=== PATIENT | female | born 2000 | race Caucasian/White ===

== ENCOUNTER 2019-06-17 07:51 | Observation (INO) | payer OTHER ==
[~2019-06-17] VITALS: Ht 167.6 cm; Wt 100.7 kg
--- OUTSIDE RECORDS SUMMARY | ~2019-06-17 | XMS | Encounter Summary ---
Demographics + + + | Address | [address] | | | [place] [address] | + + + | Home Phone | | + + + | Preferred Language | Unknown | + + + | Marital Status | Single | + + + | Moravian Affiliation | Unknown | + + + | Race | White | + + + | Ethnic Group | Not or | + + + Author + + + | Author | [facility] | + + + | Organization | [facility] | + + + | Address | Unknown | + + + | Phone | Unavailable | + + + Support + + +---------+ + | Name | Relationship | Address | Phone | + + +---------+ + | Vivek Woods | ECON | Unknown | | + + +---------+ + | Mary Woods | ECON | Unknown | | + + +---------+ + Care Team Providers + +------+ + | Care Harness Installer Name | Role | Phone | + +------+ + | Nyla Fitzpatrick MD | PCP | | + +------+ + Reason for Visit + + + | Reason | Comments | + + + | Medication Refill | | + + + Encounter Details +--------+ + + + + | Date | Type | Department | Care Team | Description | +--------+ + + + + | 08/30/ | Telephone | Pediatric | [place] Leonardo MD | Medication Refill | | 2007 | | Gastroenterology at | | | | | | [place] | | | | | | [facility] | | | | | | [address] | | | | | | [place] Mailcode: | | | | | | [facility] | | | | | | [place], [place] | | | | | | [address] | | | | | | [phone] | | | +--------+ + + + + Social History + +-------+ +--------+------+ | Tobacco Use | Types | Packs/Day | Years | Date | | | | | Used | | + +-------+ +--------+------+ | Never Assessed | | | | | + +-------+ +--------+------+ + + + | Sex Assigned at | Date Recorded | | | | + + + | Not on file | | + + + + + + + | Job Start Date | Occupation | Industry | + + + + | Not on file | Not on file | Not on file | + + + + + + + + | Travel History | Travel Start | Travel End | + + + + + + | No recent travel history available. | + + documented as of this encounter Plan of Treatment Not on filedocumented as of this encounter Visit Diagnoses Not on filedocumented in this encounter"
--- OUTSIDE RECORDS SUMMARY | ~2019-06-17 | XMS | Encounter Summary ---
Demographics + + + | Address | [address] | | | [place] [address] | + + + | Home Phone | | + + + | Preferred Language | Unknown | + + + | Marital Status | Single | + + + | Advent Affiliation | Unknown | + + + | Race | White | + + + | Ethnic Group | Not or | + + + Author + + + | Author | [facility] | + + + | Organization | [facility] | + + + | [...] Team Providers + +------+ + | Care Concrete Vault Maker Name | Role | Phone | + +------+ + | Nyla Fitzpatrick MD | PCP | | + +------+ + Reason for Visit + + + | Reason | Comments | + + + | Care Coordination | | + + + Encounter Details +--------+ + + + + | Date | Type | Department | Care Team | Description | +--------+ + + + + | 02/06/ | Telephone | Pediatric | Crista Valadez, | Care Coordination | | 2016 | | Gastroenterology at | MD [address] | | | | | [place] | [place], [place] | | | | | [facility] | [address] | | | | | [address] [facility] | [phone] | | | | | [place] Mailcode: | | | | | | [address] | | | | | | [place], [place] | | | | | | [address] | | | | | | [phone] | | | +--------+ + + + + Social History + +-------+ +--------+------+ | Tobacco Use | Types | Packs/Day | Years | Date | | | | | Used | | + +-------+ +--------+------+ | Passive Smoke | | | | | | Exposure - Never | | | | | | Smoker | | | | | + +-------+ +--------+------+ + +---+---+---+ | Smokeless Tobacco: | | | | | Never Used | | | | + +---+---+---+ + + +---------+ + | Alcohol Use | Drinks/Week | oz/Week | Comments | + + +---------+ + | Not Asked | | | | + + +---------+ + + + + | Sex Assigned at [...]
--- OUTSIDE RECORDS SUMMARY | ~2019-06-17 | XMS | Encounter Summary ---
Demographics + + + | Address | [address] | | | [place] [address] | + + + | Home Phone | | + + + | Preferred Language | Unknown | + + + | Marital Status | Single | + + + | Evangelical Affiliation | Unknown | + + + | Race | White | + + + | Ethnic Group | Not or | + + + Author + + + | Author | [facility] | + + + | Organization | [facility] | + + + | Address | [...] Team Providers + +------+ + | Care Marble Installation Helper Name | Role | Phone | + +------+ + | Nyla Fitzpatrick MD | PCP | | + +------+ + Reason for Visit + + + | Reason | Comments | + + + | Test Results | | + + + Encounter Details +--------+ + + + + | Date | Type | Department | Care Team | Description | +--------+ + + + + | 10/10/ | Documentati | Pediatric | Crista Valadez, | Test Results | | 2015 | on | Gastroenterology at | MD [address] | | | | | [place] | [place], [place] | | | | | [facility] | [address] | | | | | [address] | [phone] | | | | | [place] Mailcode: | | | | | | [facility] [place] | | | | | | [place], [place] | | | | | | [address] | | | | | | [phone] | | | +--------+ + + + [...]
--- OUTSIDE RECORDS SUMMARY | ~2019-06-17 | XMS | Encounter Summary ---
Demographics + + + | Address | [address] | | | [place] [address] | + + + | Home Phone | | + + + | Preferred Language | Unknown | + + + | Marital Status | Single | + + + | Yazidi Affiliation | Unknown | + + + | Race | White | + + + | Ethnic Group | Not or | + + + Author + + + | Author | [facility] | + + + | Organization | [facility] | + + + | Address [...] Team Providers + +------+ + | Care Discharge Door Operator Name | Role | Phone | + +------+ + | Nyla Fitzpatrick MD | PCP | | + +------+ + Reason for Visit +--------+ + | Reason | Comments | +--------+ + | Other | No lab work in one year | +--------+ + Encounter Details +--------+ + + + + | Date | Type | Department | Care Team | Description | +--------+ + + + + | 05/14/ | Telephone | Pediatric | Althea Mcdonald, | Other (No lab work | | 2009 | | Gastroenterology at | RN [address] | in one year) | | | | [place] | [address] | | | | | [facility] | [place] [address] | | | | | [address] | | | | | | [place] Mailcode: | | | | | | [place] | | | | | | [place], [place] | | | | | | [address] | | | | | | [phone] | | | +--------+ + + + [...]
--- OUTSIDE RECORDS SUMMARY | ~2019-06-17 | XMS | Encounter Summary ---
Demographics + + + | Address | [address] | | | [place] [address] | + + + | Home Phone | | + + + | Preferred Language | Unknown | + + + | Marital Status | Single | + + + | Catholic Affiliation | Unknown | + + + | Race | White | + + + | Ethnic Group | Not or | + + + Author + + + | Author | [facility] | + + + | Organization | [facility] | + + + | Address [...] Team Providers + +------+ + | Care Pastry Cook Name | Role | Phone | + +------+ + | Nyla Fitzpatrick MD | PCP | | + +------+ + Reason for Visit + + + | Reason | Comments | + + + | Refill Request | | + + + Encounter Details +--------+--------+ + + + | Date | Type | Department | Care Team | Description | +--------+--------+ + + + | 07/27/ | Refill | Pediatric | Althea Mcdonald, | Refill Request | | 2007 | | Gastroenterology at | RN [address] | | | | | [place] | [address] | | | | | [facility] | [place] [address] | | | | | [address] | | | | | | [place] Mailcode: | | | | | | [facility] [place] | | | | | | [place], [place] | | | | | | [address] | | | | | | [phone] | | | +--------+--------+ + + + Social History + +-------+ [...]
--- OUTSIDE RECORDS SUMMARY | ~2019-06-17 | XMS | Encounter Summary ---
Demographics + + + | Address | [address] | | | [place] [address] | + + + | Home Phone | | + + + | Preferred Language | Unknown | + + + | Marital Status | Single | + + + | Judaism Affiliation | Unknown | + + + | Race | White | + + + | Ethnic Group | Not or | + + + Author + + + | Author | [facility] | + + + | Organization [...] Team Providers + +------+ + | Care Production Painter Name | Role | Phone | + +------+ + | Nyla Fitzpatrick MD | PCP | | + +------+ + Reason for Visit + + + | Reason | Comments | + + + | Care Coordination | Hartman request | + + + Encounter Details +--------+ + + + + | Date | Type | Department | Care Team | Description | +--------+ + + + + | 12/08/ | Telephone | Pediatric | Crista Valadez, | Care Coordination | | 2017 | | Gastroenterology at | MD [address] | ([facility]) | | | | [facility] | [place], [place] | | | | | [facility] | [address] | | | | | [address] | [phone] | | | | | [place] Mailcode: | | | | | | [address] | | | | | | [facility] [place] | | | | | | [address] | | | | | | [phone] | | | +--------+ + + + [...]
--- OUTSIDE RECORDS SUMMARY | ~2019-06-17 | XMS | Encounter Summary ---
Demographics + + + | Address | [address] | | | [place] [address] | + + + | Home Phone | | + + + | Preferred Language | Unknown | + + + | Marital Status | Single | + + + | Jainism Affiliation | Unknown | + + + | Race | White | + + + | Ethnic Group | Not or | + + + Author + + + | Author | [facility] [employer] [facility] | + + + | Organization | [facility] | + + + | Address [...] Team Providers + +------+ + | Care Back Closer Name | Role | Phone | + +------+ + | Nyla Fitzpatrick MD | PCP | | + +------+ + Encounter Details +--------+ + + + + | Date | Type | Department | Care Team | Description | +--------+ + + + + | 06/12/ | Abstract | Pediatric | Crista Valadez, | | | 2014 | | Gastroenterology at | [address] | | | | | [place] | [place], [place] | | | | | [facility] | [address] | | | | | [address] | [phone] | | | | | [place] Mailcode: | | | | | | [place] | | | | | | [place], [place] | | | | | | [address] | | | | | | [phone] | | | +--------+ + + + [...] Not on filedocumented as of this encounter Procedures + +--------+ + + + | Procedure Name | Priori | Date/Time | Associated Diagnosis | Comments | | | ty | | | | + +--------+ + + + | CMV PCR | Routin | 06/08/2015 | | Results for this | | QUANTITATION, PLASMA | e | 9:25 AM | | procedure are in the | | | | PDT | | results section. | + +--------+ + + + | NICOLASA STEPHENS | Routin | 06/08/2015 | | Results for this | | PCR,QUANT (PLASMA OR | e | 9:25 AM | | procedure are in the | | CSF) | | PDT | | results section. | + +--------+ + + + documented in this encounter Results CMV PCR QUANTITATION, PLASMA (06/08/2015 9:25 AM PDT) + + + + + + | Component | Value | Ref Range | Performed | Pathologist | | | | | At | Signature | + + + + + + | CMV DNA | <390 | | [facility] | | | QUANT | | | LAB - | | | COPY/ML | | | [place] | | + + + + + + | CMV, QUANT, | <2.6 | | [facility] | | | LOG CPY/ML | | | LAB - | | | | | | [place] | | + + + + + + | CMV DNA | <227 | | [facility] | | | QUANT IU/ML | | | LAB - | | | | | | [place] | | + + + + + + | CMV DNA | <2.4 | | [facility] | | | QUANT LOG | | | LAB - | | | IU/ML | | | [place] | | + + + + + + | CMV DNA | Not detected | | [facility] | | | QUANT | | | LAB - | | | INTER[facility] | | | [place] | | + + + + + + + + | Specimen | + + | Blood - Blood | + + + + + + + | Performing | Address | City/State/Zipcode | Phone Number | | Organization | | | | + + + + + | [facility] - | [address] | [place], [place] | [phone] | | [place] | | | | + + + + + NICOLASA STEPHENS PCR,QUANT (PLASMA OR CSF) (06/08/2015 9:25 AM PDT) + + + + + + | Component | Value | Ref Range | Performed | Pathologist | | | | | At | Signature | + + + + + + | EBV QUANT | <390 | | [facility] | | | COPY/ML | | | LAB - | | | | | | [place] | | + + + + + + | EBV QUANT | Log <2.6 | | [facility] | | | SPECIMEN | | | LAB - | | | | | | [place] | | + + + + + + | EBV | Not detected | | [facility] | | | INTERPRETAT | | | LAB - | | | ION | | | [place] | | + + + + + + + + | Specimen | + + | Blood | + + + + + + + | Performing | Address | City/State/Zipcode | Phone Number | | Organization | | | | + + + + + | [facility] - | [address] | [place], [place] | [phone] | | [place] | | | | + + + + + documented in this encounter Visit Diagnoses Not on filedocumented in this encounter"
--- OUTSIDE RECORDS SUMMARY | ~2019-06-17 | XMS | Clinical Summary ---
Demographics + + + | Address | [address] | | | [place] [address] | + + + | Home Phone | | + + + | Preferred Language | Unknown | + + + | Marital Status | Single | + + + | Nondenominational Affiliation | Unknown | + + + | Race | White | + + + | Ethnic Group | Not or | + + + Author + + + | Author | [facility] | + + + | Organization | [facility] | + + + | Address | Unknown | + + + | Phone | Unavailable | + + + Support + + +---------+ + | Name | Relationship | Address | Phone | + + +---------+ + | Vivek Rodriguez | ECON | Unknown | | + + +---------+ + | Mary Rodriguez | ECON | Unknown | | + + +---------+ + Care Team Providers + +------+ + | Care Health Club Manager Name | Role | Phone | + +------+ + | Nyla Fitzpatrick MD | PCP | | + +------+ + Source Comments ESTER is fully live on both EpicCare Ambulatory and EpicCare InPatient.[facility] Allergies + + + + + + | Active Allergy | Reactions | Severity | Noted | Comments | | | | | Date | | + + + + + + | Sulfa (Sulfonamide | Hives, | High | 10/05/19 | | | Antibiotics) | Swelling-Facial | | 09 | | + + + + + + | Varicella Vaccines | | Low | 10/05/19 | Possible reaction | | | | | 09 | with sulfa meds | + + + + + + Medications + + + +---------+------+------+-------+ | Medication | Sig | Dispensed | Refills | Star | End | Statu | | | | | | t | Date | s | | | | | | Date | | | + + + +---------+------+------+-------+ | amLODIPine 5 mg | Take 5 mg by mouth | | 0 | | | Activ | | oral tablet | once daily. 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 | + + + | Aortic insufficiency | 06/28/2014 | + + + | Aortic root dilatation | 06/28/2014 | + + + | VSD (ventricular septal defect), perimembranous | 12/20/2007 | + + + + + | Overview: 06/01/2014 S/p 8-mm Amplatzer Vascular Plug IV, | | with no significant residual shuntingLeft atrial isomerism LAE | | (left atrial enlargement) LVE (left ventricular enlargement) | |LVE (left ventricular enlargement) | + + + + + | 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 | + + Last Filed Vital Signs + + + + + | Vital Sign | Reading | Time Taken | Comments | + + + + + | Blood Pressure | 130/93 | 03/13/2016 9:24 AM | right arm adult cuff | | | | PDT | | + + + + + | Pulse | 72 | 03/13/2016 9:24 AM | | | | | PDT | | + + + + + | Temperature | 36.7 C (98.1 F) | 03/13/2016 8:59 AM | | | | | PDT | | + + + + + | Respiratory Rate | - | - | | + + + + + | Oxygen Saturation | - | - | | + + + + + | Inhaled Oxygen | - | - | | | Concentration | | | | + + + + + | Weight | 81.5 kg (179 lb 10.8 | 03/13/2016 8:59 AM | | | | oz) | PDT | | + + + + + | Height | 164.4 cm (5' 4.72") | 03/13/2016 8:59 AM | | | | | PDT | | + + + + + | Body Mass Index | 30.16 | 03/13/2016 8:59 AM | | | | | PDT | | + + + + + Plan of Treatment + + + + + | Health Maintenance | Due Date | Last Done | Comments | + + + + + | Pneumococcal | | | | | vaccination (1 of 3 | 5 | | | | - PCV13) | | | | + + + + + | Influenza (Flu) | | | | | vaccination (#1) | 9 | | | + + + + + Results Not on filefrom Last 3 Months Insurance + +--------+ +--------+-------+---------+--------+ | Payer | Benefi | Subscriber | Effect | Phone | Address | Type | | | t Plan | ID | adrian | | | | | | / | | Dates | | | | | | Group | | | | | | + +--------+ +--------+-------+---------+--------+ | COMMERCIAL FRONT LOAD OPERATOR MEDICAID | COMMERCIAL FRONT LOAD OPERATOR | [id number] | | | | Medica | | | [place] | | 015-Pr | | | id | | | [place] | | esent | | | | + +--------+ +--------+-------+---------+--------+ + +--------+ +--------+ + + | Guarantor Name | Accoun | Relation to | Date | Phone | Billing Address | | | t Type | Patient | of | | | | | | | | | | + +--------+ +--------+ + + | VIVEK RODRIGUEZ | Person | Father [birth year] | [address] | | | al/Fam | | 1980 | [phone] | [place] [address] | | | marlene | | | 7 (Home) | | + +--------+ +--------+ + + Advance Directives + + + + + | Type | Date Recorded | Patient | Explanation | | | | Director Of Retail Analytics | | + + + + + | Advance | | | | | Directives and | | | | | Living Will | | | | + + + + + | Power of | | | | | Metal Filer | | | | + + + + +
--- OUTSIDE RECORDS SUMMARY | ~2019-06-17 | XMS | Encounter Summary ---
Demographics + + + | Address | [address] | | | [place] [address] | + + + | Home Phone [...] + + | Author | [facility] | + + + | Organization | [facility] | + + + | Address [...] Team Providers + +------+ + | Care Packaging Operator Name | Role | Phone | + +------+ + | Nyla Fitzpatrick MD | PCP | | + +------+ + Reason for Visit +--------+ + | Reason | Comments | +--------+ + | Other | Need labs drawn | +--------+ + Encounter Details +--------+ + + + + | Date | Type | Department | Care Team | Description | +--------+ + + + + | 05/30/ | Telephone | Pediatric | Althea Mcdonald, | Other (Need labs | | 2008 | | Gastroenterology at | RN [address] [facility] | drawn) | | | | [place] | [address] | | | | [facility] | [place] [address] | | | | | [address] [facility] | | | | | | [facility] Mailcode: | | | | | | [facility] [place] | | | | | | [place], [place] | | | | | | [address] | | | | | | [phone] | | | +--------+ + + + [...]
--- OUTSIDE RECORDS SUMMARY | ~2019-06-17 | XMS | Encounter Summary ---
Demographics + + + | Address | [address] | | | [place] [address] | + + + | Home Phone | | + + + | Preferred Language | Unknown | + + + | Marital Status | Single | + + + | Anabaptist Affiliation | Unknown | + + + [...] Team Providers + +------+ + | Care Director Educational Radio Name | Role | Phone | + +------+ + | Nyla Fitzpatrick MD | PCP | | + +------+ + Encounter Details +--------+ + + + + | Date | Type | Department | Care Team | Description | +--------+ + + + + | 05/28/ | Office | | Note, Outpatient | Progress Note | | 2006 | Visit-Trans | | Clinic | | | | cribed | | | | +--------+ + + [...] as of this encounter Progress Notes Interface, Human Performance Professor In - 06/18/2006 2:32 AM [facility] [id number] CHUCK ELIAS N [id number] Clinic Date: 05/28/2006 Clinic: Pediatric Liver Transplant Followup Clinic Problems: Status post liver transplant for biliary atresia, 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 Medication: Prograf 1-mg capsules 1 p.o. b.i.d. Allergies: SULFA, HIVES. Subjective: Nicki is a 5-year 8-month-old referred in consultation by Dr. Fitzpatrick for followup of her liver transplant. Dr. Carlos Brady was an observer in clinic today. Nicki was accompanied by her father. He reports that she was a 5-pound 2-ounce product of a 34-week gestation. She required some oxygen in the period. 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 She had biliary atresia and was transplanted at about [age] of age. Her father reports that she did wonderfully after her transplant. She has never had a rejection and has had no significant problems. She is on 1 medication only. Past Medical History: She has a VSD that is followed by Dr. Molina at [facility]. Review of Systems: She has no chronic cough, no abdominal pain, no diarrhea, no eczema or other allergic problems. Rest of her review of systems is negative. Family History: Positive for type 2 diabetes and heart problems in adults. Social History: She lives with her mother, her father, and her 3-year-old brother. She is in 2nd grade. Objective: General: She is a well-appearing girl in no acute distress. Vital Signs: Her weight is 30.8 kg, 87th percentile for age; her height is 130 cm which is 75th percentile; her BMI is 18.22, 86th percentile. Her blood pressure is 120/83, slightly high; her heart rate is 80. HEENT: She is normocephalic. Eyes: No icterus. No periorbital edema. Pharynx unremarkable. Neck: Supple. Chest: Clear to auscultation. Cardiac: She has a 3 to 4 over 6 systolic murmur that is heard best in the apex. Abdomen: She has well-healed incisions, no hepatosplenomegaly, no masses noted. Extremities: No clubbing or edema. Nodes: No cervical or supraclavicular nodes. Skin: Clear. Laboratory Tests: Most recent tests were done on May 25, 2006, electrolytes unremarkable, AST 32, ALT 19, alkaline phosphatase 221, bilirubin 0.8, albumin 3.2 which in the normal range for that lab. GGT 9, magnesium 1.9. White count 8.2, hematocrit 42.2, MCV 83, and platelets 325. Tacrolimus level 3.2. In the past in 2001, she developed positive antibodies to EBV. She is also positive for varicella antibody. Assessment: Status post liver transplant for biliary atresia. She is doing well and has never had rejection. Her Prograf level is in the target range. Recommendations: 1. Recommend she continue labs every 3 months as her previous schedule. 2. EBV PCR every 6 months. 3. No change in her medication at present. Plan to return to clinic once a year unless she has problems. [place] Leonardo M.D. [facility] / [id number] / [id number] / [id number] / [id number] cc: Nyla Fitzpatrick M.D. [address] [place] [address] * Pediatric Liver Coordinators [facility] [address] [place] [address] Electronically signed by [place] Leonardo 06-17-2006 10:05:03 PM documented i n this encounter Plan of Treatment Not on filedocumented as of this encounter Visit Diagnoses Not on filedocumented in this encounter"
--- OUTSIDE RECORDS SUMMARY | ~2019-06-17 | XMS | Encounter Summary ---
Demographics + + + | Address | [address] | | | [place] [address] | + + + | Home Phone | | + + + | Preferred Language | Unknown | + + + | Marital Status | Single | + + + | Samaritan Affiliation | Unknown | + + + | Race | White | + + + | Ethnic Group | Not or | + + + Author + + + | Author | [facility] | + + + | Organization | [facility] | + + + | [...] Team Providers + +------+ + | Care Group Therapy Counselor Name | Role | Phone | + +------+ + | No Pcp Per Patient | PCP | Unavailable | + +------+ + Encounter Details +--------+ + + + + | Date | Type | Department | Care Team | Description | +--------+ + + + + | 05/01/ | Abstract | Pediatric | Crista Valadez, | | | 2013 | | Gastroenterology at | MD [address] | | | | | [place] | [place], [place] | | | | | [facility] | [address] | | | | | [address] | [phone] | | | | [address] Mailcode: | | | | | | [address] | | | | | | [place], [place] | | | | | | [address] | | | | | | [phone] | | | +--------+ + + + [...] | + +--------+ + + + | CBC, WITH | Routin | 03/09/2014 | | Results for this | | DIFFERENTIAL | e | 11:57 AM | | procedure are in the | | | | PDT | | results section. | + +--------+ + + + | COMPLETE METABOLIC | Routin | 03/09/2014 | | Results for this | | SET | e | 11:57 AM | | procedure are in the | | (NA,K,CL,CO2,BUN,CRE | | PDT | | results section. | | AT,GLUC,CA,AST,ALT,B | | | | | | WADE TOTAL,ALK | | | | | | PHOS,ALB,PROT TOTAL) | | | | | + +--------+ + + + documented in this encounter Results CBC, WITH DIFFERENTIAL (03/09/2014 11:57 AM PDT) + + + + + + | Component | Value | Ref Range | Performed | Pathologist | | | | | At | Signature | + + + + + + | WHITE CELL | 6.6 | 4.4 - 11.8 K/cu | [facility] | | | COUNT | | mm | LAB - | | | | | | [facility] | | + + + + + + | RED CELL | 4.83 | 3.8 - 5.3 M/cu | [facility] | | | COUNT | | mm | LAB - | | | | | | [facility] | | + + + + + + | HEMOGLOBIN | 14.7 | 11.1 - 15.7 | [facility] | | | | | g/dL | LAB - | | | | | | [facility] | | + + + + + + | HEMATOCRIT | 42.8 | 32 - 47 % | [facility] | | | | | | LAB - | | | | | | [facility] | | + + + + + + | MCV | 88.6 | 73 - 91 fL | [facility] | | | | | | LAB - | | | | | | [facility] | | + + + + + + | MCH | 30 | 25 - 31 pg | [facility] | | | | | | LAB - | | | | | | [facility] | | + + + + + + | MCHC | 34 | 30 - 36 g/dL | [facility] | | | | | | LAB - | | | | | | [facility] | | + + + + + + | PLATELET | 328 | 140 - 440 K/cu | [facility] | | | COUNT | | mm | LAB - | | | | | | [facility] | | + + + + + + | NEUTROPHIL | 63.8 | 35 - 65 % | [facility] | | | % | | | LAB - | | | | | | [facility] | | + + + + + + | LYMPHOCYTE | 25.1 (A) | 28 - 48 % | [facility] | | | % | | | LAB - | | | | | | [facility] | | + + + + + + | MONOCYTE % | 7.2 | 0 - 12 % | [facility] | | | | | | LAB - | | | | | | [facility] | | + + + + + + | EOS % | 3.1 | 0 - 6 % | [facility] | | | | | | LAB - | | | | | | [facility] | | + + + + + + | BASO % | 0.8 | 0 - 2 % | [facility] | | | | | | LAB - | | | | | | [facility] | | + + + + + + | RDW | 13.8 | 10.5 - 15.0 % | [facility] | | | | | | LAB - | | [...] [address] | [place], [place] | [phone] | | [facility] | | | | + + + + + COMPLETE METABOLIC SET (NA,K,CL,CO2,BUN,CREAT,GLUC,CA,AST,ALT,BILI TOTAL,ALK PHOS,ALB,PROT TOTAL) (03/09/2014 11:57 AM PDT) + +--------+ + + + | Component | Value | Ref Range | Performed | Pathologist | | | | | At | Signature | + +--------+ + + + | GLUCOSE, | 87 | 70 - 100 mg/dL | [facility] | | | PLASMA | | | LAB - | | | (LAB) | | | [facility] | | + +--------+ + + + | BUN, PLASMA | 13 | 6 - 23 mg/dL | [facility] | | | (LAB) | | | LAB - | | | | | | [facility] | | + +--------+ + + + | CREATININE | 0.75 | 0.40 - 1.05 | [facility] | | | PLASMA | | mg/dL | LAB - | | | (LAB) | | | [facility] | | + +--------+ + + + | TOTAL | 7.6 | 6.1 - 8.5 g/dL | [facility] | | | PROTEIN, | | | LAB - | | | PLASMA | | | [facility] | | | (LAB) | | | | | + +--------+ + + + | ALBUMIN, | 4.4 | 3.5 - 5.0 g/dL | [facility] | | | PLASMA | | | LAB - | | | (LAB) | | | [facility] | | + +--------+ + + + | CALCIUM, | 9.9 | 8.4 - 10.2 | [facility] | | | PLASMA | | mg/dL | LAB - | | | (LAB) | | | [facility] | | + +--------+ + + + | BILIRUBIN | 0.8 | 0 - 1.2 | [facility] | | | TOTAL | | Transcutaneous | LAB - | | | | | Bilirubinometer | [facility] | | + +--------+ + + + | ALK PHOS | 92 (A) | 135 - 384 U/L | [facility] | | | | | | LAB - | | | | | | [facility] | | + +--------+ + + + | AST(SGOT) | 13 | 13 - 39 U/L | [facility] | | | | | | LAB - | | | | | | [facility] | | + +--------+ + + + | SODIUM, | 140 | 132 - 143 | [facility] | | | PLASMA | | mmol/L | LAB - | | | (LAB) | | | [facility] | | + +--------+ + + + | POTASSIUM, | 4.0 | 3.6 - 5.1 | [facility] | | | PLASMA | | mmol/L | LAB - | | | (LAB) | | | [facility] | | + +--------+ + + + | CHLORIDE, | 100 | 95 - 112 mmol/L | [facility] | | | PLASMA | | | LAB - | | | (LAB) | | | [facility] | | + +--------+ + + + | TOTAL CO2, | 28 | 19 - 31 mmol/L | [facility] | | | PLASMA | | | LAB - | | | (LAB) | | | [facility] | | + +--------+ + + + | ALT (SGPT) | 9 | 7 - 52 U/L | [facility] | | | | | | LAB - | | | | | | [facility] | | + +--------+ + + + | ANION GAP | 16 | 7 - 21 | [facility] | | | | | | LAB - | | | | | | [facility] | | + +--------+ + + + | BUN/CREATIN | 17.3 | 6.0 - 28.6 | [facility] | | | INE RATIO | | | LAB - | | | | | | [facility] | | + +--------+ + + + | GLOBULIN | 3.2 | 1.8 - 3.5 | [facility] | | | | | | LAB - | | | | | | [facility] | | + +--------+ + + + | A/G RATIO | 1.4 | 1.1 - 2.4 | [facility] | | | | | | LAB - | | | | | | [facility] | | + +--------+ + + + + + | Specimen | + + | Blood - Blood | + + + + + + + | Performing | Address | City/State/Zipcode | Phone Number | | Organization | | | | + + + + + | [facility] - | [address] | [place] | [phone] | | [place] | | | | + + + + + documented in this encounter Visit Diagnoses Not on filedocumented in this encounter"
--- OUTSIDE RECORDS SUMMARY | ~2019-06-17 | XMS | Encounter Summary ---
Demographics + + + | Address | [address] | | | [place] [address] | + + + | Home Phone | | + + + | Preferred Language | Unknown | + + + | Marital Status | Single | + + + | Hoahaoism Affiliation | Unknown | + + + [...] Team Providers + +------+ + | Care Bushing And Broach Operator Name | Role | Phone | + +------+ + | Nyla Fitzpatrick MD | PCP | | + +------+ + Encounter Details +--------+ + + + + | Date | Type | Department | Care Team | Description | +--------+ + + + + | 06/11/ | Transcribed | | Dictation, Other | [...] as of this encounter Progress Notes Interface, Blasting Gang Miner In - 06/27/2006 3:05 AM [facility] [place] [address] [place], [place] [address] or June 11, 2000 Nyla Fitzpatrick M.D. [address] [place] [address] RE: NICKI WOODS MR #: [id number] : 2000 DATE OF TRANSPLANT: 03/24/[address] Fitzpatrick: I had the pleasure of seeing Nicki at the Pediatric Liver Transplant Clinic held at [facility], attended by Dr. Beth and Dr. Kallie Don, representatives of the Liver Transplant team at [place], in lieu with Dr. Carnes. As you know, she underwent liver transplantation on March 24, 2000, and did well posttransplant. Since she has been at home, she has continued to do fairly well. The only problem is some diarrhea. On a good day she will have 2 bowel movements a day, and on a bad day she will have 4-5. She has no fever or blood in the stool, however. She is on Prograf 5 ml b.i.d. and acyclovir 10 ml q.i.d. Septra was stopped a few weeks ago because of A LIKELY ALLERGIC REACTION TO SEPTRA. It involved hives. On exam, she weighs 11.2 kg and measures 78 cm. Blood pressure is 85/50. Pulse was 126. She is anicteric, active, and playful. Her abdomen is soft and rounded with no mass, tenderness, or organomegaly. She had some recent blood tests, which show transaminases in the 40-50 range. The remainder of the blood test results are very similar to the ones done a week before. Her most recent tacrolimus level is appropriate. The most recent one is pending. 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 She has had a relatively uncomplicated posttransplant course and is doing fairly well. We need to begin a pneumocystis prophylaxis soon. She will start receiving pentamidine, 1 unit dose per month, (1 vial) inhalation therapy. We will see if can arrange this to be done in the [facility], rather than having the family drive all the way to the [place] for this. This should be done for 1 year posttransplant. For the next 1-1/2 months, the family will have Nicki's blood drawn every 2 weeks. Assuming everything is under control, then it could be done monthly. The family will be talking to Dr. Carnes soon to firm up plans to have Nicki followed mostly by you in the [facility], and to come to [place] either when the situation is unstable and, at the very least, every 3-6 months for chronic monitoring. Finally, Kallie will work out the details of which laboratory tests should be done and when with the family. Please let me know if you have any questions. Sincerely, Kendall Angulo M.D. Pediatric Gastroenterology [facility] / [id number] / [id number] / [id number] / [id number] cc: Kendall Beth M.D. [address] [place] [id number] [id number] signed by Interface, Blasting Gang Miner In at 06/27/2006 3:05 AM PSTdocume nted in this encounter Plan of Treatment Not on filedocumented as of this encounter Visit Diagnoses Not on filedocumented in this encounter"
--- OUTSIDE RECORDS SUMMARY | ~2019-06-17 | XMS | Encounter Summary ---
Demographics + + + | Address | [address] | | | [place] [address] | + + + | Home Phone | | + + + | Preferred Language | Unknown | + + + | Marital Status | Single | + + + | Buddhism Affiliation | Unknown | + + + | Race | White | + + + | Ethnic Group | Not or | + + + Author + + + | Author | [facility] | + + + | Organization | [facility] | + + + | Address [...] Providers + +------+ + | Care Pastry Finisher Name | Role | Phone | + +------+ + | Nyla Fitzpatrick MD | PCP | | + +------+ + Encounter Details +--------+ + + + + | Date | Type | Department | Care Team | Description | +--------+ + + + + | 05/28/ | Abstract | Pediatric | [place] Leonardo MD | | | 2008 | | Gastroenterology at | | | | | | [place] | | | | | | [facility] | | | | | | [address] | | | | | | [place] Mailcode: | | | | | | [place] | | | | | | [place], [place] | | | | | | [address] | | | | | | [phone] | | | +--------+ + + + [...] | + +--------+ + + + | CULTURE, URINE BACTI | Routin | 03/02/2009 | | Results for this | | | e | 8:23 PM | | procedure are in the | | | | PDT | | results section. | + +--------+ + + + | CBC, WITH | Routin | 03/02/2009 | | Results for this | | DIFFERENTIAL | e | 7:59 PM | | procedure are in the | | | | PDT | | results section. | + +--------+ + + + | CULTURE, BLOOD BACTI | Routin | 03/02/2009 | | Results for this | | & YEAST | e | 7:57 PM | | procedure are in the | | | | PDT | | results section. | + +--------+ + + + | COMPLETE METABOLIC | Routin | 03/02/2009 | | Results for this | | SET | e | 7:52 PM | | procedure are in the | | (NA,K,CL,CO2,BUN,CRE | | PDT | | results section. | | AT,GLUC,CA,AST,ALT,B | | | | | | WADE TOTAL,ALK | | | | | | PHOS,ALB,PROT TOTAL) | | | | | + +--------+ + + + | UA, DIPSTICK ONLY | Routin | 03/02/2009 | | Results for this | | | e | | | procedure are in the | | | | | | results section. | + +--------+ + + + documented in this encounter Results CULTURE, URINE BACTI (03/02/2009 8:23 PM PDT) + + + + + + | Component | Value | Ref Range | Performed | Pathologist | | | | | At | Signature | + + + + + + | CULTURE | negComment: Day 1, | | [facility] | | | RESULT | 03/03/09 am No growth | | LAB - | | | | after overnight | | [facility] | | | | incubation | | | | + + + + + + | CULTURE | nuxedComment: Days 2, | | [facility] | | | RESULT | - AM, 20,000 | | LAB - | | | | CFU/ML mixed olinda | | [facility] | | | | bacteria and/or yeast | | | | | | isolated probably | | | | | | represent urethral, | | | | | | perineal, or other | | | | | | contaminating olinda | | | | + + + + + + + + | Specimen | + + | Urine | + + + + + | Narrative | Performed At | + + + | Day 1 no aerobic or anaerobic growth as of 03/03/09 07:22 AM Day 2 | [facility] | | no aerobic or anaerobic growth as of 03/04/09 07:16 AM Day 3 no | - [facility] | | aerobic or anaerobic growth as of 03/05/09 06:51 AM Day 6 - No | | | growth after 6 days incubation | | + + + + + + + + | Performing | Address | City/State/Zipcode | Phone Number | | Organization | | | | + + + + + | [facility] - | [address] | [place], [place] | [phone] | | [facility] | | | | + + + + + | [facility] - | | [place], [place] | | | [facility] | | | | + + + + + CBC, WITH DIFFERENTIAL (03/02/2009 7:59 PM PDT) + + + + + + | Component | Value | Ref Range | Performed | Pathologist | | | | | At | Signature | + + + + + + | WHITE CELL | 8.6 | 4.5 - 13.5 K/cu | [facility] | | | COUNT | | mm | LAB - | | | | | | [facility] | | + + + + + + | RED CELL | 5.48 (A) | 4.1 - 5.3 M/cu | [facility] | | | COUNT | | mm | LAB - | | | | | | [facility] | | + + + + + + | HEMOGLOBIN | 16.4 (A) | 10.6 - 15.2 | [facility] | | | | | g/dL | LAB - | | | | | | [facility] | | + + + + + + | HEMATOCRIT | 46.5 (A) | 32 - 42 % | [facility] | | | | | | LAB - | | | | | | [place] | | + + + + + + | MCV | 84.9 | 71 - 89 fL | [facility] | | | | | | LAB - | | | | | | [place] | | + + + + + + | MCH | 30 | 24 - 30 pg | [facility] | | | | | | LAB - | | | | | | [place] | | + + + + + + | MCHC | 35 | 30 - 36 g/dL | [facility] | | | | | | LAB - | | | | | | [place] | | + + + + + + | PLATELET | 359 | 140 - 440 K/cu | [facility] | | | COUNT | | mm | LAB - | | | | | | [place] | | + + + + + + | NEUTROPHIL | 71.7 (A) | 31 - 60 % | [facility] | | | % | | | LAB - | | | | | | [place] | | + + + + + + | LYMPHOCYTE | 17.7 (A) | 28 - 48 % | [facility] | | | % | | | LAB - | | | | | | [place] | | + + + + + + | MONOCYTE % | 8.3 | 0 - 12 % | [facility] | | | | | | LAB - | | | | | | [place] | | + + + + + + | EOS % | 0.5 | 0 - 6 % | [facility] | | | | | | LAB - | | | | | | [place] | | + + + + + + | BASO % | 1.8 | 0 - 2 % | [facility] | | | | | | LAB - | | | | | | [place] | | + + + + + + | RDW | 12.0 | 10.5 - 15.0 % | [facility] | | | | | | LAB - | | | | | | [place] | | + + + + + + | MPV | | fL | [facility] | | | | | | LAB - | | | | | | [place] | | + + + + + + | NEUTROPHIL | | K/cu mm | [facility] | | | # | | | LAB - | | | | | | [place] | | + + + + + + | LYMPHOCYTE | | K/cu mm | [facility] | | | # | | | LAB - | | | | | | [place] | | + + + + + + | MONOCYTE # | | K/cu mm | [facility] | | | | | | LAB - | | | | | | [place] | | + + + + + + | EOS # | | K/cu mm | [facility] | | | | | | LAB - | | | | | | [place] | | + + + + + + | BASO # | | | [facility] | | | | | [...] | [facility] - | [address] | [place], [place] | [phone] | | [place] | | | | + + + + + | [facility] - | | [place], [place] | | | [place] | | | | + + + + + CULTURE, BLOOD BACTI & YEAST (03/02/2009 7:57 PM PDT) + +-------+ + + + | Component | Value | Ref Range | Performed | Pathologist | | | | | At | Signature | + +-------+ + + + | CULTURE | Neg | | [facility] | | | RESULT | | | LAB - | | | | | | [facility] | | + +-------+ + + + + + | Specimen | + + | Blood | + + + + + | Narrative | Performed At | + + + | Day 1 no aerobic or anaerobic growth as of 03/03/09 07:22 AM Day 2 | [facility] | | no aerobic or anaerobic growth as of 03/04/09 07:16 AM Day 3 no | - [facility] | | aerobic or anaerobic growth as of 03/05/09 06:51 AM Day 6 - No | | | growth after 6 days incubation | | + + + + + + + + | Performing | Address | City/State/Zipcode | Phone Number | | Organization | | | | + + + + + | [facility] - | [address] | [place], [place] | [phone] | | [facility] | | | | + + + + + | [facility] - | | [place], [place] | | | [facility] | | | | + + + + + COMPLETE METABOLIC SET (NA,K,CL,CO2,BUN,CREAT,GLUC,CA,AST,ALT,BILI TOTAL,ALK PHOS,ALB,PROT TOTAL) (03/02/2009 7:52 PM PDT) + +-------+ + + + | Component | Value | Ref Range | Performed | Pathologist | | | | | At | Signature | + +-------+ + + + | GLUCOSE, | 99 | 60 - 100 mg/dL | [facility] | | | PLASMA | | | LAB - | | | (LAB) | | | [facility] | | + +-------+ + + + | BUN, PLASMA | 14.8 | 7 - 21 mg/dL | [facility] | | | (LAB) | | | LAB - | | | | | | [place] | | + +-------+ + + + | CREATININE | 0.70 | 0.5 - 1.5 mg/dL | [facility] | | | PLASMA | | | LAB - | | | (LAB) | | | [place] | | + +-------+ + + + | TOTAL | | g/dL | [facility] | | | PROTEIN, | | | LAB - | | | PLASMA | | | [place] | | | (LAB) | | | | | + +-------+ + + + | ALBUMIN, | | g/dL | [facility] | | | PLASMA | | | LAB - | | | (LAB) | | | [place] | | + +-------+ + + + | CALCIUM, | | mg/dL | [facility] | | | PLASMA | | | LAB - | | | (LAB) | | | [place] | | + +-------+ + + + | BILIRUBIN | | Transcutaneous | [facility] | | | TOTAL | | Bilirubinometer | LAB - | | | | | | [place] | | + +-------+ + + + | ALK PHOS | | U/L | [facility] | | | | | | LAB - | | | | | | [place] | | + +-------+ + + + | AST(SGOT) | | U/L | [facility] | | | | | | LAB - | | | | | | [place] | | + +-------+ + + + | SODIUM, | 138 | 132 - 143 | [facility] | | | PLASMA | | mmol/L | LAB - | | | (LAB) | | | [place] | | + +-------+ + + + | POTASSIUM, | 3.8 | 3.6 - 5.1 | [facility] | | | PLASMA | | mmol/L | LAB - | | | (LAB) | | | [place] | | + +-------+ + + + | CHLORIDE, | 103 | 95 - 112 mmol/L | [facility] | | | PLASMA | | | LAB - | | | (LAB) | | | [place] | | + +-------+ + + + | TOTAL CO2, | 24.0 | 19 - 31 mmol/L | [facility] | | | PLASMA | | | LAB - | | | (LAB) | | | [place] | | + +-------+ + + + | ALT (SGPT) | | U/L | [facility] | | | | | | LAB - | | | | | | [place] | | + +-------+ + + + + + | Specimen | + + | Blood - Blood | + + + + + + + | Performing | Address | City/State/Zipcode | Phone Number | | Organization | | | | + + + + + | [facility] - | [address] | [place], [place] | [phone] | | [place] | | | | + + + + + | [facility] - | | [place], [place] | | | [place] | | | | + + + + + UA, ANSTICK ONLY (03/02/2009) + + + + + + | Component | Value | Ref Range | Performed | Pathologist | | | | | At | Signature | + + + + + + | COLOR(UR) | yellow | | [facility] | | | | | | LAB - | | | | | | [facility] | | + + + + + + | APPEARANCE | hazy | | [facility] | | | | | | LAB - | | | | | | [place] | | + + + + + + | LEUKOCYTE | Neg | Negative | [facility] | | | ESTERASE | | | LAB - | | | | | | [place] | | + + + + + + | NITRITES | Neg | Negative | [facility] | | | | | | LAB - | | | | | | [place] | | + + + + + + | UROBILINOGE | 1 | 0.2 CARLENE | [facility] | | | N | | UNITS | LAB - | | | | | | [place] | | + + + + + + | PROTEIN(LAB | 30 | Negative to | [facility] | | | ) | | Trace mg/dL | LAB - | | | | | | [place] | | + + + + + + | PH(UR) | 7 | 5 - 9 | [facility] | | | | | | LAB - | | | | | | [place] | | + + + + + + | BLOOD | 10 | Negative | [facility] | | | | | | LAB - | | | | | | [place] | | + + + + + + | SPECIFIC | 1.033 (A) | 1.005 - 1.03 | [facility] | | | GRAVITY | | | LAB - | | | | | | [facility] | | + + + + + + | KETONES | 150 | Negative mg/dL | [facility] | | | | | | LAB - | | | | | | [place] | | + + + + + + | BILIRUBIN | neg | Negative | [facility] | | | | | | LAB - | | | | | | [place] | | + + + + + + | GLUCOSE(UR) | normal | Negative to | [facility] | | | | | Trace mg/dL | LAB - | | | | | | [place] | | + + + + + + | WHITE CELL | 5 (A) | 0 - 4 K/cu mm | [facility] | | | COUNT | | | LAB - | | | | | | [place] | | + + + + + + | RED CELLS | 15 (A) | 0 - 4 /hpf | [facility] | | | | | | LAB - | | | | | | [place] | | + + + + + + | EPITHELIAL | squamous 1+ | Not applicable | [facility] | | | CELLS | | | LAB - | | | | | | [place] | | + + + + + + | CRYSTALS | neg | | [facility] | | | | | | LAB - | | | | | | [place] | | + + + + + + | BACTERIA | 2+ | /hpf | [facility] | | | | | | LAB - | | | | | | [facility] | | + + + + + + + + | Specimen | + + | Urine - Urine | + + + + + + + | Performing | Address | City/State/Zipcode | Phone Number | | Organization | | | | + + + + + | [facility] - | [address] | [place] | [phone] | | [facility] | | | | + + + + + | [facility] - | | [place], [place] | | | [facility] | | | | + + + + + documented in this encounter Visit Diagnoses Not on filedocumented in this encounter"
--- OUTSIDE RECORDS SUMMARY | ~2019-06-17 | XMS | Encounter Summary ---
Demographics + + + | Address | [address] | | | [place] [address] | + + + | Home Phone | | + + + | Preferred Language | Unknown | + + + | Marital Status | Single | + + + | Hindu Affiliation | Unknown | + + + | Race | White | + + + | Ethnic Group | Not or | + + + Author + + + | Author | [facility] [employer] [facility] | + + + | Organization | [facility] | + + + | [...] Team Providers + +------+ + | Care Administrative Secretary Name | Role | Phone | + +------+ + | Nyla Fitzpatrick MD | PCP | | + +------+ + Encounter Details +--------+ + + + + | Date | Type | Department | Care Team | Description | +--------+ + + + + | 05/26/ | Abstract | Pediatric | Althea Mcdonald, | | | 2006 | | Gastroenterology at | RN [address] | | | | | [place] | [address] | | | | | [facility] | [place] [address] | | | | | [address] | | | | | | [address] Mailcode: | | | | | | [address] [place] | | | | | | [place], [place] | | | | | | [address] | | | | | | [phone] | | | +--------+ + + + [...] | + +--------+ + + + | PEDS | Routin | 05/25/2007 | | Results for this | | GASTROENTEROLOGY | e | 8:00 AM | | procedure are in the | | EXTERNAL RESULTS | | PDT | | results section. | | PANEL | | | | | + +--------+ + + + documented in this encounter Results PEDS GASTROENTEROLOGY EXTERNAL RESULTS PANEL (05/25/2007 8:00 AM PDT) + + + + + + | Component | Value | Ref Range | Performed | Pathologist | | | | | At | Signature | + + + + + + | SODIUM, | 140 | 132 - 143 | OUTSIDE LAB | | | PLASMA | | mmol/L | | | | (LAB) | | | | | + + + + + + | POTASSIUM, | 4.0 | 3.6 - 5.1 | OUTSIDE LAB | | | PLASMA | | mmol/L | | | | (LAB) | | | | | + + + + + + | CHLORIDE, | 108 | 95 - 112 mmol/L | OUTSIDE LAB | | | PLASMA | | | | | | (LAB) | | | | | + + + + + + | TOTAL CO2, | 21.1 | 19 - 31 mmol/L | OUTSIDE LAB | | | PLASMA | | | | | | (LAB) | | | | | + + + + + + | BUN, PLASMA | 13 | 6 - 23 mg/dL | OUTSIDE LAB | | | (LAB) | | | | | + + + + + + | CREATININE | 0.48 (A) | 0.5 - 1.5 mg/dL | OUTSIDE LAB | | | PLASMA | | | | | | (LAB) | | | | | + + + + + + | GLUCOSE, | 96 | 60 - 100 mg/dL | OUTSIDE LAB | | | PLASMA | | | | | | (LAB) | | | | | + + + + + + | CALCIUM, | 10.2 | 8.5 - 10.5 | OUTSIDE LAB | | | PLASMA | | mg/dL | | | | (LAB) | | | | | + + + + + + | TOTAL | 7.8 | 6.0 - 8.1 g/dL | OUTSIDE LAB | | | PROTEIN, | | | | | | PLASMA | | | | | | (LAB) | | | | | + + + + + + | ALBUMIN, | 4.2 | 2.9 - 5.5 g/dL | OUTSIDE LAB | | | PLASMA | | | | | | (LAB) | | | | | + + + + + + | ALK PHOS | 263 | 135 - 384 U/L | OUTSIDE LAB | | + + + + + + | ALT (SGPT) | 24 | 0 - 46 U/L | OUTSIDE LAB | | + + + + + + | AST(SGOT) | 28 | 0 - 40 U/L | OUTSIDE LAB | | + + + + + + | BILIRUBIN | 0.8 | 0.0 - 1.2 | OUTSIDE LAB | | | TOTAL | | Transcutaneous | | | | | | Bilirubinometer | | | + + + + + + | BILIRUBIN | | mg/dL | OUTSIDE LAB | | | DIRECT | | | | | + + + + + + | PHOSPHORUS, | | mg/dL | OUTSIDE LAB | | | PLASMA | | | | | | (LAB) | | | | | + + + + + + | MAGNESIUM,P | 1.9 | 1.7 - 2.5 mg/dL | OUTSIDE LAB | | | LASMA | | | | | + + + + + + | GAMMA | 16 | 5 - 60 U/L | OUTSIDE LAB | | | GLUTAMYL | | | | | | TRANS | | | | | + + + + + + | URIC ACID, | | mg/dL | OUTSIDE LAB | | | PLASMA | | | | | | (LAB) | | | | | + + + + + + | AMYLASE,REYES | | U/L | OUTSIDE LAB | | | SMA | | | | | + + + + + + | LIPASE | | U/L | OUTSIDE LAB | | | (LAB) | | | | | + + + + + + | AMMONIA | | umol/L | OUTSIDE LAB | | | (LAB) | | | | | + + + + + + | WHITE CELL | 6.3 | 4.5 - 13.5 K/cu | OUTSIDE LAB | | | COUNT | | mm | | | + + + + + + | HEMOGLOBIN | 15.5 (A) | 10.6 - 15.2 | OUTSIDE LAB | | | | | g/dL | | | + + + + + + | HEMATOCRIT | 44.6 (A) | 32 - 42 % | OUTSIDE LAB | | + + + + + + | RDW | 13.5 | 10.5 - 15.0 % | OUTSIDE LAB | | + + + + + + | PLATELET | 310 | 140 - 440 K/cu | OUTSIDE LAB | | | COUNT | | mm | | | + + + + + + | MCV | 83.3 | 71 - 89 fL | OUTSIDE LAB | | + + + + + + | NEUTROPHIL | 54.4 | % | OUTSIDE LAB | | | % | | | | | + + + + + + | LYMPHOCYTE | 37.6 | % | OUTSIDE LAB | | | % | | | | | + + + + + + | MONOCYTE % | 4.9 | % | OUTSIDE LAB | | + + + + + + | EOS % | 1.9 | % | OUTSIDE LAB | | + + + + + + | BASO % | 1.1 | % | OUTSIDE LAB | | + + + + + + | PEDS | | | OUTSIDE LAB | | | GASTROENTER | | | | | | OLOGY PT | | | | | + + + + + + | PROTHROMBIN | | | OUTSIDE LAB | | | TIME | | | | | | (INR), POC | | | | | + + + + + + | APTT | | seconds | OUTSIDE LAB | | + + + + + + | SEDIMENTATI | | mm/hr | OUTSIDE LAB | | | ON RATE | | | | | + + + + + + | C-REACTIVE | | mg/dl | OUTSIDE LAB | | | PROTEIN | | | | | + + + + + + | CHOLESTEROL | | mg/dL | OUTSIDE LAB | | | (LAB) | | | | | + + + + + + | TRIGLYCERID | | mg/dL | OUTSIDE LAB | | | ES | | | | | + + + + + + | HDL | | mg/dL | OUTSIDE LAB | | | CHOLESTEROL | | | | | + + + + + + | LDL | | mg/dL | OUTSIDE LAB | | | CHOLESTEROL | | | | | | , | | | | | | CALCULATED | | | | | + + + + + + | IRON SERUM | | ug/dL | OUTSIDE LAB | | + + + + + + | IRON BIND | | ug/dL | OUTSIDE LAB | | | CAP SERUM | | | | | + + + + + + | % | | % | OUTSIDE LAB | | | SATURATION | | | | | | TRANSFERRIN | | | | | | , SERUM | | | | | + + + + + + | FERRITIN | | ng/mL | OUTSIDE LAB | | + + + + + + | TRANSFERRIN | | mg/dL | OUTSIDE LAB | | | , SERUM | | | | | + + + + + + | CYCLOSPORIN | | ng/ml | OUTSIDE LAB | | | E, WHOLE | | | | | | BLOOD | | | | | + + + + + + | TACROLIMUS | 3.4 (A) | 5.0 - 18.0 | OUTSIDE LAB | | | (FK 506) | | ng/mL | | | + + + + + + | MYCOPHENOLI | | | OUTSIDE LAB | | | C ACID | | | | | | BLOOD LEVEL | | | | | + + + + + + | SIROLIMUS, | | ng/mL | OUTSIDE LAB | | | WHOLE BLOOD | | | | | + + + + + + | NICOLASA-BAR | | | OUTSIDE LAB | | | R PCR,QUAL | | | | | + + + + + + | EBV QUANT | | | OUTSIDE LAB | | | INTERPRETAT | | | | | | ION | | | | | + + + + + + | IGG SERUM | | mg/dL | OUTSIDE LAB | | + + + + + + | IGM SERUM | | mg/dL | OUTSIDE LAB | | + + + + + + | AB TO | | IV | OUTSIDE LAB | | | NUCLEAR AG | | | | | + + + + + + | AB TO EARLY | | IV | OUTSIDE LAB | | | AG | | | | | + + + + + + | CMV IGG AB | | AU/mL | OUTSIDE LAB | | + + + + + + | CMV IGM AB | | IV | OUTSIDE LAB | | + + + + + + | CMV | | | OUTSIDE LAB | | | QUANTITATIV | | | | | | E PCR | | | | | + + + + + + | HEPATITIS A | | | OUTSIDE LAB | | | AB TOTAL | | | | | + + + + + + | HEPATITIS B | | | OUTSIDE LAB | | | CORE AB, | | | | | | SERUM | | | | | + + + + + + | HEPATITIS B | | | OUTSIDE LAB | | | SURFACE | | | | | | AG, SERUM | | | | | + + + + + + | HEPATITIS B | | | OUTSIDE LAB | | | SURF AB, | | | | | | QUANT | | | | | + + + + + + | HEPATITIS C | | | OUTSIDE LAB | | | AB | | | | | + + + + + + | VITAMIN D | | ng/mL | OUTSIDE LAB | | | 25 HYDROXY | | | | | + + + + + + | VITAMIN | | pg/ml | OUTSIDE LAB | | | B12, SERUM | | | | | + + + + + + | VITAMIN A | | | OUTSIDE LAB | | | (LAB) | | | | | + + + + + + | VITAMIN E | | mg/L | OUTSIDE LAB | | | (ALPHA | | | | | | ROSHAN), SERUM | | | | | + + + + + + | CARNITINE | | | OUTSIDE LAB | | | MUSCLE - | | | | | | CAM | | | | | + + + + + + | COPPER | | ug/dL | OUTSIDE LAB | | | SERUM | | | | | + + + + + + | PEDS | | | OUTSIDE LAB | | | GASTROENTER | | | | | | OLOGY | | | | | | CHROMIUM | | | | | + + + + + + | PEDS | | | OUTSIDE LAB | | | GASTROENTER | | | | | | OLOGY | | | | | | MANGANESE | | | | | + + + + + + | SELENIUM, | | ug/L | OUTSIDE LAB | | | SERUM | | | | | + + + + + + | ZINC SERUM | | ug/dL | OUTSIDE LAB | | + + + + + + | IGA SERUM | | mg/dl | OUTSIDE LAB | | + + + + + + | TTG IGA | | AU | OUTSIDE LAB | | + + + + + + | GLIADIN | | EU | OUTSIDE LAB | | | PEPTIDE AB, | | | | | | IGA | | | | | + + + + + + + + | Specimen | + + | | + + + +---------+ + + | Performing | Address | City/State/Zipcode | Phone Number | | Organization | | | | + +---------+ + + | NON [facility] | | | | + +---------+ + + | OUTSIDE LAB | | | | + +---------+ + + documented in this encounter Visit Diagnoses Not on filedocumented in this encounter"
--- OUTSIDE RECORDS SUMMARY | ~2019-06-17 | XMS | Encounter Summary ---
Demographics + + + | Address | [address] | | | [place] [address] | + + + | Home Phone | | + + + | Preferred Language | Unknown | + + + | Marital Status | Single | + + + | Scientologist Affiliation | Unknown | + + + | Race | White | + + + | Ethnic Group | Not or | + + + Author + + + | Author | [facility] [employer] [facility] | + + + | Organization | [facility] | + + + | Address [...] Team Providers + +------+ + | Care Operation Agent Name | Role | Phone | + +------+ + | Nyla Fitzpatrick MD | PCP | | + +------+ + Reason for Visit + + + | Reason | Comments | + + + | Follow-up in | | | outpatient clinic | | + + + Consultation (Routine) +--------+ + + + + + | Status | Reason | Specialty | Diagnoses / | Referred By | Referred To | | | | | Procedures | Contact | Contact | +--------+ + + + + + | Closed | Specialty | Pediatric | Diagnoses | Amari, | Ped Gastro | | | Services | Gastroenterol | Liver | Nyla Shields MD | [facility] [address] | | | Required | ogy | replaced by | PEDS | [address] | | | | | transplant | SPECIALISTS | [address] | | | | | (HCC) | OF [place] | Mailcode: | | | | | | [address] | [address] | | | | | | [address] | [place] | | | | | | [address] | [place], [place] | | | | | | [place], | [address] | | | | | | [place] [address] | Phone: | | | | | | Phone: | [phone] | | | | | | [phone] | Fax: | | | | | | Fax: | [phone] | | | | | | [phone] | | +--------+ + + + + + Encounter Details +--------+---------+ + + + | Date | Type | Department | Care Team | Description | +--------+---------+ + + + | 12/19/ | Office | Pediatric | Sayra Leonardo MD | Transplanted Liver | | 2007 | Visit | Gastroenterology at | | (HCC) (Primary Dx) | | | | [place] | | | | | | [facility] | | | | | | [address] | | | | | | [place] Mailcode: | | | | | | [address] [place] | | | | | | [place], [place] | | | | | | [address] | | | | | | [phone] | | | +--------+---------+ + + + Social History + +-------+ [...] + + documented as of this encounter Last Filed Vital Signs + + + + + | Vital Sign | Reading | Time Taken | Comments | + + + + + | Blood Pressure | 126/80 | 12/20/2007 12:49 PM | | | | | PDT | | + + + + + | Pulse | 77 | 12/20/2007 12:49 PM | | | | | PDT | | + + + + + | Temperature | - | - | | + + + + + | Respiratory Rate | - | - | | + + + + + | Oxygen Saturation | - | - | | + + + + + | Inhaled Oxygen | - | - | | | Concentration | | | | + + + + + | Weight | 38.9 kg (85 lb 12.1 | 12/20/2007 12:49 PM | | | | oz) | PDT | | + + + + + | Height | 140.6 cm (4' 7.35") | 12/20/2007 12:49 PM | | | | | PDT | | + + + + + | Body Mass Index | 19.68 | 12/20/2007 12:49 PM | | | | | PDT | | + + + + + documented in this encounter Marya Leonardo, Sayra - 12/20/2007 1:12 PM PDTFormatting of this note might be different from the o riginal. Nicki Woods is an 7 y.o. 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 HPI: Nicki returned to clinic today with her mother. She has been doing very well and has n ot had any significant illnesses since her last visit, which was in May 2006. She has contin ued to take Prograf but admits to forgetting a dose about every few days. Her mother gives h er a dose at 5AM but she is at her grandfather's at 5PM and sometimes forgets. She did not have a flu shot this year. She changed schools to a private school with only 11 kids in her class and 50 in the school, and due to decreased exposure, her mother felt she didn't need the shot. She was seen by her concert or lecture hall manager, Dr Quiles, and new aortic insufficiency was noted. Althoug h her VSD is functionally smaller, it may need closure in the future if the aortic insuffici ency worsens. She has no exercise restriction but SBE prophylaxis is recommended. Review of Systems: General: No Fevers. Not sure whether EBV PCR was done with last weeks labs Ears, Nose and Throat: No recurrent aphthous ulcers, sore throat Respiratory: No cough, history of pneumonia, or wheezing Gastrointestinal: No diarrhea or abdominal pain except when she is nervous Neurologic: No unusual headaches Skin: No rashes grade 3 and runs track, with her best events being the 100 and 1500 M Physical Examination: BP 126/80, Pulse 77, Ht 140.6 cm (4' 7") (83 %ile), Wt 38.900 kg (85 lbs 12.1 oz) (89 %ile) , Weight for age(%) 88.63%, BMI for age(%) 86.99%, Length for age(%) 82.81%. 86.99% of growth percentile based on BMI-for-age. Appearance: alert, active and in no apparent distress. Skin: turgor normal, capillary refill brisk, no rashes, petechiae HEENT: normocephalic,PERRLA , no icterus,,nose without discharge, mouth no aphthous lesions , mucous membranes moist, pharynx unremarkable, tonsils moderate sized without exudate Neck: supple, without thyromegaly Chest: clear to auscultation bilaterally. CV: regular sinus rhythm, normal S1 and S2, no murmurs. Abdomen:, well healed incisions, soft, no distention, no tenderness to palpation, no rebou nd , no guarding, no palpable masses, normal bowel sounds, no hepatosplenomegaly Musculoskeletal: grossly intact without clubbing or edema Neuro: appropriate interactions, symmetric facies, moves all extremities well Nodes: no signficant cervical, supraclavicular, or axillary adenopathy Last labs 12/17/07 AST 28, ALT 24, alk phos 230, bili 0.1/0.8 Cr 0.5 GGT9 Wbc 8.3, hct 40, plt 339 Prograf level pending Assessment: Patient Active Problem List: VSD (Ventricular Septal Defect)[745.4Y] Comment: With polysplenia Aortic Valve Insufficiency[424.1F] 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 May or may not have had labs in July, but recent labs normal Plan: 1. CBC, primary transplant panel, drug levels- every 3 months 2. EBV PCR and serology every 12 months 3. CMV PCR and serology Not needed 4. Other labs: 5. Imaging: none 6. Flu shot from PCP- recommend yearly 7. Return to transplant clinic about 6 months. 8. .Mother has questions about whether immunosuppression can ever be stopped, and we discus sed this and they were counselled to be regular with her medication. Advised to get med disp enser with days of the week to keep at her grandfather's house. 7. change in medications: none documented in this encounter Plan of Treatment Not on filedocumented as of this encounter Visit Diagnoses + + | Diagnosis | + + | Transplanted liver (HCC) - Primary Liver replaced by transplant | + + documented in this encounter
--- OUTSIDE RECORDS SUMMARY | ~2019-06-17 | XMS | Encounter Summary ---
Demographics + + + | Address | [address] | | | [place] [address] | + + + | Home Phone | | + + + | Preferred Language | Unknown | + + + | Marital Status | Single | + + + | Bahai Affiliation | Unknown | + + + | Race | White | + + + | Ethnic Group | Not or | + + + Author + + + | Author | [facility] [employer] [facility] | + + + | Organization | [facility] | + [...] Team Providers + +------+ + | Care Information Specialist Name | Role | Phone | + +------+ + | Nyla Fitzpatrick MD | PCP | | + +------+ + Reason for Visit + + + | Reason | Comments | + + + | Lab Draw | past due for transplant labs | + + + Encounter Details +--------+ + + + + | Date | Type | Department | Care Team | Description | +--------+ + + + + | 01/19/ | Telephone | Pediatric | Crista Valadez, | Lab Draw (past due | | 2015 | | Gastroenterology at | [address] | for transplant labs) | | | | [place] | [place], [place] | | | | | [facility] | [address] | | | | | [address] | [phone] | | | | | [address] Mailcode: | | | | | | [address] | | | | | | [place], [place] | | | | | | [address] | | | | | | [phone] | | | +--------+ + + + [...]
--- OUTSIDE RECORDS SUMMARY | ~2019-06-17 | XMS | Encounter Summary ---
Demographics + + + | Address | [address] | | | [place] [address] | + + + | Home Phone [...] Team Providers + +------+ + | Care Drafter Landscape Name | Role | Phone | + [...] as of this encounter Progress Notes Interface, School Admissions Representative In - 06/14/2006 5:04 AM [facility] [place] [address] [place], [place] [address] or December 10, 2000 Nyla Fitzpatrick M.D. [address] [place] [address] RE: NICKI WOODS MR #: [id number] Dear Dr. Fitzpatrick: I had the pleasure of seeing Nicki in the Pediatric Liver Transplant Clinic at [facility] today attended by Dr. Jose Luis Guillory of the [facility] Transplant Team for Dr. Carnes. As you know, she is a 1-year-old female who is 8 months status post liver transplantation for biliary atresia on March 24, 2000, at [facility]. She has had a relatively uneventful posttransplant [...] DNA PCR. In summary, Nicki is a 48-xmm[age]c white female who is 8 months status [...] 6 months when the transplant team visits [place] again. Please let me know if you have any questions. Sincerely, Kendall Angulo M.D. Pediatric Gastroenterology [facility] / [id number] / [id number] / [id number] / [id number] cc: Jose F Carnes M.D. [address] [facility] [address] [place] [address] Kam Guerrero M.D. [address] [facility] [address] [place] [address] Jose Luis Guillory M.D. [address] [facility] [place] [address] [id number] signed by Interface, School Admissions Representative In at 06/14/2006 5:04 AM PSTdocume nted in this encounter Plan of Treatment Not on filedocumented as of this encounter Visit Diagnoses Not on filedocumented in this encounter"
--- OUTSIDE RECORDS SUMMARY | ~2019-06-17 | XMS | Encounter Summary ---
Demographics + + + | Address | [address] | | | [place] [address] | + + + | Home Phone | | + + + | Preferred Language | Unknown | + + + | Marital Status | Single | + + + | Jehovah'S Witness Affiliation | Unknown | + + + | Race | White | + + + | Ethnic Group | Not or | + + + Author + + + | Author | [facility] [employer] [facility] | + + + | Organization | [facility] | + + + | Address | Unknown | + + + | Phone | Unavailable | + + + Support + + +---------+ + | Name | Relationship | Address | Phone | + + +---------+ + | Vivek Woods | ECON | Unknown | | + + +---------+ + | Mayr Woods | ECON | Unknown | | + + +---------+ + Care Team Providers + +------+ + | Care Core Layer Machine Operator Name | Role | Phone | [...] | | Gastroenterology at | RN [address] [facility] | drawn) | | | | [place] | [address] | | | | | [facility] | [place] [address] | | | | | [address] [facility] | | | | | | [facility] Mailcode: | | | | | | [address] | | | | | | [place], [place] | | | | | | [address] | | | | | | [phone] | | | +--------+ + + + [...]
--- OUTSIDE RECORDS SUMMARY | ~2019-06-17 | XMS | Encounter Summary ---
Demographics + + + | Address | [address] | | | [place] [address] | + + + | Home Phone [...] Author + + + | Author | [facility] you roll? [facility] | + + + | Organization | [facility] | + + + | [...] Team Providers + +------+ + | Care Manager Corporate Communications Name | Role | Phone | + +------+ + | Nyla Fitzpatrick MD | PCP | | + +------+ + Reason for Visit + + + | Reason | Comments | + + + | Social Work Notes | | + + + Encounter Details +--------+ + + + + | Date | Type | Department | Care Team | Description | +--------+ + + + + | 02/27/ | Documentati | SOCIAL WORK | [place], | Social Work Notes | | 2016 | on | AM[address]ULATORY [address] | KEY ACCOUNT REPRESENTATIVE [address] | | | | | [address] | [address] | | | | | Mailcode: [address] | [place], [place] | | | | | [place], [place] | [address] | | | | | [address] | | | | | | [phone] | | | +--------+ + + + [...]
--- OUTSIDE RECORDS SUMMARY | ~2019-06-17 | XMS | Encounter Summary ---
Demographics + + + | Address | [address] | | | [place] [address] | + + + | Home Phone | | + + + | Preferred Language | Unknown | + + + | Marital Status | Single | + + + | Jewish Affiliation | Unknown | + + + | Race | White | + + + | Ethnic Group | Not or | + + + Author + + + | Author | [facility] [employer] [facility] | + + + | Organization | [facility] | + + + | Address | [...] Team Providers + +------+ + | Care Commercial Lease Administrator Name | Role | Phone | + [...] Description | +--------+--------+ + + + | 12/31/ | Refill | Pediatric | Althea Mcdonald, | Refill Request | | 2009 | | Gastroenterology at | RN [address] | | | | | [place] | [address] | | | | | [facility] | [place] [address] | | | | | [address] | | | | | | [place] Mailcode: | | | | | | [facility] [place] | | | | | | [place], [place] | | | | | | [address] | | | | | | [phone] | | | +--------+--------+ + + + [...]
--- OUTSIDE RECORDS SUMMARY | ~2019-06-17 | XMS | Encounter Summary ---
Demographics + + + | Address | [address] | | | [place] [address] | + + + | Home Phone | | + + + | Preferred Language | Unknown | + + + | Marital Status | Single | + + + | Anglican Affiliation | Unknown | + + + | Race | White | + + + | Ethnic Group | Not or | + + + Author + + + | Author | [facility] [employer] [facility] | + + + | Organization | [facility] | + + + | [...] Team Providers + +------+ + | Care Mechanical Laboratory Technician Name | Role | Phone | + +------+ + | No Pcp Per Patient | PCP | Unavailable | + +------+ + Reason for Visit + + + | Reason | Comments | + + + | Follow-up in | | | outpatient clinic | | + + + Office Visit - E/M Services (Routine) +--------+ + + + + + | Status | Reason | Specialty | Diagnoses / | Referred By | Referred To | | | | | Procedures | Contact | Contact | +--------+ + + + + + | Closed | Specialty | Pediatric | | Non-[facility] | [place], | | | Services | Gastroenterol | | Epic Dept | MD Crista | | | Required | ogy | | | [address] | | | | | | | Geoff | | | | | | | [place], [place] | | | | | | | [address] | | | | | | | Phone: | | | | | | | [phone] | | | | | | | Fax: | | | | | | | [phone] | +--------+ + + + + + Encounter Details +--------+---------+ + + + | Date | Type | Department | Care Team | Description | +--------+---------+ + + + | 04/27/ | Office | Pediatric | Crista Valadez, | Immunosuppressed | | 2013 | Visit | Gastroenterology at | [address] | status (HCC) | | | | [address] | [place], [place] | (Primary Dx); | | | | [facility] | [address] | Noncompliance with | | | | [address] | [phone] | treatment; BP (high | | | | [address] Mailcode: | | blood pressure); | | | | [facility] [place] | | Transplanted liver | | | | [place], [place] | | ([facility]); VSD | | | | [address] | | (ventricular septal | | | | [phone] | | defect); Aortic | | | | | | valve insufficiency | +--------+---------+ + + + Social History [...] + + + | Blood Pressure | 141/104 | 04/27/2014 9:33 AM | | | | | PDT | | + + + + + | Pulse | 71 | 04/27/2014 9:33 AM | | | | | PDT [...] + + + + | Weight | 72.2 kg (159 lb 2.8 | 04/27/2014 9:33 AM | | | | oz) | PDT | | + + + + + | Height | 164 cm (5' 4.57") | 04/27/2014 9:33 AM | | | | | PDT | | + + + + + | Body Mass Index | 26.84 | 04/27/2014 9:33 AM | | | | | PDT | | + + + + + documented in this encounter Progress Notes Crista Valadez MD - 04/28/2014 9:04 AM PDTFormatting of this note might be different fro m the original. Referring provider: No Pcp Per PATIENT Primary Care Provider: No Pcp Per PATIENT Pediatric Hepatology Clinic Visit type: New Patient Visit DOS: 04/27/2014 CHIEF COMPLAINT: Post liver transplant care first time since 2008 HISTORY OF PRESENT ILLNESS: Nicki Woods is an 13 y.o. female, who is referred by Nyla Fitzpatrick, for post liver transplant care. She had liver transplant for biliary atresia i 1999 at [facility]. She was last seen by Dr Leonardo in 2008. In 2009, it was noticed that she has not been seen, attempts to reach to family was unsuccessful. She was lost to follow up since that time. In October 2013, our SW contacted family and they agre ed to go to local lab for post-transplant labs and to come for clinic visit at [facility]. She is accompanied by her father today. Today, she denies any pain, nausea, emesis, diarrhe a or constipation. No fever. She reports she takes tacrolimus one pill once daily. Father reports she has not been takin g regularly In [place], Nicki's last cardiology note is from [address] Nyla Fitzpatrick, community recreation programmer at [facility]. Her cardiac dx includes 1) moderate perimembraneous VSD nearly occluded by aneurys mal tissue leaving a tiny VSD, 2) trace central aortic insufficiency, 3) Left atrial isomeri sm (polysplenia). It was recommended her annual follow up for progression of aortic insuffic iency in which case she may need closure of VSD. No further notes available in our system as she is lost to follow up since 2008. Today, father says she has an appointment with cardiol estrellita at [facility] soon. Current Outpatient Prescriptions Medication Sig PROGRAF 1 mg Oral Capsule Take 1 Cap by mouth two times daily. Allergies Allergen Reactions Sulfa (Sulfonamide Antibiotics) Hives and Swelling-Facial Varicella Vaccines Possible reaction with sulfa meds Past Medical History Diagnosis Date Biliary atresia Past Surgical History Procedure Laterality Date Liver transplant 03/24/2000 at [facility] Family History No liver problems SHx: lives with family REVIEW OF SYSTEMS: General: No fever, fatigue, or weight loss. Eyes: No changes in vision, no eye irritation or discharge. ENT: No nosebleeds, nasal congestion, difficulty swallowing, no mouth sores. Respiratory: No shortness of breath, cough, wheezing. Cardiovascular: No breathing difficulty, cyanosis Genitourinary: No urinary infections. Neurologic: No seizures. No headaches. Musculoskeletal: No joint pain, swelling. No back pain. Full range of motion. Skin: No itching, rash, jaundice. Heme: No anemia, abnormal bleeding, easy bruising Lymphatic: No enlarged lymph nodes. Metabolic/Endo: no glucose intolerance, hypothyroidism Allergy/immunology: no seasonal or food allergies, no asthma All other ROS are negative. PHYSICAL EXAMINATION: Patient reports a pain level of 0 today. No action required. Ht 164 cm (5' 4.57") (60%, Z = 0.25), Wt 72.2 kg (159 lb 2.8 oz) (92%, Z = 1.41), BP 141/10 4, Pulse 71, BMI 26.84 kg/(m^2). APPEARANCE: alert, active and in no apparent distress. SKIN: no jaundice or rashes. HEENT: normocephalic, PERRLA, mucous membranes moist. NECK: supple, without thyromegaly. CHEST: clear to auscultation bilaterally. CV: systolic murmur at left sternal border ABDOMEN: soft, NTND, no hepatosplenomegaly. BACK: without tenderness. MUSCULOSKELETAL: no muscle wasting, no deformity. EXTREMITIES: no edema, clubbing, deformity. NEURO: grossly intact and appropriate to age, DTRs 2+ and symmetric NODES: no significant cervical, axillary or inguinal adenopathy Labs/imaging: as below ASSESSMENT and Plan: 13 yo female with 279.9 Immunosuppressed status V15.81 Noncompliance with treatment 401.9 BP (high blood pressure): repeat BP at the end of visit is 131/92 V42.7 Transplanted liver 745.4 VSD (ventricular septal defect) 424.1 Aortic valve insufficiency Pt is lost to follow up for 5 years. Off meds, reportedly started taking tacrolimus once a day recently. She might be immunotolerant as she did not reject past 5 years. However this d oesn't guarantee future rejection. Educated importance of compliance with meds and clinic visits. Since she is 14 years out fr liver transplant, her lab schedule is every 3 months, clinic visit schedule is once a sunita royal. Father says they will be able to take her to local laboratory every [address] tamiko and they will be able to come to [facility] when [facility] team is here next time. I strongly recommended to follow her BPs at PCPs office. If they continue to be persistentl y elevated she will need to be seen by nephrology team. Hypertension is a well-known complic ation of calcineurin inhibitors, although she has not been taking tacrolimus past couple of years. - labs: CBC, CMP, GGT, magnesium, trough tacrolimus level: every 3 months - follow up in liver transplant clinic: annually, next in Jun 2014. - cardiology fu locally and at [facility] At this visit: Patient accompanied by: father Harness Mender used:no Psychosocial or economic issues that may affect patient's medical care or well being: nonco mpliance Co-morbid chronic medical problems that may affect procedural sedation risk: VSD Labs/imaging: Component Latest Ref Rng 11/09/2013 03/09/2014 GLUCOSE 70 - 100 mg/dL 82 87 BUN 6 - 23 mg/dL 18 13 CREATININE 0.40 - 1.05 mg/dL 0.81 0.75 TOTAL PROTEIN 6.1 - 8.5 g/dL 7.3 7.6 ALBUMIN 3.5 - 5.0 g/dL 4.2 4.4 CALCIUM 8.4 - 10.2 mg/dL 9.6 9.9 BILIRUBIN TOTAL 0 - 1.2 0.3 0.8 ALK PHOS 135 - 384 U/L 78 (A) 92 (A) AST(SGOT) 13 - 39 U/L 15 13 SODIUM 132 - 143 mmol/L 136 140 POTASSIUM 3.6 - 5.1 mmol/L 3.6 4.0 CHLORIDE 95 - 112 mmol/L 102 100 TOTAL CO2 19 - 31 mmol/L 25 28 ALT (SGPT) 7 - 52 U/L 12 9 ANION GAP 7 - 21 12.6 16 BUN/CREATININE RATIO 6.0 - 28.6 22.2 17.3 GLOBULIN 1.8 - 3.5 3.1 3.2 A/G RATIO 1.1 - 2.4 1.4 1.4 WHITE CELL COUNT 4.4 - 11.8 K/cu mm 7.8 6.6 RED CELL COUNT 3.8 - 5.3 M/cu mm 4.55 4.83 HEMOGLOBIN 11.1 - 15.7 g/dL 14 14.7 HEMATOCRIT 32 - 47 % 40.7 42.8 MCV 73 - 91 fL 89.4 88.6 PLATELET COUNT 140 - 440 K/cu mm 296 328 GGT 5 - 60 U/L 8 MAGNESIUM 1.7 - 2.5 mg/dL 1.8 Crista Valadez MD Pediatric Gastroenterology Consult line: [phone] documented in this en counter Plan of Treatment Not on filedocumented as of this encounter Visit Diagnoses + + | Diagnosis | + + | Immunosuppressed status (HCC) - Primary Unspecified disorder of immune mechanism | + + | Noncompliance with treatment Personal history of noncompliance with medical | | treatment, presenting hazards to health | + + | BP (high blood pressure) Unspecified essential hypertension | + + | Transplanted liver (HCC) Liver replaced by transplant | + + | VSD (ventricular septal defect) Ventricular septal defect | + + | Aortic valve insufficiency Aortic valve disorders | + + documented in this encounter
--- OUTSIDE RECORDS SUMMARY | ~2019-06-17 | XMS | Encounter Summary ---
Demographics + + + | Address | [address] | | | [place] [address] | + + + | Home Phone | | + + + | Preferred Language | Unknown | + + + | Marital Status | Single | + + + | Congregational Affiliation | Unknown | + + + | Race | White | + + + | Ethnic Group | Not or | + + + Author + + + | Author | [facility] | + + + | Organization | [facility] | + + + | Address | [...] Team Providers + +------+ + | Care Social Services Coordinator Name | Role | Phone | + +------+ + | Nyla Fitzpatrick MD | PCP | | + +------+ + Encounter Details +--------+ + + + + | Date | Type | Department | Care Team | Description | +--------+ + + + + | 06/20/ | Documentati | Pediatric | Sayra Leonardo MD | | | 2009 | on | Gastroenterology at | | | | | | [place] | | | | | | [facility] | | | | | | [address] | | | | | | [address] Mailcode: | | | | | | [place] | | | | | | [place], [place] | | | | | | [address] | | | | | | [phone] | | | +--------+ + + + [...]
--- OUTSIDE RECORDS SUMMARY | ~2019-06-17 | XMS | Encounter Summary ---
Demographics + + + | Address | [address] | | | [place] [address] | + + + | Home Phone | | + + + | Preferred Language | Unknown | + + + | Marital Status | Single | + + + | Restorationism Affiliation | Unknown | + + + | Race | White | + + + | Ethnic Group | Not or | + + + Author + + + | Author | [facility] | + + + | Organization | [facility] | + + + | [...] Team Providers + +------+ + | Care Lead Web Application Developer Name | Role | Phone | + [...] | Required | ogy | | | [address] | | | | | | [address] | | | | | | | [place], [place] | | | | | | | [address] | | | | | | | Phone: | | | | | | | [phone] | | | | | | | Fax: | | | | | | | [phone] | +--------+ + + + + + Encounter Details +--------+---------+ + + + | Date | Type | Department | Care Team | Description | +--------+---------+ + + + | 06/28/ | Office | Pediatric | Crista Valadez, | Transplanted liver | | 2014 | Visit | Gastroenterology at | [address] | (HCC) (Primary Dx); | | | | [facility] | [place], [place] | Immunosuppressed | | | | [facility] | [address] | status (HCC); High | | | | [address] | [phone] | risk medications | | | | Zane Tellez Mailcode: | | (not anticoagulants) | | | | [facility] | | long-term use; VSD | | | | [place], [place] | | (ventricular septal | | | | [address] | | defect), | | | | [phone] | | perimembranous; | | | | | | Polysplenia; Aortic | | | | | | insufficiency; | | | | | | Aortic root | | | | | | dilatation (HCC); | | | | | | Interrupted inferior | | | | | | vena cava | +--------+---------+ + + + Social History [...] + + + | Blood Pressure | 137/95 | 06/28/2014 3:52 PM | | | | | PST | | + + + + + | Pulse | 74 | 06/28/2014 3:52 PM | | | | | PST | | + + + + + [...] + + + + | Weight | 72 kg (158 lb 11.7 | 06/28/2014 3:52 PM | | | | oz) | PST | | + + + + + | Height | 163.8 cm (5' 4.49") | 06/28/2014 3:52 PM | | | | | PST | | + + + + + | Body Mass Index | 26.84 | 06/28/2014 3:52 PM | | | | | PST | | + + + + + documented in this encounter Patient Instructions Patient Instructions Crista Valadez MD - 06/28/2014 10:38 AM PSTPlan: - Target prograf level: Not established - Blood draw for labs: every 3 months - Change in medicines: None - Next appointment: February 2015 It was nice to see you today ! Thank you for choosing [facility] at [facility] Crista Valadez MD Results of tests: Test results will be sent to you by [employer]. Calls: Medical emergencies: call 911 Non-urgent issues: Send [employer] message Thursday - Thursday work hours: call [phone] # [phone] After hours, weekends, holidays: call [phone] To schedule an appointment: call [phone] # [phone] For refills: call to your pharmacy a week before running out medicine documented in this encounter Progress Notes Crista Valadez MD - 06/28/2014 10:38 AM PSTFormatting of this note might be different fro m the original. 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 She was last seen by Dr Leonardo in 2008. In 2009, it was noticed that she has not been seen, attempts to reach to family was unsucces sful. lost to follow up since that time. - Cardiology: last cardiology note is from [address] Nyla Fitzpatrick, manufacturer's representative at [facility]. Her cardiac dx includes 1) moderate perimembraneous VSD nearly occluded by aneurysma l tissue leaving a tiny VSD, 2) trace central aortic insufficiency, 3) Left atrial isomerism (polysplenia). It was recommended her annual follow up for progression of aortic insufficie ncy in which case she may need closure of VSD. No further notes available in our system as s he is lost to follow up since 2008. - 06/01/2014 s/p VSD repair, 8-mm Amplatzer Vascular Plug IV with no significant residual s hunting noted. INTERVAL HISTORY: - s/p VSD closure in mid-May. Will receive abx ppx 5 more months and aspirin x 5 mo - did not receive flu shot, mother says they don't do flu shots - doing well after VSD closure - no fever, abdominal pain, nausea, emesis, diarrhea REVIEW OF SYSTEMS: General: No fever, fatigue, or weight loss. Eyes: No changes in vision, no eye irritation or discharge. ENT: No nosebleeds, nasal congestion, difficulty swallowing, no mouth sores. Respiratory: No shortness of breath, cough, wheezing. Cardiovascular: No difficulty breathing, edema, cyanosis. Genitourinary: No urinary infections. Neurologic: No seizures. No headaches. Musculoskeletal: No joint pain, swelling. No back pain. Full range of motion. Skin: No itching, rash, jaundice. Heme: No anemia, abnormal bleeding, easy bruising Lymphatic: No enlarged lymph nodes. Metabolic/Endo: no glucose intolerance, hypothyroidism Allergy/immunology: no seasonal or food allergies, no asthma All other ROS are negative. Current Outpatient Prescriptions Medication Sig PROGRAF 1 mg Oral Capsule Take 1 Cap by mouth two times daily. Aspirin daily Allergies Allergen Reactions Sulfa (Sulfonamide Antibiotics) Hives and Swelling-Facial Varicella Vaccines Possible reaction with sulfa meds PHYSICAL EXAMINATION: Patient reports a pain level of 0 today. No action required. Ht 163.8 cm (5' 4.49") (58%, Z = 0.21), Wt 72 kg (158 lb 11.7 oz) (92%, Z = 1.38), BP 137/9 5, Pulse 74, BMI 26.84 kg/(m^2). APPEARANCE: alert, active and in no apparent distress. SKIN: no jaundice or rashes. HEENT: normocephalic, PERRLA, mucous membranes moist. NECK: supple, without thyromegaly. CHEST: clear to auscultation bilaterally. CV: no murmurs. ABDOMEN: soft, NTND, no hepatosplenomegaly. BACK: without tenderness. MUSCULOSKELETAL: no muscle wasting, no deformity. EXTREMITIES: No edema, clubbing, deformity. NEURO: grossly intact Labs/imaging: as below ASSESSMENT: 13 yo female with V42.7 Transplanted liver: normal LFTs, GGT 279.9 Immunosuppressed status: no signs of infection V58.69 High risk medications (not anticoagulants) long-term use 745.4 VSD (ventricular septal defect), perimembranous: s/p closure 759.0 Polysplenia 424.1 Aortic insufficiency 447.71 Aortic root dilatation 747.49 Interrupted inferior vena cava PLAN/RECOMMENDATIONS: 1) Goal prograf level: not established 2) Meds to continue without change: prograf 1 mg bid 4) Labs: - CBC w diff, CMP, GGT, magnesium, trough tacrolimus level, quantitative EBC and CMV PCR: every 3 months 5) follow up in liver transplant clinic: in February 2015, then annually Health Care Maintenance: - No live vaccines for immunosuppressed patients - Flu vaccine (intramuscular): every fall. 2 shots the first year after transplant (regardless of age) If late in the season, can be given next season - Dental care every 6 months At this visit: Dr. Brady and GIO Kirkland from [facility] were presen t as observers during this visit. Psychosocial or economic issues that may affect patient's medical care or well being:none Co-morbid chronic medical problems that may affect procedural sedation risk: N/A Labs/imaging: Component Latest Ref Rng 06/28/2014 GLUCOSE 60-99 mg/dL 81 BUN 6-20 mg/dL 13 CREATININE 0.46-0.81 mg/dL 0.76 SODIUM 136-145 mmol/L 139 POTASSIUM 3.4-5.0 mmol/L 3.9 CHLORIDE 97-108 mmol/L 105 TOTAL CO2 21-32 mmol/L 30 CALCIUM 8.6-10.2 mg/dL 9.4 BILIRUBIN TOTAL 0.3-1.2 mg/dL 0.2 (L) TOTAL PROTEIN 6.2-8.5 g/dL 7.6 ALBUMIN 3.5-4.7 g/dL 3.7 ALK PHOS 42-110 U/L 101 AST(SGOT) 18-36 U/L 15 (L) ALT (SGPT) 12-60 U/L 18 ANION GAP(ALB CORRECTED) 4-11 mmol/L 4 ANION GAP 4 BILIRUBIN DIRECT 0.0-0.3 mg/dL <0.1 LD TOTAL, PLASMA 175-285 U/L 154 (L) MAGNESIUM 1.8-2.5 mg/dL 1.6 (L) PHOSPHORUS 2.4-4.7 mg/dL 3.3 URIC ACID 2.5-6.2 mg/dL 3.7 CHOLESTEROL <200 mg/dL 136 TACROLIMUS (FK 506) 5.0-15.0 ng/mL <2.0 (L) Crista Valadez MD Pediatric Gastroenterology Consult line: [phone] documented in this en counter Plan of Treatment Not on filedocumented as of this encounter Results TACROLIMUS, WHOLE BLOOD (06/28/2014 5:27 PM PST) + + + + + + | Component | Value | Ref Range | Performed | Pathologist | | | | | At | Signature | + + + + + + | TACROLIMUS | <2.0 (L) | 5.0 - 15.0 | [facility] | | | (FK 506) | | ng/mL | LABORATORY | | | | | | SERVICES, | | | | | | SPECIAL IMM | | | | | | + COAG | | + + + + + + + + | Specimen | + + | Blood - Blood | + + + + + | Narrative | Performed At | + + + | Therapeutic range is based on a whole blood specimen drawn 12 | [facility] | | hours post-dose or prior to next dose (the trough). Some other factors | LABORATORY | | influencing therapeutic range, dose administered, and result | SERVICES, | | interpretation include time since transplantation, the organ | SPECIAL IMM + | | transplanted, co-administration of other immunosuppressants and | COAG | | interaction with other drugs that may increase or decrease Tacrolimus | | | concentrations. | | + + + + + + + + | Performing | Address | City/State/Zipcode | Phone Number | | Organization | | | | + + + + + | [facility] | [address] | [place] [address] | | | SERVICES, SPECIAL | [address] | | | | IMM + COAG | | | | + + + + + CHOLESTEROL TOTAL, PLASMA (06/28/2014 5:27 PM PST) + +-------+ + + + | Component | Value | Ref Range | Performed | Pathologist | | | | | At | Signature | + +-------+ + + + | CHOLESTEROL | 136 | <200 mg/dL | [facility] | | | (LAB) | | | LABORATORY | | | | | | SERVICES, | | | | | | CORE | | + +-------+ + + + + + | Specimen | + + | Blood - Blood | + + + + + + + | Performing | Address | City/State/Zipcode | Phone Number | | Organization | | | | + + + + + | [facility] | [address] | [place] [address] | | | SERVICES, CORE | [address] | | | + + + + + LDH TOTAL, PLASMA (06/28/2014 5:27 PM PST) + +---------+ + + + | Component | Value | Ref Range | Performed | Pathologist | | | | | At | Signature | + +---------+ + + + | LD TOTAL, | 154 (L) | 175 - 285 U/L | [facility] | | | PLASMA | | | LABORATORY | | | | | | SERVICES, | | | | | | CORE | | + +---------+ + + + | LD CMNT | No Hemo | | [facility] | | | | | | LABORATORY | | | | | | SERVICES, | | | | | | CORE | | + +---------+ + + + + + | Specimen | + + | Blood - Blood | + + + + + | Narrative | Performed At | + + + | New reference range effective 2013 for LD Total performed | [facility] | | in Core Lab only. | LABORATORY | | | SERVICES, CORE | + + + + + + + + | Performing | Address | City/State/Zipcode | Phone Number | | Organization | | | | + + + + + | [facility] | [address] | [place] [address] | | | SERVICES, CORE | [address] | | | + + + + + BILIRUBIN DIRECT (06/28/2014 5:27 PM PST) + +---------+ + + + | Component | Value | Ref Range | Performed | Pathologist | | | | | At | Signature | + +---------+ + + + | BILIRUBIN | <0.1 | 0.0 - 0.3 mg/dL | [facility] | | | DIRECT | | | LABORATORY | | | | | | SERVICES, | | | | | | CORE | | + +---------+ + + + | BILI D CMNT | No Hemo | | [facility] | | | | | | LABORATORY | | | | | | SERVICES, | | | | | | CORE | | + +---------+ + + + + + | Specimen | + + | Blood - Blood | + + + + + + + | Performing | Address | City/State/Zipcode | Phone Number | | Organization | | | | + + + + + | [facility] | [address] | [place] [address] | | | SERVICES, CORE | [address] | | | + + + + + URIC ACID, PLASMA (06/28/2014 5:27 PM PST) + +-------+ + + + | Component | Value | Ref Range | Performed | Pathologist | | | | | At | Signature | + +-------+ + + + | URIC ACID, | 3.7 | 2.5 - 6.2 mg/dL | [facility] | | | PLASMA | | | LABORATORY | | | (LAB) | | | SERVICES, | | | | | | CORE | | + +-------+ + + + + + | Specimen | + + | Blood - Blood | + + + + + + + | Performing | Address | City/State/Zipcode | Phone Number | | Organization | | | | + + + + + | [facility] | [address] | [place] [address] | | | SERVICES, CORE | [address] | | | + + + + + PHOSPHORUS, PLASMA (06/28/2014 5:27 PM PST) + +-------+ + + + | Component | Value | Ref Range | Performed | Pathologist | | | | | At | Signature | + +-------+ + + + | PHOSPHORUS, | 3.3 | 2.4 - 4.7 mg/dL | [facility] | | | PLASMA | | | LABORATORY | | | (LAB) | | | SERVICES, | | | | | | CORE | | + +-------+ + + + + + | Specimen | + + | Blood - Blood | + + + + + + + | Performing | Address | City/State/Zipcode | Phone Number | | Organization | | | | + + + + + | [facility] | [address] | [place] [address] | | | SERVICES, CORE | [address] | | | + + + + + MAGNESIUM, PLASMA (06/28/2014 5:27 PM PST) + +---------+ + + + | Component | Value | Ref Range | Performed | Pathologist | | | | | At | Signature | + +---------+ + + + | MAGNESIUM,P | 1.6 (L) | 1.8 - 2.5 mg/dL | [facility] | | | LASMA | | | LABORATORY | | | | | | SERVICES, | | | | | | CORE | | + +---------+ + + + + + | Specimen | + + | Blood - Blood | + + + + + + + | Performing | Address | City/State/Zipcode | Phone Number | | Organization | | | | + + + + + | [facility] | [address] | [place] [address] | | | SERVICES, ALANNA | [address] | | | + + + + + COMPLETE METABOLIC SET (NA,K,CL,CO2,BUN,CREAT,GLUC,CA,AST,ALT,BILI TOTAL,ALK PHOS,ALB,PROT TOTAL) (06/28/2014 5:27 PM PST) + +---------+ + + + | Component | Value | Ref Range | Performed | Pathologist | | | | | At | Signature | + +---------+ + + + | GLUCOSE, | 81 | 60 - 99 mg/dL | [facility] | | | PLASMA | | | LABORATORY | | | (LAB) | | | SERVICES, | | | | | | CORE | | + +---------+ + + + | BUN, PLASMA | 13 | 6 - 20 mg/dL | [facility] | | | (LAB) | | | LABORATORY | | | | | | SERVICES, | | | | | | CORE | | + +---------+ + + + | CREATININE | 0.76 | 0.46 - 0.81 | [facility] | | | PLASMA | | mg/dL | LABORATORY | | | (LAB) | | | SERVICES, | | | | | | CORE | | + +---------+ + + + | SODIUM, | 139 | 136 - 145 | [facility] | | | PLASMA | | mmol/L | LABORATORY | | | (LAB) | | | SERVICES, | | | | | | CORE | | + +---------+ + + + | POTASSIUM, | 3.9 | 3.4 - 5.0 | [facility] | | | PLASMA | | mmol/L | LABORATORY | | | (LAB) | | | SERVICES, | | | | | | CORE | | + +---------+ + + + | CHLORIDE, | 105 | 97 - 108 mmol/L | [facility] | | | PLASMA | | | LABORATORY | | | (LAB) | | | SERVICES, | | | | | | CORE | | + +---------+ + + + | TOTAL CO2, | 30 | 21 - 32 mmol/L | [facility] | | | PLASMA | | | LABORATORY | | | (LAB) | | | SERVICES, | | | | | | CORE | | + +---------+ + + + | CALCIUM, | 9.4 | 8.6 - 10.2 | [facility] | | | PLASMA | | mg/dL | LABORATORY | | | (LAB) | | | SERVICES, | | | | | | CORE | | + +---------+ + + + | BILIRUBIN | 0.2 (L) | 0.3 - 1.2 mg/dL | [facility] | | | TOTAL | | | LABORATORY | | | | | | SERVICES, | | | | | | CORE | | + +---------+ + + + | TOTAL | 7.6 | 6.2 - 8.5 g/dL | [facility] | | | PROTEIN, | | | LABORATORY | | | PLASMA | | | SERVICES, | | | (LAB) | | | CORE | | + +---------+ + + + | ALBUMIN, | 3.7 | 3.5 - 4.7 g/dL | [facility] | | | PLASMA | | | LABORATORY | | | (LAB) | | | SERVICES, | | | | | | CORE | | + +---------+ + + + | ALK PHOS | 101 | 42 - 110 U/L | [facility] | | | | | | LABORATORY | | | | | | SERVICES, | | | | | | CORE | | + +---------+ + + + | AST(SGOT) | 15 (L) | 18 - 36 U/L | [facility] | | | | | | LABORATORY | | | | | | SERVICES, | | | | | | CORE | | + +---------+ + + + | ALT (SGPT) | 18 | 12 - 60 U/L | [facility] | | | | | | LABORATORY | | | | | | SERVICES, | | | | | | CORE | | + +---------+ + + + | ANION | 4 | 4 - 11 mmol/L | [facility] | | | GAP(ALB | | | LABORATORY | | | CORRECTED) | | | SERVICES, | | | | | | CORE | | + +---------+ + + + | POTASSIUM | No Hemo | | [facility] | | | CMNT | | | LABORATORY | | | | | | SERVICES, | | | | | | CORE | | + +---------+ + + + | BILI T CMNT | No Hemo | | [facility] | | | | | | LABORATORY | | | | | | SERVICES, | | | | | | CORE | | + +---------+ + + + | AST CMNT | No Hemo | | [facility] | | | | | | LABORATORY | | | | | | SERVICES, | | | | | | CORE | | + +---------+ + + + | ANION GAP | 4 | mmol/L | [facility] | | | | | | LABORATORY | | | | | | SERVICES, | | | | | | CORE | | + +---------+ + + + + + | Specimen | + + | Blood - Blood | + + + + + + + | Performing | Address | City/State/Zipcode | Phone Number | | Organization | | | | + + + + + | [facility] | [address] | [place] [address] | | | SERVICES, ALANNA | [address] | | | + + + + + documented in this encounter Visit Diagnoses + + | Diagnosis | + + | Transplanted liver (HCC) - Primary Liver replaced by transplant | + + | Immunosuppressed status (HCC) Unspecified disorder of immune mechanism | + + | High risk medications (not anticoagulants) long-term use Encounter for long-term | | (current) use of other medications | + + | VSD (ventricular septal defect), perimembranous Ventricular septal defect | + + | Polysplenia Congenital anomalies of spleen | + + | Aortic insufficiency Aortic valve disorders | + + | Aortic root dilatation (HCC) Thoracic aortic ectasia | + + | 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
--- OUTSIDE RECORDS SUMMARY | ~2019-06-17 | XMS | Encounter Summary ---
Demographics + + + | Address | [address] | | | [place] [address] | + + + | Home Phone | | + + + | Preferred Language | Unknown | + + + | Marital Status | Single | + + + | Druze Affiliation | Unknown | + + + | Race | White | + + + | Ethnic Group | Not or | + + + Author + + + | Author | [facility] [email or web address] [facility] | + + + | Organization | [facility] | + + [...] Team Providers + +------+ + | Care Local Bulk Driver Name | Role | Phone | + +------+ + | Nyla Fitzpatrick MD | PCP | | + +------+ + Encounter Details +--------+------+ + + + | Date | Type | Department | Care Team | Description | +--------+------+ + + + | 06/28/ | Lab | [facility] | | Transplanted liver | | 2013 | | 7th Floor [address] | | (HCC); High risk | | | | [address] | | medications (not | | | | [place], [place] | | anticoagulants) | | | | [address] | | long-term use | | | | [phone] | | | +--------+------+ + + + Social History + +-------+ [...] + | COMPLETE METABOLIC | Routin | 06/28/2014 | Transplanted liver | Results for this | | SET | e | 5:27 PM | (HCC) High risk | procedure are in the | | (NA,K,CL,CO2,BUN,CRE | | PST | medications (not | results section. | | AT,GLUC,CA,AST,ALT,B | | | anticoagulants) | | | WADE TOTAL,ALK | | | long-term use | | | PHOS,ALB,PROT TOTAL) | | | | | + +--------+ + + + | TACROLIMUS, WHOLE | Routin | 06/28/2014 | Transplanted liver | Results for this | | BLOOD | e | 5:27 PM | (HCC) High risk | procedure are in the | | | | PST | medications (not | results section. | | | | | anticoagulants) | | | | | | long-term use | | + +--------+ + + + | PHOSPHORUS, PLASMA | Routin | 06/28/2014 | Transplanted liver | Results for this | | | e | 5:27 PM | (HCC) High risk | procedure are in the | | | | PST | medications (not | results section. | | | | | anticoagulants) | | | | | | long-term use | | + +--------+ + + + | BILIRUBIN DIRECT | Routin | 06/28/2014 | Transplanted liver | Results for this | | | e | 5:27 PM | (HCC) High risk | procedure are in the | | | | PST | medications (not | results section. | | | | | anticoagulants) | | | | | | long-term use | | + +--------+ + + + | URIC ACID, PLASMA | Routin | 06/28/2014 | Transplanted liver | Results for this | | | e | 5:27 PM | (HCC) High risk | procedure are in the | | | | PST | medications (not | results section. | | | | | anticoagulants) | | | | | | long-term use | | + +--------+ + + + | MAGNESIUM, PLASMA | Routin | 06/28/2014 | Transplanted liver | Results for this | | | e | 5:27 PM | (HCC) High risk | procedure are in the | | | | PST | medications (not | results section. | | | | | anticoagulants) | | | | | | long-term use | | + +--------+ + + + | LDH TOTAL, PLASMA | Routin | 06/28/2014 | Transplanted liver | Results for this | | | e | 5:27 PM | (HCC) High risk | procedure are in the | | | | PST | medications (not | results section. | | | | | anticoagulants) | | | | | | long-term use | | + +--------+ + + + | CHOLESTEROL TOTAL, | Routin | 06/28/2014 | Transplanted liver | Results for this | | PLASMA | e | 5:27 PM | (HCC) High risk | procedure are in the | | | | PST | medications (not | results section. | | | | | anticoagulants) | | | | | | long-term use | | + +--------+ + + + documented in this encounter Results TACROLIMUS, WHOLE BLOOD (06/28/2014 [...] + | [facility] | [address] | [place] [address] | | | SERVICES, SPECIAL | [address] | | | | IMM + [...] + + | [facility] | [address] | [place] [address] | | | SERVICES, CORE | [address] [...] | + + + + + | [facility] | [address] | [place] [address] | | | SERVICES, CORE | [address] [...] + | [facility] | [address] | [place] [address] | | | SERVICES, CORE | [address] [...] + | [facility] | [address] | [place] [address] | | | SERVICES, CORE | [address] [...] | + + + + + | [facility] | [address] | [place] [address] | | | SERVICES, CORE | [address] | | | + + + + [...] + | [facility] | [address] | [place] [address] | | | SERVICES, CORE | [address] [...] | + + + + + | [facility] | [address] | [place] [address] | | | SERVICES, CORE | [address] | | | + + + + + documented in this encounter Visit Diagnoses + + | Diagnosis | + + | Transplanted liver (HCC) Liver replaced by transplant | + + | High risk medications (not anticoagulants) long-term use Encounter for long-term | | (current) use of other medications | + + documented in this encounter"
--- OUTSIDE RECORDS SUMMARY | ~2019-06-17 | XMS | Encounter Summary ---
Demographics + + + | Address | [address] | | | [place] [address] | + + + | Home Phone [...] Author + + + | Author | [facility] [employer] [facility] | + + + | Organization | [facility] | + + + | Address [...] Team Providers + +------+ + | Care Stain Sprayer Name | Role | Phone | + +------+ + | Nyla Fitzpatrick MD | PCP | | + +------+ + Encounter Details +--------+ + + + + | Date | Type | Department | Care Team | Description | +--------+ + + + + | 09/19/ | Documentati | Pediatric | Crista Valadez, | | | 2014 | on | Gastroenterology at | [address] | | | | | [place] | [place], [place] | | | | | [facility] | [address] | | | | | [address] | [phone] | | | | | Vivi Geoff Mailcode: | | | | | | [address] | | | | | | [place], [place] | | | | | | [address] | | | | | | [phone] | | | +--------+ + + + [...]
--- OUTSIDE RECORDS SUMMARY | ~2019-06-17 | XMS | Encounter Summary ---
Demographics + + + | Address | [address] | | | [place] [address] | + + + | Home Phone | | + + + | Preferred Language | Unknown | + + + | Marital Status | Single | + + + | Amish Affiliation | Unknown | + + + | Race | White | + + + | Ethnic Group | Not or | + + + Author + + + | Author | [facility] | + + + | Organization | [facility] | + + + | Address [...] Team Providers + +------+ + | Care Musician Instrumental Name | Role | Phone | + +------+ + | Nyla Fitzpatrick MD | PCP | | + +------+ + Encounter Details +--------+ + + + + | Date | Type | Department | Care Team | Description | +--------+ + + + + | 10/11/ | Abstract | Pediatric | [place] Leonardo MD | | | 2008 | | Gastroenterology at | | | | | | [place] | | | | | | [facility] | | | | | | [address] | | | | | | [place] Mailcode: | | | | | | [place] | | | | | | [place], [place] | | | | | | [address] | | | | | | [phone] | | | +--------+ + + + [...]
--- OUTSIDE RECORDS SUMMARY | ~2019-06-17 | XMS | Encounter Summary ---
Demographics + + + | Address | [address] | | | [place] [address] | + + + | Home Phone | | + + + | Preferred Language | Unknown | + + + | Marital Status | Single | + + + | Faith Affiliation | Unknown | + + + | Race | White | + + + | Ethnic Group | Not or | + + + Author + + + | Author | [facility] | + + + | Organization | [facility] | + + + | [...] Team Providers + +------+ + | Care Upholsterer Assembly Line Name | Role | Phone | + [...] | | | | | [place] | [place], [place] | | | | | [facility] | [address] | | | | | [address] | [phone] | | | | | [place] Mailcode: | | | | | | [facility] [place] | | | | | | [place], [place] | | | | | | [address] | | | | | | [phone] | | | +--------+ + + + [...]
--- OUTSIDE RECORDS SUMMARY | ~2019-06-17 | XMS | Encounter Summary ---
Demographics + + + | Address | [address] | | | [place] [address] | + + + | Home Phone | | + + + | Preferred Language | Unknown | + + + | Marital Status | Single | + + + | Methodist Affiliation | Unknown | + + + | Race | White | + + + | Ethnic Group | Not or | + + + Author + + + | Author | [facility] | + + + | Organization | [facility] | + + + | [...] Team Providers + +------+ + | Care Correctional Casework Specialist Name | Role | Phone | [...] [address] | | | | | [facility] | [place] [address] | | | | | [address] | | | | | | [place] Mailcode: | | | | | | [place] | | | | | | [place], [place] | | | | | | [address] | | | | | | [phone] | | | +--------+ + + + [...]
--- OUTSIDE RECORDS SUMMARY | ~2019-06-17 | XMS | Encounter Summary ---
Demographics + + + | Address | [address] | | | [place] [address] | + + + | Home Phone | | + + + | Preferred Language | Unknown | + + + | Marital Status | Single | + + + | Rastafarian Affiliation | Unknown | + + + | Race | White | + + + | Ethnic Group | Not or | + + + Author + + + | Author | [facility] | + + + | Organization | [facility] | + + + | [...] Team Providers + +------+ + | Care Special Events Driver Name | Role | Phone | [...] Description | +--------+--------+ + + + | 09/25/ | Refill | Pediatric | Althea Mcdonald, | Refill Request | | 2008 | | Gastroenterology at | RN [address] | | | | | [place] | [address] | | | | | [facility] | [place] [address] | | | | | [address] | | | | | | [place] Mailcode: | | | | | | [facility] [place] | | | | | | [place], [place] | | | | | | [address] | | | | | | [phone] | | | +--------+--------+ + + + [...]
--- OUTSIDE RECORDS SUMMARY | ~2019-06-17 | XMS | Encounter Summary ---
Demographics + + + | Address | [address] | | | [place] [address] | + + + | Home Phone | | + + + | Preferred Language | Unknown | + + + | Marital Status | Single | + + + | Religion Affiliation | Unknown | + + + | Race | White | + + + | Ethnic Group | Not or | + + + Author + + + | Author | [facility] | + + + | Organization | [facility] | + + + | Address [...] Team Providers + +------+ + | Care Sandblast Operator Name | Role | Phone | [...] [place] | | | | | | [facility] | | | | | | [address] | | | | | | [place] Mailcode: | | | | | | [place] | | | | | | [place], [place] | | | | | | [address] | | | | | | [phone] | | | +--------+ + + + [...]
--- OUTSIDE RECORDS SUMMARY | ~2019-06-17 | XMS | Encounter Summary ---
Demographics + + + | Address | [address] | | | [place] [address] | + + + | Home Phone | | + + + | Preferred Language | Unknown | + + + | Marital Status | Single | + + + | Spiritism Affiliation | Unknown | + + + | Race | White | + + + | Ethnic Group | Not or | + + + Author + + + | Author | Replaced By [facility] | + + + | Organization | [facility] | + + + | Address [...] Team Providers + +------+ + | Care A P Manager Name | Role | Phone | [...] | | | | | [place] | [place], [place] | | | | | [facility] | [address] | | | | | [address] [facility] | [phone] | | | | | [address] Mailcode: | | | | | | [address] | | | | | | [place], [place] | | | | | | [address] | | | | | | [phone] | | | +--------+ + + + [...]
--- OUTSIDE RECORDS SUMMARY | ~2019-06-17 | XMS | Encounter Summary ---
Demographics + + + | Address | [address] | | | [place] [address] | + + + | Home Phone [...] + + | Author | [facility] | + + + [...] Team Providers + +------+ + | Care Trailer Park Manager Name | Role | Phone | + +------+ + PCP | Unavailable | + +------+ + Reason for Visit Office Visit - E/M Services (Routine) +--------+ + + + + + | Status | Reason | Specialty | Diagnoses / | Referred By | Referred To | | | | | Procedures | Contact | Contact | +--------+ + + + + + | Closed | Specialty | Pediatric | | [facility] | Ped Gastro | | | Services | Gastroenterol | | Epic Dept | [facility] [address] | | | Required | ogy | | | [address] | | | | | | | [place] | | | | | | | Mailcode: | | | | | | | [facility] | | | | | | | [facility] | | | | | | | [place], [place] | | | | | | | [address] | | | | | | | Phone: | | | | | | | [phone] | | | | | | | Fax: | | | | | | | [phone] | +--------+ + + + + + Encounter Details +--------+---------+ + + + | Date | Type | Department | Care Team | Description | +--------+---------+ + + + | 02/23/ | Office | Specialty Clinics | Crista Valadez, | Immunosuppressed | | 2013 | Visit | at [facility] [address] | MD [address] | status (HCC) | | | | [address] | [facility] [place] | (Primary Dx); S/P | | | | Mailcode: [facility] | [address] | liver transplant | | | | [place] | [phone] | (HCC); High risk | | | | [facility] [place] | | medications (not | | | | [address] | | anticoagulants) | | | | [phone] | | long-term use; VSD | | | | | | (ventricular septal | | | | | | defect); Aortic | | | [...] + + documented as of this encounter Patient Instructions Patient Instructions Crista Valadez MD - 02/21/2014 4:33 PM PDT documented in this encounter Progress Notes Crista Valadez MD - 02/21/2014 4:33 PM PDT Patient is no show. documented in this en counter Plan of Treatment Not on filedocumented as of this encounter Visit Diagnoses + + | Diagnosis | + + | Immunosuppressed status (HCC) - Primary Unspecified disorder of immune mechanism | + + | S/P liver transplant (HCC) Liver replaced by transplant | + + | High risk medications (not anticoagulants) long-term use Encounter for long-term | | (current) use of other medications | + + | VSD (ventricular septal defect) Ventricular septal defect | + + | Aortic valve insufficiency Aortic valve disorders | + + documented in this encounter"
--- OUTSIDE RECORDS SUMMARY | ~2019-06-17 | XMS | Encounter Summary ---
Demographics + + + | Address | [address] | | | [place] [address] | + + + | Home Phone | | + + + | Preferred Language | Unknown | + + + | Marital Status | Single | + + + | Sikh Affiliation | Unknown | + + + | Race | White | + + + | Ethnic Group | Not or | + + + Author + + + | Author | [facility] | + [...] Team Providers + +------+ + | Care Successfactors Consultant Name | Role | Phone | + +------+ + | Nyla Fitzpatrick MD | PCP | | + +------+ + Encounter Details +--------+ + + + + | Date | Type | Department | Care Team | Description | +--------+ + + + + | 06/11/ | Abstract | Pediatric | Crista Valadez, | | | 2014 | | Gastroenterology at | [address] | | | | | [place] | [place], [place] | | | | | [facility] | [address] | | | | | [address] | [phone] | | | | | [place] Mailcode: | | | | | | [place] | | | | | | [place], [place] | | | | | | [address] | | | | | | [phone] | | | +--------+ + + + [...] + | CHOLESTEROL, TOTAL | Routin | 06/08/2015 | | Results for this | | (EXTERNAL RESULTS | e | 9:25 AM | | procedure are in the | | ONLY) | | PDT | | results section. | + +--------+ + + + | CBC, WITH | Routin | 06/08/2015 | | Results for this | | DIFFERENTIAL | e | 9:25 AM | | procedure are in the | | | | PDT | | results section. | + +--------+ + + + | COMPLETE METABOLIC | Routin | 06/08/2015 | | Results for this | | SET | e | 9:25 AM | | procedure are in the | | (NA,K,CL,CO2,BUN,CRE | | PDT | | results section. | | AT,GLUC,CA,AST,ALT,B | | | | | | WADE TOTAL,ALK | | | | | | PHOS,ALB,PROT TOTAL) | | | | | + +--------+ + + + | TACROLIMUS, WHOLE | Routin | 06/08/2015 | | Results for this | | BLOOD | e | 9:25 AM | | procedure are in the | | | | PDT | | results section. | + +--------+ + + + | PHOSPHORUS, PLASMA | Routin | 06/08/2015 | | Results for this | | | e | 9:25 AM | | procedure are in the | | | | PDT | | results section. | + +--------+ + + + | GGT, PLASMA | Routin | 06/08/2015 | | Results for this | | | e | 9:25 AM | | procedure are in the | | | | PDT | | results section. | + +--------+ + + + | URIC ACID, PLASMA | Routin | 06/08/2015 | | Results for this | | | e | 9:25 AM | | procedure are in the | | | | PDT | | results section. | + +--------+ + + + | MAGNESIUM, PLASMA | Routin | 06/08/2015 | | Results for this | | | e | 9:25 AM | | procedure are in the | | | | PDT | | results section. | + +--------+ + + + | TRIGLYCERIDES, | Routin | 06/08/2015 | | Results for this | | PLASMA | e | 9:25 AM | | procedure are in the | | | | PDT | | results section. | + +--------+ + + + | LDH TOTAL, PLASMA | Routin | 06/08/2015 | | Results for this | | | e | 9:25 AM | | procedure are in the | | | | PDT | | results section. | + +--------+ + + + documented in this encounter Results TACROLIMUS, WHOLE BLOOD (06/08/2015 9:25 AM PDT) + +-------+ + + + | Component | Value | Ref Range | Performed | Pathologist | | | | | At | Signature | + +-------+ + + + | [id number] | <1.0 | | [facility] | | | | [...] [address] | [place] | [phone] | | [place] | | | | + + + + + CBC, WITH DIFFERENTIAL (06/08/2015 9:25 AM PDT) + +-------+ + + + | Component | Value | Ref Range | Performed | Pathologist | | | | | At | Signature | + +-------+ + + + | WHITE CELL | 5.2 | 4.5 - 11.0 K/cu | [facility] | | | COUNT | | mm | LAB - | | | | | | [place] | | + +-------+ + + + | RED CELL | 4.65 | 3.8 - 5.1 M/cu | [facility] | | | COUNT | | mm | LAB - | | | | | | [place] | | + +-------+ + + + | HEMOGLOBIN | 13.5 | 12 - 16 g/dL | [facility] | | | | | | LAB - | | | | | | [place] | | + +-------+ + + + | HEMATOCRIT | 41 | 35 - 45 % | [facility] | | | | | | LAB - | | | | | | [place] | | + +-------+ + + + | MCV | 88.2 | 81 - 99 fL | [facility] | | | | | | LAB - | | | | | | [place] | | + +-------+ + + + | MCH | 29 | 27 - 33 pg | [facility] | | | | | | LAB - | | | | | | [place] | | + +-------+ + + + | MCHC | 33 | 30 - 36 g/dL | [facility] | | | | | | LAB - | | | | | | [place] | | + +-------+ + + + | PLATELET | 343 | 140 - 440 K/cu | [facility] | | | COUNT | | mm | LAB - | | | | | | [place] | | + +-------+ + + + | NEUTROPHIL | 54.2 | 39 - 80 % | [facility] | | | % | | | LAB - | | | | | | [place] | | + +-------+ + + + | LYMPHOCYTE | 32.3 | 24 - 44 % | [facility] | | | % | | | LAB - | | | | | | [place] | | + +-------+ + + + | MONOCYTE % | 9.8 | 0 - 12 % | [facility] | | | | | | LAB - | | | | | | [place] | | + +-------+ + + + | EOS % | 2.6 | 0 - 6 % | [facility] | | | | | | LAB - | | | | | | [place] | | + +-------+ + + + | BASO % | 1.1 | 0 - 2 % | [facility] | | | | | | LAB - | | | | | | [place] | | + +-------+ + + + | RDW | 13.7 | 10.5 - 15.0 % | [facility] [...] [address] | [place] | [phone] | | [facility] | | | | + + + + + MAGNESIUM, PLASMA (06/08/2015 9:25 AM PDT) + +-------+ + + + | Component | Value | Ref Range | Performed | Pathologist | | | | | At | Signature | + +-------+ + + + | MAGNESIUM | 1.7 | 1.7 - 2.5 mg/dL | [facility] [...] LAB - | [address] | [place] | [phone] | | [facility] | | | | + + + + + GGT, PLASMA (06/08/2015 9:25 AM PDT) + +-------+ + + + | Component | Value | Ref Range | Performed | Pathologist | | | | | At | Signature | + +-------+ + + + | GAMMA | 9 | 5 - 60 U/L | [facility] [...] - | [address] | [place], [place] | [phone] | | [place] | | | | + + + + + COMPLETE METABOLIC SET (NA,K,CL,CO2,BUN,CREAT,GLUC,CA,AST,ALT,BILI TOTAL,ALK PHOS,ALB,PROT TOTAL) (06/08/2015 9:25 AM PDT) + +-------+ + + + | Component | Value | Ref Range | Performed | Pathologist | | | | | At | Signature | + +-------+ + + + | GLUCOSE, | 83 | 70 - 100 mg/dL | [facility] [...] + + | CREATININE | 0.61 | 0.60 - 1.20 | [facility] | | | PLASMA | | mg/dL | LAB - | | | (LAB) | | | [place] | | + +-------+ + + + | TOTAL | 7.2 | 6.1 - 8.5 g/dL | [facility] | | | PROTEIN, | | | LAB - | | | PLASMA | | | [place] | | | (LAB) | | | | | + +-------+ + + + | ALBUMIN, | 4.1 | 3.5 - 5.0 g/dL | [facility] | | | PLASMA | | | LAB - | | | (LAB) | | | [place] | | + +-------+ + + + | CALCIUM, | 9.4 | 8.4 - 10.2 | [facility] | | | PLASMA | | mg/dL | LAB - | | | (LAB) | | | [place] | | + +-------+ + + + | BILIRUBIN | 0.6 | 0 - 1.2 | [facility] | | | TOTAL | | Transcutaneous | LAB - | | | | | Bilirubinometer | [facility] | | + +-------+ + + + | ALK PHOS | 91 | 30 - 128 U/L | [facility] | | | | | | LAB - | | | | | | [place] | | + +-------+ + + + | AST(SGOT) | 16 | 13 - 39 U/L | [facility] | | | | | | LAB - | | | | | | [place] | | + +-------+ + + + | SODIUM, | 139 | 132 - 143 | [facility] | | | PLASMA | | mmol/L | LAB - | | | (LAB) | | | [place] | | + +-------+ + + + | POTASSIUM, | 4.0 | 3.6 - 5.1 | [facility] | | | PLASMA | | mmol/L | LAB - | | | (LAB) | | | [place] | | + +-------+ + + + | CHLORIDE, | 105 | 95 - 112 mmol/L | [facility] [...] + + + | ALT (SGPT) | 14 | 7 - 52 U/L | [facility] | | | | | | LAB - | | | | | | [place] | | + +-------+ + + + | ANION GAP | 14 | 7 - 21 | [facility] | | | | | | LAB - | | | | | | [place] | | + +-------+ + + + | BUN/CREATIN | 21.3 | 6.0 - 28.6 | [facility] | | | INE RATIO | | | LAB - | | | | | | [place] | | + +-------+ + + + | GLOBULIN | 3.1 | 1.8 - 3.5 | [facility] | | | | | | LAB - | | | | | | [place] | | + +-------+ + + + | A/G RATIO | 1.3 | 1.1 - 2.4 | [facility] | | | | | | LAB - | | | | | | [place] | | + +-------+ + + + | BILIRUBIN | 0.1 | 0 - 0.1 mg/dL | [facility] | | [...] [address] | [place] | [phone] | | [place] | | | | + + + + + TRIGLYCERIDES, PLASMA (06/08/2015 9:25 AM PDT) + +-------+ + + + | Component | Value | Ref Range | Performed | Pathologist | | | | | At | Signature | + +-------+ + + + | TRIGLYCERID | 54 | 30 - 150 mg/dL | [facility] [...] [address] | [place] | [phone] | | [place] | | | | + + + + + LDH TOTAL, PLASMA (06/08/2015 9:25 AM PDT) + +-------+ + + + | Component | Value | Ref Range | Performed | Pathologist | | | | | At | Signature | + +-------+ + + + | LDH (TOTAL) | 144 | 100 - 215 | [facility] | [...] - | [address] | [place], [place] | [phone] | | [place] | | | | + + + + + CHOLESTEROL, TOTAL (EXTERNAL RESULTS ONLY) (06/08/2015 9:25 AM PDT) + +-------+ + + + | Component | Value | Ref Range | Performed | Pathologist | | | | | At | Signature | + +-------+ + + + | CHOLESTEROL | 120 | 200 mg/dL | [facility] | | [...] - | [address] | [place], [place] | [phone] | | [place] | | | | + + + + + URIC ACID, PLASMA (06/08/2015 9:25 AM PDT) + +-------+ + + + | Component | Value | Ref Range | Performed | Pathologist | | | | | At | Signature | + +-------+ + + + | URIC ACID, | 4.8 | 2.3 - 6.6 mg/dL | [facility] [...] [address] | [place] | [phone] | | [place] | | | | + + + + + PHOSPHORUS, PLASMA (06/08/2015 9:25 AM PDT) + +-------+ + + + | Component | Value | Ref Range | Performed | Pathologist | | | | | At | Signature | + +-------+ + + + | PHOSPHORUS, | 3.0 | 2.5 - 5.0 mg/dL | [facility] [...] [address] | [place] | [phone] | | [place] | | | | + + + + + documented in this encounter Visit Diagnoses Not on filedocumented in this encounter"
--- OUTSIDE RECORDS SUMMARY | ~2019-06-17 | XMS | Encounter Summary ---
Demographics + + + | Address | [address] | | | [place] [address] | + + + | Home Phone | | + + + | Preferred Language | Unknown | + + + | Marital Status | Single | + + + | Yarsanism Affiliation | Unknown | + + + | Race | White | + + + | Ethnic Group | Not or | + + + Author + + + | Author | [facility] | + + + | [...] Team Providers + +------+ + | Care Benefits Advisor Name | Role | Phone | + +------+ + PCP | Unavailable | + +------+ + Reason for Visit + + + | Reason | Comments | + + + | Social work | | | consultation | | + + + Encounter Details +--------+ + + + + | Date | Type | Department | Care Team | Description | +--------+ + + + + | 07/17/ | Documentati | SOCIAL WORK | Elvia Dsouza, | Social work | | 2013 | on | AM[address]ULATORY [address] | FINISHING AND SHIPPING SUPERVISOR [address] | consultation | | | | [address] | [place] | | | | | Mailcode: [address] | [place], [place] | | | | | [place], [place] | [address] | | | | | [address] | [phone] | | | | | [phone] | | | +--------+ + + + [...]
--- OUTSIDE RECORDS SUMMARY | ~2019-06-17 | XMS | Encounter Summary ---
Demographics + + + | Address | [address] | | | [place] [address] | + + + | Home Phone | | + + + | Preferred Language | Unknown | + + + | Marital Status | Single | + + + | Mandaen Affiliation | Unknown | + + + | Race | White | + + + | Ethnic Group | Not or | + + + Author + + + | Author | [facility] | + + + | Organization [...] Team Providers + +------+ + | Care Crossword Puzzle Maker Name | Role | Phone | [...] | Specialty | Pediatric | Diagnoses | [facility] | Ped | | | Services | Endocrinology | | Epic Dept | Endocrinology | | | Required | | Complication | | [address] | | | | | s of | | [address] | | | | | transplanted | | [place] | | | | | liver | | Mailcode: | | | | | Liver | | [place] | | | | | replaced by | | [place] | | | | | transplant | | [place], [place] | | | | | (HCC) | | [address] | | | | | Procedures | | Phone: | | | | | [place] | | [phone] | | | | | OFFICE/OUTPT | | Fax: | | | | | | | [phone] | | | | | VISIT,EST,LE | | | | | | | VL II TX | | | | | | | EST PATIENT | | | | | | | LEVEL V | | | +--------+ + + + + + Encounter Details +--------+---------+ + + + | Date | Type | Department | Care Team | Description | +--------+---------+ + + + | 10/27/ | Office | Specialty Clinics | Crista Valadez, | Transplanted liver | | 2013 | Visit | at [facility] [address] | [address] | (HCC) (Primary Dx) | | | | [address] | [facility] [place] | | | | | Mailcode: [address]7 | [address] | | | | | [place] | [phone] | | | | | [place] | | | | | | [address] | | | | | | [phone] | | | +--------+---------+ + + + [...] Instructions Patient Instructions Crista Valadez MD - 10/27/2013 8:22 AM PDT documented in this encounter Progress Notes Crista Valadez MD - 10/27/2013 8:23 AM PDT Pt is no show for appt. Our SW called to family as she is lost to follow up since 2008: "I called and spoke with Nicki Woods s mother Mary Woods. She stated that she did not realize Nicki still had an appointment today. She was expecting to do labs locally bef ore coming here for the appointment. She said she called us several times but the labs were never ordered. I don t see any record of her calling, but I also don t see any order f or labs. She wants to reschedule and they need the lab order sent to [facility] in [facility]. She also said that the reason they have been absent from clinic for so long was due t o insurance issues, but they are now insured. From our phone call it seemed that she was singh ppy to reschedule". Plan: - send orders for her labs (CBC, CMP, GGT) to local lab - schedule a clinic appt with me at [facility] - schedule for the next liver transplant clinic (February 2014) - follow compliance issues very closely YE documented in this encounter Plan of Treatment Not on filedocumented as of this encounter Visit Diagnoses + + | Diagnosis | + + | Transplanted liver (HCC) - Primary Liver replaced by transplant | + + documented in this encounter
--- OUTSIDE RECORDS SUMMARY | ~2019-06-17 | XMS | Encounter Summary ---
Demographics + + + | Address | [address] | | | [place] [address] | + + + | Home Phone | | + + + | Preferred Language | Unknown | + + + | Marital Status | Single | + + + | Quaker Affiliation | Unknown | + + + | Race | White | + + + | Ethnic Group | Not or | + + + Author + + + | Author | [facility] | + + + | Organization | [facility] | + + + | Address | [...] Team Providers + +------+ + | Care Pharmaceutical Officer Name | Role | Phone | + [...] [address] | | | | | [facility] | [place] [address] | | | | | [address] | | | | | | [place] Mailcode: | | | | | | [place] | | | | | | [place], [place] | | | | | | [address] | | | | | | [phone] | | | +--------+ + + + [...]
--- OUTSIDE RECORDS SUMMARY | ~2019-06-17 | XMS | Encounter Summary ---
Demographics + + + | Address | [address] | | | [place] [address] | + + + | Home Phone | | + + + | Preferred Language | Unknown | + + + | Marital Status | Single | + + + | Voodoo Affiliation | Unknown | + + + | Race | White | + + + | Ethnic Group | Not or | + + + Author + + + | Author | [facility] | + + + | Organization | [facility] | + + + | Address [...] Team Providers + +------+ + | Care Gas Scrubber Operator Name | Role | Phone | [...] | +--------+ + + + + | 10/04/ | Telephone | Pediatric | Crista Valadez, | Care Coordination | | 2015 | | Gastroenterology at | MD [address] | | | | | [place] | [place], [place] | | | | | [facility] | [address] | | | | | [address] [facility] | [phone] | | | | | [address] Mailcode: | | | | | | [address] | | | | | | [place], [place] | | | | | | [address] | | | | | | [phone] | | | +--------+ + + + [...]
--- OUTSIDE RECORDS SUMMARY | ~2019-06-17 | XMS | Encounter Summary ---
Demographics + + + | Address | [address] | | | [place] [address] | + + + | Home Phone [...] + + | Author | [facility] | + + [...] Team Providers + +------+ + | Care Housekeeping Cleaner Name | Role | Phone | + +------+ + | Nyla Fitzpatrick MD | PCP | | + +------+ + Reason for Visit + + + | Reason | Comments | + + + | Care Coordination | lost to follow-up | + + + Encounter Details +--------+ + + + + | Date | Type | Department | Care Team | Description | +--------+ + + + + | 04/22/ | Documentati | Pediatric | Crista Valadez, | Care Coordination | | 2017 | on | Gastroenterology at | MD [address] | (lost to follow-up) | | | | [place] | [place], [place] | | | | | [facility] | [address] | | | | | [address] | [phone] | | | | | Vivi Tellez Mailcode: | | | | | | [address] | | | | | | [place], [place] | | | | | | [address] | | | | | | [phone] | | | +--------+ + + + [...]
--- OUTSIDE RECORDS SUMMARY | ~2019-06-17 | XMS | Encounter Summary ---
Demographics + + + | Address | [address] | | | [place] [address] | + + + | Home Phone [...] Author | [facility] | + + + | Organization [...] Team Providers + +------+ + | Care Division Operations Manager Name | Role | Phone | + +------+ + | Nyla Fitzpatrick MD | PCP | | + +------+ + Encounter Details +--------+ + + + + | Date | Type | Department | Care Team | Description | +--------+ + + + + | 12/20/ | Abstract | Pediatric | Sayra Leonardo MD | | | 2007 | | Gastroenterology at | | | | | | [place] | | | | | | [facility] | | | | | | [address] | | | | | | [address]i Tellez Mailcode: | | | | | | [address] | | | | | | [place], [place] | | | | | | [address] | | | | | | [phone] | | | +--------+ + + + [...] + | CBC, WITH | Routin | 12/17/2007 | | Results for this | | DIFFERENTIAL | e | 3:25 PM | | procedure are in the | | | | PDT | | results section. | + +--------+ + + + | COMPLETE METABOLIC | Routin | 12/17/2007 | | Results for this | | SET | e | 3:25 PM | | procedure are in the | | (NA,K,CL,CO2,BUN,CRE | | PDT | | results section. | | AT,GLUC,CA,AST,ALT,B | | | | | | WADE TOTAL,ALK | | | | | | PHOS,ALB,PROT TOTAL) | | | | | + +--------+ + + + | TACROLIMUS, WHOLE | Routin | 12/17/2007 | | | | BLOOD | e | 3:25 PM | | | | | | PDT | | | + +--------+ + + + | PHOSPHORUS, PLASMA | Routin | 12/17/2007 | | Results for this | | | e | 3:25 PM | | procedure are in the | | | | PDT | | results section. | + +--------+ + + + | GGT, PLASMA | Routin | 12/17/2007 | | Results for this | | | e | 3:25 PM | | procedure are in the | | | | PDT | | results section. | + +--------+ + + + | MAGNESIUM, PLASMA | Routin | 12/17/2007 | | Results for this | | | e | 3:25 PM | | procedure are in the | | | | PDT | | results section. | + +--------+ + + + | TRIGLYCERIDES, | Routin | 12/17/2007 | | Results for this | | PLASMA | e | 3:25 PM | | procedure are in the | | | | PDT | | results section. | + +--------+ + + + | CHOLESTEROL TOTAL, | Routin | 12/17/2007 | | Results for this | | PLASMA | e | 3:25 PM | | procedure are in the | | | | PDT | | results section. | + +--------+ + + + documented in this encounter Results COMPLETE METABOLIC SET (NA,K,CL,CO2,BUN,CREAT,GLUC,CA,AST,ALT,BILI TOTAL,ALK PHOS,ALB,PROT TOTAL) (12/17/2007 3:25 PM PDT) + +-------+ + + + | Component | Value | Ref Range | Performed | Pathologist | | | | | At | Signature | + +-------+ + + + | GLUCOSE, | 82 | 60 - 100 mg/dL | NON [facility] | | | PLASMA | | | LAB | | | (LAB) | | | | | + +-------+ + + + | BUN, PLASMA | 11.1 | 7 - 21 mg/dL | NON [facility] | | | (LAB) | | | LAB | | + +-------+ + + + | CREATININE | 0.51 | 0.5 - 1.5 mg/dL | NON [facility] | | | PLASMA | | | LAB | | | (LAB) | | | | | + +-------+ + + + | TOTAL | 7.1 | 6.1 - 8.5 g/dL | NON [facility] | | | PROTEIN, | | | LAB | | | PLASMA | | | | | | (LAB) | | | | | + +-------+ + + + | ALBUMIN, | 4.2 | 2.9 - 5.5 g/dL | NON [facility] | | | PLASMA | | | LAB | | | (LAB) | | | | | + +-------+ + + + | CALCIUM, | 9.4 | 8.5 - 10.5 | NON [facility] | | | PLASMA | | mg/dL | LAB | | | (LAB) | | | | | + +-------+ + + + | BILIRUBIN | 0.8 | 0.0 - 1.2 | NON [facility] | | | TOTAL | | Transcutaneous | LAB | | | | | Bilirubinometer | | | + +-------+ + + + | ALK PHOS | 230 | 135 - 384 U/L | [facility] | | | | | | LAB | | + +-------+ + + + | AST(SGOT) | 28 | 0 - 40 U/L | [facility] | | | | | | LAB | | + +-------+ + + + | SODIUM, | 136 | 132 - 143 | NON [facility] | | | PLASMA | | mmol/L | LAB | | | (LAB) | | | | | + +-------+ + + + | POTASSIUM, | 3.8 | 3.6 - 5.1 | NON [facility] | | | PLASMA | | mmol/L | LAB | | | (LAB) | | | | | + +-------+ + + + | CHLORIDE, | 107 | 95 - 112 mmol/L | [facility] | | | PLASMA | | | LAB | | | (LAB) | | | | | + +-------+ + + + | TOTAL CO2, | 21.7 | 19 - 31 mmol/L | NON [facility] | | | PLASMA | | | LAB | | | (LAB) | | | | | + +-------+ + + + | ALT (SGPT) | 24 | 0 - 46 U/L | NON [facility] | | | | | | LAB | | + +-------+ + + + | BILIRUBIN | 0.1 | 0.0 - 0.4 mg/dL | NON [facility] | | | DIRECT | | | LAB | | + +-------+ + + + + + | Specimen | + + | | + + + +---------+ + + | Performing | Address | City/State/Zipcode | Phone Number | | Organization | | | | + +---------+ + + | NON [facility] | | | | + +---------+ + + CBC, WITH DIFFERENTIAL (12/17/2007 3:25 PM PDT) + + + + + + | Component | Value | Ref Range | Performed | Pathologist | | | | | At | Signature | + + + + + + | WHITE CELL | 8.3 | 4.5 - 13.5 K/cu | NON [facility] | | | COUNT | | mm | LAB | | + + + + + + | RED CELL | 4.65 | 4.1 - 5.3 M/cu | NON [facility] | | | COUNT | | mm | LAB | | + + + + + + | HEMOGLOBIN | 14.2 | 10.6 - 15.1 | NON [facility] | | | | | g/dL | LAB | | + + + + + + | HEMATOCRIT | 40.8 | 32 - 42 % | NON [facility] | | | | | | LAB | | + + + + + + | MCV | 84.6 | 71 - 89 fL | NON [facility] | | | | | | LAB | | + + + + + + | MCH | 31 (A) | 24 - 30 pg | NON [facility] | | | | | | LAB | | + + + + + + | MCHC | 35 | 30 - 36 g/dL | NON [facility] | | | | | | LAB | | + + + + + + | PLATELET | 339 | 140 - 440 K/cu | NON [facility] | | | COUNT | | mm | LAB | | + + + + + + | NEUTROPHIL | 43.3 | 31 - 60 % | NON [facility] | | | % | | | LAB | | + + + + + + | LYMPHOCYTE | 41.1 | 28 - 48 % | NON [facility] | | | % | | | LAB | | + + + + + + | MONOCYTE % | 12.2 (A) | 0 - 12 % | NON [facility] | | | | | | LAB | | + + + + + + | EOS % | 3.2 | 0 - 6 % | NON [facility] | | | | | | LAB | | + + + + + + | BASO % | 0.2 | 0 - 2 % | NON [facility] | | | | | | LAB | | + + + + + + | RDW | 12.6 | 10.5 - 15.0 % | NON [facility] | | | | | | LAB | | + + + + + + | MPV | | fL | NON [facility] | | | | | | LAB | | + + + + + + | NEUTROPHIL | | K/cu mm | NON [facility] | | | # | | | LAB | | + + + + + + | LYMPHOCYTE | | K/cu mm | NON [facility] | | | # | | | LAB | | + + + + + + | MONOCYTE # | | K/cu mm | NON [facility] | | | | | | LAB | | + + + + + + | EOS # | | K/cu mm | NON [facility] | | | | | | LAB | | + + + + + + | BASO # | | | NON [facility] | | | | | | LAB | | + + + + + + + + | Specimen | + + | | + + + +---------+ + + | Performing | Address | City/State/Zipcode | Phone Number | | Organization | | | | + +---------+ + + | NON [facility] | | | | + +---------+ + + MAGNESIUM, PLASMA (12/17/2007 3:25 PM PDT) + +-------+ + + + | Component | Value | Ref Range | Performed | Pathologist | | | | | At | Signature | + +-------+ + + + | MAGNESIUM,P | 2.0 | 1.7 - 2.5 mg/dL | NON [facility] | | | LASMA | | | LAB | | + +-------+ + + + + + | Specimen | + + | | + + + +---------+ + + | Performing | Address | City/State/Zipcode | Phone Number | | Organization | | | | + +---------+ + + | NON [facility] | | | | + +---------+ + + TACROLIMUS, WHOLE BLOOD (12/17/2007 3:25 PM PDT) + +-------+ + + + | Component | Value | Ref Range | Performed | Pathologist | | | | | At | Signature | + +-------+ + + + | TACROLIMUS | | ng/mL | NON [facility] | | | ([address]) | | | LAB | | + +-------+ + + + + + | Specimen | + + | | + + + +---------+ + + | Performing | Address | City/State/Zipcode | Phone Number | | Organization | | | | + +---------+ + + | NON [facility] | | | | + +---------+ + + GGT, PLASMA (12/17/2007 3:25 PM PDT) + +-------+ + + + | Component | Value | Ref Range | Performed | Pathologist | | | | | At | Signature | + +-------+ + + + | GAMMA | 9 | 5 - 60 U/L | NON [facility] | | | GLUTAMYL | | | LAB | | | TRANS | | | | | + +-------+ + + + + + | Specimen | + + | | + + + +---------+ + + | Performing | Address | City/State/Zipcode | Phone Number | | Organization | | | | + +---------+ + + | NON [facility] | | | | + +---------+ + + CHOLESTEROL TOTAL, PLASMA (12/17/2007 3:25 PM PDT) + +-------+ + + + | Component | Value | Ref Range | Performed | Pathologist | | | | | At | Signature | + +-------+ + + + | CHOLESTEROL | 145 | < - 200 mg/dL | NON [facility] | | | (LAB) | | | LAB | | + +-------+ + + + + + | Specimen | + + | | + + + +---------+ + + | Performing | Address | City/State/Zipcode | Phone Number | | Organization | | | | + +---------+ + + | NON [facility] | | | | + +---------+ + + TRIGLYCERIDES, PLASMA (12/17/2007 3:25 PM PDT) + +-------+ + + + | Component | Value | Ref Range | Performed | Pathologist | | | | | At | Signature | + +-------+ + + + | TRIGLYCERID | 120 | 30 - 150 mg/dL | NON [facility] | | | ES | | | LAB | | + +-------+ + + + + + | Specimen | + + | | + + + +---------+ + + | Performing | Address | City/State/Zipcode | Phone Number | | Organization | | | | + +---------+ + + | NON [facility] | | | | + +---------+ + + PHOSPHORUS, PLASMA (12/17/2007 3:25 PM PDT) + +-------+ + + + | Component | Value | Ref Range | Performed | Pathologist | | | | | At | Signature | + +-------+ + + + | PHOSPHORUS, | 4.5 | 2.6 - 6.2 mg/dL | NON [facility] | | | PLASMA | | | LAB | | | (LAB) | | [...]
--- OUTSIDE RECORDS SUMMARY | ~2019-06-17 | XMS | Encounter Summary ---
Demographics + + + | Address | [address] | | | [place] [address] | + + + | Home Phone [...] + + + | Author | [facility] | + + + | Organization | [facility] | + + + | Address [...] Team Providers + +------+ + | Care Casino Investigator Name | Role | Phone | + [...] [address] | | | | | [facility] | [place] [address] | | | | | [address] | | | | | | [place]i Tellez Mailcode: | | | | | | [address] [place] | | | | | | [place], [place] | | | | | | [address] | | | | | | [phone] | | | +--------+ + + + [...]
--- OUTSIDE RECORDS SUMMARY | ~2019-06-17 | XMS | Encounter Summary ---
Demographics + + + | Address | [address] | | | [place] [address] | + + + | Home Phone | | + + + | Preferred Language | Unknown | + + + | Marital Status | Single | + + + | Confucianist Affiliation | Unknown | + + + | Race | White | + + + | Ethnic Group | Not or | + + + Author + + + | Author | [facility] [employer] [facility] | + + + | Organization | [facility] | + + + | [...] Team Providers + +------+ + | Care Toy Maker Name | Role | Phone | [...] | Gastroenterol | | Epic Dept | [facility] [address] | | | Required | ogy | | | [address] | | | | | | | [address] [place] | | | | | | | Mailcode: | | | | | | | CD[facility] | | | | | | | [address] | | | | | | | [place], [place] | | | | | | | [address] | | | | | | | Phone: | | | | | | | [phone] | | | | | | | Fax: | | | | | | | [phone] | +--------+ + + + + + Encounter Details +--------+---------+ + + + | Date | Type | Department | Care Team | Description | +--------+---------+ + + + | 02/23/ | Office | Specialty Clinics | Crista Valadez, | Immunosuppressed | | 2013 | Visit | at [facility] [address] | MD [address] | status (HCC) | | | | [address] | [facility] [place] | (Primary Dx); S/P | | | | Mailcode: [facility] | [address] | liver transplant | | | | [place] | [phone] | (HCC); High risk | | | | [facility] [place] | | medications (not | | | | [address] | | anticoagulants) | | | | [phone] | | long-term use; [facility] | | [...]
--- OUTSIDE RECORDS SUMMARY | ~2019-06-17 | XMS | Encounter Summary ---
Demographics + + + | Address | [address] | | | [place] [address] | + + + | Home Phone | | + + + | Preferred Language | Unknown | + + + | Marital Status | Single | + + + | Buddhist Affiliation | Unknown | + + + | Race | White | + + + | Ethnic Group | Not or | + + + Author + + + | Author | [facility] [employer] [facility] | + + + | Organization | [facility] | + + + | Address | [...] Team Providers + +------+ + | Care Exhibit Display Representative Name | Role | Phone | + [...] | +--------+ + + + + | 06/08/ | Telephone | Pediatric | Crista Valadez, | Lab Results | | 2017 | | Gastroenterology at | [address] | | | | | [place] | [place], [place] | | | | | [facility] | [address] | | | | | [address] | [phone] | | | | | Vivi Tellez Mailcode: | | | | | | [address] | | | | | | [place], [place] | | | | | | [address] | | | | | | [phone] | | | +--------+ + + + [...]
--- OUTSIDE RECORDS SUMMARY | ~2019-06-17 | XMS | Encounter Summary ---
Demographics + + + | Address | [address] | | | [place] [address] | + + + | Home Phone [...] Author + + + | Author | [facility] [employer] [facility] | + + + | Organization | [facility] | + + + | Address | [...] Team Providers + +------+ + | Care Pony Trimmer Name | Role | Phone | + +------+ + | Nyla Fitzpatrick MD | PCP | | + +------+ + Encounter Details +--------+ + + + + | Date | Type | Department | Care Team | Description | +--------+ + + + + | 01/29/ | Documentati | Pediatric | Crista Valadez, | | | 2014 | on | Gastroenterology at | MD [address] | | | | | [place] | [place], [place] | | | | | [facility] | [address] | | | | | [address] | [phone] | | | | | Vivi Geoff Mailcode: | | | | | | [address] | | | | | | [place], [place] | | | | | | [address] | | | | | | [phone] | | | +--------+ + + + [...] | + +--------+ + + + | LIPID SET (TRIG, T | Routin | 01/26/2015 | | Results for this | | CHOL, HDL, CALC LDL) | e | 2:24 PM | | procedure are in the | | | | PDT | | results section. | + +--------+ + + + | CBC, WITH | Routin | 01/26/2015 | | Results for this | | DIFFERENTIAL | e | 2:19 PM | | procedure are in the | | | | PDT | | results section. | + +--------+ + + + | COMPLETE METABOLIC | Routin | 01/26/2015 | | Results for this | | SET | e | 2:19 PM | | procedure are in the | | (NA,K,CL,CO2,BUN,CRE | | PDT | | results section. | | AT,GLUC,CA,AST,ALT,B | | | | | | WADE TOTAL,ALK | | | | | | PHOS,ALB,PROT TOTAL) | | | | | + +--------+ + + + | GGT, PLASMA | Routin | 01/26/2015 | | Results for this | | | e | 2:19 PM | | procedure are in the | | | | PDT | | results section. | + +--------+ + + + | MAGNESIUM, PLASMA | Routin | 01/26/2015 | | Results for this | | | e | 2:19 PM | | procedure are in the | | | | PDT | | results section. | + +--------+ + + + documented in this encounter Results LIPID SET (TRIG, T CHOL, HDL, CALC LDL) (01/26/2015 2:24 PM PDT) + +-------+ + + + | Component | Value | Ref Range | Performed | Pathologist | | | | | At | Signature | + +-------+ + + + | CHOLESTEROL | 123 | 0 - 200 mg/dL | [facility] | | | (LAB) | | | LAB - | | | | | | [place] | | + +-------+ + + + | TRIGLYCERID | 106 | 30 - 150 mg/dL | [facility] | | | ES | | | LAB - | | | | | | [place] | | + +-------+ + + + | LDL | 140 | 100 - 215 mg/dL | [facility] | | | CHOLESTEROL | | | LAB - | | | , | | | [place] | | | CALCULATED | | | | | + +-------+ + + + + + | Specimen | + + | Blood - Blood | + + + + + + + | Performing | Address | City/State/Zipcode | Phone Number | | Organization | | | | + + + + + | [facility] - | [address] | [place] | [phone] | | [place] | | | | + + + + + MAGNESIUM, PLASMA (01/26/2015 2:19 PM PDT) + +-------+ + + + | Component | Value | Ref Range | Performed | Pathologist | | | | | At | Signature | + +-------+ + + + | MAGNESIUM,P | 1.8 | 1.7 - 2.5 mg/dL [...] - | [address] | [place], [place] | [phone] | | [place] | | | | + + + + + GGT, PLASMA (01/26/2015 2:19 PM PDT) + +-------+ + + + | Component | Value | Ref Range | Performed | Pathologist | | | | | At | Signature | + +-------+ + + + | GAMMA | 7 | 5 - 60 u/l | [facility] | | | GLUTAMYL | | | LAB - | | | TRANSFERASE | | | [place] | | + +-------+ + + + + + | Specimen | + + | Blood - Blood | + + + + + + + | Performing | Address | City/State/Zipcode | Phone Number | | Organization | | | | + + + + + | [facility] - | [address] | [place], [place] | [phone] | | [place] | | | | + + + + + COMPLETE METABOLIC SET (NA,K,CL,CO2,BUN,CREAT,GLUC,CA,AST,ALT,BILI TOTAL,ALK PHOS,ALB,PROT TOTAL) (01/26/2015 2:19 PM PDT) + +-------+ + + + | Component | Value | Ref Range | Performed | Pathologist | | | | | At | Signature | + +-------+ + + + | GLUCOSE, | 79 | 70 - 100 mg/dL | [facility] | | | PLASMA | | | LAB - | | | (LAB) | | | [place] | | + +-------+ + + + | ANION GAP | 16.8 | 7 - 21 | [facility] | | | | | | LAB - | | | | | | [place] | | + +-------+ + + + | CREATININE | 0.66 | 0.60 - 1.20 | [facility] | | | PLASMA | | mg/dL | LAB - | | | (LAB) | | | [place] | | + +-------+ + + + | TOTAL | 7.1 | 6.1 - 8.5 g/dL | [facility] | | | PROTEIN, | | | LAB - | | | PLASMA | | | [place] | | | (LAB) | | | | | + +-------+ + + + | ALBUMIN, | 4.0 | 3.5 - 5.0 g/dL | [facility] [...] +-------+ + + + | BILIRUBIN | 0.2 | 0.0 - 1.2 | [facility] | | | TOTAL | | Transcutaneous | LAB - | | | | | Bilirubinometer | [place] | | + +-------+ + + + | ALK PHOS | 88 | 30 - 128 U/L | [facility] | | | | | | LAB - | | | | | | [place] | | + +-------+ + + + | AST(SGOT) | 20 | 13 - 39 U/L | [facility] [...] +-------+ + + + | CHLORIDE, | 102 | 95 - 112 mmol/L | [facility] | | | PLASMA | | | LAB - | | | (LAB) | | | [place] | | + +-------+ + + + | TOTAL CO2, | 22 | 19 - 31 mmol/L | [facility] [...] +-------+ + + + | BUN/CREATIN | 21.2 | 6.0 - 28.6 | [facility] | | | INE RATIO | | | LAB - | | | | | | [place] | | + +-------+ + + + | UREA | 14 | 6 - 23 mg/dL | [facility] | | | NITROGEN, | | | LAB - | | | SERUM | | | [place] | | + [...] [address] | [place] | [phone] | | [place] | | | | + + + + + CBC, WITH DIFFERENTIAL (01/26/2015 2:19 PM PDT) + + + + + + | Component | Value | Ref Range | Performed | Pathologist | | | | | At | Signature | + + + + + + | WHITE CELL | 8.3 | 4.5 - 11.0 K/cu | [facility] | | | COUNT | | mm | LAB - | | | | | | [place] | | + + + + + + | RED CELL | 4.55 | 3.8 - 5.1 M/cu | [facility] | | | COUNT | | mm | LAB - | | | | | | [place] | | + + + + + + | HEMOGLOBIN | 13.5 | 12.0 - 16.0 | [facility] | | | | | g/dL | LAB - | | | | | | [place] | | + + + + + + | HEMATOCRIT | 40.2 | 35 - 45 % | [facility] | | | | | | LAB - | | | | | | [place] | | + + + + + + | MCV | 88.3 | 81 - 99 fL | [facility] | | | | | | LAB - | | | | | | [place] | | + + + + + + | MCH | 30 | 27 - 33 pg | [facility] [...] + + + + | PLATELET | 313 | 140 - 440 K/cu | [facility] | | | COUNT | | mm | LAB - | | | | | | [place] | | + + + + + + | NEUTROPHIL | 63.8 | 39 - 80 % | [facility] | | | % | | | LAB - | | | | | | [place] | | + + + + + + | LYMPHOCYTE | 21.5 (A) | 24 - 44 % | [facility] | | | % | | | LAB - | | | | | | [place] | | + + + + + + | MONOCYTE % | 12.6 (A) | 0 - 12 % | [facility] | | | | | | LAB - | | | | | | [place] | | + + + + + + | EOS % | 1.6 | 0 - 6 % | [facility] | | | | | | LAB - | | | | | | [place] | | + + + + + + | BASO % | 0.5 | 0 - 2 % | [facility] | | | | | | LAB - | | | | | | [place] | | + + + + + + | RDW | 13.5 | 10.5 - 15.0 % | [facility] [...] + + | [facility] - | [address] | [place] | [phone] | | [place] | | | | + + + + + documented in this encounter Visit Diagnoses Not on filedocumented in this encounter"
--- OUTSIDE RECORDS SUMMARY | ~2019-06-17 | XMS | Encounter Summary ---
Demographics + + + | Address | [address] | | | [place] [address] | + + + | Home Phone | | + + + | Preferred Language | Unknown | + + + | Marital Status | Single | + + + | Denominational Affiliation | Unknown | + + + | Race | White | + + + | Ethnic Group | Not or | + + + Author + + + | Author | [facility] | + + + | Organization | [facility] | + + + | Address [...] Team Providers + +------+ + | Care Buffer Nickel Name | Role | Phone | + [...] | | | | | [place] | [place], [place] | | | | | [facility] | [address] | | | | | [address] | [phone] | | | | | Vivi Tellez Mailcode: | | | | | | [place] | | | | | | [place], [place] | | | | | | [address] | | | | | | [phone] | | | +--------+ + + + [...] [address] | [place], [place] | [phone] | | [place] | | | | [...] [address] | [place] | [phone] | | [place] | | | | [...] [address] | [place] | [phone] | | [facility] | | | | [...] [address] | [place] | [phone] | | [facility] | | | | [...] [address] | [place], [place] | [phone] | | [facility] | | | | [...] - | [address] | [place], [place] | [phone] | | [facility] | | | | [...] [address] | [place] | [phone] | | [place] | | | | [...] - | [address] | [place], [place] | [phone] | | [facility] | | | | [...] + + | [facility] - | [address] | [place] | [phone] | | [place] | | | | + + + + + documented in this encounter Visit Diagnoses Not on filedocumented in this encounter"
--- OUTSIDE RECORDS SUMMARY | ~2019-06-17 | XMS | Encounter Summary ---
Demographics + + + | Address | [address] | | | [place] [address] | + + + | Home Phone [...] + + + | Author | [facility] | + + + | Organization | [facility] | + + + | Address [...] Team Providers + +------+ + | Care Craft Superintendent Name | Role | Phone | + +------+ + | Nyla Fitzpatrick MD | PCP | | + +------+ + Encounter Details +--------+ + + + + | Date | Type | Department | Care Team | Description | +--------+ + + + + | 01/21/ | Document-Sc | UNKNOWN DEPARTMENT | Unknown . | | | 2016 | anned | [id number] | | | | | | [address] | | | | | | [place], [place] | | | | | | [address] | | | +--------+ + + + [...] | + +--------+ + + + | LAB REPORTS | | 01/22/2016 | | Results for this | | | | 12:00 AM | | procedure are in the | | | | PDT | | results section. | + +--------+ + + + documented in this encounter Results LAB REPORTS (01/22/2016 12:00 AM PDT) + + + | Narrative | Performed At | + + + | | | + + + documented in this encounter Visit Diagnoses Not on filedocumented in this encounter"
--- OUTSIDE RECORDS SUMMARY | ~2019-06-17 | XMS | Encounter Summary ---
Demographics + + + | Address | [address] | | | [place] [address] | + + + | Home Phone | | + + + | Preferred Language | Unknown | + + + | Marital Status | Single | + + + | Oriental Orthodox Affiliation | Unknown | + + [...] Team Providers + +------+ + | Care Openstack Developer Name | Role | Phone | + +------+ + PCP | Unavailable | + +------+ + Encounter Details +--------+ + + + + | Date | Type | Department | Care Team | Description | +--------+ + + + + | 10/28/ | Transcribed | | Dictation, Other | Transcribed | | 2002 | | | | | +--------+ + [...] as of this encounter Progress Notes Interface, Clutch Inspector In - 04/28/2006 3:05 AM [facility] [place] [address] [place], [place] [address] or October 28, 2001 Nyla Fitzpatrick M.D. [address] [place] [address] RE: NICKI WOODS MR #: [id number] Dear Dr. Fitzpatrick: I had the pleasure of seeing Nicki back in the Pediatric Liver Transplant Clinic at [facility] staffed by Dr.Bill Beth and Dr. Ngoc Davis from [place]. This is a routine followup. Nicki continues to do quite well with no symptoms. She is gaining weight well and developing normally. She is presently on Prograf 2 mL (0.5 mg/mL) b.i.d. Past medical history is significant for an allergy to sulfa medication. In addition, she has a very small VSD that is followed by Dr. Donald Mendez, pediatric oncologist. The VSD certainly does not seem to be giving her any trouble and Dr. Mendez does not want to see her for quite sometime. On examination, she weighs 15.2 kg and measures 95 cm. Blood pressure is 105/58 and heart rate is 119. She is anicteric. She has large tonsils, but they are normal in appearance and symmetrical. There is no lymphadenopathy of the neck or axilla. She has normal shotty nodes in the inguinal areas. She has unlabored respirations. Her abdomen is benign. There is no mass, tenderness, or organomegaly. She has no clubbing of the digits. Recent laboratory tests from October 27, 2001, show normal electrolytes, serum protein, transaminases, bilirubin, and GGT. Specifically, the GGT is 11, AST is 27, ALT is 14, bilirubin 0.5, and albumin 4.2. Her magnesium is 1.8. The CBC is normal. Her tacrolimus level is pending. Laboratory tests from July 30, 2001, show a positive IgG EBV capsid antibody and negative IgM EBV capsid antibody. The qualitative EBV PCR is positive. A year ago, the serology was negative for EBV. Thus, she has acquired EBV within the last year. Her CMV serology is negative and the CMV PCR is negative. IMPRESSION: In summary, Nicki is a 1-year-old white female who is 1-1/2 year status post liver transplant who is doing quite well. Her last tacrolimus level was mildly elevated at 11.5 on August 12, 2001. Her dose was decreased from 3 mL b.i.d. to 2 mL b.i.d. at that point. Her goal Prograf level now is about 3. Depending on her pending Prograf level, we may drop her dose to 1.5 mL b.i.d. which is closer to 0.1 mg/kg per day. If we do drop the dose, she will need another Prograf level a week later to document an appropriate level. Because she has converted to EBV positivity, she needs to go back on the acyclovir. The dose will be 10mg/kg per dose given q.i.d. The solution is 40 mg/cc, so she will receive 150 mg q.i.d. of acyclovir until she has 2 negative EBV PCRs. She is to repeat her EBV serology in December 2001, and again in March 2002. We will try to order the quantitative EBV PCRs next time. She will return back to this clinic in the fall for routine followup. If everything is relatively stable at that point, perhaps she can go to yearly followup with the Transplant team. Sincerely, Kendall Angulo M.D. Pediatric Gastroenterology [facility] / [id number] / [id number] / [id number] / cc: Jose F Carnes M.D. [address] [facility] [address] [place] [address] Mirza Guerrero M.D. [address] [facility] [address] [place] [address] Adonis Beth M.D. [address] [facility]. [address] [place] [address] [id number] signed by Interface, Clutch Inspector In at 04/28/2006 3:05 AM [facility]ed in this encounter Plan of Treatment Not on filedocumented as of this encounter Visit Diagnoses Not on filedocumented in this encounter"
--- OUTSIDE RECORDS SUMMARY | ~2019-06-17 | XMS | Encounter Summary ---
Demographics + + + | Address | [address] | | | [place] [address] | + + + | Home Phone [...] + + + | Author | [facility] | + + + | Organization | [facility] | + + + | Address [...] Team Providers + +------+ + | Care Aircraft Mechanic Electrical And Radio Name | Role | Phone | + +------+ + | Nyla Fitzpatrick MD | PCP | | + +------+ + Reason for Visit + + + | Reason | Comments | + + + | Care Coordination | [place] request | + + + Encounter Details +--------+ + + + + | Date | Type | Department | Care Team | Description | +--------+ + + + + | 12/08/ | Telephone | Pediatric | Crista Valadez, | Care Coordination | | 2017 | | Gastroenterology at | MD [address] | ([facility]) | | | | [place] | [place], [place] | | | | | [facility] | [address] | | | | | [address] | [phone] | | | | | [place] Mailcode: | | | | | | [place] | | | | | | [facility] [place] | | | | | | [address] | | | | | | [phone] | | | +--------+ + + + [...]
--- OUTSIDE RECORDS SUMMARY | ~2019-06-17 | XMS | Encounter Summary ---
Demographics + + + | Address | [address] | | | [place] [address] | + + + | Home Phone | | + + + | Preferred Language | Unknown | + + + | Marital Status | Single | + + + | Taoist Affiliation | Unknown | + + + | Race | White | + + + | Ethnic Group | Not or | + + + Author + + + | Author | [facility] | + [...] Team Providers + +------+ + | Care Marketing Admin Name | Role | Phone | + +------+ + | Nyla Fitzpatrick MD | PCP | | + +------+ + Encounter Details +--------+ + + + + | Date | Type | Department | Care Team | Description | +--------+ + + + + | 01/26/ | Document-Sc | Health Information | Unknown . | | | 2014 | anned | Services [address] | | | | | [address] | | | | | | Mailcode: [id number] | | | | | | [facility] | | | | | | [place], [place] | | | | | | [address] | | | | | | [phone] | | | +--------+ + + + [...] + + | LAB REPORTS | | 01/26/2015 | | Results for this | | | | 12:00 AM | | procedure are in the | | | | PDT | | results section. | + +--------+ + + + documented in this encounter Results LAB REPORTS (01/26/2015 12:00 AM PDT) + + + | Narrative | Performed At | + + + | | | + + + documented in this encounter Visit Diagnoses Not on filedocumented in this encounter"
--- OUTSIDE RECORDS SUMMARY | ~2019-06-17 | XMS | Encounter Summary ---
Demographics + + + | Address | [address] | | | [place] [address] | + + + | Home Phone [...] Author | [facility] | + + + | Organization | [facility] | + + [...] Team Providers + +------+ + | Care Saddle And Side Wire Stitcher Name | Role | Phone | + [...] | +--------+ + + + + | 03/13/ | Documentati | SOCIAL WORK | Elvia Dsouza, | Social work | | 2013 | on | [address] | [facility] DIRECTOR [address] | consultation | | | | [address] | [place] | | | | | Mailcode: CH[address]A | [place], [place] | | | | | [place], [place] | [address] | | | | | [address] | [phone] | | | | | [phone] | | | +--------+ + + + [...]
--- OUTSIDE RECORDS SUMMARY | ~2019-06-17 | XMS | Encounter Summary ---
Demographics + + + | Address | [address] | | | [place] [address] | + + + | Home Phone | | + + + | Preferred Language | Unknown | + + + | Marital Status | Single | + + + | Hinduism Affiliation | Unknown | + + + | Race | White | + + + | Ethnic Group | Not or | + + + Author + + + | Author | [facility] | + + + | Organization | [facility] | + + + | Address [...] Team Providers + +------+ + | Care Ad Setter Name | Role | Phone | + [...] labs) | | | | [place] | [place], [place] | | | | | [facility] | [address] | | | | | [address] | [phone] | | | | | [place] Mailcode: | | | | | | [address] [address] | | | | | | [place], [place] | | | | | | [address] | | | | | | [phone] | | | +--------+ + + + [...]
--- OUTSIDE RECORDS SUMMARY | ~2019-06-17 | XMS | Encounter Summary ---
Demographics + + + | Address | [address] | | | [place] [address] | + + + | Home Phone [...] Author + + + | Author | [facility] | + + + | [...] Team Providers + +------+ + | Care Crime Prevention Worker Name | Role | Phone | + [...] | +--------+ + + + + | 08/20/ | Telephone | Pediatric | Crista Valadez, | Care Coordination | | 2018 | | Gastroenterology at | MD [address] | | | | | [place] | [place], [place] | | | | | [facility] | [address] | | | | | [address] [facility] | [phone] | | | | | [place] Mailcode: | | | | | | [address] | | | | | | [place], [place] | | | | | | [address] | | | | | | [phone] | | | +--------+ + + + [...]
--- OUTSIDE RECORDS SUMMARY | ~2019-06-17 | XMS | Encounter Summary ---
Demographics + + + | Address | [address] | | | [place] [address] | + + + | Home Phone | | + + + | Preferred Language | Unknown | + + + | Marital Status | Single | + + + | Gnosticist Affiliation | Unknown | + + + | Race | White | + + + | Ethnic Group | Not or | + + + Author + + + | Author | [facility] | + + + | Organization [...] Team Providers + +------+ + | Care Regional Intermodal Truck Driver Name | Role | Phone | [...] | +--------+ + + + + | 03/17/ | Telephone | Pediatric | Crista Valadez, | Care Coordination | | 2017 | | Gastroenterology at | MD [address] | | | | | [place] | [place], [place] | | | | | [facility] | [address] | | | | | [address] [facility] | [phone] | | | | | [place] Mailcode: | | | | | | [address] | | | | | | [place], [place] | | | | | | [address] | | | | | | [phone] | | | +--------+ + + + [...]
--- OUTSIDE RECORDS SUMMARY | ~2019-06-17 | XMS | Encounter Summary ---
Demographics + + + | Address | [address] | | | [place] [address] | + + + | Home Phone [...] Team Providers + +------+ + | Care Human Resources Executive Name | Role | Phone | + [...] as of this encounter Progress Notes Interface, Agricultural Equipment Test Engineer In - 06/18/2006 2:32 AM [facility] [id number] CHUCK ELIAS N [id number] Clinic Date: 05/28/2006 Clinic: Pediatric Liver Transplant [...] that is followed by Dr. Molina at [facility]. Review of Systems: She has no chronic [...] unless she has problems. [place] Leonardo M.D. [facility] / [id number] / [id number] / [id number] / [id number] cc: Nyla Fitzpatrick M.D. [address] [facility] [address] [place] [address] * Pediatric Liver Coordinators [facility] [address] [place] [address] Electronically signed by [place] Leonardo 06-17-2006 10:05:03 PM documented i n this encounter Plan of Treatment Not on filedocumented as of this encounter Visit Diagnoses Not on filedocumented in this encounter"
--- OUTSIDE RECORDS SUMMARY | ~2019-06-17 | XMS | Encounter Summary ---
Demographics + + + | Address | [address] | | | [place] [address] | + + + | Home Phone | | + + + | Preferred Language | Unknown | + + + | Marital Status | Single | + + + | Episcopal Affiliation | Unknown | + + + | Race | White | + + + | Ethnic Group | Not or | + + + Author + + + | Author | [facility] | + + + | Organization [...] Providers + +------+ + | Care Lead Oxide Mill Tender Name | Role | Phone | + [...] [place] | | | | | | [place] | | | | | | [address] | | | | | | [place] Mailcode: | | | | | | [facility] [place] | | | | | | [place], [place] | | | | | | [address] | | | | | | [phone] | | | +--------+ + + + [...]
--- OUTSIDE RECORDS SUMMARY | ~2019-06-17 | XMS | Encounter Summary ---
Demographics + + + | Address | [address] | | | [place] [address] | + + + | Home Phone [...] Team Providers + +------+ + | Care [place] Cutting Machine Operator Name | Role | Phone | + +------+ + PCP | Unavailable | + +------+ + Encounter Details +--------+ + + + + | Date | Type | Department | Care Team | Description | +--------+ + + + + | 06/03/ | Transcribed | | Dictation, Other | Transcribed | | 2001 | | | | | +--------+ + [...] as of this encounter Progress Notes Interface, Tool And Machine Maintainer In - 05/18/2006 3:01 AM [facility] [place] [address] [place], [place] [address] or June 03, 2001 KIKI BALLARD M.D. [address] [place] [address] RE: NICKI WOODS MR #: [id number] DATE OF TRANSPLANT: MARCH 24, [address] Ballard: Nicki returned to the Pediatric Gastroenterology Clinic at [facility] today with her parents. It was attended by Dr. Swathi Byrne and Ayde Duran R.N. of the Pediatric Liver Transplant Team visiting from [place]. This is one of her summer annual visits. She continues to do extremely well and appears to have really nothing to complain of today. Her only medication is Prograf 3 mL b.i.d. Acyclovir was discontinued earlier this year. SHE IS ALLERGIC TO THE SULFA DRUGS. On examination, she weighs 14.8 kg and measures 91 cm. Her blood pressure is 103/48 and her pulse is 117. She is anicteric and quite well nourished. Her behavior is normal in the office. There is no cervical adenopathy. She has unlabored respirations. Her abdomen is soft and flat with no mass, tenderness, or organomegaly. She has well-healed surgical scars. A recent laboratory test on May 31, 2001 showed normal CBC, comprehensive metabolic panel, GGT, and magnesium. Her tacrolimus 12-hour trough level was 7.6. Prior to this it ran about 4. 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 She continues to do extremely well with an uncomplicated posttransplant course. Her Prograf level was able to be lowered over the last 6 months without difficulty. It is unclear why her recent level of 7.6 occurred without a good explanation. We would merely repeat the Prograf level next month when she has her summer annual EBV, serology, and PCR level done. She is having these done every 6 months, in December and June 2001. Otherwise, since she is doing so well Dr. Byrne believes she can have her labs drawn every other month instead of every month. We would like to have her Varicella titers rechecked soon. In addition, she needs a flu shot once a year henceforth. We will plan to see her again in this clinic in 6 months. Sincerely, Kendall Angulo M.D. Pediatric Gastroenterology [facility] / [id number] / [id number] / [id number] / C: 07/02/2001 ds cc: ISSA GRAYSON M.D. [address] [facility] [address] [place] [address] PAUL BROOKS M.D. [address] [facility] [address] [place] [address] SWATHI BYRNE M.D. [address] [facility]. [address] [place] [address] [id number] signed by Interface, Tool And Machine Maintainer In at 05/18/2006 3:01 AM PDTdoc umented in this encounter Plan of Treatment Not on filedocumented as of this encounter Visit Diagnoses Not on filedocumented in this encounter"
--- OUTSIDE RECORDS SUMMARY | ~2019-06-17 | XMS | Encounter Summary ---
Demographics + + + | Address | [address] | | | [place] [address] | + + + | Home Phone | | + + + | Preferred Language | Unknown | + + + | Marital Status | Single | + + + | Christianity Affiliation | Unknown | + + + | Race | White | + + + | Ethnic Group | Not or | + + + Author + + + | Author | [facility] | + + + | Organization | [facility] | + + + | [...] Team Providers + +------+ + | Care Sharepoint Manager Name | Role | Phone | + +------+ + | Nyla Fitzpatrick MD | PCP | | + +------+ + Encounter Details +--------+ + + + + | Date | Type | Department | Care Team | Description | +--------+ + + + + | 10/13/ | Abstract | Pediatric | [place] Leonardo MD | | | 2008 | | Gastroenterology at | | | | | | [place] | | | | | | [facility] | | | | | | [address] | | | | | | [place] Mailcode: | | | | | | [place] | | | | | | [place], [place] | | | | | | [address] | | | | | | [phone] | | | +--------+ + + + [...]
--- OUTSIDE RECORDS SUMMARY | ~2019-06-17 | XMS | Encounter Summary ---
Demographics + + + | Address | [address] | | | [place] [address] | + + + | Home Phone | | + + + | Preferred Language | Unknown | + + + | Marital Status | Single | + + + | Worship Affiliation | Unknown | + + + | Race | White | + + + | Ethnic Group | Not or | + + + Author + + + | Author | [facility] | + + + | Organization | [facility] | + + + | Address [...] Team Providers + +------+ + | Care Woodworking Machine Offbearer Name | Role | Phone | + [...] | | | | | [place] | [place], [place] | | | | | [facility] | [address] | | | | | [address] | [phone] | | | | | [place] [place] Mailcode: | | | | | | [place] | | | | | | [place], [place] | | | | | | [address] | | | | | | [phone] | | | +--------+ + + + [...] [address] | [place] | [phone] | | [place] | | | | [...] [address] | [place] | [phone] | | [place] | | | | [...] [address] | [place] | [phone] | | [place] | | | | [...] - | [address] | [place], [place] | [phone] | | [place] | | | | [...] [address] | [place] | [phone] | | [place] | | | | [...] [address] | [place] | [phone] | | [place] | | | | [...] - | [address] | [place], [place] | [phone] | | [place] | | | | [...] - | [address] | [place], [place] | [phone] | | [place] | | | | [...] [address] | [place] | [phone] | | [place] | | | | [...] [address] | [place] | [phone] | | [place] | | | | + + + + + documented in this encounter Visit Diagnoses Not on filedocumented in this encounter"
--- OUTSIDE RECORDS SUMMARY | ~2019-06-17 | XMS | Encounter Summary ---
Demographics + + + | Address | [address] | | | [place] [address] | + + + | Home Phone [...] Author | [facility] [employer] [facility] | + + + | Organization | [facility] | + [...] Team Providers + +------+ + | Care Shake Cutter Name | Role | Phone | [...] Services | Gastroenterol | Liver | Nyla Shileds MD | [facility] [address] | | | Required | [...] | | | | | [address] | [place], [place] | | | | | | [place], | [address] | | | | | | [place] [address] | Phone: | | | | | | Phone: | [phone] | | | | | | [phone] | Fax: | | | | | | Fax: | [phone] | | | | | | [phone] | | +--------+ + + + + [...] [place] | | | | | | [facility] | | | | | | [address] | | | | | | [place] Mailcode: | | | | | | CDRCP [place] | | | | | | [place], [place] | | | | | | [address] | | | | | | [phone] | | | +--------+---------+ + + + [...] referred by Nyla Fitzpatrick, who returns to [facility] GI clinic for followup of her liver transplant Patient Active Problem List: VSD (Ventricular Septal Defect)[745.4Y] Comment: With polysplenia Aortic Valve Insufficiency[424.1F] Transplanted Liver[V42.7R] Comment: For biliary atresia, 03/24/2000 at [facility] Current outpatient prescriptions prior to encounter Medication [...] the shot. She was seen by her manager quality systems, Dr Quiles, and new aortic insufficiency was [...] Liver[V42.7R] Comment: For biliary atresia, 03/24/2000 at [facility] Doing well. May or may not have [...]
--- OUTSIDE RECORDS SUMMARY | ~2019-06-17 | XMS | Encounter Summary ---
Demographics + + + | Address | [address] | | | [place] [address] | + + + | Home Phone | | + + + | Preferred Language | Unknown | + + + | Marital Status | Single | + + + | Adventist Affiliation | Unknown | + + + | Race | White | + + + | Ethnic Group | Not or | + + + Author + + + | Author | [facility] | + + + | Organization | [facility] | + + [...] Team Providers + +------+ + | Care Farm Helper Name | Role | Phone | [...] [place] | | | | | | [facility] | | | | | | [address] | | | | | | [place] Mailcode: | | | | | | [place] | | | | | | [place], [place] | | | | | | [address] | | | | | | [phone] | | | +--------+ + + + [...]
--- OUTSIDE RECORDS SUMMARY | ~2019-06-17 | XMS | Encounter Summary ---
Demographics + + + | Address | [address] | | | [place] [address] | + + + | Home Phone [...] + + | Author | [facility] | + + + | Organization | [facility] | + + + | Address [...] Team Providers + +------+ + | Care Aboriginal Education Teacher Name | Role | Phone | + +------+ + | Nyla Fitzpatrick MD | PCP | | + +------+ + Encounter Details +--------+ + + + + | Date | Type | Department | Care Team | Description | +--------+ + + + + | 07/05/ | Abstract | Pediatric | [place] Leonardo MD | | | 2009 | | Gastroenterology at | | | | | | [place] | | | | | | [facility] | | | | | | [address] | | | | | | Vivi Tellez Mailcode: | | | | | | [place] | | | | | | [place], [place] | | | | | | [id number] | | | | | | [phone] | | | +--------+ + + + [...] + | CBC, WITH | Routin | 07/02/2010 | | Results for this | | DIFFERENTIAL | e | 8:30 AM | | procedure are in the | | | | PST | | results section. | + +--------+ + + + | COMPLETE METABOLIC | Routin | 07/02/2010 | | Results for this | | SET | e | 8:30 AM | | procedure are in the | | (NA,K,CL,CO2,BUN,CRE | | PST | | results section. | | AT,GLUC,CA,AST,ALT,B | | | | | | WADE TOTAL,ALK | | | | | | PHOS,ALB,PROT TOTAL) | | | | | + +--------+ + + + | PHOSPHORUS, PLASMA | Routin | 07/02/2010 | | Results for this | | | e | 8:30 AM | | procedure are in the | | | | PST | | results section. | + +--------+ + + + | GGT, PLASMA | Routin | 07/02/2010 | | Results for this | | | e | 8:30 AM | | procedure are in the | | | | PST | | results section. | + +--------+ + + + | BILIRUBIN DIRECT | Routin | 07/02/2010 | | Results for this | | | e | 8:30 AM | | procedure are in the | | | | PST | | results section. | + +--------+ + + + | MAGNESIUM, PLASMA | Routin | 07/02/2010 | | Results for this | | | e | 8:30 AM | | procedure are in the | | | | PST | | results section. | + +--------+ + + + | TRIGLYCERIDES, | Routin | 07/02/2010 | | Results for this | | PLASMA | e | 8:30 AM | | procedure are in the | | | | PST | | results section. | + +--------+ + + + | CHOLESTEROL TOTAL, | Routin | 07/02/2010 | | Results for this | | PLASMA | e | 8:30 AM | | procedure are in the | | | | PST | | results section. | + +--------+ + + + documented in this encounter Results PHOSPHORUS, PLASMA (07/02/2010 8:30 AM PST) + +-------+ + + + | Component | Value | Ref Range | Performed | Pathologist | | | | | At | Signature | + +-------+ + + + | PHOSPHORUS, | 3.6 | 2.5 - 5.0 mg/dL | [facility] [...] [address] | [place], [place] | [phone] | | [facility] | | | | + + + + + | [facility] - | | [place], [place] | | | [facility] | | | | + + + + + COMPLETE METABOLIC SET (NA,K,CL,CO2,BUN,CREAT,GLUC,CA,AST,ALT,BILI TOTAL,ALK PHOS,ALB,PROT TOTAL) (07/02/2010 8:30 AM PST) + +---------+ + + + | Component | Value | Ref Range | Performed | Pathologist | | | | | At | Signature | + +---------+ + + + | GLUCOSE, | 93 | 60 - 100 mg/dL | [facility] | | | PLASMA | | | LAB - | | | (LAB) | | | [facility] | | + +---------+ + + + | BUN, PLASMA | 11 | 6 - 23 mg/dL | [facility] | | | (LAB) | | | LAB - | | | | | | [facility] | | + +---------+ + + + | CREATININE | 0.52 | 0.5 - 1.5 mg/dL | [facility] | | | PLASMA | | | LAB - | | | (LAB) | | | [facility] | | + +---------+ + + + | TOTAL | 6.7 | 6.1 - 8.5 g/dL | [facility] | | | PROTEIN, | | | LAB - | | | PLASMA | | | [facility] | | | (LAB) | | | | | + +---------+ + + + | ALBUMIN, | 3.9 (A) | 9.5 - 4.8 g/dL | [facility] | | | PLASMA | | | LAB - | | | (LAB) | | | [facility] | | + +---------+ + + + | CALCIUM, | 9.3 | 8.4 - 10.2 | [facility] | | | PLASMA | | mg/dL | LAB - | | | (LAB) | | | [facility] | | + +---------+ + + + | BILIRUBIN | 0.3 | 0.0 - 1.2 | [facility] | | | TOTAL | | Transcutaneous | LAB - | | | | | Bilirubinometer | [facility] | | + +---------+ + + + | ALK PHOS | 130 (A) | 135 - 384 U/L | [facility] | | | | | | LAB - | | | | | | [facility] | | + +---------+ + + + | AST(SGOT) | 17 | 0 - 40 U/L | [facility] | | | | | | LAB - | | | | | | [facility] | | + +---------+ + + + | SODIUM, | 137 [...] + + + | ALT (SGPT) | 17 | 0 - 46 U/L | [facility] [...] [address] | [place], [place] | [phone] | | [facility] | | | | + + + + + | [facility] - | | [place], [place] | | | [facility] | | | | + + + + + BILIRUBIN DIRECT (07/02/2010 8:30 AM PST) + +-------+ + + + | [...] + + | [facility] - | [address] | [place], [place] | [phone] | | [facility] | | | | + + + + + | [facility] - | | [place], [place] | | | [facility] | | | | + + + + + GGT, PLASMA (07/02/2010 8:30 AM PST) + +-------+ + + + | [...] - | [address] | [place], [place] | [phone] | | [facility] | | | | + + + + + | [facility] - | | [place], [place] | | | [facility] | | | | + + + + + MAGNESIUM, PLASMA (07/02/2010 8:30 AM PST) + +-------+ + + + | Component | Value | Ref Range | Performed | Pathologist | | | | | At | Signature | + +-------+ + + + | MAGNESIUM,P | 1.7 | 1.7 - 2.5 mg/dL [...] + + | [facility] - | [address] | [place], [place] | [phone] | | [facility] | | | | + + + + + | [facility] - | | [place], [place] | | | [facility] | | | | + + + + + CBC, WITH DIFFERENTIAL (07/02/2010 8:30 AM PST) + +-------+ + + + | [...] + + + | RED CELL | 4.88 | 3.8 - 5.3 M/cu | [facility] | | | COUNT | | mm | LAB - | | | | | | [facility] | | + +-------+ + + + | HEMOGLOBIN | 14.2 | 11.1 - 15.7 | [facility] | | | | | g/dL | LAB - | | | | | | [facility] | | + +-------+ + + + | HEMATOCRIT | 42.4 | 32 - 47 % | [facility] | | | | | | LAB - | | | | | | [facility] | | + +-------+ + + + | MCV | 86.9 | 73 - 91 fL | [facility] | | | | | | LAB - | | | | | | [facility] | | + +-------+ + + + | MCH | 29 | 25 - 31 pg | [facility] [...] +-------+ + + + | PLATELET | 266 | 140 - 440 K/cu | [facility] | | | COUNT | | mm | LAB - | | | | | | [facility] | | + +-------+ + + + | NEUTROPHIL | 60.7 | 35 - 65 % | [facility] | | | % | | | LAB - | | | | | | [facility] | | + +-------+ + + + | LYMPHOCYTE | 31.4 | 26 - 48 % | [facility] | | | % | | | LAB - | | | | | | [facility] | | + +-------+ + + + | MONOCYTE % | 3.7 | 0 - 12 % | [facility] | | | | | | LAB - | | | | | | [facility] | | + +-------+ + + + | EOS % | 2.9 | 0 - 6 % | [facility] | | | | | | LAB - | | | | | | [facility] | | + +-------+ + + + | BASO % | 1.3 | 0 - 2 % | [facility] | | | | | | LAB - | | | | | | [facility] | | + +-------+ + + + | RDW | 12.6 | 10.5 - 15.0 % | [facility] [address] | [place], [place] | [phone] | | [facility] | | | | + + + + + | [facility] - | | [place], [place] | | | [facility] | | | | + + + + + CHOLESTEROL TOTAL, PLASMA (07/02/2010 8:30 AM PST) + +-------+ + + + | Component | Value | Ref Range | Performed | Pathologist | | | | | At | Signature | + +-------+ + + + | CHOLESTEROL | 101 | < - 200 mg/dL | [facility] | | [...] - | [address] | [place], [place] | [phone] | | [facility] | | | | + + + + + | [facility] - | | [place], [place] | | | [facility] | | | | + + + + + TRIGLYCERIDES, PLASMA (07/02/2010 8:30 AM PST) + +-------+ + + + | Component | Value | Ref Range | Performed | Pathologist | | | | | At | Signature | + +-------+ + + + | TRIGLYCERID | 83 | 30 - 150 mg/dL | [facility] [...] [address] | [place], [place] | [phone] | | [facility] | | | | + + + + + | [facility] - | | [place], [place] | | | [facility] | | | | + + + + + documented in this encounter Visit Diagnoses Not on filedocumented in this encounter"
--- OUTSIDE RECORDS SUMMARY | ~2019-06-17 | XMS ---
Demographics + + + | Address | [address] [place] [address] | | | [place] [address] | + + + | Home Phone | | + + + | Preferred Language | Unknown | + + + | Marital Status | Never | + + + | Quaker Affiliation | Unknown | + + + | Race | White | + + + | Ethnic Group | Not or | + + + Author + + + | Author | [facility] | + + + | Organization | [facility] | + + + | Address | [address] | | | [place] [address] | + + + | Phone | | + + + Care Team Providers + + + + | Care Beauty Sales Consultant Name | Role | Phone | + + + + | Nyla Fitzpatrick PCP | | + + + + Unavailable | Unavailable | + + + + Unavailable | Unavailable | + + + + Unavailable | Unavailable | + + + + | Nyla Fitzpatrick | PreferredProvider | | + + + + Allergies and Adverse Reactions + + +-------+ | Name | Reaction | Notes | + + +-------+ | SULFA (SULFONAMIDES) | | | + + +-------+ Plan of Treatment Not available. Medications +--------+ | Active | +--------+ + + + +-----+ + | Name | Start Date | Estimated | SIG | Comments | | | | Completion Date | | | + + + +-----+ + | Depo-Provera | | | | | | intramuscular | | | | | + + + +-----+ + +---------+ | | +---------+ + + + + + + | Name | Start Date | Expiration Date | SIG | Comments | + + + + + + | cefprozil 500 | 01/07/2016 | 01/17/2016 | take 1 tablet | | | mg oral tablet | | | (500 mg) by | | | | | | oral route | | | | | | every 12 hours | | | | | | for 10 days | | + + + + + + | Augmentin | 01/21/2016 | 01/31/2016 | take 1 tablet | | | 875-125 mg oral | | | by oral route | | | tablet | | | every 12 hours | | | | | | for 10 days | | + + + + + + | amlodipine 5 mg | 03/28/2016 | 04/27/2016 | take 1 tablet | | | oral tablet | | | (5 mg) by oral | | | | | | route once | | | | | | daily for 30 | | | | | | days | | + + + + + + + + | Discontinued | + + + + + + + + | Name | Start Date | Discontinued | SIG | Comments | | | | Date | | | + + + + + + | Vasile (28) | | 04/14/2016 | take 1 tablet | | | 0.25-35 mg-mcg | | | by oral route | | | oral tablet | | | once daily for | | | | | | 30 days | | + + + + + + Problem List + +--------+ + | Description | Status | Onset | + +--------+ + | Liver Transplant | Active | 03-24-2000 | + +--------+ + | Ventricular Septal Defect | Active | | + +--------+ + | Aortic stenosis | Active | | + +--------+ + | Patent Ductus Arteriosus | Active | | + +--------+ + | Biliary atresia | Active | | + +--------+ + | Liver Transplant | Active | 01/07/2016 | + +--------+ + | Aortic stenosis | Active | 01/21/2016 | + +--------+ + | Hypertension | Active | 01/21/2016 | + +--------+ + | Dysmenorrhea | Active | 02/05/2016 | + +--------+ + | Eustachian tube dysfunction | Active | 02/05/2016 | + +--------+ + Vital Signs +-----+-----+-----+-----+-----+-----+-----+-----+-----+----+-----+-----+-----+-----+ | Shaji | Alexander | BP- | BP- | HR( | RR( | Tem | WT | HT | HC | BMI | BSA | BMI | O2 | | e | e | Sys | Shayy | bpm | rpm | p | | | | | | | Sat | | | | (mm | (mm | ) | ) | | | | | | | Per | (%) | | | | [Hg | [Hg | | | | | | | | | gaston | | | | | ] | ]) | | | | | | | | | til | | | | | | | | | | | | | | | e | | +-----+-----+-----+-----+-----+-----+-----+-----+-----+----+-----+-----+-----+-----+ | 7 | 1:2 | 120 | 76 | 90 | 32 | 98. | 179 | 52. | | 46. | 1.7 | 99. | 99 | | 1/2 | 7:0 | | mmH | bpm | rpm | 1 F | .5 | 25 | | 226 | 325 | 3 % | % | | 016 | 0 | mmH | g | | | | lbs | in | | 4 | | | | | | PM | g | | | | | | | | kg/ | m | | | | | | | | | | | | | | m | | | | +-----+-----+-----+-----+-----+-----+-----+-----+-----+----+-----+-----+-----+-----+ | 7 | 9:0 | 136 | 100 | | | | | | | | | | | | 1/2 | 9:0 | | | | | | | | | | | | | | 016 | 0 | mmH | mmH | | | | | | | | | | | | | AM | g | g | | | | | | | | | | | +-----+-----+-----+-----+-----+-----+-----+-----+-----+----+-----+-----+-----+-----+ | 02/19 | 8:5 | 150 | 100 | | | | | | | | | | | | /20 | 3:0 | | | | | | | | | | | | | | 16 | 0 | mmH | mmH | | | | | | | | | | | | | AM | g | g | | | | | | | | | | | +-----+-----+-----+-----+-----+-----+-----+-----+-----+----+-----+-----+-----+-----+ | 01/16 | 9:1 | 140 | 98 | | | | | | | | | | | | 92 | 7:0 | | mmH | | | | | | | | | | | | 016 | 0 | mmH | g | | | | | | | | | | | | | AM | g | | | | | | | | | | | | +-----+-----+-----+-----+-----+-----+-----+-----+-----+----+-----+-----+-----+-----+ | 01/16 | 9:4 | 122 | 90 | 76 | 16 | 98. | 171 | 64. | | 28. | 1.8 | 93. | 98 | | 1/2 | 6:0 | | mmH | bpm | rpm | 3 F | | 5 | | 90 | 8 | 7 % | % | | 016 | 0 | mmH | g | | | | lbs | in | | kg/ | m2 | | | | | AM | g | | | | | | | | m2 | | | | +-----+-----+-----+-----+-----+-----+-----+-----+-----+----+-----+-----+-----+-----+ | 6/6 | 9:5 | 162 | 120 | 70 | 16 | 98. | 172 | 64. | | 28. | 1.8 | 93. | 99 | | /20 | 8:0 | | | bpm | rpm | 2 F | | 8 | | 80 | 9 | 6 % | % | | 16 | 0 | mmH | mmH | | | | lbs | in | | kg/ | m2 | | | | | AM | g | g | | | | | | | m2 | | | | +-----+-----+-----+-----+-----+-----+-----+-----+-----+----+-----+-----+-----+-----+ | 5/2 | 1:3 | 140 | 98 | 90 | 30 | 98. | 175 | 64. | | 29. | 1.9 | 94. | 98 | | 3/2 | 7:0 | | mmH | bpm | rpm | 9 F | .5 | 5 | | 659 | 033 | 7 % | % | | 016 | 0 | mmH | g | | | | lbs | in | | | | | | | | PM | g | | | | | | | | kg/ | m | | | | | | | | | | | | | | m | | | | +-----+-----+-----+-----+-----+-----+-----+-----+-----+----+-----+-----+-----+-----+ | 2/4 | 1:1 | 126 | 68 | 82 | 18 | 97. | 179 | 65 | | 29. | 1.9 | 95. | 98 | | /20 | 9:0 | | mmH | bpm | rpm | 8 F | .5 | in | | 87 | 3 | 2 % | % | | 16 | 0 | mmH | g | | | | lbs | | | kg/ | m2 | | | | | PM | g | | | | | | | | m2 | | | | +-----+-----+-----+-----+-----+-----+-----+-----+-----+----+-----+-----+-----+-----+ | 11/ | 10: | 116 | 74 | 80 | 20 | 97. | 129 | 64 | | 22. | 1.6 | 87. | | | 16/ | 30: | | mmH | bpm | rpm | 6 F | | in | | 142 | 255 | 6 % | | | 201 | 00 | mmH | g | | | | lbs | | | 6 | | | | | 0 | AM | g | | | | | | | | kg/ | m | | | | | | | | | | | | | | m | | | | +-----+-----+-----+-----+-----+-----+-----+-----+-----+----+-----+-----+-----+-----+ Social History + + + + | Name | Description | Comments | + + + + | Smoker | Never | | + + + + | Parents | | | + + + + | Lives With | | (separate households) mom | | | | brother West Hernandez. Dad | | | | thad Doyle | + + + + History of Procedures + + + + | Date Ordered | Description | Order Status | + + + + | 09/20/2015 12:00 AM | HUMAN PAPILLOMA VIRUS | Reviewed | | | VACCINE QUADRIV 3 DOSE IM | | + + + + | 09/20/2015 12:00 AM | INFLUENZA VAC 4 VALENT | Reviewed | | | PRSRV FREE 3 YRS PLUS IM | | + + + + | 07/02/2010 12:00 AM | IMMUNIZATION ADMIN | Reviewed | + + + + | 01/07/2016 12:00 AM | MEASURE BLOOD OXYGEN LEVEL | Reviewed | + + + + | 01/07/2016 12:00 AM | HUMAN PAPILLOMA VIRUS | Reviewed | | | NONAVALENT HPV 3 DOSE IM | | + + + + | 01/21/2016 10:15 AM | URINALYSIS NONAUTO W/O | Reviewed | | | SCOPE | | + + + + | 01/21/2016 12:00 AM | MEASURE BLOOD OXYGEN LEVEL | Reviewed | + + + + | 01/21/2016 12:00 AM | TYMPANOMETRY | Reviewed | + + + + | 01/21/2016 12:00 AM | COMPLETE CBC W/AUTO DIFF | Reviewed | | | WBC | | + + + + | 01/21/2016 12:00 AM | COMPREHEN METABOLIC PANEL | Reviewed | + + + + | 02/05/2016 12:00 AM | MEASURE BLOOD OXYGEN LEVEL | Reviewed | + + + + | 02/05/2016 12:00 AM | TYMPANOMETRY | Reviewed | + + + + | 03/06/2016 12:00 AM | MEASURE BLOOD OXYGEN LEVEL | Reviewed | + + + + | 07/02/2010 12:00 AM | FLU VACCINE 3 YRS & > IM | Reviewed | + + + + Results Summary + + + | Date and Description | Results | + + + | 01/21/2016 10:15 AM | Glucose. Negative Bilirubin. Negative | | | Ketones Negative Spec Grav 1.020 PH 6.0 | | | Protein 30+ Urobilinogen 0.2 Nitrites | | | Negative Leukocyte Est Negative Urine | | | Color reed Blood Moderate 2+ | + + + | 01/22/2016 11:37 AM | SODIUM 137 POTASSIUM 4.0 CHLORIDE 100 | | | CARBON DIOXIDE 24 ANION GAP 17.0 GLUCOSE | | | 73 UREA NITROGEN 8 CREATININE, SERUM 0.61 | | | GFR ESTIMATION NOT PERFORMED | | | BUN/CREAT.RATIO 13.1 CALCIUM 9.7 AST(SGOT) | | | 18 ALT(SGPT) 18 ALKALINE PHOS 108 | | | BILIRUBIN, TOTAL 0.3 PROTEIN 7.9 ALBUMIN | | | 4.0 GLOBULIN 3.9 A/G RATIO 1.0 WBC 8.8 RBC | | | 4.97 HEMOGLOBIN 14.5 HEMATOCRIT 43.2 MCV | | | 86.9 RDW 14.4 MCH 29 MCHC 34 PLATELET | | | COUNT 415 NEUTROPHILS 65.8 LYMPHOCYTES | | | 22.0 MONOCYTES 7.4 EOSINOPHILS 3.9 | | | BASOPHILS 0.9 | + + + History Of Immunizations +-------+-------+-------+------+-------+-------+-------+-------+-------+-------+-----+ | Name | Date | Mfg | Mfg | Trade | Lot# | Route | Inj | Vis | Vis | CVX | | | Admin | Name | Code | Name | | | | Given | Pub | | +-------+-------+-------+------+-------+-------+-------+-------+-------+-------+-----+ | DTaP | 11/06/ | Not | NE | Not | | Not | Not | | | 999 | | | 1999 | Enter | | Enter | | Enter | Enter | 001 | 001 | | | | | ed | | ed | | ed | ed | | | | +-------+-------+-------+------+-------+-------+-------+-------+-------+-------+-----+ | DTaP | 12/31/ | Not | NE | Not | | Not | Not | | | 999 | | | 1998 | Enter | | Enter | | Enter | Enter | 001 | 001 | | | | | ed | | ed | | ed | ed | | | | +-------+-------+-------+------+-------+-------+-------+-------+-------+-------+-----+ | DTaP | 04/30/ | Not | NE | Not | | Not | Not | | | 999 | | | 1998 | Enter | | Enter | | Enter | Enter | 001 | 001 | | | | | ed | | ed | | ed | ed | | | | +-------+-------+-------+------+-------+-------+-------+-------+-------+-------+-----+ | DTaP | | Not | NE | Not | | Not | Not | | | 999 | | | 000 | Enter | | Enter | | Enter | Enter | 001 | 001 | | | | | ed | | ed | | ed | ed | | | | +-------+-------+-------+------+-------+-------+-------+-------+-------+-------+-----+ | DTaP | | Not | NE | Not | | Not | Not | | | 999 | | | 003 | Enter | | Enter | | Enter | Enter | 001 | 001 | | | | | ed | | ed | | ed | ed | | | | +-------+-------+-------+------+-------+-------+-------+-------+-------+-------+-----+ | Tdap | | Not | NE | Not | | Not | Not | | | 999 | | | 009 | Enter | | Enter | | Enter | Enter | 001 | 001 | | | | | ed | | ed | | ed | ed | | | | +-------+-------+-------+------+-------+-------+-------+-------+-------+-------+-----+ | Hib | 11/06/ | Not | NE | Not | | Not | Not | | | 999 | | | 1999 | Enter | | Enter | | Enter | Enter | 001 | 001 | | | | | ed | | ed | | ed | ed | | | | +-------+-------+-------+------+-------+-------+-------+-------+-------+-------+-----+ | Hib | 12/31/ | Not | NE | Not | | Not | Not | | | 999 | | | 1999 | Enter | | Enter | | Enter | Enter | 001 | 001 | | | | | ed | | ed | | ed | ed | | | | +-------+-------+-------+------+-------+-------+-------+-------+-------+-------+-----+ | Hib | 04/30/ | Not | NE | Not | | Not | Not | | | 999 | | | 1999 | Enter | | Enter | | Enter | Enter | 001 | 001 | | | | | ed | | ed | | ed | ed | | | | +-------+-------+-------+------+-------+-------+-------+-------+-------+-------+-----+ | Hib | | Not | NE | Not | | Not | Not | | | 999 | | | 000 | Enter | | Enter | | Enter | Enter | 001 | 001 | | | | | ed | | ed | | ed | ed | | | | +-------+-------+-------+------+-------+-------+-------+-------+-------+-------+-----+ | HepB | 08/31/ | Not | NE | Not | | Not | Not | | | 999 | | | 1999 | Enter | | Enter | | Enter | Enter | 001 | 001 | | | | | ed | | ed | | ed | ed | | | | +-------+-------+-------+------+-------+-------+-------+-------+-------+-------+-----+ | HepB | 11/06/ | Not | NE | Not | | Not | Not | | | 999 | | | 1999 | Enter | | Enter | | Enter | Enter | 001 | 001 | | | | | ed | | ed | | ed | ed | | | | +-------+-------+-------+------+-------+-------+-------+-------+-------+-------+-----+ | HepB | 04/30/ | Not | NE | Not | | Not | Not | | | 999 | | | 1999 | Enter | | Enter | | Enter | Enter | 001 | 001 | | | | | ed | | ed | | ed | ed | | | | +-------+-------+-------+------+-------+-------+-------+-------+-------+-------+-----+ | IPV | 11/06/ | Not | NE | Not | | Not | Not | | | 999 | | | 1998 | Enter | | Enter | | Enter | Enter | 001 | 001 | | | | | ed | | ed | | ed | ed | | | | +-------+-------+-------+------+-------+-------+-------+-------+-------+-------+-----+ | IPV | 12/31/ | Not | NE | Not | | Not | Not | | | 999 | | | 1998 | Enter | | Enter | | Enter | Enter | 001 | 001 | | | | | ed | | ed | | ed | ed | | | | +-------+-------+-------+------+-------+-------+-------+-------+-------+-------+-----+ | IPV | 04/30/ | Not | NE | Not | | Not | Not | 0 | | 999 | | | 1998 | Enter | | Enter | | Enter | Enter | 001 | 001 | | | | | ed | | ed | | ed | ed | | | | +-------+-------+-------+------+-------+-------+-------+-------+-------+-------+-----+ | IPV | | Not | NE | Not | | Not | Not | | | 999 | | | 003 | Enter | | Enter | | Enter | Enter | 001 | 001 | | | | | ed | | ed | | ed | ed | | | | +-------+-------+-------+------+-------+-------+-------+-------+-------+-------+-----+ | MMR | | Not | NE | Not | | Not | Not | | | 999 | | | 000 | Enter | | Enter | | Enter | Enter | 001 | 001 | | | | | ed | | ed | | ed | ed | | | | +-------+-------+-------+------+-------+-------+-------+-------+-------+-------+-----+ | Varic | | Not | NE | Not | | Not | Not | | | 999 | | bibiana | 000 | Enter | | Enter | | Enter | Enter | 001 | 001 | | | | | ed | | ed | | ed | ed | | | | +-------+-------+-------+------+-------+-------+-------+-------+-------+-------+-----+ | Hep A | 08/13 | Not | NE | Not | | Not | Not | | | 999 | | | /2000 | Enter | | Enter | | Enter | Enter | 001 | 001 | | | | | ed | | ed | | ed | ed | | | | +-------+-------+-------+------+-------+-------+-------+-------+-------+-------+-----+ | Hep A | | Not | NE | Not | | Not | Not | | | 999 | | | 003 | Enter | | Enter | | Enter | Enter | 001 | 001 | | | | | ed | | ed | | ed | ed | | | | +-------+-------+-------+------+-------+-------+-------+-------+-------+-------+-----+ | Rotav | 11/06/ | Not | NE | Not | | Not | Not | | | 999 | | irus | 1998 | Enter | | Enter | | Enter | Enter | 001 | 001 | | | | | ed | | ed | | ed | ed | | | | +-------+-------+-------+------+-------+-------+-------+-------+-------+-------+-----+ | Rotav | 12/31/ | Not | NE | Not | | Not | Not | | | 999 | | irus | 1998 | Enter | | Enter | | Enter | Enter | 001 | 001 | | | | | ed | | ed | | ed | ed | | | | +-------+-------+-------+------+-------+-------+-------+-------+-------+-------+-----+ | Flu | 07/28 | Not | NE | Not | | Not | Not | | | 999 | | 3+ | /2002 | Enter | | Enter | | Enter | Enter | 001 | 001 | | | years | | ed | | ed | | ed | ed | | | | +-------+-------+-------+------+-------+-------+-------+-------+-------+-------+-----+ | Flu | | Not | NE | Not | | Not | Not | | | 999 | | 3+ | 005 | Enter | | Enter | | Enter | Enter | 001 | 001 | | | years | | ed | | ed | | ed | ed | | | | +-------+-------+-------+------+-------+-------+-------+-------+-------+-------+-----+ | Flu | 06/12 | Not | NE | Not | | Not | Not | | | 999 | | 3+ | | Enter | | Enter | | Enter | Enter | 001 | 001 | | | years | | ed | | ed | | ed | ed | | | | +-------+-------+-------+------+-------+-------+-------+-------+-------+-------+-----+ | Flu | 07/02 | CSL | CSL | AFLUR | [id number] | Intra | Right | 07/02 | 03/26/ | 999 | | 3+ | /2009 | Bioth | | [place] | 8 | muscu | | /2009 | 2009 | | | years | | erapi | | | | lar | Delto | | | | | | | es, | | | | | id | | | | | | | Inc. | | | | | | | | | +-------+-------+-------+------+-------+-------+-------+-------+-------+-------+-----+ | HPV | | Merck | MSD | GARDA | [id number] | Intra | Left | | 12/31/ | 62 | | | 016 | & | | BENEDICTO | 47 | muscu | Upper | 016 | 2012 | | | | | Co., | | | | lar | | | | | | | | Inc. | | | | | Delto | | | | | | | | | | | | id | | | | +-------+-------+-------+------+-------+-------+-------+-------+-------+-------+-----+ | Flu | | sanof | PMC | Fluzo | [id number] | Intra | Left | | | 150 | | 3+ | 016 | i | | ne | AB | muscu | Lower | 016 | 015 | | | years | | paste | | Quadr | | lar | | | | | | | | ur | | ivale | | | Delto | | | | | | | | | nt | | | id | | | | +-------+-------+-------+------+-------+-------+-------+-------+-------+-------+-----+ | HPV | 01/06/ | Merck | MSD | Garda | [id number] | Intra | Left | 01/06/ | 11/14/ | 165 | | | 2016 | & | | benedicto 9 | 37 | muscu | Delto | 2016 | 2016 | | | | | Co., | | | | lar | id | | | | | | | Inc. | | | | | | | | | +-------+-------+-------+------+-------+-------+-------+-------+-------+-------+-----+ History of Past Illness + + + + | Name | Date of Onset | Comments | + + + + | Well Child Check | Jul 02 2010 10:26AM | | + + + + | Influenza 3YR & UP | Jul 02 2010 10:26AM | | + + + + | Ventricular Septal Defect | Jul 02 2010 10:26AM | | + + + + | Aortic Stenosis | Jul 02 2010 10:26AM | | + + + + | Patent Ductus Arteriosus | Jul 02 2010 10:26AM | | + + + + | Biliary atresia | Jul 02 2010 10:26AM | | + + + + | Ventricular Septal Defect | | | + + + + | Aortic stenosis | | | + + + + | Patent Ductus Arteriosus | | | + + + + | Biliary atresia | | | + + + + | Otitis Media, Acute | | | + + + + | Urinary tract infection | | | + + + + | Gastroenteritis | | | + + + + | Vision problems | | | + + + + | defect | | | + + + + | Jaundice | | | + + + + | Liver Transplant | 01/07/2016 | | + + + + | Aortic stenosis | 01/21/2016 | | + + + + | Hypertension | 01/21/2016 | | + + + + | Dysmenorrhea | 02/05/2016 | | + + + + | Eustachian tube dysfunction | 02/05/2016 | | + + + + | Well Child Check | Sep 20 2015 1:11PM | | + + + + | HPV | b 2015 1:11PM | | + + + + | Influenza 3YR & UP | Sep 20 2015 1:11PM | | + + + + | Ventricular Septal Defect | Sep 20 2015 1:11PM | | + + + + | Biliary atresia | Sep 20 2015 1:11PM | | + + + + | HPV 9 | Jan 07 2016 1:26PM | | + + + + | Otitis Media, Bilateral | Jan 07 2016 1:26PM | | + + + + | Ventricular Septal Defect | Jan 07 2016 1:26PM | | + + + + | Aortic Stenosis | Jan 07 2016 1:26PM | | + + + + | Biliary atresia | Jan 07 2016 1:26PM | | + + + + | Liver Transplant | Jan 07 2016 1:26PM | | + + + + | Otitis Media, Bilateral | Jan 21 2016 10:00AM | | + + + + | Hypertension | Jan 21 2016 10:00AM | | + + + + | Liver Transplant | Jan 21 2016 10:00AM | | + + + + | Ventricular Septal Defect | Jan 21 2016 10:00AM | | + + + + | Aortic stenosis | Jan 21 2016 10:00AM | | + + + + | Asymptomatic systolic | Jan 21 2016 4:28PM | | | hypertension in pediatric | | | | patient | | | + + + + | Liver Transplant | Jan 21 2016 4:28PM | | + + + + | Eustachian tube dysfunction | Feb 05 2016 9:34AM | | + + + + | Aortic stenosis | Feb 05 2016 9:34AM | | + + + + | Hypertension | Feb 05 2016 9:34AM | | + + + + | Liver Transplant | Feb 05 2016 9:34AM | | + + + + | Ventricular Septal Defect | Feb 05 2016 9:34AM | | + + + + | Patent Ductus Arteriosus | Feb 05 2016 9:34AM | | + + + + | Biliary atresia | Feb 05 2016 9:34AM | | + + + + | Dysmenorrhea | Feb 05 2016 9:34AM | | + + + + | Ventricular Septal Defect | Mar 06 2016 1:20PM | | + + + + | Aortic stenosis | Mar 06 2016 1:20PM | | + + + + | Dysmenorrhea | Mar 06 2016 1:20PM | | + + + + | Liver Transplant | Mar 06 2016 1:20PM | | + + + + | Hypertension | Mar 06 2016 1:20PM | | + + + + Payers + + + + + +---------+ + | Insurance | Company | Plan Name | Plan | Policy | Policy | Start Date | | Name | Name | | Number | Number | Group | | | | | | | | Number | | + + + + + +---------+ + | | [employer] | [employer] | [id number] | | N/A | | | | | | | | | | | Health/ohp | | | | | | + + + + + +---------+ + | | [employer] | [employer] | | [id number] | | Thursday, | | | | | | [phone] | | July | | | | | | | | 2006 | + + + + + +---------+ + History of Encounters + + + + | Visit Date | Visit Type | Provider | + + + + | 03/06/2016 | Office Visit | Nyla Fitzpatrick MD | + + + + | 02/05/2016 | Office Visit | Nyla Fitzpatrick MD | + + + + | 01/21/2016 | Acute Illness | | + + + + | 01/21/2016 | Acute Illness | Nyla Fitzpatrick MD | + + + + | 01/07/2016 | Day Appt | Nyla Fitzpatrick MD | + + + + | 09/20/2015 | New Patient | Mary CEDILLO | + + + + | 07/02/2010 | Well Child Check | Nyla L. Wyland MD | + + + +"
--- OUTSIDE RECORDS SUMMARY | ~2019-06-17 | XMS | Encounter Summary ---
Demographics + + + | Address | [address] | | | [place] [address] | + + + | Home Phone [...] Author + + + | Author | [facility] [employer] [facility] [...] Team Providers + +------+ + | Care Parts Counter Salesperson Name | Role | Phone | + +------+ + | Nyla Fitzpatrick MD | PCP | | + +------+ + Reason for Visit + + + | Reason | Comments | + + + | Care Coordination | [place] | + + + Encounter Details +--------+ + + + + | Date | Type | Department | Care Team | Description | +--------+ + + + + | 06/30/ | Documentati | Pediatric | Crista Valadez, | Care Coordination | | 2017 | on | Gastroenterology at | MD [address] | ([place]) | | | | Mariaelena | [place], [place] | | | | | [facility] | [address] | | | | | [address] | [phone] | | | | | Vivi Tellez Mailcode: | | | | | | [address] | | | | | | [place], [place] | | | | | | [address] | | | | | | [phone] | | | +--------+ + + + [...]
--- OUTSIDE RECORDS SUMMARY | ~2019-06-17 | XMS | Encounter Summary ---
Demographics + + + | Address | [address] | | | [place] [address] | + + + | Home Phone | | + + + | Preferred Language | Unknown | + + + | Marital Status | Single | + + + | Synagogue Affiliation | Unknown | + + + | Race | White | + + + | Ethnic Group | Not or | + + + Author + + + | Author | [facility] | + + + | Organization | [facility] | + + + [...] Team Providers + +------+ + | Care Insurance Producer Name | Role | Phone | + [...] Services | Gastroenterol | Liver | Nyla hSields MD | [facility] [address] | | | Required | ogy | replaced by | PEDS | [address] | | | | | transplant | SPECIALISTS | Vivi Tellez | | | | | (HCC) | OF [place] | Mailcode: | | | | | | [address] | CDR[address] | | | | | | [address] | [place] | | | | | | [address] | [place], [place] | | | | | | [place], | [address] | | | | | | [place] [address] | Phone: | | | | | | Phone: | [phone] | | | | | | [phone] | Fax: | | | | | | Fax: | [phone] | | | | | | [phone] | | +--------+ + + + + + Encounter Details +--------+---------+ + + + | Date | Type | Department | Care Team | Description | +--------+---------+ + + + | 06/07/ | Office | Specialty Clinics | Sayra Leonardo MD | Complications of | | 2008 | Visit | at [facility] [address] [facility] | | Transplanted Liver; | | | | [address] | | Transplanted Liver | | | | Mailcode: [facility] | | (HCC) | | | | [place] | | | | | | [place], [place] | | | | | | [address] | | | | | | [phone] | | | +--------+---------+ + + + [...] + + + | Blood Pressure | 131/78 | 06/07/2009 9:20 AM | | | | | PDT | | + + + + + | Pulse | 98 | 06/07/2009 9:20 AM | | | | | PDT [...] + + + + | Weight | 50.4 kg (111 lb 1.8 | 06/07/2009 9:20 AM | | | | oz) | PDT | | + + + + + | Height | 153.3 cm (5' 0.35") | 06/07/2009 9:20 AM | | | | | PDT | | + + + + + | Body Mass Index | 21.45 | 06/07/2009 9:20 AM | | | | | PDT | | + + + + + documented in this encounter Patient Instructions Patient Instructions Sayra Leonardo MD - 06/07/2009 10:25 AM PDTPlan: 1. Please have labs done every 3 Months 2. EBV PCR Quantitative every 12 months 3 . Other labs or imaging studies: none 5. Please get Flu shots from your PCP Be sure to get both the seasonal influenza shot and the H1N1 influenza shot Your child should not receive Flumist or any live virus vaccines Family members should not receive Flumist If your child develops flu like symptoms of cough, fever, muscle pains, then call your [facility] doctor immediately to start Tamiflu 7. change in medications: non3 8. Return to clinic in 12 months documented in this encounter Progress Notes Sayra Leonardo MD - 06/07/2009 11:17 AM PDTFormatting of this note might be different from t he original. Nicki Woods is an 8 y.o. female, who is referred by Nyla Fitzpatrick, who returns to [facility] for transplant followup. Dr Guillory from [place] was an observ er in clinic today. 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 60 3 Allergies Allergen Reactions Sulfa (Sulfonamide Antibiotics) Hives and Swelling-Facial Varicella Possible reaction with sulfa meds HPI:Nicki was seen in clinic with both of her parents. She reports that she has been doing well, and has not had any significant illnesses since her last visit except one UTI. She say s she misses about one dose of Prograf a week. She has not had liver labs between Sep and thursday-- her mother said "I guess we need to be a little better about them". She is seeing her pharmaceutical assistant every 2 years and last saw him 1 year ago. She gets SBE prop hylaxis because of polysplenia. Her energy is good and she backpacked 30 miles last summer. Has not had a flu shot yet. lives with parents, and sibling and grade 5. Says school is going well. Physical Examination: Ht 153.3 cm (5' 0.35") (93 %ile), Wt 50.4 kg (111 lbs 1.8 oz) (93 %ile), Weight for age(%) 92.64%, BMI for age(%) 88.85%, Length for age(%) 93.23%, BP 131/78, Pulse 98. 88.85% of growth percentile based on BMI-for-age. Appearance: alert, active and in no apparent distress. Skin: turgor normal, capillary refill brisk, no rashes, petechiae HEENT: normocephalic, no icterus,nose without discharge, mucous membranes moist, pharynx u nremarkable Neck: supple, without thyromegaly Chest: clear to auscultation bilaterally. CV: regular sinus rhythm, normal S1 and S2, no murmurs. Abdomen: , well healed incisions, soft, no distention, no tenderness to palpation, no rebou nd, no guarding, no palpable masses, normal bowel sounds, no hepatosplenomegaly Musculoskeletal: grossly intact without clubbing or edema Neuro: appropriate interactions, symmetric facies, moves all extremities well, Nodes: no signficant cervical, supraclavicular,adenopathy Last labs 06/05/09 AST 20, ALT 19, alk phos 220, GGT 10, cr 0.51, rest normal also Wbc 5.7, hct 43, MCV 87, plt 320 EBV PCR pending Lab Results Component Value Date FK506 0.5 10/03/08 FK506 3.4 05/25/07 Assessment: Patient Active Problem List: VSD (Ventricular Septal Defect)[745.4Y] Comment: With polysplenia Aortic Valve Insufficiency[424.1F] 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 CBC, primary transplant panel, drug levels-Prograf 1 every 3 months 2. EBV PCR Quantitative every 12 months 3. CMV PCR Quantitative every - months 4. Other labs: none 5. Imaging: non3 6. Flu shot and other non-live virus vaccinations from PCP 7. If she develops flu -valdo symptoms, she should be treated immediately empirically with Ta miflu for a 10 day course 8. change in medications: none 9. Return to clinic 12 months 1 :01 PM PDTdocumented in this encounter Plan of Treatment Not on filedocumented as of this encounter Procedures + +--------+ + + + | Procedure Name | Priori | Date/Time | Associated Diagnosis | Comments | | | ty | | | | + +--------+ + + + | LAB REPORTS | | 06/05/2009 | | Results for this | | | | 12:00 AM | | procedure are in the | | | | PDT | | results section. | + +--------+ + + + documented in this encounter Results LAB REPORTS (06/05/2009 12:00 AM PDT) + + + | Narrative | Performed At | + + + | | | + + + + + | Procedure Note | + + | Des Shelton - 06/05/2009 12:00 AM PDT | | | + + documented in this encounter Visit Diagnoses + + | Diagnosis | + + | Complications of transplanted liver | + + | 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
--- OUTSIDE RECORDS SUMMARY | ~2019-06-17 | XMS | Encounter Summary ---
Demographics + + + | Address | [address] | | | [place] [address] | + + + | Home Phone | | + + + | Preferred Language | Unknown | + + + | Marital Status | Single | + + + | Church Affiliation | Unknown | + + + | Race | White | + + + | Ethnic Group | Not or | + + + Author + + + | Author | [email or web address] | + + + | [...] Team Providers + +------+ + | Care Used Car Manager Name | Role | Phone | + +------+ + PCP | Unavailable | + +------+ + Encounter Details +--------+ + + + + | Date | Type | Department | Care Team | Description | +--------+ + + + + | 03/09/ | Extension Forester | Pediatric | Crista Valadez, | Transplanted liver | | 2013 | | Gastroenterology at | [address] | (HCC) (Primary Dx) | | | | [place] | [place], [place] | | | | | [facility] | [address] | | | | | [address] | [phone] | | | | | Vivi Geoff Mailcode: | | | | | | [address] | | | | | | [place], [place] | | | | | | [address] | | | | | | [phone] | | | +--------+ + + + [...]
--- OUTSIDE RECORDS SUMMARY | ~2019-06-17 | XMS | Encounter Summary ---
Demographics + + + | Address | [address] | | | [place] [address] | + + + | Home Phone | | + + + | Preferred Language | Unknown | + + + | Marital Status | Single | + + + | Cheondoism Affiliation | Unknown | + + + | Race | White | + + + | Ethnic Group | Not or | + + + Author + + + | Author | [facility] | + + + | Organization | [facility] | + + + | Address [...] Team Providers + +------+ + | Care Sewer And Drain Technician Name | Role | Phone | [...] | 2016 | | Gastroenterology at | [address] | | | | | [place] | [place], [place] | | | | | [facility] | [address] | | | | | [address] | [phone] | | | | | Vivi Tellez Mailcode: | | | | | | [address] | | | | | | [place], [place] | | | | | | [address] | | | | | | [phone] | | | +--------+ + + + [...] [address] | [place], [place] | [phone] | | [place] | | | | [...] + + | [facility] - | [address] | [place] | [phone] | | [place] | | | | + + + + + documented in this encounter Visit Diagnoses Not on filedocumented in this encounter"
--- OUTSIDE RECORDS SUMMARY | ~2019-06-17 | XMS | Encounter Summary ---
Demographics + + + | Address | [address] | | | [place] [address] | + + + | Home Phone [...] + + | Author | [facility] [facility] | + + + | Organization | [facility] | + + + | [...] Team Providers + +------+ + | Care Surveying Crew Rodman Name | Role | Phone | + [...] [place] | | | | | | [facility] | | | | | | [address] | | | | | | Vivi Tellez Mailcode: | | | | | | [address] | | | | | | [place], [place] | | | | | | [address] | | | | | | [phone] | | | +--------+ + + + [...] [address] | [place], [place] | [phone] | | [place] | | | | [...] [address] | [place], [place] | [phone] | | [place] | | | | [...] + + | [facility] - | [address] | [place], [place] | [phone] | | [place] | | | | [...] - | [address] | [place], [place] | [phone] | | [place] | | | | [...] + + | [facility] - | [address] | [place], [place] | [phone] | | [place] | | | | [address] | [place], [place] | [phone] | | [place] | | | | [...] - | [address] | [place], [place] | [phone] | | [place] | | | | + + + + + | [facility] - | | [place], [place] | | | [place] | | [address] | [place], [place] | [phone] | | [place] | | | | + + + + + | [facility] - | | [place], [place] | | | [place] | | | | + + + + + documented in this encounter Visit Diagnoses Not on filedocumented in this encounter"
--- OUTSIDE RECORDS SUMMARY | ~2019-06-17 | XMS | Encounter Summary ---
Demographics + + + | Address | [address] | | | [place] [address] | + + + | Home Phone [...] | Author | [facility] [employer] [facility] | + + + | Organization | [facility] | + + + | Address [...] Team Providers + +------+ + | Care Surgeon/President Name | Role | Phone | + +------+ + | Nyla Fitzpatrick MD | PCP | | + +------+ + Encounter Details +--------+ + + + + | Date | Type | Department | Care Team | Description | +--------+ + + + + | 06/04/ | Document-Sc | Health Information | Other, Faculty | | | 2017 | anned | Services [address] | [phone] | | | | | [address] | | | | | | Mailcode: [id number] | | | | | | [facility] | | | | | | [place], [place] | | | | | | [address] | | | | | | [phone] | | | +--------+ + + + [...] + + | LAB REPORTS | | 06/04/2017 | | Results for this | | | | 12:00 AM | | procedure are in the | | | | PDT | | results section. | + +--------+ + + + documented in this encounter Results LAB REPORTS (06/04/2017 12:00 AM PDT) + + + | Narrative | Performed At | + + + | | | + + + documented in this encounter Visit Diagnoses Not on filedocumented in this encounter"
--- OUTSIDE RECORDS SUMMARY | ~2019-06-17 | XMS | Encounter Summary ---
Demographics + + + | Address | [address] | | | [place] [address] | + + + | Home Phone [...] + + | Author | [facility] [employer] [facility] | [...] Team Providers + +------+ + | Care Assistant Professor Sculpture Name | Role | Phone | + [...] | | | | [facility] | [place] [address] | | | | | [address] | | | | | | Vivi Tellez Mailcode: | | | | | | [facility] [place] | | | | | | [place], [place] | | | | | | [address] | | | | | | [phone] | | | +--------+--------+ + + + [...]
--- OUTSIDE RECORDS SUMMARY | ~2019-06-17 | XMS | Encounter Summary ---
Demographics + + + | Address | [address] | | | [place] [address] | + + + | Home Phone [...] + + | Author | [facility] [employer] [facility] | + + + | Organization [...] Team Providers + +------+ + | Care Senior Recruiter Name | Role | Phone | + [...] + + + + | 06/08/ | Abstract | Pediatric | Crista Valadez, | Lab Results | | 2017 | | Gastroenterology at | [address] | | | | | [place] | [place], [place] | | | | | [facility] | [address] | | | | | [address] | [phone] | | | | | Vivi Tellez Mailcode: | | | | | | [address] | | | | | | [place], [place] | | | | | | [address] | | | | | | [phone] | | | +--------+ + + + [...] + | CBC, WITH | Routin | 06/04/2017 | | Results for this | | DIFFERENTIAL | e | | | procedure are in the | | | | | | results section. | + +--------+ + + + | COMPLETE METABOLIC | Routin | 06/04/2017 | | Results for this | | SET | e | | | procedure are in the | | (NA,K,CL,CO2,BUN,CRE | | | | results section. | | AT,GLUC,CA,AST,ALT,B | | | | | | WADE TOTAL,ALK | | | | | | PHOS,ALB,PROT TOTAL) | | | | | + +--------+ + + + | TACROLIMUS, WHOLE | Routin | 06/04/2017 | | Results for this | | BLOOD | e | | | procedure are in the | | | | | | results section. | + +--------+ + + + | GGT, PLASMA | Routin | 06/04/2017 | | Results for this | | | e | | | procedure are in the | | | | | | results section. | + +--------+ + + + | MAGNESIUM, PLASMA | Routin | 06/04/2017 | | Results for this | | | e | | | procedure are in the | | | | | | results section. | + +--------+ + + + documented in this encounter Results MAGNESIUM, PLASMA (06/04/2017) + +-------+ + + + | Component | Value | Ref Range | Performed | Pathologist | | | | | At | Signature | + +-------+ + + + | MAGNESIUM | 1.9 | 1.7 - 2.5 mg/dL | [facility] | | | | | | LAB - | | | | | | [place] | | + +-------+ + + + + + | Specimen | + + | Blood - Blood | | (substance) | + + + + + + + | Performing | Address | City/State/Zipcode | Phone Number | | Organization | | | | + + + + + | [facility] - | [address] | [place] | [phone] | | [place] | | | | + + + + + GGT, PLASMA (06/04/2017) + +-------+ + + + | Component | Value | Ref Range | Performed | Pathologist | | | | | At | Signature | + +-------+ + + + | GAMMA | 14 | 5 - 60 U/L | [facility] | | | GLUTAMYL | | | LAB - | | | TRANS | | | [place] | | + +-------+ + + + + + | Specimen | + + | Blood - Blood | | (substance) | + + + + + + + | Performing | Address | City/State/Zipcode | Phone Number | | Organization | | | | + + + + + | [facility] - | [address] | [place] | [phone] | | [place] | | | | + + + + + TACROLIMUS, WHOLE BLOOD (06/04/2017) + +-------+ + + + | Component | Value | Ref Range | Performed | Pathologist | | | | | At | Signature | + +-------+ + + + | TACROLIMUS | <1 | ng/mL | [facility] | | | ([address]) | | | LAB - | | | | | | [place] | | + +-------+ + + + + + | Specimen | + + | Blood - Blood | | (substance) | + + + + + + + | Performing | Address | City/State/Zipcode | Phone Number | | Organization | | | | + + + + + | [facility] - | [address] | [place], [place] | [phone] | | [place] | | | | + + + + + COMPLETE METABOLIC SET (NA,K,CL,CO2,BUN,CREAT,GLUC,CA,AST,ALT,BILI TOTAL,ALK PHOS,ALB,PROT TOTAL) (06/04/2017) + +-------+ + + + | Component [...] +-------+ + + + | CREATININE | 0.74 | 0.6 - 1.26 | [facility] | | | PLASMA | | mg/dL | LAB - | | | (LAB) | | | [place] | | + +-------+ + + + | TOTAL | 7.7 | 6 - 8 g/dL | [facility] | | | PROTEIN, | | | LAB - | | | PLASMA | | | [place] | | | (LAB) | | | | | + +-------+ + + + | ALBUMIN, | 4.3 | 3.5 - 5 g/dL | [facility] | | | PLASMA | | | LAB - | | | (LAB) | | | [place] | | + +-------+ + + + | CALCIUM, | 10.1 | 8.4 - 10.2 | [facility] | | | PLASMA | | mg/dL | LAB - | | | (LAB) | | | [place] | | + +-------+ + + + | BILIRUBIN | 0.4 | 0 - 1.2 mg/dL | [facility] | | | TOTAL | | | LAB - | | | | | | [place] | | + +-------+ + + + | ALK PHOS | 106 | 42 - 145 U/L | [facility] | | | | | | LAB - | | | | | | [place] | | + +-------+ + + + | AST(SGOT) | 17 | 13 - 39 U/L | [facility] [...] +-------+ + + + | CHLORIDE, | 104 | 95 - 112 mmol/L | [facility] | | | PLASMA | | | LAB - | | | (LAB) | | | [place] | | + +-------+ + + + | TOTAL CO2, | 23 | 19 - 31 mmol/L | [facility] | | | PLASMA | | | LAB - | | | (LAB) | | | [place] | | + +-------+ + + + | ALT (SGPT) | 23 | 7 - 52 U/L | [facility] | | | | | | LAB - | | | | | | [place] | | + +-------+ + + + + + | Specimen | + + | Blood - Blood | | (substance) | + + + + + + + | Performing | Address | City/State/Zipcode | Phone Number | | Organization | | | | + + + + + | [facility] - | [address] | [place], [place] | [phone] | | [place] | | | | + + + + + CBC, WITH DIFFERENTIAL (06/04/2017) + +-------+ + + + | Component | Value | Ref Range | Performed | Pathologist | | | | | At | Signature | + +-------+ + + + | WHITE CELL | 8.2 | 4.5 - 11 K/cu | [facility] | | | COUNT | | mm | LAB - | | | | | | [place] | | + +-------+ + + + | RED CELL | 4.91 | 3.8 - 5.1 M/cu | [facility] | | | COUNT | | mm | LAB - | | | | | | [place] | | + +-------+ + + + | HEMOGLOBIN | 14.8 | 12 - 16 g/dL | [facility] | | | | | | LAB - | | | | | | [place] | | + +-------+ + + + | HEMATOCRIT | 43.5 | 35 - 45 % | [facility] | | | | | | LAB - | | | | | | [place] | | + +-------+ + + + | MCV | 88.7 | 81 - 99 fL | [facility] | | | | | | LAB - | | | | | | [place] | | + +-------+ + + + | MCH | 30 | 27 - 33 pg | [facility] | | | | | | LAB - | | | | | | [place] | | + +-------+ + + + | MCHC | 34 | 30 - 36 g/dL | [facility] | | | | | | LAB - | | | | | | [place] | | + +-------+ + + + | PLATELET | 330 | 140 - 440 K/cu | [facility] | | | COUNT | | mm | LAB - | | | | | | [place] | | + +-------+ + + + | NEUTROPHIL | 61.3 | 39 - 80 % | [facility] | | | % | | | LAB - | | | | | | [place] | | + +-------+ + + + | LYMPHOCYTE | 26.5 | 24 - 44 % | [facility] [...] + + + | EOS % | 1.4 | 0 - 6 % | [facility] | | | | | | LAB - | | | | | | [place] | | + +-------+ + + + | BASO % | 1 | 0 - 2 % | [facility] | | | | | | LAB - | | | | | | [place] | | + +-------+ + + + | RDW | 13.6 | 10.5 - 15 % | [facility] | | | | | | LAB - | | | | | | [place] | | + +-------+ + + + + + | Specimen | + + | Blood - Blood | | (substance) | + + + + + + + | Performing | Address | City/State/Zipcode | Phone Number | | Organization | | | | + + + + + | [facility] - | [address] | [place] | [phone] | | [place] | | | | + + + + + documented in this encounter Visit Diagnoses Not on filedocumented in this encounter"
--- OUTSIDE RECORDS SUMMARY | ~2019-06-17 | XMS | Encounter Summary ---
Demographics + + + | Address | [address] | | | [place] [address] | + + + | Home Phone [...] Team Providers + +------+ + | Care Product Management Manager Name | Role | Phone | [...] as of this encounter Progress Notes Interface, Top Printing Press Operator In - 04/28/2006 3:05 AM [facility] [place] [address] [place], [place] [address] or October 28, 2001 Nyla Fitzpatrick M.D. [address] [place] [address] RE: NICKI WOODS MR #: [id number] Dear Dr. Fitzpatrick: I had the pleasure of seeing Nicki back in the Pediatric Liver Transplant Clinic at [facility] staffed by Dr.Bill Beth and Dr. Ngoc Davis from [place]. This is a routine followup. Nicki continues to do quite well with no symptoms. She is gaining weight well and developing normally. She is presently on Prograf 2 mL (0.5 mg/mL) b.i.d. Past medical history is significant for an allergy to sulfa medication. In addition, she has a very small VSD that is followed by Dr. Donald Mendez, cow washer. The VSD certainly does not seem to [...] team. Sincerely, Kendall Angulo M.D. Pediatric Gastroenterology [facility] / [id number] / [id number] / [id number] / cc: Jose F Carnes M.D. [address] [facility] [address] [place] [address] Mirza Guerrero M.D. [address] [facility] [address] [place] [address] Adonis Beth M.D. [address] [facility] [place] [address] [id number] signed by Interface, Top Printing Press Operator In at 04/28/2006 3:05 AM [facility]ed in this encounter Plan of Treatment Not on filedocumented as of this encounter Visit Diagnoses Not on filedocumented in this encounter"
--- OUTSIDE RECORDS SUMMARY | ~2019-06-17 | XMS | Encounter Summary ---
Demographics + + + | Address | [address] | | | [place] [address] | + + + | Home Phone [...] + + | Author | [facility] [employer] [facility] | + + + | Organization | [facility] | + + + | Address | [...] Team Providers + +------+ + | Care Intelligence Engineer Name | Role | Phone | + +------+ + PCP | Unavailable | + +------+ + Reason for Visit + + + | Reason | Comments | + + + | Lab Order | faxed lab order | + + + Encounter Details +--------+ + + + + | Date | Type | Department | Care Team | Description | +--------+ + + + + | 10/28/ | Telephone | Pediatric | Crista Valadez, | Lab Order (faxed lab | | 2013 | | Gastroenterology at | [address] | order) | | | | [place] | [place], [place] | | | | | [facility] [[email or web address]] | [address] | | | | | [address] | [phone] | | | | | Vivi Tellez Mailcode: | | | | | | [address] | | | | | | [place], [place] | | | | | | [address] | | | | | | [phone] | | | +--------+ + + + [...] [address] | [place] | [phone] | | [place] | | | | [...] [address] | [place], [place] | [phone] | | [place] | | | | [...] [address] | [place], [place] | [phone] | | [place] | | | | [...] | | | [place] | | + + + + + [...] - | [address] | [place] | [phone] | | [place] | | | | + + + + + documented in this encounter Visit Diagnoses + + | Diagnosis | + + | 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
--- OUTSIDE RECORDS SUMMARY | ~2019-06-17 | XMS | Encounter Summary ---
Demographics + + + | Address | [address] | | | [place] [address] | + + + | Home Phone | | + + + | Preferred Language | Unknown | + + + | Marital Status | Single | + + + | Pentecostalism Affiliation | Unknown | + + + [...] Team Providers + +------+ + | Care Life Trainer Name | Role | Phone | + +------+ + | Nyla Fitzpatrick MD | PCP | | + +------+ + Encounter Details +--------+ + + + + | Date | Type | Department | Care Team | Description | +--------+ + + + + | 12/11/ | Transcribed | | Dictation, Other | [...] as of this encounter Progress Notes Interface, Documentation Spec In - 07/10/2006 1:05 AM [facility] [place] [address] [address] or December 12, 1999 Nyla Fitzpatrick M.D. [address] [place] [id number] RE: NICKI WOODS MR #: [id number] Dear Dr. Fitzpatrick: I had the pleasure of seeing Nicki at [facility] today in the Pediatric Liver Transplant Clinic and presenting her once again to members of the Pediatric Liver Transplant team from [place], which included Dr. Jose Luis Guillory. Nicki has been doing reasonably well over the last six months during the interim since her interim since her initial presentation to the transplant team. She has grown and gained weight, although in a subdued fashion. Her mother has few complaints. She is on a regular diet and has dark brown stools. Evidently her VSD is closing, and she is followed by Dr. Donald Molina, pediatric medical assistant. His present medications include Zantac 1 mL b.i.d., Bactrim teaspoon q.d., Actigall 1.5 cc t.i.d., iron 0.8 q.d., vitamin A and D capsule 1 q.d., vitamin E capsule 1 q.d., and vitamin K 2.5 mg q.d. On physical examination, she weighs 8.37 kg and measures 70.4 cm. Her blood pressure is 104/69. She is anicteric, although her skin is slightly pigmented. She has thin extremities and a protuberant abdomen. The vasculature over her abdomen is prominent. She has a very large and hard liver, left lobe even more so than the right lobe and a spleen that descends at least 6 to 7 cm below the left costal margin. Ascites is questionable. Her most recent laboratory tests on December 09, 1999, show an AST of 137, ALT 99, albumin 3.0, a direct bilirubin of 1.0, and a platelet count of 116,000. Her GGT is 571. Nicki has a blood type of O negative. 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 Given the details of the situation, Dr. Guillory wishes to move ahead and continue her listing as a 2B. Members of the transplant team will investigate further and firm up plans to have a living-related donor on the wings in case Nicki deteriorates quickly at some point in the future requiring transplantation sooner than later. In the meantime, we will continue the present medications. With her next blood draw, she needs a PT, INR, and PTT. Mother will try to remember to request this the next time she comes to either your office or your laboratory facility for the next blood draw. Finally, mother will coordinate a visit to both Dr. Molina and Dr. Carnes in the next month or two. Please let me know if you have any questions. Sincerely, Kendall Angulo M.D. Pediatric Gastroenterology [facility] / [id number] / [id number] / [id number] / [id number] cc: Jose Luis Guillory M.D. [facility] [address] [facility] [place], [place] Jose F Carnes M.D. [address] [place] [id number] signed by Interface, Documentation Spec In at 07/10/2006 1:05 AM PSTdocume nted in this encounter Plan of Treatment Not on filedocumented as of this encounter Visit Diagnoses Not on filedocumented in this encounter"
--- OUTSIDE RECORDS SUMMARY | ~2019-06-17 | XMS | Encounter Summary ---
Demographics + + + | Address | [address] | | | [place] [address] | + + + | Home Phone [...] Author + + + | Author | [facility] | + [...] Team Providers + +------+ + | Care Mold Burner Name | Role | Phone | + [...] | | | | | Mariaelena | [place], [place] | | | | | [facility] | [address] | | | | | [address] [facility] | [phone] | | | | | Vivi Tellez Mailcode: | | | | | | [address] | | | | | | [place], [place] | | | | | | [address] | | | | | | [phone] | | | +--------+ + + + [...]
--- OUTSIDE RECORDS SUMMARY | ~2019-06-17 | XMS | Encounter Summary ---
Demographics + + + | Address | [address] | | | [place] [address] | + + + | Home Phone | | + + + | Preferred Language | Unknown | + + + | Marital Status | Single | + + + | Restorationist Affiliation | Unknown | + + + | Race | White | + + + | Ethnic Group | Not or | + + + Author + + + | Author | [facility] [facility] | + + + | Organization | [facility] | + + [...] Providers + +------+ + | Care Special Officer Automat Name | Role | Phone | + [...] | | Gastroenterology at | RN [address] [facility] | drawn) | | | | Mariaelena | [address] | | | | | [facility] | [place] [address] | | | | | [address] [facility] | | | | | | [facility] Mailcode: | | | | | | CDRCP Mariaelena | | | | | | [place], [place] | | | | | | [address] | | | | | | [phone] | | | +--------+ + + + [...]
--- OUTSIDE RECORDS SUMMARY | ~2019-06-17 | XMS | Encounter Summary ---
Demographics + + + | Address | [address] | | | [place] [address] | + + + | Home Phone [...] Author | [facility] | + + + | Organization | [facility] | + + + | Address | [...] | | + +------+ + Reason for Referral PROC - Dept/Practice Procedure (Routine) +--------+--------+ + + + + | Status | Reason | Specialty | Diagnoses / | Referred By | Referred To | | | | | Procedures | Contact | Contact | +--------+--------+ + + + + | Closed | | Gastroenterol | Diagnoses | Eroglu, | Gas Endo | | | | ogy | Biliary | MD Crista | [address] | | | | | atresia | [address] | | | | | Transplanted | Helen Tellez | Mailcode: | | | | | liver (HCC) | [place], [place] | [address] | | | | | Procedures | [address] | for Health | | | | | FIBROSCAN | Phone: | and Healing, | | | | | | [phone] | [address] | | | | | | Fax: | [place], [place] | | | | | | [phone] | [address] | | | | | | | Phone: | | | | | | | [phone] | | | | | | | Fax: | | | | | | | [phone] | +--------+--------+ + + + + Consultation (Routine) + +--------+ + + + + | Status | Reason | Specialty | Diagnoses / | Referred By | Referred To | | | | | Procedures | Contact | Contact | + +--------+ + + + + | Authorized | | Liver | Diagnoses | Eroglu, | Ltx Liver | | | | Transplant | Biliary | MD Crista | T[address] | | | | | atresia | [address] | | | | | Other | Helen Tellez | [address] | | | | | secondary | [place], [place] | Rd Mailcode: | | | | | hypertension | [address] | [address] | | | | | | Phone: | Physician's | | | | | Transplanted | [phone] | [address] | | | | | liver (HCC) | Fax: | [place], [place] | | | | | Procedures | [phone] | [address] | | | | | CONSULT TO | | Phone: | | | | | HEPATOLOGY | | [phone] | | | | | | | Fax: | | | | | | | [phone] | + +--------+ + + + + Reason for Visit Office Visit - E/M Services (Routine) +--------+--------+ + + + + | Status | Reason | Specialty | Diagnoses / | Referred By | Referred To | | | | | Procedures | Contact | Contact | +--------+--------+ + + + + | Closed | | Pediatric | Diagnoses | Amari, | Ped Gastro | | | | Gastroenterol | 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, | [facility] [address] | | | | ogy | malformation | MD PENN | [address] | | | | | s of spleen | SPECIALISTS | Vivi Tellez | | | | | Liver | OF [place] | Mailcode: | | | | | transplant | [address] | CDRCP | | | | | status | AURELIO VILALLPANDO | [place]ena | | | | | Procedures | [place], | [place], [place] | | | | | includes | [place] [address] | [address] | | | | | diagnostics | Phone: | Phone: | | | | | | [phone] | [phone] | | | | | | Fax: | Fax: | | | | | | [phone] | [phone] | +--------+--------+ + + + + Encounter Details +--------+---------+ + + + | Date | Type | Department | Care Team | Description | +--------+---------+ + + + | 03/13/ | Office | Pediatric | Crista Valadez, | Biliary atresia | | 2016 | Visit | Gastroenterology at | [address] | (Primary Dx); | | | | Dojimbo | [place], [place] | Polysplenia; Other | | | | [facility] | [address] | secondary | | | | [address] | [phone] | hypertension; | | | | Vivi Geoff Mailcode: | | Transplanted liver | | | | CDRCP Elvier | | ([facility]); Nonrheumatic | | | | [place], [place] | | aortic valve | | | | [address] | | insufficiency; VSD | | | | [phone] | | (ventricular septal | | | | | | defect), | | | | | | perimembranous; | | | | | | Interrupted inferior | | | | | | vena cava; Aortic | | | | | | root dilatation | | | | | | ([facility]) | +--------+---------+ + + + Social History [...] Instructions Patient Instructions Crista Valadez MD - 03/13/2016 9:03 AM Garrett lockett, It was nice to see you in the clinic today ! Our recommendations are as below: Plan: - Blood draw for labs: every 3 months - Next appointment: With Adult GI next summer (can schedule with Fibroscan) Results of tests: Test results will be sent to you by MyChart. Calls: Medical emergencies: call 911 Non-urgent issues: Send eHi Car [employer] message Thursday - Thursday work hours: call [phone] # 3 After hours, weekends, holidays: call [phone] To schedule an appointment: call [phone] # 1 For refills: call to your pharmacy a week before running out medicine documented in this encounter Progress Notes Crista Valadez MD - 03/10/2016 3:40 PM PDTFormatting of this note might be different fro m the original. 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 She was last seen by Dr Leonardo in 2008. In 2009, it was noticed that she has not been seen, attempts to reach to family was unsucces sful. lost to follow up since that time. - Cardiology: last cardiology note is from [address] Nyla Fitzpatrick, seismographer at [facility]. Her cardiac dx includes 1) moderate perimembraneous VSD nearly occluded by aneurysmal tissue leaving a tiny VSD, 2) trace central aortic insufficiency, 3) Left atrial isomerism (polysplenia). It was recommended her annual follow up for progression of aortic insufficien cy in which case she may need closure of VSD. No further notes available in our system as hans gillette is lost to follow up since 2008. - 06/01/2014 s/p VSD repair, 8-mm Amplatzer Vascular Plug IV with no significant residual s hunting noted. - not on prograf for a long time INTERVAL HISTORY: - no complaints,no abdominal pain, emesis, diarrhea or constipation - started BCP, blood pressures were high since then, she will be seen By seismographer ming salazar, they will monitor BPs REVIEW OF SYSTEMS: General: No fever, fatigue, [...] of motion. Skin: No itching, rash, jaundice. Psychological: No abnormal anxiety, depression. Attending school regularly. Will be senior this year Heme: No anemia, abnormal bleeding, easy bruising Lymphatic: No enlarged lymph nodes. Metabolic/Endo: no glucose intolerance, hypothyroidism Allergy/immunology: no seasonal or food allergies, no asthma All other ROS are negative. Past Medical History Diagnosis Date Biliary atresia Past Surgical History Procedure Laterality Date Liver transplant 03/24/2000 at [place] Vsd repair, amplatzer device 06/01/2014 8-mm Amplatzer Vascular Plug IV, no significant residual shunting FHx: reviewed, unchanged SHx: reviewed, will be senior at this year Allergies Allergen Reactions Sulfa (Sulfonamide Antibiotics) Hives and Swelling-Facial Varicella Vaccines Possible reaction with sulfa meds PHYSICAL EXAMINATION: Patient reports a pain level of 0 today. No action required. Ht 1.644 m (5' 4.72") (58 %*, Z = 0.21), Wt 81.5 kg (179 lb 10.8 oz) (96 %*, Z = 1.70), Isaac ght for age(%) 96% (Z=1.70) , BP 140/98, Pulse 84, Temperature 36.7 C (98.1 F), Tempera ture source Oral, BMI 30.15 kg/(m^2). Repeat BP at the end of clinic: 130/93 mmHg APPEARANCE: alert, active and in no apparent distress. SKIN: no jaundice or rashes. HEENT: normocephalic, PERRLA, mucous membranes moist. NECK: supple, without thyromegaly. CHEST: clear to auscultation bilaterally. CV: no murmurs. ABDOMEN: soft, NTND, no hepatosplenomegaly. BACK: without tenderness. MUSCULOSKELETAL: no muscle wasting, no deformity. EXTREMITIES: No edema, clubbing, deformity. NEURO: grossly intact ASSESSMENT: 14 yo female with h/o biliary atresia, s/p OLT in 1999, off immunosuppression b y choice for a long time, congenital heart disease, s/p surgery, now w hypertension. CNI cou ld be contributor to HTN, despite that she has been off for a long time. Patient says she wi ll be referred to metal tester by PCP. Recommend fibroscan to evaluate for fibrosis which could have developed despite normal LFts . Q44.2 Biliary atresia Q89.09 Polysplenia I15.8 Other secondary hypertension Z94.4 Transplanted liver (HCC) I35.1 Nonrheumatic aortic valve insufficiency Q21.0 VSD (ventricular septal defect), perimembranous Q26.9 Interrupted inferior vena cava I77.810 Aortic root dilatation (HCC) PLAN/RECOMMENDATIONS: - Labs: CBC w diff, CMP, GGT: every 3 months - will transfer care to adult hepatology, requested appt to be scheduled for summer 2016 , this works for family well. - Fibroscan next year when she is seen by adult hepatology - she will be seen by cardiology today for follow up - PCP referred her to metal tester for HTN Health Care Maintenance: - she can receive all vaccines as she is not on immunsupression, especially we recommend he p A, hep B vaccines if she is not already immune. - Flu vaccine (intramuscular): every fall. - Dental care every 6 months At this visit: Dr. Van Guillory and GIO Aguilar from [facility] were presen t as observers during this visit. Psychosocial or economic issues that may affect patient's medical care or well being:none Co-morbid chronic medical problems that may affect future procedural sedation risk: NA Labs/imaging: Component Latest Ref Rng 01/22/2016 GLUCOSE, PLASMA (LAB) 70 - 100 mg/dL 73 BUN, PLASMA (LAB) 6 - 23 mg/dL 8 CREATININE PLASMA (LAB) 0.6 - 1.2 mg/dL 0.61 TOTAL PROTEIN, PLASMA 6 - 8 g/dL 7.9 ALBUMIN, PLASMA (LAB) 3.5 - 5 g/dL 4 CALCIUM, PLASMA (LAB) 8.4 - 10.2 mg/dL 9.7 BILIRUBIN TOTAL 0 - 1.2 mg/dL 0.3 ALK PHOS 30 - 128 U/L 108 AST(SGOT) 13 - 39 U/L 18 SODIUM, PLASMA (LAB) 132 - 143 mmol/L 137 POTASSIUM, PLASMA (LAB) 3.6 - 5.1 mmol/L 4 CHLORIDE, PLASMA (LAB) 95 - 112 mmol/L 100 TOTAL CO2, PLASMA (LAB) 19 - 31 mmol/L 24 ALT (SGPT) 7 - 52 U/L 18 WHITE CELL COUNT 4.5 - 11 K/cu mm 8.8 RED CELL COUNT 3.8 - 5.1 M/cu mm 4.97 HEMOGLOBIN 12 - 16 g/dL 14.5 HEMATOCRIT 35 - 45 % 43.2 MCV 81 - 99 fL 86.9 PLATELET COUNT 140 - 440 K/cu mm 415 Crista Valadez MD Pediatric Gastroenterology Consult line: [phone] roCrista ortiz MD - 03/10/2016 3:39 PM PDT documented in this en counter Plan of Treatment + + +--------+ + + | Name | Type | Priori | Associated Diagnoses | Order Schedule | | | | ty | | | + + +--------+ + + | FIBROSCAN | Procedures | Routin | Biliary atresia | Ordered: 03/13/2016 | | | | e | Transplanted liver | | | | | | (HCC) | | + + +--------+ + + documented as of this encounter Visit Diagnoses + + | Diagnosis | + + | Biliary atresia - Primary Congenital biliary atresia | + + | Polysplenia Congenital anomalies of spleen | + + | Other secondary hypertension | + + | Transplanted liver (HCC) Liver replaced by transplant | + + | Nonrheumatic aortic valve insufficiency Aortic valve disorders | + + | VSD (ventricular septal defect), perimembranous Ventricular septal defect | + + | 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
--- OUTSIDE RECORDS SUMMARY | ~2019-06-17 | XMS | Encounter Summary ---
Demographics + + + | Address | [address] | | | [place] [address] | + + + | Home Phone | | + + + | Preferred Language | Unknown | + + + | Marital Status | Single | + + + | Adventism Affiliation | Unknown | + + + | Race | White | + + + | Ethnic Group | Not or | + + + Author + + + | Author | [facility] [email or web address] | + + + | Organization [...] Team Providers + +------+ + | Care Configuration Management Administrator Name | Role | Phone | [...] | | | | | Mariaelena | [place], [place] | | | | | [facility] | [address] | | | | | [address] | [phone] | | | | | Vivi Geoff Mailcode: | | | | | | [address] | | | | | | [place], [place] | | | | | | [address] | | | | | | [phone] | | | +--------+ + + + [...] [address] | [place] | [phone] | | [place] | | | | [...] - | [address] | [place], [place] | [phone] | | [place] | | | | [...] - | [address] | [place], [place] | [phone] | | [place] | | | | [...] [address] | [place] | [phone] | | [place] | | | | [...] + + | [facility] - | [address] | [place] | [phone] | | [place] | | | | + + + + + documented in this encounter Visit Diagnoses Not on filedocumented in this encounter"
--- OUTSIDE RECORDS SUMMARY | ~2019-06-17 | XMS | Encounter Summary ---
Demographics + + + | Address | [address] | | | [place] [address] | + + + | Home Phone | | + + + | Preferred Language | Unknown | + + + | Marital Status | Single | + + + | Jew Affiliation | Unknown | + + + [...] Team Providers + +------+ + | Care Review Analyst Name | Role | Phone | + [...] as of this encounter Progress Notes Interface, Director Of Event Sales In - 06/14/2006 5:04 AM [facility] [place] [address] [place], [place] [address] or December 10, 2000 Nyla Fitzpatrick M.D. [address] [place] [place] [address] RE: NICKI WOODS MR #: [id number] Dear Dr. Fitzpatrick: I had the pleasure of seeing Nicki in the Pediatric Liver Transplant Clinic at [facility] today attended by Dr. Jose Luis Guillory of the [facility] Team for Dr. Carnes. As you know, she is a 1-year-old female who is 8 months status post liver transplantation for biliary atresia on March 24, 2000, at [facility]. She has had a relatively uneventful posttransplant [...] DNA PCR. In summary, Nicki is a 4-xrfeh-bli white female who is 8 months status [...] 6 months when the transplant team visits [place] again. Please let me know if you have any questions. Sincerely, Kendall Angulo M.D. Pediatric Gastroenterology [facility] / [id number] / [id number] / [id number] / [id number] cc: Jose F Carnes M.D. [address] [facility] [address] [place] [address] Kam Guerrero M.D. [address] [facility] [address] [place] [address] Jose Luis Guillory M.D. [address] [facility]. [address] [place] [address] [id number] signed by Interface, Director Of Event Sales In at 06/14/2006 5:04 AM PSTdocume nted in this encounter Plan of Treatment Not on filedocumented as of this encounter Visit Diagnoses Not on filedocumented in this encounter"
--- OUTSIDE RECORDS SUMMARY | ~2019-06-17 | XMS | Encounter Summary ---
Demographics + + + | Address | [address] | | | [place] [address] | + + + | Home Phone [...] + + | Author | [facility] [email or web address] [facility] | + + [...] Team Providers + +------+ + | Care Pulmonary Fellow Name | Role | Phone | + [...] | | | | | Mariaelena | [place], [place] | | | | | [facility] | [address] | | | | | [address] | [phone] | | | | | Vivi Tellez Mailcode: | | | | | | [address] | | | | | | [place], [place] | | | | | | [address] | | | | | | [phone] | | | +--------+ + + + [...]
--- OUTSIDE RECORDS SUMMARY | ~2019-06-17 | XMS | Encounter Summary ---
Demographics + + + | Address | [address] | | | [place] [address] | + + + | Home Phone | | + + + | Preferred Language | Unknown | + + + | Marital Status | Single | + + + | Scientology Affiliation | Unknown | + + + | Race | White | + + + | Ethnic Group | Not or | + + + Author + + + | Author | [facility] | + + + | Organization | [facility] | + + + | Address | [...] Team Providers + +------+ + | Care Aviation Project Manager Name | Role | Phone | [...] | | Gastroenterology at | RN [address] | | | | | Mariaelena | [address] | | | | | [facility] | [place] [address] | | | | | [address] | | | | | | Vivi Tellez Mailcode: | | | | | | [facility] Mariaelena | | | | | | [place], [place] | | | | | | [address] | | | | | | [phone] | | | +--------+--------+ + + + [...]
--- OUTSIDE RECORDS SUMMARY | ~2019-06-17 | XMS | Clinical Summary ---
Demographics + + + | Address | [address] | | | [place] [address] | + + + | Home Phone | | + + + | Preferred Language | Unknown | + + + | Marital Status | Single | + + + | Anabaptist Affiliation | Unknown | + + + | Race | Unknown | + + + | Ethnic Group | Unknown | + + + Author + + + | Author | [employer] (Historical as of | | | 04-02-19) | + + + | Organization | [facility] (Historical as of | | | 04-02-19) | + + + | Address | Unknown | + + + | Phone | Unavailable | + + + Support + + +---------+ + | Name | Relationship | Address | Phone | + + +---------+ + | Mary Woods | ECON | Unknown | | + + +---------+ + Care Team Providers + +------+ + | Care Bridge Mechanic Name | Role | Phone | + +------+ + | Yasir Cullen DO | PP | | + +------+ + Allergies + + + + + + | Active Allergy | Reactions | Severity | Noted | Comments | | | | | Date | | + + + + + + | Sulfa Antibiotics | Swelling, Rash | Medium | 12/23/19 | | | | | | 19 | | + + + + + + Current Medications + + +-------+---------+------+------+-------+ | Prescription | Sig. | Disp. | Refills | Star | End | Statu | | | | | | t | Date | s | | | | | | Date | | | + + +-------+---------+------+------+-------+ | | Inject into the | | | | | Activ | | medroxyPROGESTERone | muscle every 3 | | | | | e | | Acetate | (three) months. | | | | | | | (DEPO-PROVERA IM) | | | | | | | + + +-------+---------+------+------+-------+ | amLODIPine | Take 5 mg by mouth | | | | | Activ | | (NORVASC) 5 MG | daily. | | | | | e | | tablet | | | | | | | + + +-------+---------+------+------+-------+ | | Take 1 tablet by | | 1 | 04/2 | | Activ | | lisinopril-hydrochlo | mouth daily. 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 | + + + | VSD (ventricular septal defect), perimembranous | 12/20/2007 | + + + + + | Overview: Overview: 06/01/2014 S/p 8-mm Amplatzer Vascular | | Plug IV, with no significant residual shuntingLeft atrial | | isomerism LAE (left atrial enlargement) LVE (left ventricular | | enlargement) | |LVE (left ventricular enlargement) | + + + + + | 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/28/2006 | + + + + + | Overview: Overview: | | For biliary atresia, 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 at [place] | + + Family History + + +------+ + | Medical History | Relation | Name | Comments | + + +------+ + | Heart disease | Father | | had heart surgery | + + +------+ + | Hypertension | Father | | | + + +------+ + + +------+--------+ + | Relation | Name | Status | Comments | + +------+--------+ + | Father | | Alive | | + +------+--------+ + | Mother | | Alive | | + +------+--------+ + Social History + +-------+ +--------+------+ | [...] + +---------+ + | Alcohol Use | Drinks/We | oz/Week | Comments | | | ek | | | + + +---------+ + | No | | | | + + +---------+ + + + + | Sex Assigned at | Date Recorded | | | | + + + | Not on file | | + + + Last Filed Vital Signs + + + + | Vital Sign | Reading | Time Taken | + + + + | Blood Pressure | 124/70 | 12/22/2018 2:18 PM PDT | + + + + | Pulse | 100 | 12/22/2018 2:18 PM PDT | + + + + | Temperature | - | - | + + + + | Respiratory Rate | - | - | + + + + | Oxygen Saturation | 98% | 12/22/2018 2:18 PM PDT | + + + + | Inhaled Oxygen | - | - | | Concentration | | | + + + + | Weight | 96.4 kg (212 lb 9.6 | 12/22/2018 2:18 PM PDT | | | oz) | | + + + + | Height | 165.1 cm (5' 5") | 12/22/2018 2:18 PM PDT | + + + + | Body Mass Index | 35.38 | 12/22/2018 2:18 PM PDT | + + + + Plan of Treatment +--------+---------+ + + + | Date | Type | Specialty | Care Team | Description | +--------+---------+ + + + | 12/27/ | Office | | Yoni Prasad, | | | 2019 | Visit | | MD Tiffanie Orozco | | | | | | Dr Rom[address], | | | | | | [place] [address] | | | | | | [phone] | | | | | | | | +--------+---------+ + + + + + + + + | Health Maintenance | Due Date | Last Done | Comments | + + + + + | Well Child Check | | | | | | 2 | | | + + + + + | Vaccine: HPV (1 - | | | | | Female 3-dose | 4 | | | | series) | | | | + + + + + | Vaccine: | | | | | Dtap/Tdap/Td (1 - | 8 | | | | Tdap) | | | | + + + + + | Vaccine: | | | | | Pneumococcal 19-64 | 8 | | | | Highest Risk (1 of 3 | | | | | - PCV13) | | | | + + + + + | Vaccine: Influenza | | | | | (#1) | 9 | | | + + + + + Results Not on filefrom Last 3 Months Insurance + +--------+ +------+-------+---------+ | Payer | Benefi | Subscriber | Type | Phone | Address | | | t Plan | ID | | | | | | / | | | | | | | Group | | | | | + +--------+ +------+-------+---------+ | FIRST [employer] - | FIRST | [id number] | | | | | [place] | HEALTH | | | | | | | - | | | | | | | PACIFI | | | | | | | CSOURC | | | | | | | E | | | | | + +--------+ +------+-------+---------+ | [employer] | PROVID | [id number] | PPO | | | | PLAN | ENCE | | | | | | | HEALTH | | | | | | | PLAN | | | | | + +--------+ +------+-------+---------+ + +--------+ +--------+ + + | Guarantor Name | Accoun | Relation to | Date | Phone | Billing Address | | | t Type | Patient | of | | | | | | | | | | + +--------+ +--------+ + + | NICKI WOODS | Person | Self [birth year] | Home: | [address] | | | jonny/Reynaldo | | 2000 | [phone] | [place] | | | marlene | | | 2049 | [address] | + +--------+ +--------+ + +
--- OUTSIDE RECORDS SUMMARY | ~2019-06-17 | XMS | Encounter Summary ---
Demographics + + + | Address | [address] | | | [place] [address] | + + + | Home Phone | | + + + | Preferred Language | Unknown | + + + | Marital Status | Single | + + + | Baptist Affiliation | Unknown | + + + | Race | White | + + + | Ethnic Group | Not or | + + + Author + + + | Author | [facility] | + + + [...] Team Providers + +------+ + | Care Dust Puller Name | Role | Phone | + [...] | | | | liver (HCC) | [place], [place] | [address] | | | | | Procedures | [address] | for Health | | | | | FIBROSCAN | Phone: | and Healing, | | | | | | [phone] | [address] | | | | | | Fax: | [place], [place] | | | | | | [phone] | [address] | | | | | | | Phone: | | | | | | | [phone] | | | | | | | Fax: | | | | | | | [phone] | +--------+--------+ + + + + Consultation [...] | Other | Helen Tellez | [address] | | | | | secondary | [place], [place] | Rd Mailcode: | | | | | hypertension | [address] | [address] | | | | | | Phone: | Physician's | | | | | Transplanted | [phone] | [address] | | | | | liver (HCC) | Fax: | [place], [place] | | | | | Procedures | [phone] | [address] | | | | | CONSULT TO | | Phone: | | | | | HEPATOLOGY | | [phone] | | | | | | | Fax: | | | | | | | [phone] | + +--------+ + + + + [...] | 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, | [facility]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 | MD PENN | [address] | | | | | s of spleen | SPECIALISTS | Vivi Tellez | | | | | Liver | OF [place] | Mailcode: | | | | | transplant | [address] | CDRCP | | | | | status | AURELIO VILLALPANDO | [place] | | | | | Procedures | [place], | [place], [place] | | | | | includes | [place] [address] | [address] | | | | | diagnostics | Phone: | Phone: | | | | | | [phone] | [phone] | | | | | | Fax: | Fax: | | | | | | [phone] | [phone] | +--------+--------+ + + + + Encounter Details +--------+---------+ + + + | Date | Type | Department | Care Team | Description | +--------+---------+ + + + | 03/13/ | Office | Pediatric | Crista Valadez, | Biliary atresia | | 2016 | Visit | Gastroenterology at | [address] | (Primary Dx); | | | | Dojimbo | [place], [place] | Polysplenia; Other | | | | [facility] | [address] | secondary | | | | [address] | [phone] | hypertension; | | | | Vivi Geoff Mailcode: | | Transplanted liver | | | | CDRCP Elvier | | ([facility]); Nonrheumatic | | | | [place], [place] | | aortic valve | | | | [address] | | insufficiency; VSD | | | | [phone] | | (ventricular septal | | | | | | defect), | | | | | | perimembranous; | | | | | | Interrupted inferior | | | | | | vena cava; Aortic | | | | | | root dilatation | | | | | | ([facility]) | +--------+---------+ + + + Social History [...] Medical emergencies: call 911 Non-urgent issues: Send [employer] message Thursday - Thursday work hours: call [phone] # 3 After hours, weekends, holidays: call [phone] To schedule an appointment: call [phone] # [phone] For refills: call to your pharmacy a week before running out medicine documented in this encounter Progress Notes Crista Valadez MD - 03/10/2016 3:40 PM PDTFormatting of this note might be different fro m the original. 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 She was last seen by Dr Leonardo in 2008. In 2009, it was noticed that she has not been seen, attempts to reach to family was unsucces sful. lost to follow up since that time. - Cardiology: last cardiology note is from [address] Nyla Fitzpatrick, hand sole sewer at [facility]. Her cardiac dx includes 1) moderate perimembraneous [...] since then, she will be seen By hand sole sewer ming salazar, they will monitor BPs REVIEW [...] Procedure Laterality Date Liver transplant 03/24/2000 at [facility] Vsd repair, amplatzer device 06/01/2014 8-mm Amplatzer [...] says she wi ll be referred to entertainment reporter by PCP. Recommend fibroscan to evaluate for [...] follow up - PCP referred her to entertainment reporter for HTN Health Care Maintenance: - she can receive all vaccines as she is not on immunsupression, especially we recommend he p A, hep B vaccines if she is not already immune. - Flu vaccine (intramuscular): every fall. - Dental care every 6 months At this visit: Dr. Van Guillory and GIO Aguilar from [facility] were presen t [...] Crista Valadez MD Pediatric Gastroenterology Consult line: [phone] roCrista ortiz MD - 03/10/2016 3:39 PM [...]
--- OUTSIDE RECORDS SUMMARY | ~2019-06-17 | XMS | Clinical Summary ---
Demographics + + + | Address | [address] | | | [place] [address] | + + + | Home Phone | | + + + | Preferred Language | Unknown | + + + | Marital Status | Single | + + + | Hindu Affiliation | Unknown | + + + | Race | Unknown | + + + | Ethnic Group | Unknown | + + + Author + + + | Author | [employer] (Historical as of | | | 04-02-19) | + + + | Organization | [facility] [employer] (Historical as of | | | 04-02-19) [...] Team Providers + +------+ + | Care Airway Traffic Controller Name | Role | Phone | + [...] | | For biliary atresia, 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
--- OUTSIDE RECORDS SUMMARY | ~2019-06-17 | XMS | Encounter Summary ---
Demographics + + + | Address | [address] | | | [place] [address] | + + + | Home Phone | | + + + | Preferred Language | Unknown | + + + | Marital Status | Single | + + + | Latter-Day Affiliation | Unknown | + + + | Race | White | + + + | Ethnic Group | Not or | + + + Author + + + | Author | [facility] | + + [...] Team Providers + +------+ + | Care Mangle Roll Operator Name | Role | Phone | [...] | | | | | Maria[place] | [place], [place] | | | | | [facility] | [address] | | | | | [address] [facility] | [phone] | | | | | Vivi Tellez Mailcode: | | | | | | [address] | | | | | | [place], [place] | | | | | | [address] | | | | | | [phone] | | | +--------+ + + + [...]
--- OUTSIDE RECORDS SUMMARY | ~2019-06-17 | XMS | Encounter Summary ---
Demographics + + + | Address | [address] | | | [place] [address] | + + + | Home Phone [...] Author + + + | Author | [facility] | + + + | Organization | [facility] | + [...] Team Providers + +------+ + | Care Oracle Applications Developer Name | Role | Phone | [...] order) | | | | [place]her | [place], [place] | | | | | [facility] | [address] | | | | | [address] | [phone] | | | | | Vivi Tellez Mailcode: | | | | | | CDRCP Mariaelena | | | | | | [place], [place] | | | | | | [address] | | | | | | [phone] | | | +--------+ + + + [...] [address] | [place] | [phone] | | [place] | | | | [...] [address] | [place], [place] | [phone] | | [place] | | | | [...] [address] | [place], [place] | [phone] | | [place] | | | | [...] [address] | [place] | [phone] | | [place] | | | | + + + + + documented in this encounter Visit Diagnoses + + | Diagnosis | + + | 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
--- OUTSIDE RECORDS SUMMARY | ~2019-06-17 | XMS | Encounter Summary ---
Demographics + + + | Address | [address] | | | [place] [address] | + + + | Home Phone [...] + | Author | [facility] | + + + | Organization [...] Team Providers + +------+ + | Care Spreader Name | Role | Phone | + [...] | +--------+ + + + + | 11/28/ | Telephone | Pediatric | Crista Valadez, | Care Coordination | | 2016 | | Gastroenterology at | MD [address] | | | | | Mariaelena | [place], [place] | | | | | [facility] | [address] | | | | | [address] [facility] | [phone] | | | | | Vivi Tellez Mailcode: | | | | | | [address] | | | | | | [place], [place] | | | | | | [address] | | | | | | [phone] | | | +--------+ + + + [...]
--- OUTSIDE RECORDS SUMMARY | ~2019-06-17 | XMS | Encounter Summary ---
Demographics + + + | Address | [address] | | | [place] [address] | + + + | Home Phone [...] + | Author | [facility] [employer] [facility] | + + + | Organization | [facility] | + + + | Address | [...] Team Providers + +------+ + | Care Supervisor Drying Name | Role | Phone | + +------+ + | Nyla Fitzpatrick MD | PCP | | + +------+ + Encounter Details +--------+ + + + + | Date | Type | Department | Care Team | Description | +--------+ + + + + | 04/27/ | Documentati | SOCIAL WORK | Elvia Dsouza, | | | 2013 | on | AMBULATORY [address] | JET BLADE POLISHER [address] | | | | | [address] | [address] | | | | | Mailcode: CH6A | [place], [place] | | | | | [place], [place] | [address] | | | | | [address] | [phone] | | | | | [phone] | | | +--------+ + + + [...]
--- OUTSIDE RECORDS SUMMARY | ~2019-06-17 | XMS | Encounter Summary ---
Demographics + + + | Address | [address] | | | [place] [address] | + + + | Home Phone [...] + + | Author | [facility] [email or web address] [facility] | + [...] Team Providers + +------+ + | Care It Administrator Name | Role | Phone | [...] | | | | | Mariaelena | [place], [place] | | | | | [facility] | [address] | | | | | [address] | [phone] | | | | | Vivi Tellez Mailcode: | | | | | | Mariaelena | | | | | | [place], [place] | | | | | | [address] | | | | | | [phone] | | | +--------+ + + + [...] [address] | [place], [place] | [phone] | | [place] | | | | [...] [address] | [place], [place] | [phone] | | [place] | | | | + + + + + documented in this encounter Visit Diagnoses Not on filedocumented in this encounter"
--- OUTSIDE RECORDS SUMMARY | ~2019-06-17 | XMS | Encounter Summary ---
Demographics + + + | Address | [address] | | | [place] [address] | + + + | Home Phone [...] + | Author | [facility] [employer] [facility] | + [...] Providers + +------+ + | Care Supervisor Metal Furniture Assembly Name | Role | Phone | + [...] | | | | | Mariaelena | [place], [place] | | | | | [facility] | [address] | | | | | [address] | [phone] | | | | | Vivi Tellez Mailcode: | | | | | | Mariaelena | | | | | | [place], [place] | | | | | | [address] | | | | | | [phone] | | | +--------+ + + + [...] [address] | [place], [place] | [phone] | | [place] | | | | [...] [address] | [place] | [phone] | | [place] | | | | [...] [address] | [place] | [phone] | | [place] | | | | [...] [address] | [place] | [phone] | | [place] | | | | [...] [address] | [place], [place] | [phone] | | [place] | | | | [...] [address] | [place], [place] | [phone] | | [place] | | | | [...] [address] | [place] | [phone] | | [place] | | | | [...] - | [address] | [place], [place] | [phone] | | [place] | | | | [...] + + | [facility] - | [address] | [place] | [phone] | | [place] | | | | + + + + + documented in this encounter Visit Diagnoses Not on filedocumented in this encounter"
--- OUTSIDE RECORDS SUMMARY | ~2019-06-17 | XMS | Clinical Summary ---
Demographics + + + | Address | [address] | | | [place] [address] | + + + | Home Phone | | + + + | Preferred Language | Unknown | + + + | Marital Status | Single | + + + | Nondenominational Affiliation | Unknown | + + + | Race | Unknown | + + + | Ethnic Group | Unknown | + + + Author + + + | Author | [employer] (Historical as of | | | 04-02-19) | + + + | Organization | [facility] (Historical as of | | | 04-02-19) [...] Team Providers + +------+ + | Care Permit Specialist Name | Role | Phone | [...] | | For biliary atresia, 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
--- OUTSIDE RECORDS SUMMARY | ~2019-06-17 | XMS | Encounter Summary ---
Demographics + + + | Address | [address] | | | [place] [address] | + + + | Home Phone [...] Author | [facility] [employer] [facility] | + + + | Organization | [facility] | + + + [...] Team Providers + +------+ + | Care Strategic Procurement Manager Name | Role | Phone | [...] | | | | [facility] | [place] [address] | | | | | [address] | | | | | | Vivi Tellez Mailcode: | | | | | | [facility] Mariaelena | | | | | | [place], [place] | | | | | | [address] | | | | | | [phone] | | | +--------+--------+ + + + [...]
--- OUTSIDE RECORDS SUMMARY | ~2019-06-17 | XMS | Encounter Summary ---
Demographics + + + | Address | [address] | | | [place] [address] | + + + | Home Phone [...] | Author | [facility] [employer] [facility] | + + + [...] Team Providers + +------+ + | Care Crate Maker Name | Role | Phone | [...] | on | AMBULATORY [address] | MANAGER NEW PRODUCT [address] | | | | | [address] | [address] | | | | | Mailcode: CH[address]A | [place], [place] | | | | | [place], [place] | [address] | | | | | [address] | [phone] | | | | | [phone] | | | +--------+ + + + [...]
--- OUTSIDE RECORDS SUMMARY | ~2019-06-17 | XMS | Encounter Summary ---
Demographics + + + | Address | [address] | | | [place] [address] | + + + | Home Phone [...] | Author | [facility] [employer] [facility] | + [...] | | + + +---------+ + | [place] | ECON | Unknown | | + + +---------+ + Care Team Providers + +------+ + | Care Wood Flour Miller Name | Role | Phone | + [...] | | | | [facility] | [place] [address] | | | | | [address] | | | | | | Vivi Tellez Mailcode: | | | | | | [facility] Mariaelena | | | | | | [place], [place] | | | | | | [address] | | | | | | [phone] | | | +--------+--------+ + + + [...]
--- OUTSIDE RECORDS SUMMARY | ~2019-06-17 | XMS | Encounter Summary ---
Demographics + + + | Address | [address] | | | [place] [address] | + + + | Home Phone [...] | Author | [facility] | + + + | [...] Team Providers + +------+ + | Care Embedded Systems Software Engineer Name | Role | Phone | [...] labs) | | | | Mariaelena | [place], [place] | | | | | [facility] | [address] | | | | | [address] | [phone] | | | | | Vivi Tellez Mailcode: | | | | | | [address] | | | | | | [place], [place] | | | | | | [address] | | | | | | [phone] | | | +--------+ + + + [...]
--- OUTSIDE RECORDS SUMMARY | ~2019-06-17 | XMS | Encounter Summary ---
Demographics + + + | Address | [address] | | | [place] [address] | + + + | Home Phone | | + + + | Preferred Language | Unknown | + + + | Marital Status | Single | + + + | Shinto Affiliation | Unknown | + + + | Race | White | + + + | Ethnic Group | Not or | + + + Author + + + | Author | [facility] | + + + | Organization | [facility] | + + + | Address [...] Team Providers + +------+ + | Care Financial Agent Name | Role | Phone | + +------+ + | Nyla Fitzpatrick MD | PCP | | + +------+ + Reason for Visit + + + | Reason | Comments | + + + | Lab Draw | Reminder call | + + + Encounter Details +--------+ + + + + | Date | Type | Department | Care Team | Description | +--------+ + + + + | 05/29/ | Telephone | Pediatric | Crista Valadez, | Lab Draw (Reminder | | 2016 | | Gastroenterology at | MD [address] | call) | | | | Mariaelena | [place], [place] | | | | | [facility] | [address] | | | | | [address] [facility] | [phone] | | | | | Vivi Tellez Mailcode: | | | | | | [address] | | | | | | [place], [place] | | | | | | [address] | | | | | | [phone] | | | +--------+ + + + [...]
--- OUTSIDE RECORDS SUMMARY | ~2019-06-17 | XMS | Encounter Summary ---
Demographics + + + | Address | [address] | | | [place] [address] | + + + | Home Phone [...] Author + + + | Author | [facility] | + + + [...] Team Providers + +------+ + | Care Preprint Analyst Name | Role | Phone | [...] | Liver | Nyla Shields MD | [facility] [address] | | | Required | ogy | replaced by | PEDS | Allan Gaffney | | | | | transplant | SPECIALISTS | Vivi Tellez | | | | | (HCC) | OF [place] | Mailcode: | | | | | | [address] | CDRCP | | | | | | [address] | [place] | | | | | | [address] | [place], [place] | | | | | | [place], | [address] | | | | | | [place] [address] | Phone: | | | | | | Phone: | [phone] | | | | | | [phone] | Fax: | | | | | | Fax: | [phone] | | | | | | [phone] | | +--------+ + + + + [...] Mariaelena | | | | | | [facility] | | | | | | [address] | | | | | | Vivi Tellez Mailcode: | | | | | | CDRCP Mariaelena | | | | | | [place], [place] | | | | | | [address] | | | | | | [phone] | | | +--------+ + + + [...]
--- OUTSIDE RECORDS SUMMARY | ~2019-06-17 | XMS | Encounter Summary ---
Demographics + + + | Address | [address] | | | [place] [address] | + + + | Home Phone | | + + + | Preferred Language | Unknown | + + + | Marital Status | Single | + + + | Anabaptism Affiliation | Unknown | + + + | Race | White | + + + | Ethnic Group | Not or | + + + Author + + + | Author | [facility] [email or web address] [facility] | + + + | Organization | [facility] | + + + | Address [...] Team Providers + +------+ + | Care Fact Checker Name | Role | Phone | [...] | | | | liver (HCC) | [place], [place] | [address] | | | | | Procedures | [address] | for Health | | | | | FIBROSCAN | Phone: | and Healing, | | | | | | [phone] | [address] | | | | | | Fax: | [place], [place] | | | | | | [phone] | [address] | | | | | | | Phone: | | | | | | | [phone] | | | | | | | Fax: | | | | | | | [phone] | +--------+--------+ + + + + Consultation [...] | Other | Helen Tellez | [address] | | | | | secondary | [place], [place] | Rd Mailcode: | | | | | hypertension | [address] | [address] | | | | | | Phone: | Physician's | | | | | Transplanted | [phone] | [address] | | | | | liver (HCC) | Fax: | [place], [place] | | | | | Procedures | [phone] | [address] | | | | | CONSULT TO | | Phone: | | | | | HEPATOLOGY | | [phone] | | | | | | | Fax: | | | | | | | [phone] | + +--------+ + + + + [...] | 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, | [facility] [address] | | | | ogy | malformation | MD PENN | Allan Gaffney | | | | | s of spleen | SPECIALISTS | Vivi Tellez | | | | | Liver | OF [place] | Mailcode: | | | | | transplant | [address] | CDRCP | | | | | status | [address] | Mariaelena | | | | | Procedures | [place], | [place], [place] | | | | | includes | [place] [address] | [address] | | | | | diagnostics | Phone: | Phone: | | | | | | [phone] | [phone] | | | | | | Fax: | Fax: | | | | | | [phone] | [phone] | +--------+--------+ + + + + Encounter Details +--------+---------+ + + + | Date | Type | Department | Care Team | Description | +--------+---------+ + + + | 03/13/ | Office | Pediatric | Crista Valadez, | Biliary atresia | | 2016 | Visit | Gastroenterology at | [address] | (Primary Dx); | | | | Dojimbo | [place], [place] | Polysplenia; Other | | | [facility] | [address] | secondary | | | | [address] | [phone] | hypertension; | | | | Vivi Geoff Mailcode: | | Transplanted liver | | | | CDRCP Elvier | | ([facility]); Nonrheumatic | | | | [place], [place] | | aortic valve | | | | [address] | | insufficiency; VSD | | | | [phone] | | (ventricular septal | | | | | | defect), | | | | | | perimembranous; | | | | | | Interrupted inferior | | | | | | vena cava; Aortic | | | | | | root dilatation | | | | | | ([facility]) | +--------+---------+ + + + Social [...] Medical emergencies: call 911 Non-urgent issues: Send UbookooharMocana message Thursday - Thursday work hours: call [phone] # 3 After hours, weekends, holidays: call [phone] To schedule an appointment: call [phone] # [phone] For refills: call to your pharmacy a week before running out medicine documented in this encounter Progress Notes Crista Valadez MD - 03/10/2016 3:40 PM PDTFormatting of this note might be different fro m the original. 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 She was last seen by Dr Leonardo in 2008. In 2009, it was noticed that she has not been seen, attempts to reach to family was unsucces sful. lost to follow up since that time. - Cardiology: last cardiology note is from [address] Nlya Fitzpatrick, human resources partner at [facility]. Her [...] since then, she will be seen By human resources partner ming salazar, they will monitor BPs REVIEW [...] Procedure Laterality Date Liver transplant 03/24/2000 at [facility] Vsd repair, amplatzer device 06/01/2014 8-mm Amplatzer [...] says she wi ll be referred to manager epic by PCP. Recommend fibroscan to evaluate for [...] follow up - PCP referred her to manager epic for HTN Health Care Maintenance: - she can receive all vaccines as she is not on immunsupression, especially we recommend he p A, hep B vaccines if she is not already immune. - Flu vaccine (intramuscular): every fall. - Dental care every 6 months At this visit: Dr. Van Guillory and GIO Aguilar from [facility] were presen t [...] Crista Valadez MD Pediatric Gastroenterology Consult line: [phone] roCrista ortiz MD - 03/10/2016 3:39 PM [...]
--- OUTSIDE RECORDS SUMMARY | ~2019-06-17 | XMS | Encounter Summary ---
Demographics + + + | Address | [address] | | | [place] [address] | + + + | Home Phone [...] Author | [facility] | + + + | Organization | [facility] | + + + | Address [...] Team Providers + +------+ + | Care Hobber Name | Role | Phone | + [...] | | | | | Maria[place]ena | [place], [place] | | | | | [facility] | [address] | | | | | [address] | [phone] | | | | | Vivi Tellez Mailcode: | | | | | | CDRJUAN [address]IS Ferrell | | | | | | [place], [place] | | | | | | [address] | | | | | | [phone] | | | +--------+ + + + [...] | [facility] - | [address] | [place] | [phone] | | [place] | | | | [...] [address] | [place] | [phone] | | SAYRA | | | | [...] [address] | [place], [place] | [phone] | | [place] | | | | [...] [address] | [place], [place] | [phone] | | SAYRA | | | | [...] + + | [facility] - | [address] | [place] | [phone] | | [place] | | | | + + + + + documented in this encounter Visit Diagnoses Not on filedocumented in this encounter"
--- OUTSIDE RECORDS SUMMARY | ~2019-06-17 | XMS | Encounter Summary ---
Demographics + + + | Address | [address] | | | [place] [address] | + + + | Home Phone | | + + + | Preferred Language | Unknown | + + + | Marital Status | Single | + + + | Caodaism Affiliation | Unknown | + + + | Race | White | + + + | Ethnic Group | Not or | + + + Author + + + | Author | [facility] | + + + | [...] Team Providers + +------+ + | Care Glost Kiln Operator Name | Role | Phone | [...] Mariaelena | | | | | | [facility] | | | | | | [address] | | | | | | Vivi Tellez Mailcode: | | | | | | [address] | | | | | | [place], [place] | | | | | | [address] | | | | | | [phone] | | | +--------+ + + + [...]
--- OUTSIDE RECORDS SUMMARY | ~2019-06-17 | XMS | Encounter Summary ---
Demographics + + + | Address | [address] | | | [place] [address] | + + + | Home Phone [...] Author + + + | Author | [facility] [employer] [facility] | + + + [...] Team Providers + +------+ + | Care Neurological Surgery Teacher Name | Role | Phone | + +------+ + | Nyla Fitzpatrick MD | PCP | | + +------+ + Reason for Visit + + + | Reason | Comments | + + + | Follow-up in | | | outpatient clinic | | + + + Office Visit - E/M Services (Routine) +--------+--------+ + + + + | Status | Reason | Specialty | Diagnoses / | Referred By | Referred To | | | | | Procedures | Contact | Contact | +--------+--------+ + + + + | Closed | | Pediatric | | Amari, | Ped Gastro | | | | Gastroenterol | | Nyla De Leon, | [facility] [address] | | | | ogmartin | | MD GUZMANS | [address] | | | | | | SPECIALISTS | Vivi Tellez | | | | | | OF [place] | Mailcode: | | | | | | [address] | CDRCP | | | | | | [address] | [place]elena | | | | | | [place], | [place], [place] | | | | | | [place] [address] | [address] | | | | | | Phone: | Phone: | | | | | | [phone] | [phone] | | | | | | Fax: | Fax: | | | | | | [phone] | [phone] | +--------+--------+ + + + + Encounter Details +--------+---------+ + + + | Date | Type | Department | Care Team | Description | +--------+---------+ + + + | 03/01/ | Office | Pediatric | Crista Valadez, | Polysplenia (Primary | | 2015 | Visit | Gastroenterology at | [address] | Dx); Transplanted | | | | [place] | [place], [place] | liver (HCC); | | | | [facility] | [address] | Interrupted inferior | | | | [address] [facility] | [phone] | vena cava; Aortic | | | | Vivi Tellez Mailcode: | | insufficiency; | | | | CDRCP [address] | | Aortic root | | | | [place], [place] | | dilatation (HCC) | | | | [address] | | | | | | [phone] | | | +--------+---------+ + + + [...] + + + | Blood Pressure | 138/96 | 03/01/2015 9:13 AM | | | | | PDT | | + + + + + | Pulse | 72 | 03/01/2015 9:13 AM | | | | | PDT [...] + + + + | Weight | 72.6 kg (160 lb 0.9 | 03/01/2015 9:13 AM | | | | oz) | PDT | | + + + + + | Height | 164.8 cm (5' 4.88") | 03/01/2015 9:13 AM | | | | | PDT | | + + + + + | Body Mass Index | 26.73 | 03/01/2015 9:13 AM | | | | | PDT | | + + + + + documented in this encounter Progress Notes Crista Valadez MD - 03/19/2015 2:07 AM PDTFormatting of this note might be different fro m the original. 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 She was last seen by Dr Leonardo in 2008. In 2009, it was noticed that she has not been seen, attempts to reach to family was unsucces sful. lost to follow up since that time. - Cardiology: last cardiology note is from [address] Nyla Fitzpatrick, coat padder at [facility]. Her cardiac dx includes 1) moderate perimembraneous [...] residual s hunting noted. INTERVAL HISTORY: - not taking prograf since Jun 2014 - no complaints,no abdominal pain, emesis, diarrhea or constipation REVIEW OF SYSTEMS: General: No fever, fatigue, [...] No abnormal anxiety, depression. Attending school regularly. Heme: No anemia, abnormal bleeding, easy bruising Lymphatic: No enlarged lymph nodes. Metabolic/Endo: no glucose intolerance, hypothyroidism Allergy/immunology: no seasonal or food allergies, no asthma All other ROS are negative. Past Medical History Diagnosis Date Biliary atresia Past Surgical History Procedure Laterality Date Liver transplant 03/24/2000 at [facility] Vsd repair, amplatzer device 06/01/2014 8-mm Amplatzer Vascular Plug IV, no significant residual shunting FHx: reviewed, unchanged SHx: reviewed, unchanged Allergies Allergen Reactions Sulfa (Sulfonamide Antibiotics) Hives and Swelling-Facial Varicella Vaccines Possible reaction with sulfa meds PHYSICAL EXAMINATION: Patient reports a pain level of 0 today. No action required. Ht 1.648 m (5' 4.88") (62 %*, Z = 0.32), Wt 72.6 kg (160 lb 0.9 oz) (91 %*, Z = 1.36), BP 1 38/96, Pulse 72, BMI 26.73 kg/(m^2). APPEARANCE: alert, active and in no apparent distress. SKIN: no jaundice or rashes. HEENT: normocephalic, PERRLA, mucous membranes moist. NECK: supple, without thyromegaly. CHEST: clear to auscultation bilaterally. CV: no murmurs. ABDOMEN: soft, NTND, no hepatosplenomegaly. BACK: without tenderness. MUSCULOSKELETAL: no muscle wasting, no deformity. EXTREMITIES: No edema, clubbing, deformity. NEURO: grossly intact ASSESSMENT: 14 yo female with 759.0 Polysplenia V42.7 Transplanted liver 747.49 Interrupted inferior vena cava 424.1 Aortic insufficiency 447.71 Aortic root dilatation Nicki is 15 yrs out from her transplant, she continues not to take her prograf. She has not shown any signs of rejection. Will continue to monitor her labs and will check an US w dopp ler to evaluate for liver fibrosis. PLAN/RECOMMENDATIONS: - check liver US w doppler - Labs: CBC w diff, CMP, GGT: every 3 months - follow up in liver transplant clinic: February 2016, will check transient elastography at saba t time Health Care Maintenance: - immunizations, she can receive liver vaccines as she is not on immunosuppressive meds. - Flu vaccine (intramuscular): every fall. - Dental care every 6 months At this visit: Dr. Van Guillory and GIO Ludwig from [facility] were present as observers during this visit. Psychosocial or economic issues that may affect patient's medical care or well being:none Co-morbid chronic medical problems that may affect future procedural sedation risk: NA Labs/imaging: Component Latest Ref Rng 01/26/2015 GLUCOSE, PLASMA 70 - 100 mg/dL 79 ANION GAP 7 - 21 16.8 CREATININE PLASMA 0.60 - 1.20 mg/dL 0.66 TOTAL PROTEIN 6.1 - 8.5 g/dL 7.1 ALBUMIN, PLASMA 3.5 - 5.0 g/dL 4.0 CALCIUM, PLASMA 8.4 - 10.2 mg/dL 9.4 BILIRUBIN TOTAL 0.0 - 1.2 0.2 ALK PHOS 30 - 128 U/L 88 AST(SGOT) 13 - 39 U/L 20 SODIUM, PLASMA 132 - 143 mmol/L 137 POTASSIUM 3.6 - 5.1 mmol/L 3.8 CHLORIDE, PLASMA 95 - 112 mmol/L 102 TOTAL CO2 19 - 31 mmol/L 22 ALT (SGPT) 7 - 52 U/L 10 BUN/CREATININE RATIO 6.0 - 28.6 21.2 UREA NITROGEN, SERUM 6 - 23 mg/dL 14 WHITE CELL COUNT 4.5 - 11.0 K/cu mm 8.3 RED CELL COUNT 3.8 - 5.1 M/cu mm 4.55 HEMOGLOBIN 12.0 - 16.0 g/dL 13.5 HEMATOCRIT 35 - 45 % 40.2 MCV 81 - 99 fL 88.3 PLATELET COUNT 140 - 440 K/cu mm 313 CHOLESTEROL 0 - 200 mg/dL 123 TRIGLYCERIDES 30 - 150 mg/dL 106 LDL CHOLEST 100 - 215 mg/dL 140 GAMMA GLUTAMYL TRANSFERASE 5 - 60 u/l 7 MAGNESIUM,PLASMA 1.7 - 2.5 mg/dL 1.8 Crista Valadez MD Pediatric Gastroenterology Consult line: [phone] documented in this en counter Plan of Treatment Not on filedocumented as of this encounter Visit Diagnoses + + | Diagnosis | + + | Polysplenia - Primary Congenital anomalies of spleen | + + | Transplanted liver (HCC) Liver replaced by transplant | + + | 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
--- OUTSIDE RECORDS SUMMARY | ~2019-06-17 | XMS | Encounter Summary ---
Demographics + + + | Address | [address] | | | [place] [address] | + + + | Home Phone [...] + + | Author | [facility] [employer] [facility] | [...] Team Providers + +------+ + | Care Freight Agent Name | Role | Phone | [...] | Nyla De Leon, | [facility] [address] | | | | ogmartin | | MD GUZMANS | [address] | | | | | | SPECIALISTS | Vivi Tellez | | | | | | OF [place] | Mailcode: | | | | | | [address] | CDR[address] | | | | | | [address] | [place]ena | | | | | | [place], | [place], [place] | | | | | | [place] [address] | [address] | | | | | | Phone: | Phone: | | | | | | [phone] | [phone] | | | | | | Fax: | Fax: | | | | | | [phone] | [phone] | +--------+--------+ + + + + Encounter Details +--------+---------+ + + + | Date | Type | Department | Care Team | Description | +--------+---------+ + + + | 03/01/ | Office | Pediatric | Crista Valadez, | Polysplenia (Primary | | 2015 | Visit | Gastroenterology at | [address] | Dx); Transplanted | | | | [place] | [place], [place] | liver (HCC); | | | | [facility] | [address] | Interrupted inferior | | | | [address] [facility] | [phone] | vena cava; Aortic | | | | Vivi Tellez Mailcode: | | insufficiency; | | | | CDRCP [address] | | Aortic root | | | | [place], [place] | | dilatation (HCC) | | | | [address] | | | | | | [phone] | | | +--------+---------+ + + + [...] Visit type: Follow-up Patient accompanied by: mother Lead Mobile Developer used: no CC: - Post-liver transplant care - High risk medication management Patient Active Problem List Diagnosis Transplanted Liver VSD (ventricular septal defect), perimembranous Polysplenia Interrupted inferior vena cava Aortic insufficiency Aortic root dilatation PAST Hx/jennings: 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 She was last seen by Dr Leonardo in 2008. In 2009, it was noticed that she has not been seen, attempts to reach to family was unsucces sful. lost to follow up since that time. - Cardiology: last cardiology note is from [address] Nyla Fitzpatrick, engineer booster and exhauster at [facility]. Her cardiac dx includes 1) [...] Procedure Laterality Date Liver transplant 03/24/2000 at [facility] Vsd repair, amplatzer device 06/01/2014 8-mm Amplatzer [...] Dr. Van Guillory and GIO Ludwig from [facility] were present as [...] Crista Valadez MD Pediatric Gastroenterology Consult line: [phone] documented in this en counter Plan of [...]
--- OUTSIDE RECORDS SUMMARY | ~2019-06-17 | XMS | Encounter Summary ---
Demographics + + + | Address | [address] | | | [place] [address] | + + + | Home Phone [...] + + | Author | [facility] | + + + | [...] Team Providers + +------+ + | Care Support Staff Name | Role | Phone | + [...] Mariaelena | | | | | | [facility] | | | | | | [address] | | | | | | Vivi Tellez Mailcode: | | | | | | [place] | | | | | | [place], [place] | | | | | | [address] | | | | | | [phone] | | | +--------+ + + + [...] [address] | [place], [place] | [phone] | | [place] | | | | + + + + + | [facility] - | | [place], [place] | | | [place] | | [...] + + | [facility] - | [address] | [place], [place] | [phone] | | [place] | | | | [...] + + | [facility] - | [address] | [place], [place] | [phone] | | [place] | | | | + + + + + | [facility] - | | [place], [place] | | | [place] | | [...] + + | [facility] - | [address] | [place], [place] | [phone] | | [place] | | | | + + + + + | [facility] - | | [place], [place] | | | [place] | | [...] | [facility] - | [address] | [place] | [phone] | | SAY[place] | | | | [...] + + | [facility] - | [address] | [place], [place] | [phone] | | [place] | | | | [...] + + | [facility] - | [address] | [place], [place] | [phone] | | [place] | | | | [...] + + | [facility] - | [address] | [place] | [phone] | | SAY[place] | | | | [...] [address] | [place] | [phone] | | SAYRA | | | | + + + + + | [facility] - | | [place], [place] | | | SAYRA | | [...] - | [address] | [place], [place] | [phone] | | [place] | | | | + + + + + | [facility] - | | [place], [place] | | | SAYRA | | [...] [address] | [place], [place] | [phone] | | [place] | | | | + + + + + | [facility] - | | [place], [place] | | | SAYRA | | | | + + + + + documented in this encounter Visit Diagnoses Not on filedocumented in this encounter"
--- OUTSIDE RECORDS SUMMARY | ~2019-06-17 | XMS | Encounter Summary ---
Demographics + + + | Address | [address] | | | [place] [address] | + + + | Home Phone [...] Author | [facility] [employer] [facility] | + + + | Organization | [...] Providers + +------+ + | Care Wood Tool Maker Name | Role | Phone | [...] Mariaelena | | | | | | [facility] | | | | | | [address] | | | | | | Vivi Tellez Mailcode: | | | | | | [address] [address] | | | | | | [place], [place] | | | | | | [address] | | | | | | [phone] | | | +--------+ + + + [...] [address] | [place], [place] | [phone] | | [place] | | | | [...] [address] | [place], [place] | [phone] | | [place] | | | | [...] + + | [facility] - | [address] | [place], [place] | [phone] | | [place] | | | | [...] - | [address] | [place], [place] | [phone] | | SAY[place] | | | | [...] + + | [facility] - | [address] | [place], [place] | [phone] | | [place]AY[place] | | | | [...] [address] | [place], [place] | [phone] | | [place] | | | | [...] - | [address] | [place], [place] | [phone] | | [place] | | | | + + + + + | [facility] - | | [place], [place] | | | [place]AY[place] | | [...] [address] | [place], [place] | [phone] | | [place] | | | | + + + + + | [facility] - | | [place], [place] | | | [place] | | | | + + + + + documented in this encounter Visit Diagnoses Not on filedocumented in this encounter"
--- OUTSIDE RECORDS SUMMARY | ~2019-06-17 | XMS | Encounter Summary ---
Demographics + + + | Address | [address] | | | [place] [address] | + + + | Home Phone [...] + + | Author | [facility] | + + + | Organization | [facility] | + + + | Address [...] Providers + +------+ + | Care It Architecture Analyst Name | Role | Phone | [...] 03/14/ | Documentati | [facility]ER BREAUX at [facility] | Lab, Gi Procedure | Medical Records | | 2015 | on | [address] | | Review | | | | Parmjit Ortiz Mailcode: | | | | | | [facility] | | | | | | Health and Healing, | | | | | | [address] | | | | | | [place], [place] | | | | | | [address] | | | | | | [phone] | | | +--------+ + + + [...]
--- OUTSIDE RECORDS SUMMARY | ~2019-06-17 | XMS | Encounter Summary ---
Demographics + + + | Address | [address] | | | [place] [address] | + + + | Home Phone [...] Author + + + | Author | [facility] [employer] [facility] | + + [...] Team Providers + +------+ + | Care Train System Operator Name | Role | Phone | [...] | on | [facility] [address] | PERSONAL [facility]EL[facility] [address] | | | | | [address] | [address] | | | | | Mailcode: CH[address]A | [place], [place] | | | | | [place], [place] | [address] | | | | | [address] | | | | | | [phone] | | | +--------+ + + + [...]
--- OUTSIDE RECORDS SUMMARY | ~2019-06-17 | XMS | Encounter Summary ---
Demographics + + + | Address | [address] | | | [place] [address] | + + + | Home Phone [...] Author + + + | Author | [facility] | + + + [...] Team Providers + +------+ + | Care Calcine Furnace Tender Name | Role | Phone | [...] 03/14/ | Documentati | ESTER BREAUX at [facility] | Lab, Gi Procedure | Medical Records | | 2015 | on | [address] | | Review | | | | Parmjit Ortiz Mailcode: | | | | | | [facility] | | | | | | Health and Healing, | | | | | | [address] | | | | | | [place], [place] | | | | | | [address] | | | | | | [phone] | | | +--------+ + + + [...]
--- OUTSIDE RECORDS SUMMARY | ~2019-06-17 | XMS | Encounter Summary ---
Demographics + + + | Address | [address] | | | [place] [address] | + + + | Home Phone | | + + + | Preferred Language | Unknown | + + + | Marital Status | Single | + + + | Alevism Affiliation | Unknown | + + + | Race | White | + + + | Ethnic Group | Not or | + + + Author + + + | Author | [facility] | + + + [...] Providers + +------+ + | Care Embedded Software Design Engineer Name | Role | Phone | [...] | | | | | | [facility] | | | | | | [address] | | | | | | [place] Mailcode: | | | | | | [place] | | | | | | [place], [place] | | | | | | [address] | | | | | | [phone] | | | +--------+ + + + [...] [address] | [place], [place] | [phone] | | [place] | | | | + + + + + | [facility] - | | [place], [place] | | | [place] | | [...] + + | [facility] - | [address] | [place], [place] | [phone] | | [place] | | | | [...] + + | [facility] - | [address] | [place], [place] | [phone] | | [place] | | | | + + + + + | [facility] - | | [place], [place] | | | [place] | | [...] + + | [facility] - | [address] | [place], [place] | [phone] | | [place] | | | | + + + + + | [facility] - | | [place], [place] | | | [place] | | [...] [address] | [place] | [phone] | | S[place] | | | | [...] + + | [facility] - | [address] | [place], [place] | [phone] | | [place] | | | | [...] + + | [facility] - | [address] | [place], [place] | [phone] | | [place] | | | | [...] + + | [facility] - | [address] | [place] | [phone] | | [place] | | | | [...] [address] | [place] | [phone] | | [place] | | | | + + + + + | [facility] - | | [place], [place] | | | [place] | | [...] - | [address] | [place], [place] | [phone] | | [place] | | | | + + + + + | [facility] - | | [place], [place] | | | [place] | | [address] | [place], [place] | [phone] | | [place] | | | | + + + + + | [facility] - | | [place], [place] | | | [place] | | | | + + + + + documented in this encounter Visit Diagnoses Not on filedocumented in this encounter"
--- OUTSIDE RECORDS SUMMARY | ~2019-06-17 | XMS | Clinical Summary ---
Demographics + + + | Address | [address] | | | [place] [address] | + + + | Home Phone | | + + + | Preferred Language | Unknown | + + + | Marital Status | Single | + + + | Congregation Affiliation | Unknown | + + + | Race | Unknown | + + + | Ethnic Group | Unknown | + + + Author + + + | Author | [facility] | | | and [place] | + + + | Organization | [facility] | | | [...] [place] | | | | | [address] | | + + + + + Care Team Providers + +------+ + | Care Associate Software Engineer Name | Role | Phone [...] | muscle every 3 | | | / | | e | | Acetate | [...] | + + + +---------+------+------+-------+ | | Take 1 tablet by | | 1 | 04/2 | | Activ | | lisinopril-hydrochlo | mouth daily. | | | 11/03 | | e | | rothiazide | | | | 19 | | | | (PRINZIDE,ZESTORETIC | | | | | | | | ) 20-12.5 MG per | | | | | | | | tablet | | | | [...] | | For biliary atresia, 03/24/2000 at [place] | + + Family History + + [...] | Blood Pressure | 124/70 | 12/22/2018 1455 PDT | + + + + | Pulse | 100 | 12/22/20181454 PDT | + + + + | Temperature | - | - | + + + + | Respiratory Rate | - | - | + + + + | Oxygen Saturation | - | - | + + + + | Inhaled Oxygen | - | - | | Concentration | | | + + + + | Weight | 96.4 kg (212 lb 9.6 | 12/22/2018 1455 PDT | | | oz) | | + + + + | Height | 165.1 cm (5' 5") | 12/22/20185 PDT | + + + + | Body Mass Index | 35.38 | 12/22/20185 PDT | + + + + Plan of Treatment +--------+---------+ + + + | Date | Type | Specialty | Care Team | Description | +--------+---------+ + + + | 12/27/ | Office | Cardiology | Yoni Prasad, | | | 2019 | Visit | | MD Tiffanie CHE | | | | | | ANDI Dickens MALONECHARY | | | | | | [id number] | | | | | | | [...] +---------+------+ | [facility] | FIRST | [id number] | | [phone] | | PPO | | | HEALTH | | [phone]-Pr | 7 | | | | | OTHER | | esent | | | | + +--------+ +--------+ +---------+------+ | [facility] | PHP | [phone] | 08/17/19 | [phone] | | PPO | | PLAN | [...] | Self | [birth year] | [address] | | | jonny/Reynaldo | | 2001 | [phone] | [place] | | | marlene | | | 7 ([place]) | [address] | + +--------+ +--------+ + + Advance Directives Patient has advance care planning documents on file. For more information, please contact:[facility] [place] [address]
--- OUTSIDE RECORDS SUMMARY | ~2019-06-17 | XMS | Encounter Summary ---
Demographics + + + | Address | [address] | | | [place] [address] | + + + | Home Phone | | + + + | Preferred Language | Unknown | + + + | Marital Status | Single | + + + | Taoism Affiliation | Unknown | + + + | Race | White | + + + | Ethnic Group | Not or | + + + Author + + + | Author | [facility] | + + + | Organization | [facility] | + + + | Address | [...] Team Providers + +------+ + | Care Ui Programmer Name | Role | Phone | + [...] | | | | | | | [place], [place] | | | | | | | [address] | | | | | | | Phone: | | | | | | | [phone] | | | | | | | Fax: | | | | | | | [phone] | +--------+ + + + + + [...] Dx); | | | | [address] | [place], [place] | Immunosuppressed | | | | [facility] | [address] | status (HCC); High | | | | [address] | [phone] | risk medications | | | | [place] Mailcode: | | (not anticoagulants) | | | | CD[facility] | | long-term use; VSD | | | | [place], [place] | | (ventricular septal | | | | [address] | | defect), | | | | [phone] | | perimembranous; | | | | [...] you for choosing Pediatric Hepatology Clinic at [facility] Crista Valadez MD Results of tests: Test results will be sent to you by [employer]. Calls: Medical emergencies: call 911 Non-urgent issues: Send [employer] message Thursday - Thursday work hours: call [phone] # 3 After hours, weekends, holidays: call [phone] To schedule an appointment: call [phone] # 1 For refills: call to your pharmacy a week before running out medicine documented in this encounter Progress Notes Crista Valadez MD - 06/28/2014 10:38 AM PSTFormatting of this note might be different fro m the original. 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 She was last seen by Dr Leonardo in 2008. In 2009, it was noticed that she has not been seen, attempts to reach to family was unsucces sful. lost to follow up since that time. - Cardiology: last cardiology note is from [address] Nyla Fitzpatrick, chain maker hand at [facility]. Her cardiac dx includes 1) [...] visit: Dr. Brady and GIO Kirkland from [facility] were presen t [...] Crista Valadez MD Pediatric Gastroenterology Consult line: [phone] documented in this en counter Plan of [...] | + + + + + | [facility] | [address] | [place] [address] | | | SERVICES, SPECIAL | ZANE [...] [facility] | [address] | [place] [address] | | | SERVICES, CORE | PARK [...] [facility] | [address] | [place] [address] | | | SERVICES, CORE | PARK [...] | + + + + + | [facility] | [address] | [place] [address] | | | SERVICES, CORE | PARK [...] [facility] | [address] | [place] [address] | | | SERVICES, CORE | PARK [...] | + + + + + | [facility] | [address] | [place] [address] | | | SERVICES, CORE | PARK [...] | + + + + + | [facility] | [address] | [place] [address] | | | SERVICES, ALANNA | ZANE [...] | + + + + + | [facility] | [address] | [place] [address] | | | SERVICES, ALANNA | ZANE [...]
--- OUTSIDE RECORDS SUMMARY | ~2019-06-17 | XMS | Encounter Summary ---
Demographics + + + | Address | [address] | | | [place] [address] | + + + | Home Phone [...] [facility] | + + [...] Team Providers + +------+ + | Care Chief Electrician Name | Role | Phone | + [...] | Liver | Nyla Shields MD | [facility] [address] | | | Required | ogy | [...] | | | | | [address] | [place], [place] | | | | | | [place], | [address] | | | | | | [place] [address] | Phone: | | | | | | Phone: | [phone] | | | | | | [phone] | Fax: | | | | | | Fax: | [phone] | | | | | | [phone] | | +--------+ + + + + [...] | | | | | | [facility] | | | | | | [address] | | | | | | [place] Mailcode: | | | | | | CDRCP Mariaelena | | | | | | [place], [place] | | | | | | [address] | | | | | | [phone] | | | +--------+ + + + [...]
--- OUTSIDE RECORDS SUMMARY | ~2019-06-17 | XMS | Clinical Summary ---
Demographics + + + | Address | [address] | | | [place] [address] | + + + | Home Phone [...] Team Providers + +------+ + | Care Loading Unit Operator Seating Name | Role | Phone | + +------+ + | Nyla Fitzpatrick MD | PCP | | + +------+ + Source Comments ESTER is fully live on both EpicCare Ambulatory and EpicCare InPatient.[facility] Allergies + + + + + + [...] | Overview: For biliary atresia, 03/24/2000 at [place] | + + Resolved Problems + + [...] | | | + +--------+ +--------+-------+---------+--------+ | FACILITY WORKER MEDICAID | FACILITY WORKER | xxxxxxxx | | | | Medica [...] | 1980 | [phone] | [place] [address] | | | marlene | | | 7 (Home) | | + +--------+ +--------+ + + Advance Directives + + + + + | Type | Date Recorded | Patient | Explanation | | | | Computer Networker | | + + + + + | Advance | | | | | Directives and | | | | | Living Will | | | | + + + + + | Power of | | | | | Cinnamon Grinder | | | | + + + + +
--- OUTSIDE RECORDS SUMMARY | ~2019-06-17 | XMS | Encounter Summary ---
Demographics + + + | Address | [address] | | | [place] [address] | + + + | Home Phone [...] Author + + + | Author | [facility] [employer] [facility] | + + + | Organization | [facility] | + [...] Team Providers + +------+ + | Care Aesthetics Instructor Name | Role | Phone | + +------+ + PCP | Unavailable | + +------+ + Encounter Details +--------+ + + + + | Date | Type | Department | Care Team | Description | +--------+ + + + + | 11/15/ | Abstract | Pediatric | Crista Valadez, | | | 2013 | | Gastroenterology at | [address] | | | | | [place] | [place], [place] | | | | | [facility] | [address] | | | | | [address] | [phone] | | | | | [place]i Tellez Mailcode: | | | | | | CDRCP Doerrochelleмарина | | | | | | [place], [place] | | | | | | [address] | | | | | | [phone] | | | +--------+ + + + [...]
--- OUTSIDE RECORDS SUMMARY | ~2019-06-17 | XMS | Encounter Summary ---
Demographics + + + | Address | [address] | | | [place] [address] | + + + | Home Phone [...] + + + | Author | [facility] | + + [...] Team Providers + +------+ + | Care Miniature Train Driver Name | Role | Phone | [...] | on | AMBULATORY [address] | CASTING CARRIER [address] | consultation | | | | [address] | [place] | | | | | Mailcode: CH6A | [place], [place] | | | | | [place], [place] | [address] | | | | | [address] | [phone] | | | | | [phone] | | | +--------+ + + + [...]
--- OUTSIDE RECORDS SUMMARY | ~2019-06-17 | XMS | Encounter Summary ---
Demographics + + + | Address | [address] | | | [place] [address] | + + + | Home Phone | | + + + | Preferred Language | Unknown | + + + | Marital Status | Single | + + + | Zoroastrianism Affiliation | Unknown | + + + | Race | White | + + + | Ethnic Group | Not or | + + + Author + + + | Author | [facility] [employer] [facility] [...] Providers + +------+ + | Care Gas Turbine Powerplant Mechanic Helper Name | Role | Phone | [...] follow-up) | | | | Mariaelena | [place], [place] | | | | | [facility] | [address] | | | | | [address] | [phone] | | | | | Vivi Tellez Mailcode: | | | | | | [address] | | | | | | [place], [place] | | | | | | [address] | | | | | | [phone] | | | +--------+ + + + [...]
--- OUTSIDE RECORDS SUMMARY | ~2019-06-17 | XMS | Encounter Summary ---
Demographics + + + | Address | [address] | | | [place] [address] | + + + | Home Phone [...] Team Providers + +------+ + | Care Food Service Tray Attendant Name | Role | Phone | + [...] as of this encounter Progress Notes Interface, Leather Stamper In - 04/28/2006 3:05 AM [facility] [place] [address] [place], [place] [address] or October 28, 2001 Nyla Fitzpatrick M.D. [address] [place] [address] RE: NICKI WOODS MR #: [id number] Dear Dr. Fitzpatrick: I had the pleasure of seeing Nicki back in the Pediatric Liver Transplant Clinic at [facility] staffed by Dr.Bill Beth and Dr. Ngoc Davis from [place]. This is a routine followup. Nicki continues to do quite well with no symptoms. She is gaining weight well and developing normally. She is presently on Prograf 2 mL (0.5 mg/mL) b.i.d. Past medical history is significant for an allergy to sulfa medication. In addition, she has a very small VSD that is followed by Dr. Donald Mendez, manager custom. The VSD certainly does not seem to [...] team. Sincerely, Kendall Angulo M.D. Pediatric Gastroenterology [facility] / [id number] / [id number] / [id number] / cc: Jose F Carnes M.D. [address] [facility] [address] [place] [address] Mirza Guerrero M.D. [address] [facility] [address] [place] [address] Adonis Beth M.D. [address] [facility] [place] [address] [id number] signed by Interface, Leather Stamper In at 04/28/2006 3:05 AM [facility] umented in this encounter Plan of Treatment Not on filedocumented as of this encounter Visit Diagnoses Not on filedocumented in this encounter"
--- OUTSIDE RECORDS SUMMARY | ~2019-06-17 | XMS | Encounter Summary ---
Demographics + + + | Address | [address] | | | [place] [address] | + + + | Home Phone [...] Author | [facility] | + + [...] Team Providers + +------+ + | Care Physician Compensation Analyst Name | Role | Phone | [...] | | | | | Mariaelena | [place], [place] | | | | | [facility] | [address] | | | | | [address] [facility] | [phone] | | | | | Vivi Tellez Mailcode: | | | | | | [address] | | | | | | [place], [place] | | | | | | [address] | | | | | | [phone] | | | +--------+ + + + [...]
--- OUTSIDE RECORDS SUMMARY | ~2019-06-17 | XMS | Encounter Summary ---
Demographics + + + | Address | [address] | | | [place] [address] | + + + | Home Phone [...] [facility] | + + + [...] Team Providers + +------+ + | Care Mascara Molder Name | Role | Phone | + [...] order) | | | | [place] | [place], [place] | | | | | [facility] | [address] | | | | | [address] | [phone] | | | | | Vivi Tellez Mailcode: | | | | | | CDRCP Mariaelena | | | | | | [place], [place] | | | | | | [address] | | | | | | [phone] | | | +--------+ + + + [...] [address] | [place] | [phone] | | [place] | | | | [...] [address] | [place], [place] | [phone] | | [place] | | | | [...] [address] | [place], [place] | [phone] | | [place] | | | | [...] [address] | [place] | [phone] | | [place] | | | | + + + + + documented in this encounter Visit Diagnoses + + | Diagnosis | + + | 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
--- OUTSIDE RECORDS SUMMARY | ~2019-06-17 | XMS | Encounter Summary ---
Demographics + + + | Address | [address] | | | [place] [address] | + + + | Home Phone [...] Author | [facility] | + + + | Organization | [facility] | + + [...] Team Providers + +------+ + | Care Corpsman Name | Role | Phone | + +------+ + PCP | Unavailable | + +------+ + Encounter Details +--------+ + + + + | Date | Type | Department | Care Team | Description | +--------+ + + + + | 11/21/ | Documentati | Pediatric | Crista Valadez, | | | 2013 | on | Gastroenterology at | MD [address] | | | | | [place] | [facility] [place] | | | | | [facility] | [address] | | | | | [address] | [phone] | | | | | Vivi Tellez Mailcode: | | | | | | CDRCP Mariaelena | | | | | | [place], [place] | | | | | | [address] | | | | | | [phone] | | | +--------+ + + + [...]
--- OUTSIDE RECORDS SUMMARY | ~2019-06-17 | XMS | Encounter Summary ---
Demographics + + + | Address | [address] | | | [place] [address] | + + + | Home Phone [...] | Author | [facility] [employer] [facility] | + + + [...] Team Providers + +------+ + | Care Carpenters Name | Role | Phone | + [...] | | | | | Mariaelena | [place], [place] | | | | | [facility] | [address] | | | | | [address] | [phone] | | | | | Vivi Tellez Mailcode: | | | | | | CDRCP Mariaelena | | | | | | [place], [place] | | | | | | [address] | | | | | | [phone] | | | +--------+ + + + [...]
--- OUTSIDE RECORDS SUMMARY | ~2019-06-17 | XMS | Encounter Summary ---
Demographics + + + | Address | [address] | | | [place] [address] | + + + | Home Phone [...] Author + + + | Author | [facility] | + + + [...] Team Providers + +------+ + | Care Exhaust Worker Name | Role | Phone | [...] | on | AM[address]ULATORY [address] | GLUE LINE OPERATOR [address] | | | | | [address] | [address] | | | | | Mailcode: CH6A | [place], [place] | | | | | [place], [place] | [address] | | | | | [address] | | | | | | [phone] | | | +--------+ + + + [...]
--- OUTSIDE RECORDS SUMMARY | ~2019-06-17 | XMS | Encounter Summary ---
Demographics + + + | Address | [address] | | | [place] [address] | + + + | Home Phone [...] Author + + + | Author | [facility] [email or web address] [facility] | + + + [...] Team Providers + +------+ + | Care Qi Specialist Name | Role | Phone | + +------+ + | Nyla Fitzpatrick MD | PCP | | + +------+ + Encounter Details +--------+ + + + + | Date | Type | Department | Care Team | Description | +--------+ + + + + | 01/21/ | Document-Sc | UNKNOWN DEPARTMENT | Unknown . | | | 2016 | anned | [address] | | | | | | [address] | | | | | | [place], [place] | | | | | | [address] | | | +--------+ + + + [...]
--- OUTSIDE RECORDS SUMMARY | ~2019-06-17 | XMS | Encounter Summary ---
Demographics + + + | Address | [address] | | | [place] [address] | + + + | Home Phone | | + + + | Preferred Language | Unknown | + + + | Marital Status | Single | + + + | Baptism Affiliation | Unknown | + + + | Race | White | + + + | Ethnic Group | Not or | + + + Author + + + | Author | [facility] | + + [...] Team Providers + +------+ + | Care Photoresist Printer Name | Role | Phone | + [...] | | | | | Mariaelena | [place], [place] | | | | | [facility] | [address] | | | | | [address] | [phone] | | | | | Vivi Tellez Mailcode: | | | | | | CDRCP Doerrochelleмарина | | | | | | [place], [place] | | | | | | [address] | | | | | | [phone] | | | +--------+ + + + [...]
--- OUTSIDE RECORDS SUMMARY | ~2019-06-17 | XMS | Encounter Summary ---
Demographics + + + | Address | [address] | | | [place] [address] | + + + | Home Phone | | + + + | Preferred Language | Unknown | + + + | Marital Status | Single | + + + | Restoration Affiliation | Unknown | + + + | Race | White | + + + | Ethnic Group | Not or | + + + Author + + + | Author | [facility] | + + + [...] Team Providers + +------+ + | Care Maxillofacial Pathology Name | Role | Phone | + [...] Mariaelena | | | | | | [facility] | | | | | | [address] | | | | | | [place] Mailcode: | | | | | | CDR Mariaelena | | | | | | [place], [place] | | | | | | [address] | | | | | | [phone] | | | +--------+ + + + [...]
--- OUTSIDE RECORDS SUMMARY | ~2019-06-17 | XMS | Encounter Summary ---
Demographics + + + | Address | [address] | | | [place] [address] | + + + | Home Phone | | + + + | Preferred Language | Unknown | + + + | Marital Status | Single | + + + | Pentecostal Affiliation | Unknown | + + + [...] Team Providers + +------+ + | Care Trench Digging Machine Operator Name | Role | Phone [...] as of this encounter Progress Notes Interface, Decorating Instructor In - 06/27/2006 3:05 AM [facility] [place] [address] [place], [place] [address] or June 11, 2000 Nyla Fitzpatrick M.D. [address] [facility] [address] [place] [address] RE: NICKI WOODS MR #: [id number] : 2000 DATE OF TRANSPLANT: 03/24/[address] Fitzpatrick: I had the pleasure of seeing Nicki at the Pediatric Liver Transplant Clinic held at [facility], attended by Dr. Beth and Dr. Kallie Don, representatives of the Liver Transplant team at [place], in lieu with Dr. Carnes. As you [...] arrange this to be done in the [facility], rather than having the family drive all the way to the [facility] for this. This should be done for 1 year posttransplant. For the next 1-1/2 months, the family will have Nicki's blood drawn every 2 weeks. Assuming everything is under control, then it could be done monthly. The family will be talking to Dr. Carnes soon to firm up plans to have Nicki followed mostly by you in the [facility], and to come to [place] either when the situation is unstable and, at the very least, every 3-6 months for chronic monitoring. Finally, Kallie will work out the details of which laboratory tests should be done and when with the family. Please let me know if you have any questions. Sincerely, Kendall Angulo M.D. Pediatric Gastroenterology [facility] / [id number] / [id number] / [id number] / [id number] cc: Kendall Beth M.D. [address] [place] [id number] signed by Interface, Decorating Instructor In at 06/27/2006 3:05 AM PSTdocume nted in this encounter Plan of Treatment Not on filedocumented as of this encounter Visit Diagnoses Not on filedocumented in this encounter"
--- OUTSIDE RECORDS SUMMARY | ~2019-06-17 | XMS | Encounter Summary ---
Demographics + + + | Address | [address] | | | [place] [address] | + + + | Home Phone [...] + + + | Author | [facility] | + + [...] Team Providers + +------+ + | Care School Psychological Examiner Name | Role | Phone | + [...] Mariaelena | | | | | | [facility] | | | | | | [address] | | | | | | [place] Mailcode: | | | | | | [place]ENN Ferrell | | | | | | [place], [place] | | | | | | [address] | | | | | | [phone] | | | +--------+ + + + [...]
--- OUTSIDE RECORDS SUMMARY | ~2019-06-17 | XMS | Encounter Summary ---
Demographics + + + | Address | [address] | | | [place] [address] | + + + | Home Phone [...] | Author | [facility] | + + [...] Team Providers + +------+ + | Care Safety Director Name | Role | Phone | + +------+ + | Nyla Fitzpatrick MD | PCP | | + +------+ + Encounter Details +--------+ + + + + | Date | Type | Department | Care Team | Description | +--------+ + + + + | 10/11/ | Project Coach | Pediatric | Althea Mcdonald, | Complications of | | 2008 | | Gastroenterology at | RN [address] | Transplanted Liver; | | | | [place] | [address] | Transplanted Liver | | | | [facility] | [place] [address] | (HCC) | | | | [address] | | | | | | [place]i Tellez Mailcode: | | | | | | CDRCP Mariaelena | | | | | | [place], [place] | | | | | | [address] | | | | | | [phone] | | | +--------+ + + + [...] [address] | [place] | [phone] | | SAYRA | | | | [...] + + | [facility] - | [address] | [place], [place] | [phone] | | S[place] | | | | + + + + + | [facility] - | | [place], [place] | | | [place] | | [...] [address] | [place], [place] | [phone] | | [place] | | | | [...] [address] | [place], [place] | [phone] | | [place] | | | | [...] - | [address] | [place], [place] | [phone] | | S[place] | | | | + + + + + | [facility] - | | [place], [place] | | | S[place] | | [...] - | [address] | [place], [place] | [phone] | | SAYRA | | | | [...] + + | [facility] - | [address] | [place], [place] | [phone] | | S[place] | | | | + + + + + | [facility] - | | [place], [place] | | | SAYRA | | [...] [address] | [place], [place] | [phone] | | S[place] | | | | + + + + + | [facility] - | | [place], [place] | | | [place] | | | | + + + + + documented in this encounter Visit Diagnoses + + | Diagnosis | + + | Complications of transplanted liver | + + | 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"
--- OUTSIDE RECORDS SUMMARY | ~2019-06-17 | XMS | Encounter Summary ---
Demographics + + + | Address | [address] | | | [place] [address] | + + + | Home Phone [...] Providers + +------+ + | Care Tape Transferrer Name | Role | Phone | + [...] as of this encounter Progress Notes Interface, Foundry Metallurgist In - 07/26/2006 3:[address] [address] or June 13, 1999 Nyla Fitzpatrick M.D. [address] [place] [address] 14 [place] [address] RE: NICKI WOODS MR #: [id number] Dear Amari: Nicki was evaluated at [facility] in the Pediatric Liver Transplantation Clinic for the first time today by members of the [place] [facility] Liver Transplant Program which included Van Guillory M.D. and Kallie Don R.N., Pediatric Liver Edge Burnisher Uppers. I presented Nicki to the team in [...] (this information has been forwarded from the Grainer Machine at [facility] to the cardiologists at [place]). She was eventually found to have biliary [...] bilirubin was elevated She was admitted to [facility] for a treatment of possible cholangitis. Unfortunately, [...] K, and iron. Her parents live in [place], [place] approximately four [place] from [place]. They and the rest of the family [...] later half of the visit today at [facility], the family spent conversing with recovery coordinator regarding many of the practical aspects [...] you have any questions. Kendall Angulo M.D. [facility] / [id number] / [id number] / [id number] / cc: Luis Carnes M.D. [address] [place] [id number] Van Guillory M.D. [address] [place] [phone] Lukasz Guerrero M.D. [address] [place] [address] [id number] signed by Interface, Foundry Metallurgist In at 07/26/2006 3:10 AM PSTdocume nted in this encounter Plan of Treatment Not on filedocumented as of this encounter Visit Diagnoses Not on filedocumented in this encounter"
--- OUTSIDE RECORDS SUMMARY | ~2019-06-17 | XMS | Encounter Summary ---
Demographics + + + | Address | [address] | | | [place] [address] | + + + | Home Phone [...] Author + + + | Author | [facility] | + + + | Organization | [...] Providers + +------+ + | Care Permit Review Assistant Name | Role | Phone | + [...] Required | | Complication | | [address] | | | | | s of | | [address] | | | | | transplanted | | [place] | | | | | liver | | Mailcode: | | | | | Liver | | DC[address] | | | | | replaced by | | Mariaelena | | | | | transplant | | [place], [place] | | | | | (HCC) | | [address] | | | | | Procedures | | Phone: | | | | | [place] | | [phone] | | | | | OFFICE/OUTPT | | Fax: | | | | | | | [phone] | | | | | VISIT,EST,LE | | | | | | | VL II [place] | | | | | | | [...] | | 2013 | Visit | at [facility] [address] | [address] | (HCC) (Primary Dx) | | | | [address] | [facility] [place] | | | | | Mailcode: DC7 | [address] | | | | | Mariaelena | [phone] | | | | | [place] | | | | | | [address] | | | | | | [phone] | | | +--------+---------+ + + + [...] lab order sent to [facility] in [facility]. She also said that the reason they have been absent from clinic for so long was due t o insurance issues, but they are now insured. From our phone call it seemed that she was singh ppy to reschedule". Plan: - send orders for her labs (CBC, CMP, GGT) to local lab - schedule a clinic appt with me at [facility] - schedule for the next liver [...]
--- OUTSIDE RECORDS SUMMARY | ~2019-06-17 | XMS | Encounter Summary ---
Demographics + + + | Address | [address] | | | [place] [address] | + + + | Home Phone [...] | Author | [facility] | + + + [...] Team Providers + +------+ + | Care Hearing Healthcare Practitioner Name | Role | Phone | + [...] | on | AMBULATORY [address] | AGGREGATE CONVEYOR OPERATOR [address] | consultation | | | | [address] | [address] [place] | | | | | Mailcode: CH6A | [place], [place] | | | | | [place], [place] | [address] | | | | | [address] | [phone] | | | | | [phone] | | | +--------+ + + + [...]
--- OUTSIDE RECORDS SUMMARY | ~2019-06-17 | XMS | Clinical Summary ---
Demographics + + + | Address | [address] | | | [place] [address] | + + + | Home Phone | | + + + | Preferred Language | Unknown | + + + | Marital Status | Single | + + + | Anabaptist Affiliation | Unknown | + + + | Race | Unknown | + + + | Ethnic Group | Unknown | + + + Author + + + | Author | [facility] | | | and [place] | + + + | Organization | [facility] | | | [...] [place] | | | | | [address] | | + + + + + Care Team Providers + +------+ + | Care Wood Carver Name | Role | Phone | + [...] | | For biliary atresia, 03/24/2000 at [facility] | + + Family History + + [...] | | | | | ANDI Dickens [place] | | | | | | [address]64[address] | | | | | | | [...] +---------+------+ | [facility] | FIRST | [id number] | | [phone] | | PPO | | | HEALTH | | 018-Pr | 7 | | | | | OTHER | | esent | | | | + +--------+ +--------+ +---------+------+ | [facility] | PHP | [id number] | 08/17/19 | [phone] | | PPO | | PLAN | [...] | | jonny/Reynaldo | | 2001 | [phone] | [place] | | | marlene | | | 7 ([place]) | [address] | + +--------+ +--------+ + + Advance Directives Patient has advance care planning documents on file. For more information, please contact:[facility] [place] [address]
--- OUTSIDE RECORDS SUMMARY | ~2019-06-17 | XMS | Encounter Summary ---
Demographics + + + | Address | [address] | | | [place] [address] | + + + | Home Phone [...] | Author | [facility] | + + + [...] Team Providers + +------+ + | Care Cooler Tender Name | Role | Phone | + +------+ + | Nyla Fitzpatrick MD | PCP | | + +------+ + Encounter Details +--------+ + + + + | Date | Type | Department | Care Team | Description | +--------+ + + + + | 01/26/ | Document-Sc | Health Information | Unknown . | | | 2014 | anned | Services [address] | | | | | | [address] | | | | | | Mailcode: OP17A | | | | | | [facility] | | | | | | [place], [place] | | | | | | [address] | | | | | | [phone] | | | +--------+ + + + [...]
--- OUTSIDE RECORDS SUMMARY | ~2019-06-17 | XMS | Encounter Summary ---
Demographics + + + | Address | [address] | | | [place] [address] | + + + | Home Phone [...] Author | [facility] [employer] [facility] | + + + [...] Team Providers + +------+ + | Care Game Attendant Name | Role | Phone | [...] | | | | | Mariaelena | [place], [place] | | | | | [facility] | [address] | | | | | [address] | [phone] | | | | | [place] Mailcode: | | | | | | Mariaelena | | | | | | [place], [place] | | | | | | [address] | | | | | | [phone] | | | +--------+ + + + [...] [address] | [place], [place] | [phone] | | [place] | | | | [...] [address] | [place] | [phone] | | [place] | | | | [...] [address] | [place] | [phone] | | [place] | | | | [...] [address] | [place] | [phone] | | [place] | | | | [...] [address] | [place], [place] | [phone] | | [place] | | | | [...] [address] | [place], [place] | [phone] | | [place] | | | | [...] [address] | [place] | [phone] | | [place] | | | | [...] - | [address] | [place], [place] | [phone] | | SAY[place] | | | | [...] + + | [facility] - | [address] | [place] | [phone] | | [place] | | | | + + + + + documented in this encounter Visit Diagnoses Not on filedocumented in this encounter"
--- OUTSIDE RECORDS SUMMARY | ~2019-06-17 | XMS | Clinical Summary ---
Demographics + + + | Address | [address] | | | [place] [address] | + + + | Home Phone [...] Author + + + | Author | [facility] | | | and [place] | + + + | Organization | [facility] | | | and [...] [place] | | | | | [address] | | + + + + + Care Team Providers + +------+ + | Care Shaper Machine Hand Name | Role | Phone | + [...] | | For biliary atresia, 03/24/2000 at [place] | + + Family History + + [...] | | | | | ANDI Dickens [place] | | | | | | [address] | | | | | | | [...] +---------+------+ | [facility] | FIRST | [id number] | | [phone] | | PPO | | | HEALTH | | 018-Pr | 7 | | | | | OTHER | | esent | | | | + +--------+ +--------+ +---------+------+ | [facility] | PHP | [id number] | 08/17/19 | [phone] | | PPO | | PLAN | [...] | | jonny/Reynaldo | | 2001 | [phone] | [place] | | | marlene | | | 7 ([place]) | [address] | + +--------+ +--------+ + + Advance Directives Patient has advance care planning documents on file. For more information, please contact:[facility] [place] [address]
--- OUTSIDE RECORDS SUMMARY | ~2019-06-17 | XMS | Encounter Summary ---
Demographics + + + | Address | [address] | | | [place] [address] | + + + | Home Phone [...] Team Providers + +------+ + | Care Aerial Planting And Cultivation Manager Name | Role | Phone | [...] as of this encounter Progress Notes Interface, Student Development Specialist In - 05/18/2006 3:01 AM [facility] [place] [address] [place], [place] [address] or June 03, 2001 IKKI BALLARD M.D. [address] [place] [address] RE: NICKI WOODS MR #: [id number] DATE OF TRANSPLANT: MARCH 24, [address] Ballard: Nicki returned to the Pediatric Gastroenterology Clinic at [facility] today with her parents. It was attended by Dr. Swathi Byrne and Ayde Duran R.N. of the Pediatric Liver Transplant Team visiting from [place]. This is one of her summer annual [...] about 4. 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 She continues to do extremely well with [...] months. Sincerely, Kendall Angulo M.D. Pediatric Gastroenterology [facility] / [id number] / [id number] / [id number] / C: 07/02/2001 ds cc: ISSA GRAYSON M.D. [address] [facility] [address] [place] [address] PAUL BROOKS M.D. [address] [facility] [address] [place] [address] SWATHI BYRNE M.D. [address] [facility]. [address] [place] [address] [id number] signed by Interface, Student Development Specialist In at 05/18/2006 3:01 AM PDTdoc umented in this encounter Plan of Treatment Not on filedocumented as of this encounter Visit Diagnoses Not on filedocumented in this encounter"
--- OUTSIDE RECORDS SUMMARY | ~2019-06-17 | XMS | Encounter Summary ---
Demographics + + + | Address | [address] | | | [place] [address] | + + + | Home Phone [...] Team Providers + +------+ + | Care Veterinary Assistant Technician Name | Role | Phone | [...] as of this encounter Progress Notes Interface, Backup Operator In - 06/18/2006 2:32 AM [facility] [id number] CHUCK ELIAS N [id number] Clinic Date: 05/28/2006 Clinic: Pediatric Liver Transplant [...] that is followed by Dr. Molina at [facility]. Review of Systems: She has no [...] unless she has problems. [place] Leonardo M.D. [facility] / [id number] / [id number] / [id number] / [id number] cc: Nyla Fitzpatrick M.D. [address] [place] [address] * Pediatric Liver Coordinators [facility] [address] [place] [address] Electronically signed by [place] Leonardo 06-17-2006 10:05:03 PM documented i n this encounter Plan of Treatment Not on filedocumented as of this encounter Visit Diagnoses Not on filedocumented in this encounter"
--- OUTSIDE RECORDS SUMMARY | ~2019-06-17 | XMS | Encounter Summary ---
Demographics + + + | Address | [address] | | | [place] [address] | + + + | Home Phone [...] + + | Author | [facility] | + + + | Organization | [facility] | + + + | Address [...] Team Providers + +------+ + | Care Community Health Outreach Worker Name | Role | Phone | [...] | | | | | Mariaelena | [place], [place] | | | | | [facility] | [address] | | | | | [address] | [phone] | | | | | [place] [place]z Mailcode: | | | | | | CDRJUAN [address] | | | | | | [place], [place] | | | | | | [address] | | | | | | [phone] | | | +--------+ + + + [...] [address] | [place] | [phone] | | S[place] | | | | [...] [address] | [place] | [phone] | | [place] | | | | [...] [address] | [place], [place] | [phone] | | [place] | | | | [...] [address] | [place], [place] | [phone] | | [place] | | | | [...] - | | | | | | [place] | | + +-------+ + + + [...] + + | [facility] - | [address] | [place] | [phone] | | [place] | | | | + + + + + documented in this encounter Visit Diagnoses Not on filedocumented in this encounter"
--- OUTSIDE RECORDS SUMMARY | ~2019-06-17 | XMS | Encounter Summary ---
Demographics + + + | Address | [address] | | | [place] [address] | + + + | Home Phone [...] | Author | [facility] | + [...] Team Providers + +------+ + | Care Electronic Device Repairer Name | Role | Phone | + +------+ + | Nyla Fitzpatrick MD | PCP | | + +------+ + Reason for Visit + + + | Reason | Comments | + + + | Care Coordination | transplant labs gertrudis mederos | + + + Encounter Details +--------+ + + + + | Date | Type | Department | Care Team | Description | +--------+ + + + + | 06/01/ | Telephone | Pediatric | Crista Valadez, | Care Coordination | | 2015 | | Gastroenterology at | [address] | (transplant labs | | | | Mariaelena | [place], [place] | overdue, liver US) | | | | [facility] | [address] | | | | | [address] | [phone] | | | | | [address] Tellez Mailcode: | | | | | | [address] | | | | | | [place], [place] | | | | | | [address] | | | | | | [phone] | | | +--------+ + + + [...]
--- OUTSIDE RECORDS SUMMARY | ~2019-06-17 | XMS | Encounter Summary ---
Demographics + + + | Address | [address] | | | [place] [address] | + + + | Home Phone [...] + | Author | [facility] [employer] [facility] | + + [...] Team Providers + +------+ + | Care Risk Control Product Liability Director Name | Role | Phone | [...] | | | | | Mariaelena | [place], [place] | | | | | [facility] | [address] | | | | | [address] | [phone] | | | | [address] Mailcode: | | | | | | CDR Mariaelena | | | | | | [place], [place] | | | | | | [address] | | | | | | [phone] | | | +--------+ + + + [...] [address] | [place], [place] | [phone] | | SAYRA | | | | [...] - | | | | | | [place]AR | | + +--------+ + + + [...] + + | [facility] - | [address] | [place] | [phone] | | [place] | | | | + + + + + documented in this encounter Visit Diagnoses Not on filedocumented in this encounter"
--- OUTSIDE RECORDS SUMMARY | ~2019-06-17 | XMS | Encounter Summary ---
Demographics + + + | Address | [address] | | | [place] [address] | + + + | Home Phone [...] [facility] [...] Team Providers + +------+ + | Care Program Associate Name | Role | Phone | + [...] call) | | | | Mariaelena | [place], [place] | | | | | [facility] | [address] | | | | | [address] [facility] | [phone] | | | | | [address] Mailcode: | | | | | | [address] | | | | | | [place], [place] | | | | | | [address] | | | | | | [phone] | | | +--------+ + + + [...]
--- OUTSIDE RECORDS SUMMARY | ~2019-06-17 | XMS | Encounter Summary ---
Demographics + + + | Address | [address] | | | [place] [address] | + + + | Home Phone [...] + + + | Author | [facility] | + + + [...] Team Providers + +------+ + | Care Statistical Financial Analyst Name | Role | Phone | + +------+ + | Nyla Fitzpatrick MD | PCP | | + +------+ + Reason for Visit + + + | Reason | Comments | + + + | Follow-up visit | | + + + Consultation (Routine) [...] | Liver | Nyla Shields MD | [facility] [address] | | | Required | [address] [...] | | | | | [address] | [place], [place] | | | | | | [place], | [address] | | | | | | [place] [address] | Phone: | | | | | | Phone: | [phone] | | | | | | [phone] | Fax: | | | | | | Fax: | [phone] | | | | | | [phone] | | +--------+ + + + + + Encounter Details +--------+---------+ + + + | Date | Type | Department | Care Team | Description | +--------+---------+ + + + | 10/05/ | Office | Specialty Clinics | [place] Leonardo MD | Transplanted Liver | | 2008 | Visit | at [facility] [address] | | (HCC) (Primary Dx) | | | | [facility] | | | | | | Mailcode: [facility] | | | | | | [facility] | | | | | | [place], [place] | | | | | | [address] | | | | | | [phone] | | | +--------+---------+ + + + [...] + + + | Blood Pressure | 123/82 | 10/05/2008 9:47 AM | | | | | PST | | + + + + + | Pulse | 84 | 10/05/2008 9:47 AM | | | | | PST | [...] + + + + | Weight | 45 kg (99 lb 3.3 oz) | 10/05/2008 9:47 AM | | | | | PST | | + + + + + | Height | 148.3 cm (4' 10.39") | 10/05/2008 9:47 AM | | | | | PST | | + + + + + | Body Mass Index | 20.46 | 10/05/2008 9:47 AM | | | | | PST | | + + + + + documented in this encounter Patient Instructions Patient Instructions [place] Leonardo MD - 10/05/2008 11:01 AM PST1. Continue the Prograf 1 mg twice daily 2. Have her labs done every 3 months 3. She should continue to have an antibiotic before dental work documented in this encounter Progress Notes [place] Leonardo MD - 10/05/2008 11:04 AM PSTFormatting of this note might be different from t he original. Nicki Woods is an 8 y.o. female, who is referred by Nyla Fitzpatrick, who returns to [facility] for transplant followup. Dr Guillory from [place] was an observ er in clinic today. Patient Active Problem List: VSD (Ventricular Septal Defect)[745.4Y] Comment: With polysplenia Aortic Valve Insufficiency[424.1F] Transplanted Liver[V42.7R] Comment: For biliary atresia, 03/24/2000 at [place] Current outpatient prescriptions prior to encounter Medication Sig Dispense Refill PROGRAF 1 mg Oral Capsule Take 1 Cap by mouth two times daily. 60 3 Allergies Allergen Reactions Sulfa (Sulfonamide Antibiotics) Hives and Swelling-Facial Varicella Possible reaction with sulfa meds HPI Nicki was seen in clinic with her mother. They report that she has not had any medical problems this year. She has not had any labs done between December and this month: they thought s he only needed labs every 6 months. She is doing well in 4th grade and plans to do track again this year. : Review of Systems: General: No fevers, fatigue, weight loss Ears, Nose and Throat: negative Respiratory: No cough, Cardiovascular: Will see her horizontal resaw operator again this spring Gastrointestinal: no abdominal pain Physical Examination: BP 123/82, Pulse 84, Ht 148.3 cm (4' 10.39") (92 %ile), Wt 45 kg (99 lbs 3.3 oz) (91 %ile), Weight for age(%) 91.25%, BMI for age(%) 87.31%, Length for age(%) 92.16%. 87.31% of growth percentile based on BMI-for-age. Appearance: alert, active and in no apparent distress. Skin: Multiple warts R hand, no rashes, petechiae HEENT: normocephalic,PERRLA , no icterus,,nose without discharge, mouth no aphthous lesions , mucous membranes moist, pharynx unremarkable Neck: supple, without thyromegaly Chest: clear to auscultation bilaterally. CV: regular sinus rhythm, 4/6 systolic murmur heard best lower left sternal border Abdomen: , well healed incisions, soft, no distention, no tenderness to palpation, no rebo und , no guarding, no palpable masses, normal bowel sounds, no hepatosplenomegaly Musculoskeletal: grossly intact without clubbing or edema Nodes: no signficant cervical, supraclavicular adenopathy Lab Results Basename Value Date/Time WBC 8.3 12/17/07 3:25 PM HB 14.2 12/17/07 3:25 PM HCT 40.8 12/17/07 3:25 PM PLT 339 12/17/07 3:25 PM MCV 84.6 12/17/07 3:25 PM RDW 12.6 12/17/07 3:25 PM Lab Results Basename Value Date/Time TBILI 0.8 12/17/07 3:25 PM AP 230 12/17/07 3:25 PM TP 7.1 12/17/07 3:25 PM DIRBILI 0.1 12/17/07 3:25 PM ALB 4.2 12/17/07 3:25 PM AST 28 12/17/07 3:25 PM ALT 24 12/17/07 3:25 PM Lab Results Basename Value Date/Time FK506 3.4 05/25/07 8:00 AM Last prograf level from this week is pending last EBV PCR ? Assessment: Patient Active Problem List: VSD (Ventricular Septal Defect)[745.4Y] Comment: With polysplenia Aortic Valve Insufficiency[424.1F] Transplanted Liver[V42.7R] Comment: For biliary atresia, 03/24/2000 at [place] Plan: 1. CBC, primary transplant panel, drug levels- every 3 months 2. EBV PCR and serology every 12 months 3. CMV PCR and serology every 12 months 4. Other labs: 5. Imaging: none 6. Flu shot from PCP yearly 7. change in medications: Prograf No change- 1mg twice daily 8. Continue to give antibiotic prior to dental procedures because of her polysplenia, even if not needed for her cardiac lesion 8. Return to clinic 12 months 11 :14 AM PSTdocumented in this encounter Plan of Treatment Not on filedocumented as of this encounter Procedures + +--------+ + + + | Procedure Name | Priori | Date/Time | Associated Diagnosis | Comments | | | ty | | | | + +--------+ + + + | LAB REPORTS | | 10/03/2008 | | Results for this | | | | 12:00 AM | | procedure are in the | | | | PST | | results section. | + +--------+ + + + documented in this encounter Results LAB REPORTS (10/03/2008 12:00 AM PST) + + + | Narrative | Performed At | + + + | | | + + + + + | Procedure Note | + + | Des Shelton - 10/03/2008 12:00 AM PST | + + documented in this encounter Visit Diagnoses + + | Diagnosis | + + | Transplanted liver (HCC) - Primary Liver replaced by transplant | + + documented in this encounter
--- OUTSIDE RECORDS SUMMARY | ~2019-06-17 | XMS | Encounter Summary ---
Demographics + + + | Address | [address] | | | [place] [address] | + + + | Home Phone [...] + + + | Author | [facility] | + + + | Organization | [facility] | + + + | Address [...] Team Providers + +------+ + | Care Avionics Systems Repairer Name | Role | Phone | [...] | | | | | Mariaelena | [place], [place] | | | | | [facility] | [address] | | | | | [address] [facility] | [phone] | | | | | Vivi Tellez Mailcode: | | | | | | [address] | | | | | | [place], [place] | | | | | | [address] | | | | | | [phone] | | | +--------+ + + + [...]
--- OUTSIDE RECORDS SUMMARY | ~2019-06-17 | XMS | Encounter Summary ---
Demographics + + + | Address | [address] | | | [place] [address] | + + + | Home Phone | | + + + | Preferred Language | Unknown | + + + | Marital Status | Single | + + + | Mormon Affiliation | Unknown | + + + [...] Team Providers + +------+ + | Care Vise Hand Name | Role | Phone | [...] as of this encounter Progress Notes Interface, Articulation Officer In - 06/27/2006 3:05 AM [facility] [place] [address] [place], [place] [address] or June 11, 2000 Nyla Fitzpatrick M.D. [address] [facility] [address] [address] [place] [address] RE: NICKI WOODS MR #: [id number] : 2000 DATE OF TRANSPLANT: 03/24/[address] Fitzpatrick: I had the pleasure of seeing Nicki at the Pediatric Liver Transplant Clinic held at [facility], attended by Dr. Beth and Dr. Kallie Don, representatives of the Liver Transplant team at [place], in lieu with Dr. Carnes. As you [...] [facility], rather than having the family drive all the way to the [place] for this. This should be done for 1 year posttransplant. For the next 1-1/2 months, the family will have Nicki's blood drawn every 2 weeks. Assuming everything is under control, then it could be done monthly. The family will be talking to Dr. Carnes soon to firm up plans to have Nicki followed mostly by you [facility], and to come to [place] either when the situation is unstable and, at the very least, every 3-6 months for chronic monitoring. Finally, Kallie will work out the details of which laboratory tests should be done and when with the family. Please let me know if you have any questions. Sincerely, Kendall Angulo M.D. Pediatric Gastroenterology [facility] / [id number] / [id number] / [id number] / [id number] cc: Kendall Beth M.D. [address] [place] [id number] signed by Interface, Articulation Officer In at 06/27/2006 3:05 AM PSTdocume nted in this encounter Plan of Treatment Not on filedocumented as of this encounter Visit Diagnoses Not on filedocumented in this encounter"
--- OUTSIDE RECORDS SUMMARY | ~2019-06-17 | XMS | Encounter Summary ---
Demographics + + + | Address | [address] | | | [place] [address] | + + + | Home Phone [...] + | Author | [facility] | + + [...] Team Providers + +------+ + | Care Label Fuser Tender Name | Role | Phone | [...] 03/14/ | Documentati | ESTER BREAUX at [facility] | Lab, Gi Procedure | Medical Records | | 2015 | on | [address] | | Review | | | | Parmjit Ortiz Mailcode: | | | | | | OC[address]L [facility] | | | | | | Health and Healing, | | | | | | [address] | | | | | | [place], [place] | | | | | | [address] | | | | | | [phone] | | | +--------+ + + + [...]
--- OUTSIDE RECORDS SUMMARY | ~2019-06-17 | XMS | Encounter Summary ---
Demographics + + + | Address | [address] | | | [place] [address] | + + + | Home Phone [...] + + | Author | [facility] | + + [...] Providers + +------+ + | Care Manager Roofing Name | Role | Phone | + [...] | Liver | Nyla Shields MD | [facility] [address] | | | Required | [...] | | | | | [address] | [place], [place] | | | | | | [place], | [address] | | | | | | [place] [address] | Phone: | | | | | | Phone: | [phone] | | | | | | [phone] | Fax: | | | | | | Fax: | [phone] | | | | | | [phone] | | +--------+ + + + + + Encounter Details +--------+---------+ + + + | Date | Type | Department | Care Team | Description | +--------+---------+ + + + | 10/05/ | Office | Specialty Clinics | [place] Leonardo MD | Transplanted Liver | | 2008 | Visit | at [facility] [address] | | (HCC) (Primary Dx) | | | | [facility] | | | | | | Mailcode: [facility] | | | | | | [facility] | | | | | | [place], [place] | | | | | | [address] | | | | | | [phone] | | | +--------+---------+ + + + [...] referred by Nyla Fitzpatrick, who returns to [facility] for transplant followup. Dr Guillory from [place] was an observ er in clinic today. Patient Active Problem List: VSD (Ventricular Septal Defect)[745.4Y] Comment: With polysplenia Aortic Valve Insufficiency[424.1F] Transplanted Liver[V42.7R] Comment: For biliary atresia, 03/24/2000 at [place] Current outpatient prescriptions prior to encounter Medication [...] Respiratory: No cough, Cardiovascular: Will see her burlap worker again this spring Gastrointestinal: no abdominal pain [...] Liver[V42.7R] Comment: For biliary atresia, 03/24/2000 at [place] Plan: 1. CBC, primary transplant panel, drug [...]
--- OUTSIDE RECORDS SUMMARY | ~2019-06-17 | XMS | Encounter Summary ---
Demographics + + + | Address | [address] | | | [place] [address] | + + + | Home Phone [...] + | Author | [facility] | + [...] Team Providers + +------+ + | Care Sports Physiotherapist Name | Role | Phone | + [...] | | | | | | | [place], [place] | | | | | | | [address] | | | | | | | Phone: | | | | | | | [phone] | | | | | | | Fax: | | | | | | | [phone] | +--------+ + + + + + [...] Dx); | | | | [address] | [place], [place] | Immunosuppressed | | | | [facility] | [address] | status (HCC); High | | | | [address] | [phone] | risk medications | | | | Zane Tellez Mailcode: | | (not anticoagulants) | | | | [facility] | | long-term use; VSD | | | | [place], [place] | | (ventricular septal | | | | [address] | | defect), | | | | [phone] | | perimembranous; | | | | [...] you for choosing Pediatric Hepatology Clinic at [facility] Crista Valadez MD Results of tests: Test results will be sent to you by Aunt Kitchen. Calls: Medical emergencies: call 911 Non-urgent issues: Send Aunt Kitchen message Thursday - Thursday work hours: call [phone] # 3 After hours, weekends, holidays: call [phone] To schedule an appointment: call [phone] # [phone] For refills: call to your pharmacy a week before running out medicine documented in this encounter Progress Notes Crista Valadez MD - 06/28/2014 10:38 AM PSTFormatting of this note might be different fro m the original. 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 She was last seen by Dr Leonardo in 2008. In 2009, it was noticed that she has not been seen, attempts to reach to family was unsucces sful. lost to follow up since that time. - Cardiology: last cardiology note is from [address] Nyla Fitzpatrick, hairspring truer at [facility]. Her cardiac dx includes 1) moderate [...] visit: Dr. Brady and GIO Kirkland from [facility] were presen t [...] Crista Valadez MD Pediatric Gastroenterology Consult line: [phone] documented in this en counter Plan of [...] + + | [facility] | [address] [facility] | [place] [address] | | | SERVICES, SPECIAL | ZANE [...] [facility] | [address] | [place] [address] | | | SERVICES, CORE | PARK [...] [facility] | [address] | [place] [address] | | | SERVICES, CORE | PARK [...] + + | [facility] | [address] | [place] [address] | | | SERVICES, CORE | PARK [...] [facility] | [address] | [place] [address] | | | SERVICES, CORE | PARK [...] + + | [facility] | [address] | [place] [address] | | | SERVICES, CORE | PARK [...] | + + + + + | [facility] | [address] [facility] [facility] | [place] [address] | | | SERVICES, ALANNA | ZANE [...] | + + + + + | [facility] | [address] | [place] [address] | | | SERVICES, ALANNA | ZANE [...]
--- OUTSIDE RECORDS SUMMARY | ~2019-06-17 | XMS | Encounter Summary ---
Demographics + + + | Address | [address] | | | [place] [address] | + + + | Home Phone [...] + | Author | [facility] | + + [...] Team Providers + +------+ + | Care Blocker Hand Name | Role | Phone | [...] Mariaelena | | | | | | [facility] | | | | | | [address] | | | | | | Vivi Tellez Mailcode: | | | | | | [address] | | | | | | [place], [place] | | | | | | [address] | | | | | | [phone] | | | +--------+ + + + [...]
--- OUTSIDE RECORDS SUMMARY | ~2019-06-17 | XMS | Encounter Summary ---
Demographics + + + | Address | [address] | | | [place] [address] | + + + | Home Phone [...] Team Providers + +------+ + | Care Telepathist Name | Role | Phone | + [...] as of this encounter Progress Notes Interface, Motor Generator Set Operator In - 06/14/2006 5:04 AM [facility] [place] [address] [place], [place] [address] or December 10, 2000 Nyla Fitzpatrick M.D. [address] [place] [address] RE: NICKI WOODS MR #: [id number] Dear Dr. Fitzpatrick: I had the pleasure of seeing Nicki in the Pediatric Liver Transplant Clinic at [facility] today attended by Dr. Jose Luis Guillory of the [facility] Transplant Team for Dr. Carnes. As you know, she is a 1-year-old female who is 8 months status post liver transplantation for biliary atresia on March 24, 2000, at [place]. She has had a relatively uneventful posttransplant [...] DNA PCR. In summary, Nicki is a 79-jmrzv-cot white female who is 8 months status [...] 6 months when the transplant team visits [place] again. Please let me know if you have any questions. Sincerely, Kendall Angulo M.D. Pediatric Gastroenterology [facility] / [id number] / [id number] / [id number] / [id number] cc: Jose F Carnes M.D. [address] [facility] [address] [place] [address] Kam Guerrero M.D. [address] [place] [address] Jose Luis Guillory M.D. [address] [facility] [place] [address] [id number] signed by Interface, Motor Generator Set Operator In at 06/14/2006 5:04 AM PSTdocume nted in this encounter Plan of Treatment Not on filedocumented as of this encounter Visit Diagnoses Not on filedocumented in this encounter"
--- OUTSIDE RECORDS SUMMARY | ~2019-06-17 | XMS | Encounter Summary ---
Demographics + + + | Address | [address] | | | [place] [address] | + + + | Home Phone [...] + + | Author | [facility] | + + + [...] Team Providers + +------+ + | Care Employee Relations Manager Name | Role | Phone | [...] | | | | | Mariaelena | [place], [place] | | | | | [facility] | [address] | | | | | [address] [facility] | [phone] | | | | | Vivi Tellez Mailcode: | | | | | | [address] | | | | | | [place], [place] | | | | | | [address] | | | | | | [phone] | | | +--------+ + + + [...]
--- OUTSIDE RECORDS SUMMARY | ~2019-06-17 | XMS | Encounter Summary ---
Demographics + + + | Address | [address] | | | [place] [address] | + + + | Home Phone [...] Team Providers + +------+ + | Care Helper Shear Operator Name | Role | Phone | [...] as of this encounter Progress Notes Interface, Gusset Stitcher In - 07/26/2006 3:[address] [address] or June 13, 1999 Nyla Fitzpatrick M.D. [address] [place] [address] [address] [place] [address] RE: NICKI WOODS MR #: [id number] Dear Amari: Nicki was evaluated at [facility] in the Pediatric Liver Transplantation Clinic for the first time today by members of the [facility] which included Van Guillory M.D. and Kallie Don R.N., Pediatric Liver Meter Tester. I presented Nicki to the team in [...] (this information has been forwarded from the [facility] at [facility] to the cardiologists at [facility]). She was eventually found to have biliary [...] bilirubin was elevated She was admitted to [facility] for a treatment of possible cholangitis. [...] K, and iron. Her parents live in [place], [place] approximately four hours from [place]. They and the rest of the family [...] later half of the visit today at [facility], the family spent conversing with outreach coordinator regarding many of the practical aspects [...] you have any questions. Kendall Angulo M.D. [facility] / [id number] / [id number] / [id number] / cc: Luis Carnes M.D. [address] [place] [address] Van Guillory M.D. [address] [place] [id number] Lukasz Guerrero M.D. [address] [place] [address] [id number] signed by Interface, Gusset Stitcher In at 07/26/2006 3:10 AM PSTdocume nted in this encounter Plan of Treatment Not on filedocumented as of this encounter Visit Diagnoses Not on filedocumented in this encounter"
--- OUTSIDE RECORDS SUMMARY | ~2019-06-17 | XMS | Encounter Summary ---
Demographics + + + | Address | [address] | | | [place] [address] | + + + | Home Phone [...] Author | [facility] | + + + [...] Team Providers + +------+ + | Care Plastic Surgeon Name | Role | Phone | + [...] | | | | | Mariaelena | [place], [place] | | | | | [facility] | [address] | | | | | [address] | [phone] | | | | | Vivi Geoff Mailcode: | | | | | | [address] | | | | | | [place], [place] | | | | | | [address] | | | | | | [phone] | | | +--------+ + + + [...]
--- OUTSIDE RECORDS SUMMARY | ~2019-06-17 | XMS | Encounter Summary ---
Demographics + + + | Address | [address] | | | [place] [address] | + + + | Home Phone [...] + | Author | [facility] | + + [...] Team Providers + +------+ + | Care Knuckle Strap Sewer Name | Role | Phone | + [...] | on | AMBULATORY [address] | VP RHEUMATOLOGY [address] | | | | | [address] | [address] | | | | | Mailcode: CH6A | [place], [place] | | | | | [place], [place] | [address] | | | | | [address] | [phone] | | | | | [phone] | | | +--------+ + + + [...]
--- OUTSIDE RECORDS SUMMARY | ~2019-06-17 | XMS | Encounter Summary ---
Demographics + + + | Address | [address] | | | [place] [address] | + + + | Home Phone [...] + | Author | [facility] | + + + [...] Team Providers + +------+ + | Care Complaint Clerk Name | Role | Phone | [...] | | | | | | [facility] | | | | | | [address] | | | | | | Vivi Tellez Mailcode: | | | | | | [address] | | | | | | [place], [place] | | | | | | [address] | | | | | | [phone] | | | +--------+ + + + [...] [address] | [place], [place] | [phone] | | [place] | | | | [...] - | [address] | [place], [place] | [phone] | | [place] | | | | + + + + + | [facility] - | | [place], [place] | | | [place] | | [...] | | | [place] | | + +-------+ + + + [...] - | [address] | [place], [place] | [phone] | | [place] | | | | + + + + + | [facility] - | | [place], [place] | | | [place] | | [...] - | [address] | [place], [place] | [phone] | | [place] | | | | + + + + + | [facility] - | | [place], [place] | | | [place] | | [...] [address] | [place] | [phone] | | [place] | | | | + + + + + | [facility] - | | [place], [place] | | | [place] | | | | + + + + + documented in this encounter Visit Diagnoses Not on filedocumented in this encounter"
--- OUTSIDE RECORDS SUMMARY | ~2019-06-17 | XMS | Encounter Summary ---
Demographics + + + | Address | [address] | | | [place] [address] | + + + | Home Phone [...] + + | Author | [facility] [facility] | [...] Team Providers + +------+ + | Care Television Actor Name | Role | Phone | + [...] | Liver | Nyla Shields MD | [facility] [address] | | | Required | [...] | | | | | [address] | [place], [place] | | | | | | [place], | [address] | | | | | | [place] [address] | Phone: | | | | | | Phone: | [phone] | | | | | | [phone] | Fax: | | | | | | Fax: | [phone] | | | | | | [phone] | | +--------+ + + + + [...] Mariaelena | | | | | | [place], [place] | | | | | | [address] | | | | | | [phone] | | | +--------+---------+ + + + [...] referred by Nyla Fitzpatrick, who returns to [facility] GI clinic for followup of her liver transplant Patient Active Problem List: VSD (Ventricular Septal Defect)[745.4Y] Comment: With polysplenia Aortic Valve Insufficiency[424.1F] Transplanted Liver[V42.7R] Comment: For biliary atresia, 03/24/2000 at [place] Current outpatient prescriptions prior to encounter Medication [...] the shot. She was seen by her hog counter, Dr Quiles, and new aortic insufficiency was [...] Liver[V42.7R] Comment: For biliary atresia, 03/24/2000 at [place] Doing well. May or may not have [...]
--- OUTSIDE RECORDS SUMMARY | ~2019-06-17 | XMS | Encounter Summary ---
Demographics + + + | Address | [address] | | | [place] [address] | + + + | Home Phone [...] Author + + + | Author | [facility] | + + + | [...] Providers + +------+ + | Care Commercial Singer Name | Role | Phone | + [...] | Liver | Nyla Shields MD | [facility] [address] | | | Required | ogy [...] | | | | | [address] | [place], [place] | | | | | | [place], | [address] | | | | | | [place] [address] | Phone: | | | | | | Phone: | [phone] | | | | | | [phone] | Fax: | | | | | | Fax: | [phone] | | | | | | [phone] | | +--------+ + + + + + Encounter Details +--------+---------+ + + + | Date | Type | Department | Care Team | Description | +--------+---------+ + + + | 06/07/ | Office | Specialty Clinics | Sayra Leonardo MD | Complications of | | 2008 | Visit | at [facility] [address] [facility] | | Transplanted Liver; | | | | [address] | | Transplanted Liver | | | | Mailcode: [facility] | | (HCC) | | | | Mariaelena | | | | | | [place], [place] | | | | | | [address] | | | | | | [phone] | | | +--------+---------+ + + + [...] cough, fever, muscle pains, then call your [facility] doctor immediately to start Tamiflu 7. change in medications: non3 8. Return to clinic in 12 months documented in this encounter Progress Notes Sayra Leonardo MD - 06/07/2009 11:17 AM PDTFormatting of this note might be different from t he original. Nicki Woods is an 8 y.o. female, who is referred by Nyla Fitzpatrick, who returns to [facility] for transplant followup. Dr Guillory from [facility] was an observ er in clinic today. Patient Active Problem List: VSD (Ventricular Septal Defect)[745.4Y] Comment: With polysplenia Aortic Valve Insufficiency[424.1F] Transplanted Liver[V42.7R] Comment: For biliary atresia, 03/24/2000 at [place] Current outpatient prescriptions prior to encounter Medication [...] better about them". She is seeing her paraplanner every 2 years and last saw him [...] Liver[V42.7R] Comment: For biliary atresia, 03/24/2000 at [place] Plan: 1. CBC, primary transplant panel, drug [...]
--- OUTSIDE RECORDS SUMMARY | ~2019-06-17 | XMS | Encounter Summary ---
Demographics + + + | Address | [address] | | | [place] [address] | + + + | Home Phone [...] + + | Author | [facility] | + + [...] Team Providers + +------+ + | Care Factory Process Workers Name | Role | Phone | + +------+ + | Nyla Fitzpatrick MD | PCP | | + +------+ + Encounter Details +--------+ + + + + | Date | Type | Department | Care Team | Description | +--------+ + + + + | 09/19/ | Documentati | Pediatric | Crista Valaedz, | | | 2014 | on | Gastroenterology at | [address] | | | | | Mariaelena | [place], [place] | | | | | [facility] | [address] | | | | | [address] | [phone] | | | | | Vivi Geoff Mailcode: | | | | | | [address] | | | | | | [place], [place] | | | | | | [address] | | | | | | [phone] | | | +--------+ + + + [...]
--- OUTSIDE RECORDS SUMMARY | ~2019-06-17 | XMS | Encounter Summary ---
Demographics + + + | Address | [address] | | | [place] [address] | + + + | Home Phone [...] + | Author | [facility] | + + + [...] Team Providers + +------+ + | Care Hydraulic Dredge Operator Name | Role | Phone | + +------+ + | Nyla Fitzpatrick MD | PCP | | + +------+ + Encounter Details +--------+ + + + + | Date | Type | Department | Care Team | Description | +--------+ + + + + | 10/11/ | Program Scheduler | Pediatric | Althea Mcdonald, | Complications of | | 2008 | | Gastroenterology at | RN [address] | Transplanted Liver; | | | | Mariaelena | [address] | Transplanted Liver | | | | [facility] | [place] [address] | (HCC) | | | | [address] | | | | | | Vivi Tellez Mailcode: | | | | | | CDRCP Mariaelena | | | | | | [place], [place] | | | | | | [address] | | | | | | [phone] | | | +--------+ + + + [...] [address] | [place] | [phone] | | SAYRA | | | | [...] + + | [facility] - | [address] | [place], [place] | [phone] | | SAYRA | | | | + + + + + | [facility] - | | [place], [place] | | | S[place] | | [...] [address] | [place], [place] | [phone] | | SAYRA | | | | [...] [address] | [place], [place] | [phone] | | SAYRA | | | | [...] - | [address] | [place], [place] | [phone] | | SAYRA | | | | + + + + + | [facility] - | | [place], [place] | | | S[place] | | [...] - | [address] | [place], [place] | [phone] | | SAYRA | | | | [...] + + | [facility] - | [address] | [place], [place] | [phone] | | SAYRA | | | | + + + + + | [facility] - | | [place], [place] | | | SAYRA | | [...] [address] | [place], [place] | [phone] | | SAYRA | | | | + + + + + | [facility] - | | [place], [place] | | | S[place] | | | | + + + + + documented in this encounter Visit Diagnoses + + | Diagnosis | + + | Complications of transplanted liver | + + | 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"
--- OUTSIDE RECORDS SUMMARY | ~2019-06-17 | XMS | Encounter Summary ---
Demographics + + + | Address | [address] | | | [place] [address] | + + + | Home Phone | | + + + | Preferred Language | Unknown | + + + | Marital Status | Single | + + + | Roman Catholic Affiliation | Unknown | + + + | Race | White | + + + | Ethnic Group | Not or | + + + Author + + + | Author | [facility] [employer] [facility] | + + + [...] Team Providers + +------+ + | Care Mattress Renovator Name | Role | Phone | + [...] | | | | | Mariaelena | [place], [place] | | | | | [facility] | [address] | | | | | [address] | [phone] | | | | | Vivi Tellez Mailcode: | | | | | | CDRJUAN [address]rell | | | | | | [place], [place] | | | | | | [address] | | | | | | [phone] | | | +--------+ + + + [...]
--- OUTSIDE RECORDS SUMMARY | ~2019-06-17 | XMS | Encounter Summary ---
Demographics + + + | Address | [address] | | | [place] [address] | + + + | Home Phone [...] + + | Author | [facility] | [...] Providers + +------+ + | Care Plastic Tile Setter Name | Role | Phone | [...] [place] | | | | | | [facility] | | | | | | [address] | | | | | | Vivi Tellez Mailcode: | | | | | | Mariaelena | | | | | | [place], [place] | | | | | | [address] | | | | | | [phone] | | | +--------+ + + + [...]
--- OUTSIDE RECORDS SUMMARY | ~2019-06-17 | XMS | Encounter Summary ---
Demographics + + + | Address | [address] | | | [place] [address] | + + + | Home Phone [...] + + | Author | [facility] | + + + [...] Team Providers + +------+ + | Care Certified Pesticide Applicator Name | Role | Phone | + [...] | | | | | | | [place], [place] | | | | | | | [address] | | | | | | | Phone: | | | | | | | [phone] | | | | | | | Fax: | | | | | | | [phone] | +--------+ + + + + + Encounter Details +--------+---------+ + + + | Date | Type | Department | Care Team | Description | +--------+---------+ + + + | 04/27/ | Office | Pediatric | Crista Valadez, | Immunosuppressed | | 2013 | Visit | Gastroenterology at | MD [address] | status (HCC) | | | | [address] | [place], [place] | (Primary Dx); | | | | [facility] | [address] | Noncompliance with | | | | [address] | [phone] | treatment; BP (high | | | | [address] Mailcode: | | blood pressure); | | | | CDR[facility] [address] | | Transplanted liver | | | | [place], [place] | | ([facility]); VSD | | | | [address] | | (ventricular septal | | | | [phone] | | defect); Aortic | | | [...] transplant for biliary atresia i 1999 at [facility]. She was last seen [...] and to come for clinic visit at [facility]. She is accompanied by her father today. Today, she denies any pain, nausea, emesis, diarrhe a or constipation. No fever. She reports she takes tacrolimus one pill once daily. Father reports she has not been takin g regularly In [employer], Nicki's last cardiology note is from [address] Nyla Fitzpatrick, generator mechanic at [facility]. Her [...] has an appointment with cardiol estrellita at [facility] soon. Current Outpatient Prescriptions Medication Sig PROGRAF 1 mg Oral Capsule Take 1 Cap by mouth two times daily. Allergies Allergen Reactions Sulfa (Sulfonamide Antibiotics) Hives and Swelling-Facial Varicella Vaccines Possible reaction with sulfa meds Past Medical History Diagnosis Date Biliary atresia Past Surgical History Procedure Laterality Date Liver transplant 03/24/2000 at [place] Family History No liver problems SHx: lives [...] they will be able to come to [facility] when [place] team is here next time. I strongly [...] 2014. - cardiology fu locally and at [facility] At this visit: Patient accompanied by: father Salesperson Surgical Appliances used:no Psychosocial or economic issues that may [...] Crista Valadez MD Pediatric Gastroenterology Consult line: [phone] documented in this en counter Plan of [...]
--- OUTSIDE RECORDS SUMMARY | ~2019-06-17 | XMS | Encounter Summary ---
Demographics + + + | Address | [address] | | | [place] [address] | + + + | Home Phone [...] + + | Author | [facility] | + + + [...] Team Providers + +------+ + | Care Licensed Master Social Worker Name | Role | Phone | [...] | | | | | Mariaelena | [place], [place] | | | | | [facility] | [address] | | | | | [address] | [phone] | | | | | [address]elle[address] Mailcode: | | | | | | [address] | | | | | | [place], [place] | | | | | | [address] | | | | | | [phone] | | | +--------+ + + + [...]
--- OUTSIDE RECORDS SUMMARY | ~2019-06-17 | XMS | Encounter Summary ---
Demographics + + + | Address | [address] | | | [place] [address] | + + + | Home Phone | | + + + | Preferred Language | Unknown | + + + | Marital Status | Single | + + + | Mu-Ism Affiliation | Unknown | + + + | Race | White | + + + | Ethnic Group | Not or | + + + Author + + + | Author | [facility] | + + + [...] Team Providers + +------+ + | Care Gaming Floor Supervisor Name | Role | Phone | + +------+ + | Nyla Fitzpatrick MD | PCP | | + +------+ + Reason for Visit + + + | Reason | Comments | + + + | Lab findings, | | | teaching, guidance, | | | and counseling | | + + + Encounter Details [...] | and counseling | | | | [facility] | | | | | | [address] | | | | | | [address] Mailcode: | | | | | | Mariaelena | | | | | | [place], [place] | | | | | | [address] | | | | | | [phone] | | | +--------+ + + + [...]
--- OUTSIDE RECORDS SUMMARY | ~2019-06-17 | XMS | Encounter Summary ---
Demographics + + + | Address | [address] | | | [place] [address] | + + + | Home Phone [...] + | Author | [facility] | [...] Team Providers + +------+ + | Care Geophysical Laboratory Supervisor Name | Role | Phone | + +------+ + | Nyla Fitzpatrick MD | PCP | | + +------+ + Encounter Details +--------+------+ + + + | Date | Type | Department | Care Team | Description | +--------+------+ + + + | 06/28/ | Lab | Lab Center at [facility] | | Transplanted liver | | 2013 | | 7th Floor [address] | | (HCC); High risk | | | | [address] | | medications (not | | | | [place], [place] | | anticoagulants) | | | | [address] | | long-term use | | | | [phone] | | | +--------+------+ + + + [...] [facility] | [address] | [place] [address] | | | SERVICES, SPECIAL | PARK [...] + + | [facility] | [address] [facility] | [place] [address] | | | SERVICES, CORE | PARK [...] | + + + + + | [facility] | [address] [facility] | [place] [address] | | | SERVICES, CORE | PARK [...] [facility] | [address] | [place] [address] | | | SERVICES, CORE | PARK [...] [facility] | [address] | [place] [address] | | | SERVICES, CORE | PARK [...] | + + + + + | [facility] | [address] | [place] [address] | | | SERVICES, CORE | ZANE [...] [facility] | [address] | [place] [address] | | | SERVICES, CORE | PARK [...] | + + + + + | [facility] | [address] [facility] | [place] [address] | | | SERVICES, CORE | ZANE [...]
--- OUTSIDE RECORDS SUMMARY | ~2019-06-17 | XMS | Encounter Summary ---
Demographics + + + | Address | [address] | | | [place] [address] | + + + | Home Phone | | + + + | Preferred Language | Unknown | + + + | Marital Status | Single | + + + | Jain Affiliation | Unknown | + + + | Race | White | + + + | Ethnic Group | Not or | + + + Author + + + | Author | [facility] | + + + | Organization | [facility] | + + + | Address [...] Team Providers + +------+ + | Care Computer Systems Information Director Name | Role | Phone | + +------+ + | Nyla Fitzpatrick MD | PCP | | + +------+ + Encounter Details +--------+------+ + + + | Date | Type | Department | Care Team | Description | +--------+------+ + + + | 06/28/ | Lab | Lab Center at [facility] | | Transplanted liver | | 2013 | | 7th Floor [address] | | (HCC); High risk | | | | [address] | | medications (not | | | | [place], [place] | | anticoagulants) | | | | [address] | | long-term use | | | | [phone] | | | +--------+------+ + + + [...] [facility] | [address] | [place] [address] | | | SERVICES, SPECIAL | PARK [...] + + | [facility] | [address] [facility] | [place] [address] | | | SERVICES, CORE | PARK [...] | + + + + + | [facility] | [address] [facility] | [place] [address] | | | SERVICES, CORE | PARK [...] [facility] | [address] | [place] [address] | | | SERVICES, CORE | PARK [...] [facility] | [address] | [place] [address] | | | SERVICES, CORE | PARK [...] | + + + + + | [facility] | [address] | [place] [address] | | | SERVICES, CORE | ZANE [...] [facility] | [address] | [place] [address] | | | SERVICES, CORE | PARK [...] | + + + + + | [facility] | [address] [facility] | [place] [address] | | | SERVICES, CORE | ZANE [...]
--- OUTSIDE RECORDS SUMMARY | ~2019-06-17 | XMS | Encounter Summary ---
Demographics + + + | Address | [address] | | | [place] [address] | + + + | Home Phone [...] Author + + + | Author | [facility] | + + + [...] Team Providers + +------+ + | Care Paint Striping Machine Operator Name | Role | Phone [...] | | | | | Mariaelena | [place], [place] | | | | | [facility] | [address] | | | | | [address] | [phone] | | | | | [address] Mailcode: | | | | | | [address]JUAN [address] | | | | | | [place], [place] | | | | | | [address] | | | | | | [phone] | | | +--------+ + + + [...]
--- OUTSIDE RECORDS SUMMARY | ~2019-06-17 | XMS | Encounter Summary ---
Demographics + + + | Address | [address] | | | [place] [address] | + + + | Home Phone [...] Author | [facility] [employer] [facility] | [...] Team Providers + +------+ + | Care Credit Reference Clerk Name | Role | Phone | + +------+ + | Nyla Fitzpatrick MD | PCP | | + +------+ + Encounter Details +--------+ + + + + | Date | Type | Department | Care Team | Description | +--------+ + + + + | 10/11/ | Commodity Director | Pediatric | Althea Mcdonald, | Complications of | | 2008 | | Gastroenterology at | RN [address] | Transplanted Liver; | | | | [place] | [address] | Transplanted Liver | | | | [facility] | [place] [address] | (HCC) | | | | [address] | | | | | | [address] Mailcode: | | | | | | CDRCP Mariaelena | | | | | | [place], [place] | | | | | | [address] | | | | | | [phone] | | | +--------+ + + + [...] [address] | [place] | [phone] | | SAYRA | | | | [...] + + | [facility] - | [address] | [place], [place] | [phone] | | SAYRA | | | | + + + + + | [facility] - | | [place], [place] | | | SAY[place] | | [...] [address] | [place], [place] | [phone] | | SAYRA | | | | [...] [address] | [place], [place] | [phone] | | SAYRA | | | | + + + + + | [facility] - | | [place], [place] | | | SAYRA | | [...] - | [address] | [place], [place] | [phone] | | SAYRA | | | | + + + + + | [facility] - | | [place], [place] | | | SAYRA | | [...] - | [address] | [place], [place] | [phone] | | SAYRA | | | | [...] + + | [facility] - | [address] | [place], [place] | [phone] | | SAYRA | | | | + + + + + | [facility] - | | [place], [place] | | | SAY[place] | | [...] [address] | [place], [place] | [phone] | | SAY[place] | | | | + + + + + | [facility] - | | [place], [place] | | | S[place]RA | | | | + + + + + documented in this encounter Visit Diagnoses + + | Diagnosis | + + | Complications of transplanted liver | + + | 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"
--- OUTSIDE RECORDS SUMMARY | ~2019-06-17 | XMS | Encounter Summary ---
Demographics + + + | Address | [address] | | | [place] [address] | + + + | Home Phone [...] + + | Author | [facility] | + + [...] Team Providers + +------+ + | Care Tangled Yarn Spool Straightener Name | Role | Phone | + +------+ + | Nyla Fitzpatrick MD | PCP | | + +------+ + Encounter Details +--------+ + + + + | Date | Type | Department | Care Team | Description | +--------+ + + + + | 06/04/ | Document-Sc | Health Information | Other, Faculty | | | 2017 | anned | [address] | [phone] | | | | | [address] | | | | | | Mailcode: [id number] | | | | | | [facility] | | | | | | [place], [place] | | | | | | [address] | | | | | | [phone] | | | +--------+ + + + [...]
--- OUTSIDE RECORDS SUMMARY | ~2019-06-17 | XMS | Encounter Summary ---
Demographics + + + | Address | [address] | | | [place] [address] | + + + | Home Phone | | + + + | Preferred Language | Unknown | + + + | Marital Status | Single | + + + | Yazidism Affiliation | Unknown | + + + | Race | White | + + + | Ethnic Group | Not or | + + + Author + + + | Author | [facility] | + + + [...] Team Providers + +------+ + | Care Driver License Agent Name | Role | Phone | [...] 2017 | anned | [address] | [phone] | | | | | [address] | | | | | | Mailcode: [id number] | | | | | | [facility] | | | | | | [place], [place] | | | | | | [address] | | | | | | [phone] | | | +--------+ + + + [...]
--- OUTSIDE RECORDS SUMMARY | ~2019-06-17 | XMS | Encounter Summary ---
Demographics + + + | Address | [address] | | | [place] [address] | + + + | Home Phone [...] + | Author | [facility] [employer] [facility] | + + + [...] Team Providers + +------+ + | Care Nitriles Lab Technician Name | Role | Phone | [...] follow-up) | | | | Mariaelena | [place], [place] | | | | | [facility] | [address] | | | | | [address] | [phone] | | | | | [address] Mailcode: | | | | | | [address] | | | | | | [place], [place] | | | | | | [address] | | | | | | [phone] | | | +--------+ + + + [...]
--- OUTSIDE RECORDS SUMMARY | ~2019-06-17 | XMS | Encounter Summary ---
Demographics + + + | Address | [address] | | | [place] [address] | + + + | Home Phone [...] | Author | [facility] | + + + | Organization | [...] Team Providers + +------+ + | Care Covering Machine Operator Name | Role | Phone [...] call) | | | | Mariaelena | [place], [place] | | | | | [facility] | [address] | | | | | [address] [facility] | [phone] | | | | | [address] Mailcode: | | | | | | [address] | | | | | | [place], [place] | | | | | | [address] | | | | | | [phone] | | | +--------+ + + + [...]
--- OUTSIDE RECORDS SUMMARY | ~2019-06-17 | XMS | Encounter Summary ---
Demographics + + + | Address | [address] | | | [place] [address] | + + + | Home Phone [...] Author + + + | Author | [facility] | + + [...] Team Providers + +------+ + | Care Auto Design Detailer Name | Role | Phone | + +------+ + | Nyla Fitzpatrick MD | PCP | | + +------+ + Encounter Details +--------+ + + + + | Date | Type | Department | Care Team | Description | +--------+ + + + + | 01/26/ | Document-Sc | Health Information | Unknown . | | | 2014 | anned | [address] | | | | | | [address] | | | | | | Mailcode: [id number] | | | | | | [facility] | | | | | | [place], [place] | | | | | | [address] | | | | | | [phone] | | | +--------+ + + + [...]
--- OUTSIDE RECORDS SUMMARY | ~2019-06-17 | XMS | Encounter Summary ---
Demographics + + + | Address | [address] | | | [place] [address] | + + + | Home Phone [...] Author + + + | Author | [facility] | + + + [...] Team Providers + +------+ + | Care Behavioral Interventionist Name | Role | Phone | + [...] | | | | | Mariaelena | [place], [place] | | | | | [facility] | [address] | | | | | [address] | [phone] | | | | | Vivi Tellez Mailcode: | | | | | | Mariaelena | | | | | | [place], [place] | | | | | | [address] | | | | | | [phone] | | | +--------+ + + + [...] [address] | [place] | [phone] | | [place] | | | | [...] [address] | [place] | [phone] | | [place] | | | | [...] [address] | [place] | [phone] | | [place] | | | | [...] - | [address] | [place], [place] | [phone] | | S[place] | | | | [...] [address] | [place] | [phone] | | [place] | | | | [...] [address] | [place] | [phone] | | [place] | | | | [...] - | [address] | [place], [place] | [phone] | | S[place] | | | | [...] - | [address] | [place], [place] | [phone] | | SAYRA | | | | [...] [address] | [place] | [phone] | | S[place] | | | | [...] [address] | [place] | [phone] | | [place] | | | | + + + + + documented in this encounter Visit Diagnoses Not on filedocumented in this encounter"
--- OUTSIDE RECORDS SUMMARY | ~2019-06-17 | XMS ---
Demographics + + + | Address | [address] [place] [address] | | | [place] [address] | + + + | Home Phone | | + + + | Preferred Language | Unknown | + + + | Marital Status | Never | + + + | Buddhist Affiliation | Unknown | + + + | Race | White | + + + | Ethnic Group | Not or | + + + Author + + + | Author | [facility] [place] [facility] | + + + | Organization | [facility] [place] | + + + | Address | [address] | | | [place] [address] | + + + | Phone | | + + + Care Team Providers + + + + | Care Wax Pot Tender Name | Role | Phone | [...] [place]. Dad | | | | thda Doyle | + + + + History [...] + | | [employer] | E[employer]O | [id number] | [id number] | | N/A | | | | | | | | | | | Health/ohp | | | | | | + + + + + +---------+ + | | [employer] | [employer] | | [id number] | | Thursday, | | | | [...]
--- OUTSIDE RECORDS SUMMARY | ~2019-06-17 | XMS | Encounter Summary ---
Demographics + + + | Address | [address] | | | [place] [address] | + + + | Home Phone [...] Author + + + | Author | [facility] | + + + [...] Providers + +------+ + | Care Director Of Market Intelligence Name | Role | Phone | + [...] | | | | | Mariaelena | [place], [place] | | | | | [facility] | [address] | | | | | [address] | [phone] | | | | | Vivi Tellez Mailcode: | | | | | | CDRJUAN LUIS Ferrell | | | | | | [place], [place] | | | | | | [address] | | | | | | [phone] | | | +--------+ + + + [...]
--- OUTSIDE RECORDS SUMMARY | ~2019-06-17 | XMS | Encounter Summary ---
Demographics + + + | Address | [address] | | | [place] [address] | + + + | Home Phone [...] + | Author | [facility] | + + [...] Team Providers + +------+ + | Care Logistics Operations Director Name | Role | Phone | [...] | Gastroenterol | | Epic Dept | [facility] [address] | | | Required | ogy | | | [address] | | | | | | | [place]i [place] | | | | | | | Mailcode: | | | | | | | CDRCP | | | | | | | [facility] | | | | | | | [place], [place] | | | | | | | [address] | | | | | | | Phone: | | | | | | | [phone] | | | | | | | Fax: | | | | | | | [phone] | +--------+ + + + + + Encounter Details +--------+---------+ + + + | Date | Type | Department | Care Team | Description | +--------+---------+ + + + | 02/23/ | Office | Specialty Clinics | Crista Valadez, | Immunosuppressed | | 2013 | Visit | at [facility] [address] | MD [address] | status (HCC) | | | | [address] | [facility] [place] | (Primary Dx); S/P | | | | Mailcode: [facility] | [address] | liver transplant | | | | Mariaelena | [phone] | (HCC); High risk | | | | [facility] [place] | | medications (not | | | | [address] | | anticoagulants) | | | | [phone] | | long-term use; VSD | | [...]
--- OUTSIDE RECORDS SUMMARY | ~2019-06-17 | XMS | Encounter Summary ---
Demographics + + + | Address | [address] | | | [place] [address] | + + + | Home Phone [...] + + | Author | [facility] [employer] [facility] | [...] Team Providers + +------+ + | Care Django Developer Name | Role | Phone | [...] | Liver | Nyla Shields MD | [facility] [address] | | | Required [...] | | | | | [address] | [place], [place] | | | | | | [place], | [address] | | | | | | [place] [address] | Phone: | | | | | | Phone: | [phone] | | | | | | [phone] | Fax: | | | | | | Fax: | [phone] | | | | | | [phone] | | +--------+ + + + + + Encounter Details +--------+---------+ + + + | Date | Type | Department | Care Team | Description | +--------+---------+ + + + | 10/05/ | Office | Specialty Clinics | [place] Leonardo MD | Transplanted Liver | | 2008 | Visit | at [facility] [address] | | (HCC) (Primary Dx) | | | | [facility] | | | | | | Mailcode: [facility] | | | | | | [facility] | | | | | | [place], [place] | | | | | | [address] | | | | | | [phone] | | | +--------+---------+ + + + [...] referred by Nyla Fitzpatrick, who returns to [facility] for transplant followup. Dr Guillory from [place] was an observ er in clinic today. 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 CBC, primary transplant panel, drug [...]
--- OUTSIDE RECORDS SUMMARY | ~2019-06-17 | XMS | Encounter Summary ---
Demographics + + + | Address | [address] | | | [place] [address] | + + + | Home Phone [...] + + | Author | [facility] [employer] [facility] | + + [...] Team Providers + +------+ + | Care Landscape Crew Member Name | Role | Phone | + [...] Mariaelena | | | | | | [facility] | | | | | | [address] | | | | | | Vivi Tellez Mailcode: | | | | | | GLENN Ferrell | | | | | | [place], [place] | | | | | | [address] | | | | | | [phone] | | | +--------+ + + + [...] [address] | [place], [place] | [phone] | | [place] | | | | [...] - | [address] | [place], [place] | [phone] | | [place] | | | | + + + + + | [facility] - | | [place], [place] | | | [place] | | [...] - | [address] | [place], [place] | [phone] | | [place] | | | | + + + + + | [facility] - | | [place], [place] | | | [place] | | [...] | | | (LAB) | | | [place] | | + [...] - | [address] | [place], [place] | [phone] | | [place] | | | | + + + + + | [facility] - | | [place], [place] | | | [place] | | [...] | | | [place] | | + + + + + [...] [address] | [place] | [phone] | | [place] | | | | + + + + + | [facility] - | | [place], [place] | | | [place] | | | | + + + + + documented in this encounter Visit Diagnoses Not on filedocumented in this encounter"
--- OUTSIDE RECORDS SUMMARY | ~2019-06-17 | XMS | Encounter Summary ---
Demographics + + + | Address | [address] | | | [place] [address] | + + + | Home Phone [...] Providers + +------+ + | Care Sports Leadership Instructor Name | Role | Phone | [...] as of this encounter Progress Notes Interface, Certified Orthotic Fitter In - 07/10/2006 1:05 AM [facility] [place] [address] [address] or December 12, 1999 Nyla Fitzpatrick M.D. [address] [place] [id number] RE: NICKI WOODS MR #: [id number] Dear Dr. Fitzpatrick: I had the pleasure of seeing Nicki at [facility] today in the Pediatric Liver Transplant Clinic and presenting her once again to members of the Pediatric Liver Transplant team from [place], which included Dr. Jose Luis Guillory. Nicki [...] she is followed by Dr. Donald Molina, pediatrics physician. His present medications include Zantac 1 mL [...] O negative. 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 Sincerely, Kendall Angulo M.D. Pediatric Gastroenterology [facility] / [id number] / 48146 / 33654 / 18132 cc: Jose Luis Guillory M.D. [facility] [address] [facility] [place]. [address] [place], [place] Jose F Carnes M.D. [address] [place] [address] [id number] signed by Interface, Certified Orthotic Fitter In at 07/10/2006 1:05 AM PSTdocume nted in this encounter Plan of Treatment Not on filedocumented as of this encounter Visit Diagnoses Not on filedocumented in this encounter"
--- OUTSIDE RECORDS SUMMARY | ~2019-06-17 | XMS | Encounter Summary ---
Demographics + + + | Address | [address] | | | [place] [address] | + + + | Home Phone [...] + + | Author | [facility] [facility] | + + + [...] + +------+ + | Care Director Of Cardiology Service Line Name | Role | Phone | [...] | on | AMBULATORY [address] | VIDEO PHOTOGRAPHER [address] | consultation | | | | [address] | [place] | | | | | Mailcode: CH6A | [place], [place] | | | | | [place], [place] | [address] | | | | | [address] | [phone] | | | | | [phone] | | | +--------+ + + + [...]
--- OUTSIDE RECORDS SUMMARY | ~2019-06-17 | XMS | Encounter Summary ---
Demographics + + + | Address | [address] | | | [place] [address] | + + + | Home Phone [...] + + + | Author | [facility] [employer] [facility] | + + [...] Team Providers + +------+ + | Care Machined Parts Metal Sprayer Name | Role | Phone | + +------+ + | Nyla Fitzpatrick MD | PCP | | + +------+ + Reason for Visit + + + | Reason | Comments | + + + | Care Coordination | [place] | + + + Encounter Details +--------+ + + + + | Date | Type | Department | Care Team | Description | +--------+ + + + + | 06/30/ | Documentati | Pediatric | Crista Valadez, | Care Coordination | | 2017 | on | Gastroenterology at | MD [address] | ([place]) | | | | Mariaelena | [place], [place] | | | | | [facility] | [address] | | | | | [address] | [phone] | | | | | Vivi Tellez Mailcode: | | | | | | GLENN Ferrell | | | | | | [place], [place] | | | | | | [address] | | | | | | [phone] | | | +--------+ + + + [...]
--- OUTSIDE RECORDS SUMMARY | ~2019-06-17 | XMS | Encounter Summary ---
Demographics + + + | Address | [address] | | | [place] [address] | + + + | Home Phone [...] | Author | [facility] | + + [...] Team Providers + +------+ + | Care Audit Practice Intern Name | Role | Phone | [...] | | | | [facility] | [place] [address] | | | | | [address] | | | | | | Vivi Tellez Mailcode: | | | | | | [facility] Mariaelena | | | | | | [place], [place] | | | | | | [address] | | | | | | [phone] | | | +--------+--------+ + + + [...]
--- OUTSIDE RECORDS SUMMARY | ~2019-06-17 | XMS | Encounter Summary ---
Demographics + + + | Address | [address] | | | [place] [address] | + + + | Home Phone [...] Author + + + | Author | [facility] | + + + [...] Team Providers + +------+ + | Care Ep Tech Name | Role | Phone | + [...] | | | | | Mariaelena | [place], [place] | | | | | [facility] | [address] | | | | | [address] | [phone] | | | | | Vivi Tellez Mailcode: | | | | | | CDRJUAN LUIS Ferrell | | | | | | [place], [place] | | | | | | [address] | | | | | | [phone] | | | +--------+ + + + [...]
--- OUTSIDE RECORDS SUMMARY | ~2019-06-17 | XMS | Encounter Summary ---
Demographics + + + | Address | [address] | | | [place] [address] | + + + | Home Phone [...] Author | [facility] [facility] | + + [...] Team Providers + +------+ + | Care Yarn Salvager Name | Role | Phone | + [...] | | | | | Mariaelena | [place], [place] | | | | | [facility] | [address] | | | | | [address] [facility] | [phone] | | | | | Vivi Tellez Mailcode: | | | | | | [address] | | | | | | [place], [place] | | | | | | [address] | | | | | | [phone] | | | +--------+ + + + [...]
--- OUTSIDE RECORDS SUMMARY | ~2019-06-17 | XMS | Encounter Summary ---
Demographics + + + | Address | [address] | | | [place] [address] | + + + | Home Phone [...] Author | [facility] [employer] [facility] | + [...] Providers + +------+ + | Care Marketing Programs Manager Name | Role | Phone | [...] [place], [place] | | | | | [facility] | [address] | | | | | [address] [facility] | [phone] | | | | | Vivi Tellez Mailcode: | | | | | | [address] | | | | | | [place], [place] | | | | | | [address] | | | | | | [phone] | | | +--------+ + + + [...]
--- OUTSIDE RECORDS SUMMARY | ~2019-06-17 | XMS | Encounter Summary ---
Demographics + + + | Address | [address] | | | [place] [address] | + + + | Home Phone [...] Author | [facility] | + + + [...] Team Providers + +------+ + | Care Advertising Production Manager Name | Role | Phone | [...] | | | | | Mariaelena | [place], [place] | | | | | [facility] | [address] | | | | | [address] | [phone] | | | | | Vivi Tellez Mailcode: | | | | | | CDRJUAN LUIS Ferrell | | | | | | [place], [place] | | | | | | [address] | | | | | | [phone] | | | +--------+ + + + [...] [address] | [place], [place] | [phone] | | [place] | | | | [...] + + | [facility] - | [address] | [place] | [phone] | | [place] | | | | + + + + + documented in this encounter Visit Diagnoses Not on filedocumented in this encounter"
--- OUTSIDE RECORDS SUMMARY | ~2019-06-17 | XMS | Encounter Summary ---
Demographics + + + | Address | [address] | | | [place] [address] | + + + | Home Phone [...] Author + + + | Author | [facility] [employer] [facility] | [...] Team Providers + +------+ + | Care Loom Doffer Name | Role | Phone | + [...] | | | | | [place] | [facility] [place] | | | | | [facility] | [address] | | | | | [address] | [phone] | | | | | Vivi Tellez Mailcode: | | | | | | CDRCP Mariaelena | | | | | | [place], [place] | | | | | | [address] | | | | | | [phone] | | | +--------+ + + + [...]
--- OUTSIDE RECORDS SUMMARY | ~2019-06-17 | XMS | Encounter Summary ---
Demographics + + + | Address | [address] | | | [place] [address] | + + + | Home Phone [...] Team Providers + +------+ + | Care Glazing Machine Operator Name | Role | Phone [...] as of this encounter Progress Notes Interface, Manifold Builder In - 07/10/2006 1:05 AM [facility] [place] [address] [address] or December 12, 1999 Nyla Fitzpatrick M.D. [address] [place] [address] RE: NICKI WOODS MR #: [id number] Dear Dr. Fitzpatrick: I had the pleasure of seeing Nicki at [facility] today in the Pediatric Liver Transplant Clinic and presenting her once again to members of the Pediatric Liver Transplant team from [place], which included Dr. Jose Luis Guillory. Nicki [...] is followed by Dr. Donald Molina, pediatrics teacher. His present medications include Zantac 1 mL [...] O negative. In summary, Nicki is a 18-zxwrb-cve white female who has extrahepatic biliary atresia [...] questions. Sincerely, Kendall Angulo M.D. Pediatric Gastroenterology [facility] / 335889 / 75931 / 22286 / [id number] cc: Jose Luis Guillory M.D. [facility] [address] [facility] [address] [place], [place] Jose F Carnes M.D. [address] [place] [phone] [id number] signed by Interface, Manifold Builder In at 07/10/2006 1:05 AM PSTdocume nted in this encounter Plan of Treatment Not on filedocumented as of this encounter Visit Diagnoses Not on filedocumented in this encounter"
--- OUTSIDE RECORDS SUMMARY | ~2019-06-17 | XMS | Encounter Summary ---
Demographics + + + | Address | [address] | | | [place] [address] | + + + | Home Phone [...] + + | Author | [facility] [employer] [facility] | + + [...] Team Providers + +------+ + | Care Maintenance Specialist Name | Role | Phone | [...] | | | | | Mariaelena | [place], [place] | | | | | [facility] | [address] | | | | | [address] [facility] | [phone] | | | | | Vivi Tellez Mailcode: | | | | | | [address] Ferrell | | | | | | [place], [place] | | | | | | [address] | | | | | | [phone] | | | +--------+ + + + [...]
--- OUTSIDE RECORDS SUMMARY | ~2019-06-17 | XMS | Encounter Summary ---
Demographics + + + | Address | [address] | | | [place] [address] | + + + | Home Phone [...] + | Author | [facility] | [...] Team Providers + +------+ + | Care Lean Coach Name | Role | Phone | + +------+ + | Nyla Fitzpatrick MD | PCP | | + +------+ + Reason for Visit + + + | Reason | Comments | + + + | Care Coordination | [place] | + + + Encounter Details +--------+ + + + + | Date | Type | Department | Care Team | Description | +--------+ + + + + | 06/30/ | Documentati | Pediatric | Crista Valadez, | Care Coordination | | 2017 | on | Gastroenterology at | MD [address] | ([place]) | | | | Mariaelena | [place], [place] | | | | | [facility] | [address] | | | | | [address] | [phone] | | | | | Vivi Tellez Mailcode: | | | | | | GLENN Ferrell | | | | | | [place], [place] | | | | | | [address] | | | | | | [phone] | | | +--------+ + + + [...]
--- OUTSIDE RECORDS SUMMARY | ~2019-06-17 | XMS | Encounter Summary ---
Demographics + + + | Address | [address] | | | [place] [address] | + + + | Home Phone [...] Author + + + | Author | [facility] [facility] | + + + [...] Providers + +------+ + | Care Senior Geologist Name | Role | Phone | + +------+ + | Nyla Fitzpatrick MD | PCP | | + +------+ + Reason for Visit + + + | Reason | Comments | + + + | Care Coordination | [place] request | + + + Encounter Details +--------+ + + + + | Date | Type | Department | Care Team | Description | +--------+ + + + + | 12/08/ | Telephone | Pediatric | Crista Valadez, | Care Coordination | | 2017 | | Gastroenterology at | MD [address] | ([facility]) | | | | [place] | [place], [place] | | | | | [facility] | [address] | | | | | [address] | [phone] | | | | | Vivi Tellez Mailcode: | | | | | | GLENN Ferrell | | | | | | [facility] [place] | | | | | | [address] | | | | | | [phone] | | | +--------+ + + + [...]
--- OUTSIDE RECORDS SUMMARY | ~2019-06-17 | XMS | Encounter Summary ---
Demographics + + + | Address | [address] | | | [place] [address] | + + + | Home Phone [...] + + + | Author | [facility] | + + + [...] Team Providers + +------+ + | Care Systems Spec Name | Role | Phone | + [...] | | | | [facility] | [place] [address] | | | | | [address] | | | | | | Vivi Tellez Mailcode: | | | | | | [facility] Mariaelena | | | | | | [place], [place] | | | | | | [address] | | | | | | [phone] | | | +--------+--------+ + + + [...]
--- OUTSIDE RECORDS SUMMARY | ~2019-06-17 | XMS | Encounter Summary ---
Demographics + + + | Address | [address] | | | [place] [address] | + + + | Home Phone | | + + + | Preferred Language | Unknown | + + + | Marital Status | Single | + + + | Sabianism Affiliation | Unknown | + + + | Race | White | + + + | Ethnic Group | Not or | + + + Author + + + | Author | [facility] [employer] [facility] | + + [...] Team Providers + +------+ + | Care Independent Freight Agent Name | Role | Phone [...] | | | | | Maria[place] | [place], [place] | | | | | [facility] | [address] | | | | | [address] | [phone] | | | | | Vivi Tellez Mailcode: | | | | | | CDRJUAN LUIS Ferrell | | | | | | [place], [place] | | | | | | [address] | | | | | | [phone] | | | +--------+ + + + [...]
--- OUTSIDE RECORDS SUMMARY | ~2019-06-17 | XMS | Encounter Summary ---
Demographics + + + | Address | [address] | | | [place] [address] | + + + | Home Phone [...] + | Author | [facility] [employer] [facility] | + + + | Organization | [facility] | + + [...] Team Providers + +------+ + | Care Processing Mgr Name | Role | Phone | + [...] | | | | Mariaelena | [place], [place] | | | | | [facility] | [address] | | | | | [address] [facility] | [phone] | | | | | Vivi Tellez Mailcode: | | | | | | GLENN Ferrell | | | | | | [place], [place] | | | | | | [address] | | | | | | [phone] | | | +--------+ + + + [...]
--- OUTSIDE RECORDS SUMMARY | ~2019-06-17 | XMS | Encounter Summary ---
Demographics + + + | Address | [address] | | | [place] [address] | + + + | Home Phone [...] Author + + + | Author | [facility] [email or web address] [facility] | + + + [...] Team Providers + +------+ + | Care Centrifugal Operator Name | Role | Phone | [...] [place] | | | | | | [facility] | | | | | | [address] | | | | | | Vivi Tellez Mailcode: | | | | | | GLENN Ferrell | | | | | | [place], [place] | | | | | | [address] | | | | | | [phone] | | | +--------+ + + + [...] [address] | [place], [place] | [phone] | | [place] | | | | + + + + + | [facility] - | | [place], [place] | | | [place] | | [...] + + | [facility] - | [address] | [place], [place] | [phone] | | [place] | | | | [...] + + | [facility] - | [address] | [place], [place] | [phone] | | [place] | | | | + + + + + | [facility] - | | [place], [place] | | | [place] | | [...] + + | [facility] - | [address] | [place], [place] | [phone] | | [place] | | | | + + + + + | [facility] - | | [place], [place] | | | [place] | | [...] [address] | [place] | [phone] | | [place] | | | | [...] + + | [facility] - | [address] | [place], [place] | [phone] | | [place] | | | | [...] + + | [facility] - | [address] | [place], [place] | [phone] | | [place] | | | | [...] + + | [facility] - | [address] | [place] | [phone] | | [place] | | | | [...] [address] | [place] | [phone] | | [place] | | | | + + + + + | [facility] - | | [place], [place] | | | [place] | | [...] - | [address] | [place], [place] | [phone] | | [place] | | | | + + + + + | [facility] - | | [place], [place] | | | [place] | | [address] | [place], [place] | [phone] | | [place] | | | | + + + + + | [facility] - | | [place], [place] | | | [place] | | | | + + + + + documented in this encounter Visit Diagnoses Not on filedocumented in this encounter"
--- OUTSIDE RECORDS SUMMARY | ~2019-06-17 | XMS | Encounter Summary ---
Demographics + + + | Address | [address] | | | [place] [address] | + + + | Home Phone [...] + | Author | [facility] | + + + [...] Team Providers + +------+ + | Care Wire Wrapper Machine Operator Name | Role | Phone [...] | | | | | Mariaelena | [facility] [place] | | | | | [facility] | [address] | | | | | [address] | [phone] | | | | | Vivi Tellez Mailcode: | | | | | | CDRCP Mariaelena | | | | | | [place], [place] | | | | | | [address] | | | | | | [phone] | | | +--------+ + + + [...]
--- OUTSIDE RECORDS SUMMARY | ~2019-06-17 | XMS | Encounter Summary ---
Demographics + + + | Address | [address] | | | [place] [address] | + + + | Home Phone [...] + + | Author | [facility] | + + [...] Team Providers + +------+ + | Care Learning Disabilities Teacher Name | Role | Phone | [...] | on | AM[address]ULATORY [address] | VISUAL DISPLAY ASSOCIATE [address] | consultation | | | | [address] | [place] Vivi Tellez | | | | | Mailcode: CH6A | [place], [place] | | | | | [place] | [address] | | | | | [address] | [phone] | | | | | [phone] | | | +--------+ + + + [...]
--- OUTSIDE RECORDS SUMMARY | ~2019-06-17 | XMS | Encounter Summary ---
Demographics + + + | Address | [address] | | | [place] [address] | + + + | Home Phone [...] + + | Author | [facility] [facility] | [...] Team Providers + +------+ + | Care Tuber Machine Operator Name | Role | Phone [...] | | | | | Mariaelena | [place], [place] | | | | | [facility] | [address] | | | | | [address] | [phone] | | | | | Vivi Geoff Mailcode: | | | | | | [address]ENN Ferrell | | | | | | [place], [place] | | | | | | [address] | | | | | | [phone] | | | +--------+ + + + [...] [address] | [place] | [phone] | | [place] | | | | [...] - | [address] | [place], [place] | [phone] | | [place] | | | | [...] - | [address] | [place], [place] | [phone] | | [place] | | | | [...] [address] | [place] | [phone] | | [place] | | | | [...] + + | [facility] - | [address] | [place] | [phone] | | [place] | | | | + + + + + documented in this encounter Visit Diagnoses Not on filedocumented in this encounter"
--- OUTSIDE RECORDS SUMMARY | ~2019-06-17 | XMS | Encounter Summary ---
Demographics + + + | Address | [address] | | | [place] [address] | + + + | Home Phone [...] + + | Author | [facility] [employer] [facility] | + + [...] Team Providers + +------+ + | Care Retrofit Installer Name | Role | Phone | [...] Mariaelena | | | | | | [facility] | | | | | | [address] | | | | | | Vivi Tellez Mailcode: | | | | | | Mariaelena | | | | | | [place], [place] | | | | | | [address] | | | | | | [phone] | | | +--------+ + + + [...]
--- OUTSIDE RECORDS SUMMARY | ~2019-06-17 | XMS | Encounter Summary ---
Demographics + + + | Address | [address] | | | [place] [address] | + + + | Home Phone [...] | Author | [facility] | [...] Team Providers + +------+ + | Care Washroom Cleaner Name | Role | Phone | + +------+ + PCP | Unavailable | + +------+ + Encounter Details +--------+ + + + + | Date | Type | Department | Care Team | Description | +--------+ + + + + | 03/09/ | Machine Operator Cane Cutter | Pediatric | Crista Valadez, | Transplanted liver | | 2013 | | Gastroenterology at | [address] | (HCC) (Primary Dx) | | | | Mariaelena | [place], [place] | | | | | [facility] | [address] | | | | | [address] | [phone] | | | | | Vivi Geoff Mailcode: | | | | | | GLENN Ferrell | | | | | | [place], [place] | | | | | | [address] | | | | | | [phone] | | | +--------+ + + + [...]
--- OUTSIDE RECORDS SUMMARY | ~2019-06-17 | XMS | Encounter Summary ---
Demographics + + + | Address | [address] | | | [place] [address] | + + + | Home Phone [...] + | Author | [facility] | [...] Team Providers + +------+ + | Care Nutrition Partner Name | Role | Phone | + +------+ + PCP | Unavailable | + +------+ + Encounter Details +--------+ + + + + | Date | Type | Department | Care Team | Description | +--------+ + + + + | 03/09/ | Emergency Department Coordinator | Pediatric | Crista Valadez, | Transplanted liver | | 2013 | | Gastroenterology at | [address] | (HCC) (Primary Dx) | | | | Mariaelena | [place], [place] | | | | | [facility] | [address] | | | | | [address] | [phone] | | | | | Vivi Geoff Mailcode: | | | | | | [address] Ferrell | | | | | | [place], [place] | | | | | | [address] | | | | | | [phone] | | | +--------+ + + + [...]
--- OUTSIDE RECORDS SUMMARY | ~2019-06-17 | XMS | Encounter Summary ---
Demographics + + + | Address | [address] | | | [place] [address] | + + + | Home Phone [...] | Author | [facility] [facility] | + + + [...] Team Providers + +------+ + | Care Cupola Worker Name | Role | Phone | [...] Required | | Complication | | [address] | | | | | s of | | [address] | | | | | transplanted | | Vivi Tellez | | | | | liver | | Mailcode: | | | | | Liver | | [place] | | | | | replaced by | | Mariaelena | | | | | transplant | | [place], [place] | | | | | (HCC) | | [address] | | | | | Procedures | | Phone: | | | | | [place] | | [phone] | | | | | OFFICE/OUTPT | | Fax: | | | | | | | [phone] | | | | | VISIT,EST,LE | | | | | | | [place] | | | | | | | [...] | | 2013 | Visit | at [facility] [address] | [address] | (HCC) (Primary Dx) | | | | [address] | [facility] [place] | | | | | Mailcode: DC7 | [address] | | | | | Mariaelena | [phone] | | | | | [place] | | | | | | [address] | | | | | | [phone] | | | +--------+---------+ + + + [...] lab order sent to [facility] in [facility]. She also said that the reason they have been absent from clinic for so long was due t o insurance issues, but they are now insured. From our phone call it seemed that she was singh ppy to reschedule". Plan: - send orders for her labs (CBC, CMP, GGT) to local lab - schedule a clinic appt with me at [facility] - schedule for the next liver [...]
--- OUTSIDE RECORDS SUMMARY | ~2019-06-17 | XMS | Encounter Summary ---
Demographics + + + | Address | [address] | | | [place] [address] | + + + | Home Phone [...] + | Author | [facility] [facility] | + + + [...] Providers + +------+ + | Care Director Health Name | Role | Phone | + [...] labs | | | | Mariaelena | [place], [place] | overdue, liver US) | | | | [facility] | [address] | | | | | [address] | [phone] | | | | | Vivi Tellez Mailcode: | | | | | | [address] | | | | | | [place], [place] | | | | | | [address] | | | | | | [phone] | | | +--------+ + + + [...]
--- OUTSIDE RECORDS SUMMARY | ~2019-06-17 | XMS | Encounter Summary ---
Demographics + + + | Address | [address] | | | [place] [address] | + + + | Home Phone | | + + + | Preferred Language | Unknown | + + + | Marital Status | Single | + + + | Sabianist Affiliation | Unknown | + + + [...] Team Providers + +------+ + | Care Band Aid Machine Operator Name | Role | Phone [...] as of this encounter Progress Notes Interface, Family Medicine Resident In - 05/18/2006 3:01 AM [facility] [place] [address] [place], [place] [address] or June 03, 2001 KIKI BALLARD M.D. [address] [place] [address] RE: NICKI WOODS MR #: [id number] DATE OF TRANSPLANT: MARCH 24, [address] Ballard: Nicki returned to the Pediatric Gastroenterology Clinic at [facility] today with her parents. It was attended by Dr. Swathi Byrne and Ayde Duran R.N. of the Pediatric Liver Transplant Team visiting from [place]. This is one of her summer annual [...] about 4. 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 She continues to do extremely well with [...] months. Sincerely, Kendall Angulo M.D. Pediatric Gastroenterology [facility] / [id number] / [id number] / [id number] / C: 07/02/2001 ds cc: ISSA GRAYSON M.D. [address] [facility] [address] [place] [address] PAUL BROOKS M.D. [address] [facility] [address] [place] [address] SWATHI BYRNE M.D. [address] [facility]. [address] [place] [address] [id number] signed by Interface, Family Medicine Resident In at 05/18/2006 3:01 AM PDTdoc umented in this encounter Plan of Treatment Not on filedocumented as of this encounter Visit Diagnoses Not on filedocumented in this encounter"
--- OUTSIDE RECORDS SUMMARY | ~2019-06-17 | XMS | Encounter Summary ---
Demographics + + + | Address | [address] | | | [place] [address] | + + + | Home Phone [...] + + | Author | [facility] | + + + | [...] Team Providers + +------+ + | Care Lathe Mechanic Name | Role | Phone | [...] Rd | | | | | [facility] | [place] [address] | | | | | [address] | | | | | | Vivi Tellez Mailcode: | | | | | | CDRCP Mariaelena | | | | | | [place], [place] | | | | | | [address] | | | | | | [phone] | | | +--------+ + + + [...]
--- OUTSIDE RECORDS SUMMARY | ~2019-06-17 | XMS | Encounter Summary ---
Demographics + + + | Address | [address] | | | [place] [address] | + + + | Home Phone [...] | [facility] | + + + [...] Providers + +------+ + | Care Train Planner Name | Role | Phone | + [...] | | | | Mariaelena | [place], [place] | | | | | [facility] | [address] | | | | | [address] | [phone] | | | | | Vivi Tellez Mailcode: | | | | | | Mariaelena | | | | | | [place], [place] | | | | | | [address] | | | | | | [phone] | | | +--------+ + + + [...] [address] | [place], [place] | [phone] | | [place] | | | | [...] [address] | [place], [place] | [phone] | | [place] | | | | + + + + + documented in this encounter Visit Diagnoses Not on filedocumented in this encounter"
--- OUTSIDE RECORDS SUMMARY | ~2019-06-17 | XMS | Encounter Summary ---
Demographics + + + | Address | [address] | | | [place] [address] | + + + | Home Phone [...] + + + | Author | [facility] [employer] [facility] | + + [...] Team Providers + +------+ + | Care Attorney Recruiter Name | Role | Phone | [...] | Liver | Nyla Shields MD | [facility] [address] | | | Required | ogy [...] | | | | | [address] | [place], [place] | | | | | | [place], | [address] | | | | | | [place] [address] | Phone: | | | | | | Phone: | [phone] | | | | | | [phone] | Fax: | | | | | | Fax: | [phone] | | | | | | [phone] | | +--------+ + + + + + Encounter Details +--------+---------+ + + + | Date | Type | Department | Care Team | Description | +--------+---------+ + + + | 06/07/ | Office | Specialty Clinics | [place] Leonardo MD | Complications of | | 2008 | Visit | at [facility] [address] [facility] | | Transplanted Liver; | | | | [address] | | Transplanted Liver | | | | Mailcode: [facility] | | (HCC) | | | | Mariaelena | | | | | | [place], [place] | | | | | | [address] | | | | | | [phone] | | | +--------+---------+ + + + [...] cough, fever, muscle pains, then call your [facility] doctor immediately to start Tamiflu 7. change in medications: non3 8. Return to clinic in 12 months documented in this encounter Progress Notes [place] Leonardo MD - 06/07/2009 11:17 AM PDTFormatting of this note might be different from t he original. Nicki Woods is an 8 y.o. female, who is referred by Nyla Fitzpatrick, who returns to [facility] for transplant followup. Dr Guillory from [place] was an observ er in clinic today. Patient Active Problem List: VSD (Ventricular Septal Defect)[745.4Y] Comment: With polysplenia Aortic Valve Insufficiency[424.1F] Transplanted Liver[V42.7R] Comment: For biliary atresia, 03/24/2000 at [place] Current outpatient prescriptions prior to encounter Medication [...] better about them". She is seeing her medical assistant prn every 2 years and last saw him [...] Liver[V42.7R] Comment: For biliary atresia, 03/24/2000 at [place] Plan: 1. CBC, primary transplant panel, drug [...]
--- OUTSIDE RECORDS SUMMARY | ~2019-06-17 | XMS | Encounter Summary ---
Demographics + + + | Address | [address] | | | [place] [address] | + + + | Home Phone [...] Author + + + | Author | [facility] | + + + [...] Team Providers + +------+ + | Care Reception Agent Name | Role | Phone | [...] | Liver | Nyla Shields MD | [facility] [address] | | | Required | ogy | [...] | | | | | [address] | [place], [place] | | | | | | [place], | [address] | | | | | | [place] [address] | Phone: | | | | | | Phone: | [phone] | | | | | | [phone] | Fax: | | | | | | Fax: | [phone] | | | | | | [phone] | | +--------+ + + + + [...] | | | | | | [facility] | | | | | | [address] | | | | | | Vivi Tellez Mailcode: | | | | | | CDRCP Mariaelena | | | | | | [place], [place] | | | | | | [address] | | | | | | [phone] | | | +--------+ + + + [...]
--- OUTSIDE RECORDS SUMMARY | ~2019-06-17 | XMS | Encounter Summary ---
Demographics + + + | Address | [address] | | | [place] [address] | + + + | Home Phone [...] | Author | [facility] [employer] [facility] [facility] | + + [...] Team Providers + +------+ + | Care Network Cable Installer Name | Role | Phone | [...] | | | | | Mariaelena | [place], [place] | | | | | [email or web address]] | [address] | | | | | [address] [facility] | [phone] | | | | | Vivi Tellez Mailcode: | | | | | | [address] Fer[address] | | | | | | [place], [place] | | | | | | [address] | | | | | | [phone] | | | +--------+ + + + [...]
--- OUTSIDE RECORDS SUMMARY | ~2019-06-17 | XMS | Encounter Summary ---
Demographics + + + | Address | [address] | | | [place] [address] | + + + | Home Phone [...] Author + + + | Author | [facility] | [...] Team Providers + +------+ + | Care Poke In Name | Role | Phone | + +------+ + | Nyla Fitzpatrick MD | PCP | | + +------+ + Encounter Details +--------+ + + + + | Date | Type | Department | Care Team | Description | +--------+ + + + + | 01/21/ | Document-Sc | UNKNOWN DEPARTMENT | Unknown . | | | 2016 | anned | [address] | | | | | | [address] | | | | | | [place], [place] | | | | | | [address] | | | +--------+ + + + [...]
--- OUTSIDE RECORDS SUMMARY | ~2019-06-17 | XMS | Encounter Summary ---
Demographics + + + | Address | [address] | | | [place] [address] | + + + | Home Phone [...] + + | Author | [facility] | + + + | Organization | [facility] | + + [...] Team Providers + +------+ + | Care Scheduling Agent Name | Role | Phone | [...] | and counseling | | | | [facility] | | | | | | [address] | | | | | | Vivi Tellez Mailcode: | | | | | | Mariaelena | | | | | | [place], [place] | | | | | | [address] | | | | | | [phone] | | | +--------+ + + + [...]
--- OUTSIDE RECORDS SUMMARY | ~2019-06-17 | XMS | Encounter Summary ---
Demographics + + + | Address | [address] | | | [place] [address] | + + + | Home Phone [...] + | Author | [facility] [email or web address] [facility] | + [...] Team Providers + +------+ + | Care Pot Pusher Name | Role | Phone | + [...] | | | | Mariaelena | [place], [place] | | | | | [facility] | [address] | | | | | [address] | [phone] | | | | | Vivi Tellez Mailcode: | | | | | | CDRCP Doerrochelleмарина | | | | | | [place], [place] | | | | | | [address] | | | | | | [phone] | | | +--------+ + + + [...]
--- OUTSIDE RECORDS SUMMARY | ~2019-06-17 | XMS | Encounter Summary ---
Demographics + + + | Address | [address] | | | [place] [address] | + + + | Home Phone [...] + | Author | [facility] | + + + [...] Team Providers + +------+ + | Care Medical Insurance Claims Specialist Name | Role | Phone | [...] labs | | | | Mariaelena | [place], [place] | overdue, liver US) | | | | [facility] | [address] | | | | | [address] | [phone] | | | | | Vivi Tellez Mailcode: | | | | | | [address] | | | | | | [place], [place] | | | | | | [address] | | | | | | [phone] | | | +--------+ + + + [...]
--- OUTSIDE RECORDS SUMMARY | ~2019-06-17 | XMS | Encounter Summary ---
Demographics + + + | Address | [address] | | | [place] [address] | + + + | Home Phone [...] + | Author | [facility] [employer] [facility] | + + + [...] Team Providers + +------+ + | Care Automation Manager Name | Role | Phone | [...] | | | | | | | [place], [place] | | | | | | | [address] | | | | | | | Phone: | | | | | | | [phone] | | | | | | | Fax: | | | | | | | [phone] | +--------+ + + + + + Encounter Details +--------+---------+ + + + | Date | Type | Department | Care Team | Description | +--------+---------+ + + + | 04/27/ | Office | Pediatric | Crista Valadez, | Immunosuppressed | | 2013 | Visit | Gastroenterology at | [address] | status (HCC) | | | | [place] | [place], [place] | (Primary Dx); | | | | [facility] | [address] | Noncompliance with | | | | [address] | [phone] | treatment; BP (high | | | | [address] Mailcode: | | blood pressure); | | | | CDRCP [address] | | Transplanted liver | | | | [place], [place] | | ([facility]); VSD | | | | [address] | | (ventricular septal | | | | [phone] | | defect); Aortic | | | [...] transplant for biliary atresia i 1999 at [facility]. She was last seen [...] and to come for clinic visit at [facility]. She is accompanied by her father today. Today, she denies any pain, nausea, emesis, diarrhe a or constipation. No fever. She reports she takes tacrolimus one pill once daily. Father reports she has not been takin g regularly [employer], Nicki's last cardiology note is from [address] Nyla Fitzpatrick, solutions engineer at [facility]. Her cardiac dx includes 1) [...] has an appointment with cardiol estrellita at [facility] soon. Current Outpatient Prescriptions Medication Sig PROGRAF 1 mg Oral Capsule Take 1 Cap by mouth two times daily. Allergies Allergen Reactions Sulfa (Sulfonamide Antibiotics) Hives and Swelling-Facial Varicella Vaccines Possible reaction with sulfa meds Past Medical History Diagnosis Date Biliary atresia Past Surgical History Procedure Laterality Date Liver transplant 03/24/2000 at [facility] Family History No liver problems SHx: lives [...] they will be able to come to [facility] when [facility] team is here next time. I strongly [...] 2014. - cardiology fu locally and at [facility] At this visit: Patient accompanied by: father Gmat Instructor used:no Psychosocial or economic issues that may [...] Crista Valadez MD Pediatric Gastroenterology Consult line: [phone] documented in this en counter Plan of [...]
--- OUTSIDE RECORDS SUMMARY | ~2019-06-17 | XMS | Clinical Summary ---
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
--- OUTSIDE RECORDS SUMMARY | ~2019-06-17 | XMS | Encounter Summary ---
Demographics + + + | Address | [address] | | | [place] [address] | + + + | Home Phone [...] | [facility] | + + [...] Providers + +------+ + | Care Chief Supply Chain Officer Name | Role | Phone | [...] | and counseling | | | | [facility] | | | | | | [address] | | | | | | [address] Tellez Mailcode: | | | | | | Mariaelena | | | | | | [place], [place] | | | | | | [address] | | | | | | [phone] | | | +--------+ + + + [...]
--- OUTSIDE RECORDS SUMMARY | ~2019-06-17 | XMS | Encounter Summary ---
Demographics + + + | Address | [address] | | | [place] [address] | + + + | Home Phone [...] Author + + + | Author | [facility] [employer] [facility] | + + [...] Team Providers + +------+ + | Care Premix Concrete Batcher Name | Role | Phone | + [...] [place], [place] | | | | | [facility] | [address] | | | | | [address] | [phone] | | | | | Vivi Tellez Mailcode: | | | | | | CDRJUAN [address]IS [address]rell | | | | | | [place], [place] | | | | | | [address] | | | | | | [phone] | | | +--------+ + + + [...] AT,GLUC,CA,AST,ALT,B | | | | | | WAED TOTAL,ALK | | | | | | [...] [address] | [place], [place] | [phone] | | [place] | | | | [...] + + | [facility] - | [address] | [place] | [phone] | | [place] | | | | + + + + + documented in this encounter Visit Diagnoses Not on filedocumented in this encounter"
--- OUTSIDE RECORDS SUMMARY | ~2019-06-17 | XMS | Encounter Summary ---
Demographics + + + | Address | [address] | | | [place] [address] | + + + | Home Phone [...] Author | [facility] [employer] [facility] | + + + [...] Team Providers + +------+ + | Care Recreational Programs Director Name | Role | Phone | [...] | | | | | | [facility] | | | | | | [address] | | | | | | Vivi Tellez Mailcode: | | | | | | [address] | | | | | | [place], [place] | | | | | | [address] | | | | | | [phone] | | | +--------+ + + + [...]
--- OUTSIDE RECORDS SUMMARY | ~2019-06-17 | XMS | Encounter Summary ---
Demographics + + + | Address | [address] | | | [place] [address] | + + + | Home Phone [...] + + | Author | [facility] | + [...] Team Providers + +------+ + | Care Magazine Grinder Loader Name | Role | Phone | + [...] | | | | | [place] | [place], [place] | | | | | [facility] | [address] | | | | | [address] | [phone] | | | | [address] Mailcode: | | | | | | CDR [place] | | | | | | [place], [place] | | | | | | [address] | | | | | | [phone] | | | +--------+ + + + [...] [address] | [place], [place] | [phone] | | [place] | | | | [...] + + | [facility] - | [address] | [place] | [phone] | | [place] | | | | + + + + + documented in this encounter Visit Diagnoses Not on filedocumented in this encounter"
--- OUTSIDE RECORDS SUMMARY | ~2019-06-17 | XMS | Encounter Summary ---
Demographics + + + | Address | [address] | | | [place] [address] | + + + | Home Phone [...] Team Providers + +------+ + | Care Speech Therapist Early Intervention Name | Role | Phone | + [...] as of this encounter Progress Notes Interface, Pond Worker In - 07/26/2006 3:[address] [address] or June 13, 1999 Nyla Fitzpatrick M.D. [address] [place] [address] [address] [place] [address] RE: NICKI WOODS MR #: [id number] Dear Amari: Nicki was evaluated at [facility] in the Pediatric Liver Transplantation Clinic for the first time today by members of the [place] [facility] which included Van Guillory M.D. and Kallie Don R.N., Pediatric Liver Hot Saw Helper. I presented Nicki to the team in [...] (this information has been forwarded from the Certification Technician at [facility] to the cardiologists at [place]). She was eventually found to have biliary [...] bilirubin was elevated She was admitted to [facility] for a treatment of possible cholangitis. [...] K, and iron. Her parents live in [place], [place] approximately four hours from [place]. They and the rest of the family [...] later half of the visit today at [facility], the family spent conversing with family literacy coordinator regarding many of the practical aspects [...] you have any questions. Kendall Angulo M.D. [facility] / [id number] / [id number] / [id number] / cc: Luis Carnes M.D. [address] [place] [id number] Van Guillory M.D. [address] [place] [id number] Lukasz Guerrero M.D. [address] [place] [phone] [id number] signed by Interface, Pond Worker In at 07/26/2006 3:10 AM PSTdocume nted in this encounter Plan of Treatment Not on filedocumented as of this encounter Visit Diagnoses Not on filedocumented in this encounter"
--- OUTSIDE RECORDS SUMMARY | ~2019-06-17 | XMS | Encounter Summary ---
Demographics + + + | Address | [address] | | | [place] [address] | + + + | Home Phone [...] + + | Author | [facility] | [...] Team Providers + +------+ + | Care Pretzel Twister Name | Role | Phone | + [...] Gastroenterol | | Nyla De Leon, | [facility] [address] | | | | og[place]in | | MD GUZMANS | [address] [place] | | | | | | SPECIALISTS | Vivi Tellez | | | | | | OF [place] | Mailcode: | | | | | | [address] | CDRCP | | | | | | [address] | [place] | | | | | | [place], | [place], [place] | | | | | | [place] [address] | [address] | | | | | | Phone: | Phone: | | | | | | [phone] | [phone] | | | | | | Fax: | Fax: | | | | | | [phone] | [phone] | +--------+--------+ + + + + Encounter Details +--------+---------+ + + + | Date | Type | Department | Care Team | Description | +--------+---------+ + + + | 03/01/ | Office | Pediatric | Crista Valadez, | Polysplenia (Primary | | 2015 | Visit | Gastroenterology at | [address] | Dx); Transplanted | | | | [place] | [place], [place] | liver (HCC); | | | | [facility] | [address] | Interrupted inferior | | | | [address] [facility] | [phone] | vena cava; Aortic | | | | [address]elle[address] Mailcode: | | insufficiency; | | | | CD[facility] [place] | | Aortic root | | | | [place], [place] | | dilatation (HCC) | | | | [address] | | | | | | [phone] | | | +--------+---------+ + + + [...] Visit type: Follow-up Patient accompanied by: mother Head End Desizing Machine Operator used: no CC: - Post-liver transplant care - High risk medication management Patient Active Problem List Diagnosis Transplanted Liver VSD (ventricular septal defect), perimembranous Polysplenia Interrupted inferior vena cava Aortic insufficiency Aortic root dilatation PAST Hx/jennings: 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 She was last seen by Dr Leonardo in 2008. In 2009, it was noticed that she has not been seen, attempts to reach to family was unsucces sful. lost to follow up since that time. - Cardiology: last cardiology note is from [address] Nyla Fitzpatrick, telecommunications linesworker at [facility]. Her cardiac dx includes 1) moderate perimembraneous [...] Procedure Laterality Date Liver transplant 03/24/2000 at [place] Vsd repair, amplatzer device 06/01/2014 8-mm Amplatzer [...] Dr. Van Guillory and GIO Ludwig from [facility] [facility] were present as [...] Crista Valadez MD Pediatric Gastroenterology Consult line: [phone] documented in this en counter Plan of [...]
[2019-06-17] MEDS ORDERED: NORVASC5 MG PO (08:09)
[2019-06-17] MEDS ORDERED: LISINOPRIL20 MG PO (08:09)
[2019-06-17] MEDS ORDERED: LISINOPRIL-HCT1 EACH PO (08:11)
--- NOTE | 2019-06-17 12:38 | NUR ---
IV SITE IS INTACT, NO REDNESS OR SWELLING NOTED, FLUSHES EASILY. PT DENIES PAIN, NAUSEA, AND SOB. PT FAMILY IS AT THE BEDSIDE. PT REPORTS FEELING HUNGRY FOR A FEW BITES OF MASHED POTATOES.
--- NOTE | 2019-06-17 15:47 | NUR ---
MED REC COMPLETED.
--- NOTE | 2019-06-17 17:12 | NUR ---
WITH AMBULATION PT HAD ELEVATED HR TO 122, PT DENIES ANY SYMPTOMS WITH THIS. PT DENIES NAUSEA, SOB, AND PAIN. PT ABLE TO AMBULATE WITH STAND BY ASSIST ONLY.
--- NOTE | 2019-06-17 18:25 | NUR ---
PT ABLE TO ELIA 100% OF DINNER, DENIES NAUSEA, DIARRHEA AND VOMITING. PT IS ALERT AND ORIENTED SITTING UP IN BED WITH WORKING ON LAPTOP COMPUTER. PT REMAINS SLIGHTLY HYPOTENSIVE AT 98/44 (57). PT DENIES ANY LIGHTHEADEDNESS.
--- NOTE | 2019-06-17 19:30 | NUR ---
REPORT RECEIVED FROM DAY SHIFT RN. PT IN BED WITH SIG OTHER IN ROOM, DENIES NEEDS AT THIS TIME.
--- NOTE | 2019-06-17 20:15 | NUR ---
ASSESSMENT DONE. PT DENIES PAIN/NEEDS. LOW BLOOD PRESSURES NOTED, WILL CONT TO MONITOR.
--- NOTE | 2019-06-17 22:17 | NUR ---
DR BURGESS UPDATED REGARDING CONT HYPOTENSION. LAST BP WAS 90/32 ON MONITOR, 82/30 DONE MANUALLY, HR 80'S, RR 20. NO ORDERS AT THIS TIME, CONT TO MONITOR. PT AWAKE AND DENIES NEEDS/PAIN/NAUSEA.
--- NOTE | 2019-06-18 02:00 | NUR ---
PT CONT TO SLEEP. HR 70'S, BPS LOW BUT NOT DROPPING. CONT TO MONITOR.
--- NOTE | 2019-06-18 04:46 | NUR ---
UP TO VOID, DENIES LIGHTHEADEDNESS/DIZZINESS, HR REMAINS STEADY WHILE UP. STATES "THIS IS THE BEST JEFERSON FELT SINCE BEFORE I GOT SICK". BACK TO BED, SNACK GIVEN PER REQUEST. DENIES PAIN/NAUSEA.
--- NOTE | 2019-06-18 07:29 | NUR ---
PATIENT CALLED FOR ASSISTANCE. PATIENT AMBULATED TO BATHROOM TO VOID WITH SUPERVISION. PATIENT IS STEADY ON HER FEET. LINENS CHANGED AND READJUSTED NEEDED. PATIENT SITTING UP IN BEDSIDE RECLINER, CALL LIGHT IN REACH, FAMILY IN ROOM. NO OTHER NEEDS AT THIS TIME.
--- NOTE | 2019-06-18 08:35 | NUR ---
PATIENT SITTING UP IN CHAIR AFTER EATING BREAKFAST THIS AM. PT EAGER TO GO HOME. PT STATES SHE IS FEELING MUCH BETTER, BUT TIRED. DR. ONTIVEROS'S OFFICE TOB E CALLED ONCE OPEN TO MAKE A FOLLOW UP APPOINTMENT FOR PATIENT. ASSESSMENT COMPLETE. LAST BP 97/59 (68).
== END 2019-06-18 09:30 | disposition home or self-care (01) ==
LOC: ED 07:51 → CCU 07:52
PROVIDERS: ADMIT Internal Medicine
DX: N17.9 Acute kidney failure, unspecified (principal); E86.0 Dehydration; A08.4 Viral intestinal infection, unspecified; I10 Essential (primary) hypertension; Z79.899 Other long term (current) drug therapy; Z88.2 Allergy status to sulfonamides; Z94.4 Liver transplant status
CPT/HCPCS: 36415; 80048; 80053; 81001; 82570; 84300; 84540; 84703; 85025; 96361; 96374; 99285-25; G0378; J2405; J7030; J7121

== ENCOUNTER 2020-02-03 23:12 | Emergency (ER) | payer OTHER ==
[~2020-02-03] VITALS: Ht 167.6 cm; Wt 100.7 kg
[~2020-02-03 23:12] MED LIST: LISINOPRIL-HCT1 EACH PO; LISINOPRIL20 MG PO; NORVASC5 MG PO
[2020-02-03] MEDS ORDERED: AMLODIPINE BESYL5 MG PO (23:25)
[2020-02-03] MEDS ORDERED: MEDROXYPRO150 MG/1 M IM (23:25)
--- NOTE | 2020-02-04 07:53 | EKG ---
[facility] [address] [facility] [place] [address] Signed Normal sinus rhythm Minimal voltage criteria for LVH, may be normal variant Nonspecific ST abnormality Abnormal ECG No previous ECGs available Confirmed by NORBERT WHITTAKER MD ([id number]) on 02/04/2020 7:52:58 AM Electronically Signed By: NORBERT WHITTAKER MD 02/04/20 0753 PATIENT NAME: JADA RODRIGUEZ JANE Electrocardiogram DATE OF : [birth year] PHYSICIAN: NORBERT WHITTAKER MD REPORT #: [id number] REPORT IS CONFIDENTIAL AND NOT TO BE RELEASED WITHOUT AUTHORIZATION
== END 2020-02-04 01:14 | disposition home or self-care (01) ==
LOC: ED 23:12
DX: F41.0 Panic disorder [episodic paroxysmal anxiety] (principal); I10 Essential (primary) hypertension; Z79.899 Other long term (current) drug therapy; Z88.2 Allergy status to sulfonamides
CPT/HCPCS: 71046; 80053; 84484; 85025; 85379; 93005; 93010; 99284-25

== ENCOUNTER 2020-05-29 11:50 | Emergency (ER) | payer OTHER ==
[~2020-05-29] VITALS: Ht 167.6 cm; Wt 93.9 kg
--- OUTSIDE RECORDS SUMMARY | ~2020-05-29 | XMS | Encounter Summary ---
Demographics + + + | Address | [address] | | | [place] [address] | + + + | Home Phone | | + + + | Preferred Language | Unknown | + + + | Marital Status | Single | + + + | Presybeterian Affiliation | Unknown | + + + | Race | White | + + + | Ethnic Group | Not or | + + + Author + + + | Author | [facility] | + + + | Organization | [facility] | + + + | Address [...] Team Providers + +------+ + | Care Agricultural Engineering Technologist Name | Role | Phone | + [...] Gastroenterology at | MD [address] | | | | | [place] | [place], [place] | | | | | [facility] | [address] | | | | | [address] | [phone] | | | | | [facility] | | | | | | [facility], | | | | | | 7th floor | | | | | | [place], [place] | | | | | | [address] | | | | | | [phone] | | | +--------+ + + + [...] on file | | + + + documented as of this encounter Miscellaneous Notes Telephone Encounter - Nikki Oakley RN - 10/10/2014 2:48 PM PSTReceived the following not e from Dr. [facility]: Notes Recorded by Crista Valadez MD on 10/10/2014 at 10:27 AM Labs normal, routed deblocker to inform family, YE Sent a letter to address in demographics to inform family. documented in this encounter Plan of Treatment Not on filedocumented as of this encounter Visit Diagnoses Not on filedocumented in this encounter"
--- OUTSIDE RECORDS SUMMARY | ~2020-05-29 | XMS | Encounter Summary ---
Demographics + + + | Address | [address] | | | [place] [address] | + + + | Home Phone | | + + + | Preferred Language | Unknown | + + + | Marital Status | Single | + + + | Holiness Affiliation | Unknown | + + + | Race | White | + + + | Ethnic Group | Not or | + + + Author + + + | Organization | Unknown | + + + | Address | [...] Team Providers + +------+ + | Care College Archivist Name | Role | Phone | + +------+ + | Nyla Fitzpatrick MD | PCP | | + +------+ + Encounter Details +--------+ + + + + | Date | Type | Department | Care Team | Description | +--------+ + + + + | 12/10/ | Transcribed | | Dictation, Other | Transcribed | | 2000 | | | | | +--------+ + + + [...] + + documented as of this encounter Progress Notes Interface, Radio Division Captain In - 06/14/2006 5:04 AM [facility] [place] [address] [address] or December 10, 2000 Nyla Fitzpatrick M.D. [address] [facility]. [place]. [address] [place] [address] RE: NICKI WOODS MR #: [id number] Dear Dr. Fitzpatrick: I had the pleasure of seeing Nicki in the Pediatric Liver Transplant Clinic at [facility] today attended by Dr. Jose Luis Guillory of the [facility] for Dr. Carnes. 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 She has had a relatively uneventful posttransplant course and is doing reasonably well. The only clinical concern today is intermittent yet chronic mild diarrhea and intestinal gas which produces abdominal discomfort and pain. Since the intake of fruit juice and milk products have been reduced, her diarrhea is better but the gas persists. There is no fever, vomiting, weight loss, or blood in the stool, but the mother is yet concerned. No studies have been done. She is otherwise doing well. Her present medications include Prograf 5 mL b.i.d. (0.5 mg/mL), acyclovir (200 mg/5mL), 2.75 mL (110 mg) b.i.d., and monthly pentamidine. She missed the pentamidine last month, so the plan is to get it soon. SHE IS ALLERGIC TO SULFA. On exam, she weighs 12.92 kg and measures 87.2 cm. Both parameters are close to the 50th percentile for age and represent normal increases. Blood pressure is 107/52, pulse is 120, and head circumference is 50.4 cm. She is slightly pale yet active, alert, and playful. She has no adenopathy. Her abdomen is slightly distended, and her liver is several centimeters below the right costal margin, although it is soft and not enlarged. Her spleen is palpable (or spleens since she has polysplenia), and she has an adequate amount of fat and muscle in her extremities. The last laboratory tests were on July 24, 2000. There were no significant abnormalities except a slightly elevated phosphorus of 8.0. Her tacrolimus level was 7.6. Alesha-James virus serology showed positive viral capsule antigen IgG but negative IgM, and negative EBV DNA PCR. 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 We need to make some changes in her posttransplant management. The first goal is to get her Prograf level down. The first step will be to decrease her Prograf dose to 4 mL b.i.d. or 4 mg a day divided b.i.d. The mother will do this today. In one week, she will need laboratory tests that will include a chemistry panel, CBC, and Prograf level. Then, she will get labs one month later. She needs to have labs done monthly. If she has normal laboratory tests for 2 months after a reduction in Prograf dose, then another change can be made. Her dose should be decreased by 1 mg a day which is 1 mL in the morning and 1 mL at night. The goal is to get her down to 1 to 2 g a day, although 3 g a day would be acceptable. The Prograf blood level goal is 3 to 5 ng/mL. Posttransplant patients usually receive monthly labs for the first 12 months following transplant. During the second year, if everything is going well, they can have their laboratory tests drawn every 6 weeks. During the third year, if all goes well, they can have the blood test done every other month. During the third and fourth years and thereafter, every third month labs is acceptable, again, given the provision of an uneventful course. When her Prograf dose is down to 3 mg a day (or 3 mL b.i.d.), her EBV serology and DNA PCR should be checked again. If it is negative, then the acyclovir can be discontinued. Finally, again, when her Prograf dose is down to 3 mg a day, she should receive hepatitis A and B vaccines if they have not already been given. Given that when the Prograf dose is so elevated, often it is associated with ineffectiveness, and obviously, immunosuppression patients should not receive live virus vaccines such as the measles vaccine. Nicki should be seen again in 6 months when the transplant team visits [place] again. Please let me know if you have any questions. Sincerely, Kendall Angulo M.D. Pediatric Gastroenterology [facility] / [id number] / [id number] / [id number] / [id number] cc: Jose F Carnes M.D. [address] [facility] [address] [place] [address] Kam Guerrero M.D. [address] [facility] [address] [place] [address] Jose Luis Guillory M.D. [address] [facility] [place] [place] [address] [id number] signed by Interface, Radio Division Captain In at 06/14/2006 5:04 AM PSTdocume nted in this encounter Plan of Treatment Not on filedocumented as of this encounter Visit Diagnoses Not on filedocumented in this encounter"
--- OUTSIDE RECORDS SUMMARY | ~2020-05-29 | XMS | Encounter Summary ---
Demographics + + + | Address | [address] | | | [place] [address] | + + + | Home Phone | | + + + | Preferred Language | Unknown | + + + | Marital Status | Single | + + + | Muslim Affiliation | Unknown | + + + | Race | White | + + + | Ethnic Group | Not or | + + + Author + + + | Author | [facility] | + + + | Organization | [facility] | + + + | [...] Team Providers + +------+ + | Care Campaign Marketing Specialist Name | Role | Phone | + +------+ + | Nyla Fitzpatrick MD | PCP | | + +------+ + Encounter Details +--------+ + + + + | Date | Type | Department | Care Team | Description | +--------+ + + + + | 10/10/ | Abstract | Pediatric | Crista Valadez, | | | 2014 | | Gastroenterology at | [address] | | | | | [place] | [place], [place] | | | | | [facility] | [address] | | | | | [address] | [phone] | | | | | jimbo | | | | | | [facility], | | | | | | [address] [place] [address] | | | | | | [place], [place] | | | | | | [address] | | | | | | [phone] | | | +--------+ + + + [...] | + +--------+ + + + | CHOLESTEROL, TOTAL | Routin | 10/05/2014 | | Results for this | | (EXTERNAL RESULTS | e | 3:11 PM | | procedure are in the | | ONLY) | | PST | | results section. | + +--------+ + + + | CBC, WITH | Routin | 10/05/2014 | | Results for this | | DIFFERENTIAL | e | 3:11 PM | | procedure are in the | | | | PST | | results section. | + +--------+ + + + | COMPLETE METABOLIC | Routin | 10/05/2014 | | Results for this | | SET | e | 3:11 PM | | procedure are in the | | (NA,K,CL,CO2,BUN,CRE | | PST | | results section. | | AT,GLUC,CA,AST,ALT,B | | | | | | WADE TOTAL,ALK | | | | | | PHOS,ALB,PROT TOTAL) | | | | | + +--------+ + + + | PHOSPHORUS, PLASMA | Routin | 10/05/2014 | | Results for this | | | e | 3:11 PM | | procedure are in the | | | | PST | | results section. | + +--------+ + + + | GGT, PLASMA | Routin | 10/05/2014 | | Results for this | | | e | 3:11 PM | | procedure are in the | | | | PST | | results section. | + +--------+ + + + | URIC ACID, PLASMA | Routin | 10/05/2014 | | Results for this | | | e | 3:11 PM | | procedure are in the | | | | PST | | results section. | + +--------+ + + + | MAGNESIUM, PLASMA | Routin | 10/05/2014 | | Results for this | | | e | 3:11 PM | | procedure are in the | | | | PST | | results section. | + +--------+ + + + | TRIGLYCERIDES, | Routin | 10/05/2014 | | Results for this | | PLASMA | e | 3:11 PM | | procedure are in the | | | | PST | | results section. | + +--------+ + + + | LDH TOTAL, PLASMA | Routin | 10/05/2014 | | Results for this | | | e | 3:11 PM | | procedure are in the | | | | PST | | results section. | + +--------+ + + + documented in this encounter Results CBC, WITH DIFFERENTIAL (10/05/2014 3:11 PM PST) + + + + + + | Component | Value | Ref Range | Performed | Pathologist | | | | | At | Signature | + + + + + + | WHITE CELL | 10.7 | 4.5 - 11.0 K/cu | [facility] | | | COUNT | | mm | LAB - | | | | | | [place] | | + + + + + + | RED CELL | 4.62 | 3.8 - 5.1 M/cu | [facility] | | | COUNT | | mm | LAB - | | | | | | [place] | | + + + + + + | HEMOGLOBIN | 14.3 | 12 - 16 g/dL | [facility] | | | | | | LAB - | | | | | | [place] | | + + + + + + | HEMATOCRIT | 41.4 | 35 - 45 % | [facility] | | | | | | LAB - | | | | | | [place] | | + + + + + + | MCV | 89.5 | 81 - 99 fL | [facility] | | | | | | LAB - | | | | | | [place] | | + + + + + + | MCH | 31 | 27 - 33 pg | [facility] | | | | | | LAB - | | | | | | [place] | | + + + + + + | MCHC | 35 | 30 - 36 g/dL | [facility] | | | | | | LAB - | | | | | | [place] | | + + + + + + | PLATELET | 370 | 140 - 440 K/cu | [facility] | | | COUNT | | mm | LAB - | | | | | | [place] | | + + + + + + | NEUTROPHIL | 70.4 | 39 - 80 % | [facility] | | | % | | | LAB - | | | | | | [place] | | + + + + + + | LYMPHOCYTE | 20.5 (A) | 24 - 44 % | [facility] | | | % | | | LAB - | | | | | | [place] | | + + + + + + | MONOCYTE % | 6.7 | 0 - 12 % | [facility] | | | | | | LAB - | | | | | | [place] | | + + + + + + | EOS % | 2.1 | 0 - 6 % | [facility] | | | | | | LAB - | | | | | | [place] | | + + + + + + | BASO % | 0.6 | 0 - 2 % | [facility] | | | | | | LAB - | | | | | | [place] | | + + + + + + | RDW | 13 | 10.5 - 15 % | [facility] | | | | [...] - | [address] | [place] | [phone] | | [place] | | | | + + + + + MAGNESIUM, PLASMA (10/05/2014 3:11 PM PST) + +-------+ + + + | Component | Value | Ref Range | Performed | Pathologist | | | | | At | Signature | + +-------+ + + + | MAGNESIUM | 1.8 | 1.7 - 2.5 mg/dL | [facility] | | | | [...] - | [address] | [place] | [phone] | | [place] | | | | + + + + + GGT, PLASMA (10/05/2014 3:11 PM PST) + +-------+ + + + | Component | Value | Ref Range | Performed | Pathologist | | | | | At | Signature | + +-------+ + + + | GAMMA | 7 | 5 - 60 U/L | [facility] | | | GLUTAMYL | | | LAB - | | | TRANS | | | [place] | | + +-------+ + + + + + | Specimen | + + | Blood - Blood | + + + + + + + | Performing | Address | City/State/Zipcode | Phone Number | | Organization | | | | + + + + + | [facility] - | [address] | [place] | [phone] | | [place] | | | | + + + + + COMPLETE METABOLIC SET (NA,K,CL,CO2,BUN,CREAT,GLUC,CA,AST,ALT,BILI TOTAL,ALK PHOS,ALB,PROT TOTAL) (10/05/2014 3:11 PM PST) + +--------+ + + + | Component | Value | Ref Range | Performed | Pathologist | | | | | At | Signature | + +--------+ + + + | GLUCOSE, | 77 | 70 - 100 mg/dL | [facility] | | | PLASMA | | | LAB - | | | (LAB) | | | [place] | | + +--------+ + + + | BUN, PLASMA | 14 | 6 - 23 mg/dL | [facility] | | | (LAB) | | | LAB - | | | | | | [place] | | + +--------+ + + + | CREATININE | 0.66 | 0.60 - 1.20 | [facility] | | | PLASMA | | mg/dL | LAB - | | | (LAB) | | | [place] | | + +--------+ + + + | TOTAL | 7.4 | 6.1 - 8.5 g/dL | [facility] | | | PROTEIN, | | | LAB - | | | PLASMA | | | [place] | | | (LAB) | | | | | + +--------+ + + + | ALBUMIN, | 4.2 | 3.5 - 5.0 g/dL | [facility] [...] +--------+ + + + | BILIRUBIN | 0.3 | 0 - 1.2 | [facility] | | | TOTAL | | Transcutaneous | LAB - | | | | | Bilirubinometer | [place] | | + +--------+ + + + | ALK PHOS | 82 | 30 - 128 U/L | [facility] | | | | | | LAB - | | | | | | [place] | | + +--------+ + + + | AST(SGOT) | 12 (A) | 13 - 39 U/L | [facility] | | | | | | LAB - | | | | | | [place] | | + +--------+ + + + | SODIUM, | 139 | 132 - 143 | [facility] | | | PLASMA | | mmol/L | LAB - | | | (LAB) | | | [place] | | + +--------+ + + + | POTASSIUM, | 4.2 | 3.6 - 5.1 | [facility] | | | PLASMA | | mmol/L | LAB - | | | (LAB) | | | [place] | | + +--------+ + + + | CHLORIDE, | 102 | 95 - 112 mmol/L | [facility] [...] + + + | ALT (SGPT) | 10 | 7 - 52 U/L | [facility] | | | | | | LAB - | | | | | | [place] | | + +--------+ + + + | ANION GAP | 13.2 | 7 - 21 | [facility] | | | | | | LAB - | | | | | | [place] | | + +--------+ + + + | BUN/CREATIN | 21.2 | 6.0 - 28.6 | [facility] | [...] + + + | A/G RATIO | 1.3 | 1.1 - 2.4 | [facility] | | | | | | LAB - | | | | | | [place] | | + +--------+ + + + | BILIRUBIN | 0.1 | 0.0 - 0.1 mg/dL | [facility] | | | DIRECT | | | LAB - | | [...] - | [address] | [place] | [phone] | | [place] | | | | + + + + + TRIGLYCERIDES, PLASMA (10/05/2014 3:11 PM PST) + +-------+ + + + | Component | Value | Ref Range | Performed | Pathologist | | | | | At | Signature | + +-------+ + + + | TRIGLYCERID | 86 | 30 - 150 mg/dL | [facility] | | | ES | | | LAB - | | [...] - | [address] | [place] | [phone] | | [place] | | | | + + + + + LDH TOTAL, PLASMA (10/05/2014 3:11 PM PST) + +-------+ + + + | Component | Value | Ref Range | Performed | Pathologist | | | | | At | Signature | + +-------+ + + + | LDH (TOTAL) | 129 | 100 - 215 | [facility] | | | | | Units/L | LAB - | | | | [...] | [facility] - | [address] | [place], [place] | [phone] | | [place] | | | | + + + + + CHOLESTEROL, TOTAL (EXTERNAL RESULTS ONLY) (10/05/2014 3:11 PM PST) + +-------+ + + + | Component | Value | Ref Range | Performed | Pathologist | | | | | At | Signature | + +-------+ + + + | CHOLESTEROL | 129 | 200 mg/dL | [facility] | | | (LAB) [...] [address] | [place], [place] | [phone] | | [place] | | | | + + + + + URIC ACID, PLASMA (10/05/2014 3:11 PM PST) + +-------+ + + + | Component | Value | Ref Range | Performed | Pathologist | | | | | At | Signature | + +-------+ + + + | URIC ACID, | 3.6 | 2.3 - 6.6 mg/dL | [facility] | | | PLASMA [...] - | [address] | [place] | [phone] | | [place] | | | | + + + + + PHOSPHORUS, PLASMA (10/05/2014 3:11 PM PST) + +-------+ + + + | Component | Value | Ref Range | Performed | Pathologist | | | | | At | Signature | + +-------+ + + + | PHOSPHORUS, | 3.9 | 2.5 - 5.0 mg/dL | [facility] | | | PLASMA [...] - | [address] | [place] | [phone] | | [place] | | | | + + + + + documented in this encounter Visit Diagnoses Not on filedocumented in this encounter"
--- OUTSIDE RECORDS SUMMARY | ~2020-05-29 | XMS | Encounter Summary ---
Demographics + + + | Address | [address] | | | [place] [address] | + + + | Home Phone | | + + + | Preferred Language | Unknown | + + + | Marital Status | Single | + + + | Lutheran Affiliation | Unknown | + + + | Race | White | + + + | Ethnic Group | Not or | + + + Author + + + | Author | [facility] | + + + | Organization | [facility] | + + + | Address [...] Team Providers + +------+ + | Care Wood Boat Builder Supervisor Name | Role | Phone | + +------+ + | Nyla Fitzpatrick MD | PCP | | + +------+ + Reason for Visit + + + | Reason | Comments | + + + | Lab Results | | + + + Encounter Details +--------+ + + + + | Date | Type | Department | Care Team | Description | +--------+ + + + + | 02/13/ | Abstract | Pediatric | Crista Valadez, | Lab Results | | 2016 | | Gastroenterology at | [address] | | | | | [place] | [place], [place] | | | | | [facility] | [address] | | | | | [address] | [phone] | | | | | [place] | | | | | | [facility], | | | | | | [facility] floor | | | | | | [place], [place] | | | | | | [address] | | | | | | [phone] | | | +--------+ + + + [...] + | CBC, WITH | Routin | 01/22/2016 | | Results for this | | DIFFERENTIAL | e | | | procedure are in the | | | | | | results section. | + +--------+ + + + | COMPLETE METABOLIC | Routin | 01/22/2016 | | Results for this | | SET | e | | | procedure are in the | | (NA,K,CL,CO2,BUN,CRE | | | | results section. | | AT,GLUC,CA,AST,ALT,B | | | | | | WADE TOTAL,ALK | | | | | | PHOS,ALB,PROT TOTAL) | | | | | + +--------+ + + + documented in this encounter Results CBC, WITH DIFFERENTIAL (01/22/2016) + +--------+ + + + | Component | Value | Ref Range | Performed | Pathologist | | | | | At | Signature | + +--------+ + + + | WHITE CELL | 8.8 | 4.5 - 11 K/cu | [facility] | | | COUNT | | mm | LAB - | | | | | | [place] | | + +--------+ + + + | RED CELL | 4.97 | 3.8 - 5.1 M/cu | [facility] | | | COUNT | | mm | LAB - | | | | | | [place] | | + +--------+ + + + | HEMOGLOBIN | 14.5 | 12 - 16 g/dL | [facility] | | | | | | LAB - | | | | | | [place] | | + +--------+ + + + | HEMATOCRIT | 43.2 | 35 - 45 % | [facility] | | | | | | LAB - | | | | | | [place] | | + +--------+ + + + | MCV | 86.9 | 81 - 99 fL | [facility] | | | | | | LAB - | | | | | | [place] | | + +--------+ + + + | MCH | 29 | 27 - 33 pg | [facility] | | | | | | LAB - | | | | | | [place] | | + +--------+ + + + | MCHC | 34 | 30 - 36 g/dL | [facility] | | | | | | LAB - | | | | | | [place] | | + +--------+ + + + | PLATELET | 415 | 140 - 440 K/cu | [facility] | | | COUNT | | mm | LAB - | | | | | | [place] | | + +--------+ + + + | NEUTROPHIL | 65.8 | 39 - 80 % | [facility] | | | % | | | LAB - | | | | | | [place] | | + +--------+ + + + | LYMPHOCYTE | 22 (A) | 24 - 44 % | [facility] | | | % | | | LAB - | | | | | | [place] | | + +--------+ + + + | MONOCYTE % | 7.4 | 0 - 12 % | [facility] | | | | | | LAB - | | | | | | [place] | | + +--------+ + + + | EOS % | 3.9 | 0 - 6 % | [facility] | | | | | | LAB - | | | | | | [place] | | + +--------+ + + + | BASO % | 0.9 | 0 - 2 % | [facility] | | | | | | LAB - | | | | | | [place] | | + +--------+ + + + | RDW | 14.4 | 10.5 - 15 % | [facility] [...] [address] | [place] | [phone] | | [place] | | | | + + + + + COMPLETE METABOLIC SET (NA,K,CL,CO2,BUN,CREAT,GLUC,CA,AST,ALT,BILI TOTAL,ALK PHOS,ALB,PROT TOTAL) (01/22/2016) + +-------+ + + + | Component | Value | Ref Range | Performed | Pathologist | | | | | At | Signature | + +-------+ + + + | GLUCOSE, | 73 | 70 - 100 mg/dL | [facility] | | | PLASMA | | | LAB - | | | (LAB) | | | [place] | | + +-------+ + + + | BUN, PLASMA | 8 | 6 - 23 mg/dL | [facility] | | | (LAB) | | | LAB - | | | | | | [place] | | + +-------+ + + + | CREATININE | 0.61 | 0.6 - 1.2 mg/dL | [facility] | | | PLASMA | | | LAB - | | | (LAB) | | | [place] | | + +-------+ + + + | TOTAL | 7.9 | 6 - 8 g/dL | [facility] | | | PROTEIN, | | | LAB - | | | PLASMA | | | [place] | | | (LAB) | | | | | + +-------+ + + + | ALBUMIN, | 4 | 3.5 - 5 g/dL | [facility] | | | PLASMA | | | LAB - | | | (LAB) | | | [place] | | + +-------+ + + + | CALCIUM, | 9.7 | 8.4 - 10.2 | [facility] | | | PLASMA | | mg/dL | LAB - | | | (LAB) | | | [place] | | + +-------+ + + + | BILIRUBIN | 0.3 | 0 - 1.2 mg/dL | [facility] | | | TOTAL | | | LAB - | | | | | | [place] | | + +-------+ + + + | ALK PHOS | 108 | 30 - 128 U/L | [facility] | | | | | | LAB - | | | | | | [place] | | + +-------+ + + + | AST(SGOT) | 18 | 13 - 39 U/L | [facility] | | | | | | LAB - | | | | | | [place] | | + +-------+ + + + | SODIUM, | 137 | 132 - 143 | [facility] | | | PLASMA | | mmol/L | LAB - | | | (LAB) | | | [facility] | | + +-------+ + + + | POTASSIUM, | 4 | 3.6 - 5.1 | [facility] | | | PLASMA | | mmol/L | LAB - | | | (LAB) | | | [facility] | | + +-------+ + + + | CHLORIDE, | 100 | 95 - 112 mmol/L | [facility] | | | PLASMA | | | LAB - | | | (LAB) | | | [place] | | + +-------+ + + + | TOTAL CO2, | 24 | 19 - 31 mmol/L | [facility] | | | PLASMA | | | LAB - | | | (LAB) | | | [place] | | + +-------+ + + + | ALT (SGPT) | 18 | 7 - 52 U/L | [facility] [...] [address] | [place], [place] | [phone] | | [place] | | | | + + + + + documented in this encounter Visit Diagnoses Not on filedocumented in this encounter"
--- OUTSIDE RECORDS SUMMARY | ~2020-05-29 | XMS | Encounter Summary ---
Demographics + + + | Address | [address] | | | [place] [address] | + + + | Home Phone | | + + + | Preferred Language | Unknown | + + + | Marital Status | Single | + + + | Tenriism Affiliation | Unknown | + + + | Race | White | + + + | Ethnic Group | Not or | + + + Author + + + | Author | [facility] [employer] [facility] | + + + | Organization | [facility] | + + + | [...] Team Providers + +------+ + | Care Chip Person Name | Role | Phone | + +------+ + | Nyla Fitzpatrcik MD | PCP | | + +------+ + Reason for Visit + + + | Reason | Comments | + + + | Medical Records | | | Review | | + + + Encounter Details +--------+ + + + + | Date | Type | Department | Care Team | Description | +--------+ + + + + | 03/14/ | Documentati | [facility] at [facility] | Lab, Gi Procedure | Medical Records | | 2015 | on | [address] | | Review | | | | [facility] | | | | | | [facility], | | | | | | [address] | | | | | | [place], [place] | | | | | | [address] | | | | | | [phone] | | | +--------+ + + + [...] this encounter Miscellaneous Notes Telephone Encounter - Eunayush Mariano - 03/14/2016 10:36 AM PDT Nicki Woods [id number] REFERRAL FOR REVIEW: Reviewing Provider: Niecy Xiao PA-C [x]Internal Referral [] External Referral [] CORI Report Available Referring Diagnosis/Comments: Q44.2 (ICD-10-CM) - 751.61 (ICD-9-CM) - Biliary atresia, Z94. 4 (ICD-10-CM) - V42.7 (ICD-9-CM) - Transplanted liver (HCC) [] emergent []urgent [x]routine []Consultation []Colonoscopy []Flexible Sigmoidoscopy []EGD (Upper Endoscopy) [] Sm Bowel Enteroscopy [] Upper Double Balloon Enteroscopy [] Lower Double Balloon Enteroscopy []Capsule Endoscopy: []Small Bowel []ESO []Upper EUS []Lower EUS []ERCP []24HR ph Monitor [] ON PPI (will be done OFF PPI unless checked) []48HR ph Mon itor [] ON PPI (will be done OFF PPI unless checked) []Esophageal Manometry []Anorectal Manometry [x]Other:[facility] Electronic Data: Last 1 Encounter BMI Readings: Date BMI 03/13/2016 30.15 kg/m2 Patient Active Problem List Diagnosis Transplanted liver (HCC) VSD (ventricular septal defect), perimembranous Polysplenia Interrupted inferior vena cava Aortic insufficiency Aortic root dilatation (HCC) Current Outpatient Prescriptions Medication Sig amLODIPine 5 mg oral tablet Take 5 mg by mouth once daily. No current facility-administered medications for this visit. Allergies Allergen Reactions Sulfa (Sulfonamide Antibiotics) Hives and Swelling-Facial Varicella Vaccines Possible reaction with sulfa meds Past Medical History Diagnosis Date Biliary atresia Past Surgical History Procedure Laterality Date Liver transplant 03/24/2000 at [place] Vsd repair, amplatzer device 06/01/2014 8-mm Amplatzer Vascular Plug IV, no significant residual shunting Lab Results Component Value Date WBC 8.8 01/22/2016 HB 14.5 01/22/2016 HCT 43.2 01/22/2016 PLT 415 01/22/2016 MCV 86.9 01/22/2016 RDW 14.4 01/22/2016 NA 137 01/22/2016 K 4 01/22/2016 CL 100 01/22/2016 BICARB 24 01/22/2016 BUN 8 01/22/2016 CR 0.61 01/22/2016 GLU 73 01/22/2016 CA 9.7 01/22/2016 AST 18 01/22/2016 ALT 18 01/22/2016 AP 108 01/22/2016 TBILI 0.3 01/22/2016 TP 7.9 01/22/2016 ALB 4 01/22/2016 DIRBILI 0.1 06/08/2015 documented in this encount er Plan of Treatment Not on filedocumented as of this encounter Visit Diagnoses Not on filedocumented in this encounter"
--- OUTSIDE RECORDS SUMMARY | ~2020-05-29 | XMS | Encounter Summary ---
Demographics + + + | Address | [address] | | | [place] [address] | + + + | Home Phone | | + + + | Preferred Language | Unknown | + + + | Marital Status | Single | + + + | Orthodox Affiliation | Unknown | + + + | Race | White | + + + | Ethnic Group | Not or | + + + Author + + + | Author | [facility] [employer] [facility] | + + + | Organization | [facility] | + + + | Address | [...] Team Providers + +------+ + | Care Steelscope Operator Name | Role | Phone | + +------+ + | Nyla Fitzpatrick MD | PCP | | + +------+ + Reason for Visit + +--------+ + | Reason | Onset | Comments | | | Date | | + +--------+ + | Care Coordination | 12/08/ | [facility] request | | | 2016 | | + +--------+ + Encounter Details +--------+ + + + + | Date | Type | Department | Care Team | Description | +--------+ + + + + | 12/08/ | Telephone | Pediatric | Crista Valadez, | Care Coordination | | 2017 | | Gastroenterology at | [address] | ([facility]) | | | | [facility] | [place], [place] | | | | | [facility] | [address] | | | | | [address] | [phone] | | | | | [place] | | | | | | [facility], | | | | | | [address] [place] [address] | | | | | | [place], [place] | | | | | | [address] | | | | | | [phone] | | | +--------+ + + + [...] this encounter Miscellaneous Notes Telephone Encounter - Loreto Knox RN - 12/09/2016 4:01 PM PDTReceived the following communication from [facility]: I called the phone numbers you have provided and was unable to contact the family. I will let you know if we receive any updates. Please let us know if you hear anything as mercy persaud. Thank you, Veronica Roblero, NIKOSN, RN, PHN Registered Nurse [facility], [facility] Pediatric Liver TransplantElectronically umm d by Loreto Knox RN at 12/09/2016 4:01 PM PDTTelephone Encounter - Loreto Knox RN - 12/09/2016 11:13 AM PDTAdditional phone numbers provided to [facility] as requested.Elec tronically signed by Loreto Knox RN at 12/09/2016 11:13 AM PDTTelephone Encounter - Faith Whipple RN - 12/08/2016 3:49 PM PDTWe received a message from [facility] asking if Nicki has transitioned to an adult provider. If so, they would like to get the name so they can communicate appropriately. Called mom. Asked if Nicki has transitioned to adult, is planning to transition or if she will be following with us for a little while longer. Mom states they are planning to transi tion to an adult provider closer to home, but have not had the first appointment yet. She s tated the appointment has been scheduled. Mom did not have the name of the provider or when the appointment is with her. Requested that she let us know so we can get the information to [facility] to facilitate a seamless transition. Mom questions how [facility] follows up with patients seen by adult providers not at [facility]. A dvised they will be better able to answer this than we are. We will request the information from them and let mom know when we have the information. Asked that she try to have the na me and appointment time when we call back in a couple of days. Mom agreed with plan. Conveyed this information to [facility]. Suggested it may make things go more smoothly if mo m heard from them encouraging appointment with adult provider. documented in this encounter Plan of Treatment Not on filedocumented as of this encounter Visit Diagnoses Not on filedocumented in this encounter"
--- OUTSIDE RECORDS SUMMARY | ~2020-05-29 | XMS | Encounter Summary ---
Demographics + + + | Address | [address] | | | [place] [address] | + + + | Home Phone [...] + + | Author | [facility] [employer] [facility] | + + + | [...] Team Providers + +------+ + | Care Mass Communications Professor Name | Role | Phone | + [...] | | | | | | | [place], [place] | | | | | | | [address] | | | | | | | Phone: | | | | | | | [phone] | | | | | | | Fax: | | | | | | | [phone] | +--------+ + + + + + [...] Dx); | | | | [address] | [place], [place] | Immunosuppressed | | | | [facility] | [address] | status (HCC); High | | | | [address] | [phone] | risk medications | | | | [facility] | | (not anticoagulants) | | | | [facility], | | long-term use; VSD | | | | 7th floor | | (ventricular septal | | | | [place], [place] | | defect), | | | | [address] | | perimembranous; | | | | [phone] | | Polysplenia; Aortic | | | [...] you for choosing Pediatric Hepatology Clinic at [facility] Crista Valadez MD Results of tests: Test results will be sent to you by [employer]. Calls: Medical emergencies: call 911 Non-urgent issues: Send [employer] message Thursday - Thursday work hours: call [phone] # 3 After hours, weekends, holidays: call [phone] To schedule an appointment: call [phone] # 1 For refills: call to your pharmacy a week before running out medicine documented in this encounter Progress Notes Crista Valadez MD - 06/28/2014 10:38 AM PSTFormatting of this note might be different fro m the original. 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 She was last seen by Dr Leonardo in 2008. In 2009, it was noticed that she has not been seen, attempts to reach to family was unsucces sful. lost to follow up since that time. - Cardiology: last cardiology note is from [address] Nyla Fitzpatrick, collator hand at [facility]. Her cardiac dx includes 1) moderate perimembraneous [...] visit: Dr. Brady and GIO Kirkland from [facility] were presen t [...] Crista Valadez MD Pediatric Gastroenterology Consult line: [phone] documented in this en counter Plan of [...] [facility] | [address] | [place] [address] | | | SERVICES, SPECIAL | PARK [...] [facility] | [address] | [place] [address] | | | SERVICES, CORE | ZANE [...] | + + + + + | [facility] [employer] | [address] | [place] [address] | | | SERVICES, CORE | PARK [...] [facility] | [address] | [place] [address] | | | SERVICES, CORE | PARK [...] + + | [facility] | [address] | [place] [address] | | | SERVICES, CORE | PARK [...] | + + + + + | [facility] | [address] | [place] [address] | | | SERVICES, CORE | PARK [...] [facility] | [address] | [place] [address] | | | SERVICES, CORE | PARK [...] | + + + + + | [facility] | [address] | [place] [address] | | | SERVICES, CORE | ZANE [...]
--- OUTSIDE RECORDS SUMMARY | ~2020-05-29 | XMS | Encounter Summary ---
Demographics + + + | Address | [address] | | | [place] [address] | + + + | Home Phone | | + + + | Preferred Language | Unknown | + + + | Marital Status | Single | + + + | Episcopalian Affiliation | Unknown | + + + | Race | White | + + + | Ethnic Group | Not or | + + + Author + + + | Author | [facility] | | | and [place] | + + + | Organization | [facility] | | | and [place] | + + + | Address | Unknown | + + + | Phone | Unavailable | + + + Support + + + + + | Name | Relationship | Address | Phone | + + + + + | Mary Woods | ECON | [address] | | | | | [place] | | | | | [address] | | + + + + + Care Team Providers + +------+ + | Care Disease Intervention Specialist Name | Role | Phone | + +------+ + | Yasir Cullen DO | PCP | | + +------+ + Encounter Details +--------+ + + + + | Date | Type | Department | Care Team | Description | +--------+ + + + + | 12/22/ | Orders Only | [facility] | Conversion | | | 2019 | | CONVERSION DEP [address] | Transaction, | | | | | [address] | Provider Unknown | | | | | [place], [place] | [phone] | | | | | [address] | | | | | | [phone] | | | +--------+ + + + + Social History + +-------+ +--------+------+ | Tobacco Use | Types | Packs/Day | Years | Date | | | | | Used | | + +-------+ +--------+------+ | Never Smoker | | | | | + [...]
--- OUTSIDE RECORDS SUMMARY | ~2020-05-29 | XMS | Encounter Summary ---
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, | | | | | | 7th floor | | | | | | [place], [place] | | | | | | [address] | | | | | | [phone] | | | +--------+ + + + [...] as of this encounter Plan of Treatment + +------+--------+ + + | Name | Type | Priori | Associated Diagnoses | Order Schedule | | | | ty | | | + +------+--------+ + + | LDH TOTAL, PLASMA | Lab | Routin | Complications of | Ordered: 10/11/2008 | | | | e | Transplanted Liver | | | | | | Transplanted Liver | | | | | | (HCC) | | + +------+--------+ + + | CMV PCR | Lab | Routin | Complications of | Ordered: 10/11/2008 | | QUANTITATION, PLASMA | | e | Transplanted Liver | | | | | | Transplanted Liver | | | | | | (HCC) | | + +------+--------+ + + documented as of this encounter Procedures + +--------+ + + + | Procedure Name | Priori | Date/Time | Associated Diagnosis | Comments | | | ty | | | | + +--------+ + + + | CHOLESTEROL TOTAL, | Routin | 10/03/2008 | Complications of | Results for this | | PLASMA | e | 3:26 PM | Transplanted Liver | procedure are in the | | | | PST | Transplanted Liver | results section. | | | | | (HCC) | | + +--------+ + + + | COMPLETE METABOLIC | Routin | 10/03/2008 | Complications of | Results for this | | SET | e | 3:20 PM | Transplanted Liver | procedure are in the | | (NA,K,CL,CO2,BUN,CRE | | PST | Transplanted Liver | results section. | | AT,GLUC,CA,AST,ALT,B | | | (HCC) | | | WADE TOTAL,ALK | | | | | | PHOS,ALB,PROT TOTAL) | | | | | + +--------+ + + + | TACROLIMUS, WHOLE | Routin | 10/03/2008 | Complications of | Results for this | | BLOOD | e | 3:20 PM | Transplanted Liver | procedure are in the | | | | PST | Transplanted Liver | results section. | | | | | (HCC) | | + +--------+ + + + | PHOSPHORUS, PLASMA | Routin | 10/03/2008 | Complications of | Results for this | | | e | 3:20 PM | Transplanted Liver | procedure are in the | | | | PST | Transplanted Liver | results section. | | | | | (HCC) | | + +--------+ + + + | GGT, PLASMA | Routin | 10/03/2008 | Complications of | Results for this | | | e | 3:20 PM | Transplanted Liver | procedure are in the | | | | PST | Transplanted Liver | results section. | | | | | (HCC) | | + +--------+ + + + | BILIRUBIN DIRECT | Routin | 10/03/2008 | Complications of | Results for this | | | e | 3:20 PM | Transplanted Liver | procedure are in the | | | | PST | Transplanted Liver | results section. | | | | | (HCC) | | + +--------+ + + + | URIC ACID, PLASMA | Routin | 10/03/2008 | Complications of | Results for this | | | e | 3:20 PM | Transplanted Liver | procedure are in the | | | | PST | Transplanted Liver | results section. | | | | | (HCC) | | + +--------+ + + + | MAGNESIUM, PLASMA | Routin | 10/03/2008 | Complications of | Results for this | | | e | 3:20 PM | Transplanted Liver | procedure are in the | | | | PST | Transplanted Liver | results section. | | | | | (HCC) | | + +--------+ + + + | NICOLASA-STEPHENS VIRUS | Routin | 10/03/2008 | Complications of | Results for this | | PCR, PLASMA | e | | Transplanted Liver | procedure are in the | | | | | Transplanted Liver | results section. | | | | | (HCC) | | + +--------+ + + + | CBC, WITH | Routin | 10/03/2008 | Complications of | Results for this | | DIFFERENTIAL | e | | Transplanted Liver | procedure are in the | | | | | Transplanted Liver | results section. | | | | | (HCC) | | + +--------+ + + + documented in this encounter Results CHOLESTEROL TOTAL, PLASMA (10/03/2008 3:26 PM PST) + +-------+ + + + | Component | Value | Ref Range | Performed | Pathologist | | | | | At | Signature | + +-------+ + + + | CHOLESTEROL | 149 | < - 200 mg/dL | NON [facility] | | | (LAB) | | | LAB | | + +-------+ + + + + + | Specimen | + + | Serum - Blood | + + + +---------+ + + | Performing | Address | City/State/Zipcode | Phone Number | | Organization | | | | + +---------+ + + | NON [facility] | | | | + +---------+ + + TACROLIMUS, WHOLE BLOOD (10/03/2008 3:20 PM PST) + +---------+ + + + | Component | Value | Ref Range | Performed | Pathologist | | | | | At | Signature | + +---------+ + + + | TACROLIMUS | 0.5 (A) | 5 - 18 ng/mL | [facility] | | | ([address]) | | | LAB - | | | | | | [place] | | + +---------+ + + + + + | Specimen | + + | Serum - Blood | + + + + + + + | Performing | Address | City/State/Zipcode | Phone Number | | Organization | | | | + + + + + | [facility] - | [address] | [place] | [phone] | | [place] | | | | + + + + + | [facility] - | | [place], [place] | | | [place] | | | | + + + + + GGT, PLASMA (10/03/2008 3:20 PM PST) + +-------+ + + + | Component | Value | Ref Range | Performed | Pathologist | | | | | At | Signature | + +-------+ + + + | GAMMA | 7 (A) | 5 - 6 U/L | NON [facility] | | | GLUTAMYL | | | LAB | | | TRANS | | | | | + +-------+ + + + + + | Specimen | + + | Serum - Blood | + + + +---------+ + + | Performing | Address | City/State/Zipcode | Phone Number | | Organization | | | | + +---------+ + + | NON [facility] | | | | + +---------+ + + BILIRUBIN DIRECT (10/03/2008 3:20 PM PST) + +-------+ + + + | Component | Value | Ref Range | Performed | Pathologist | | | | | At | Signature | + +-------+ + + + | BILIRUBIN | 0.1 | 0.0 - 0.4 mg/dL | [facility] | | | DIRECT | | | LAB - | | | | | | [place] | | + +-------+ + + + + + | Specimen | + + | Serum - Blood | + + + + + + + | Performing | Address | City/State/Zipcode | Phone Number | | Organization | | | | + + + + + | [facility] - | [address] | [place], [place] | [phone] | | [place] | | | | + + + + + | [facility] - | | [place], [place] | | | [place] | | | | + + + + + URIC ACID, PLASMA (10/03/2008 3:20 PM PST) + +---------+ + + + | Component | Value | Ref Range | Performed | Pathologist | | | | | At | Signature | + +---------+ + + + | URIC ACID, | pending | mg/dL | [facility] | | | PLASMA | | | LAB - | | | (LAB) | | | [place] | | + +---------+ + + + + + | Specimen | + + | Serum - Blood | + + + + + + + | Performing | Address | City/State/Zipcode | Phone Number | | Organization | | | | + + + + + | [facility] - | [address] | [place] | [phone] | | [place] | | | | + + + + + | [facility] - | | [place], [place] | | | [place] | | | | + + + + + PHOSPHORUS, PLASMA (10/03/2008 3:20 PM PST) + +-------+ + + + | Component | Value | Ref Range | Performed | Pathologist | | | | | At | Signature | + +-------+ + + + | PHOSPHORUS, | 4.8 | 2.6 - 6.2 mg/dL | [facility] | | | PLASMA | | | LAB - | | | (LAB) | | | [place] | | + +-------+ + + + + + | Specimen | + + | Serum - Blood | + + + + + + + | Performing | Address | City/State/Zipcode | Phone Number | | Organization | | | | + + + + + | [facility] - | [address] | [place], [place] | [phone] | | [place] | | | | + + + + + | [facility] - | | [place] | | | [place] | | | | + + + + + MAGNESIUM, PLASMA (10/03/2008 3:20 PM PST) + +-------+ + + + | Component | Value | Ref Range | Performed | Pathologist | | | | | At | Signature | + +-------+ + + + | MAGNESIUM,P | 1.99 | 1.7 - 2.5 mg/dL | [facility] | | | LASMA | | | LAB - | | | | | | [place] | | + +-------+ + + + + + | Specimen | + + | Serum - Blood | + + + + + + + | Performing | Address | City/State/Zipcode | Phone Number | | Organization | | | | + + + + + | [facility] - | [address] | [place], [place] | [phone] | | [place] | | | | + + + + + | [facility] - | | [place], [place] | | | [place] | | | | + + + + + COMPLETE METABOLIC SET (NA,K,CL,CO2,BUN,CREAT,GLUC,CA,AST,ALT,BILI TOTAL,ALK PHOS,ALB,PROT TOTAL) (10/03/2008 3:20 PM PST) + +-------+ + + + | Component | Value | Ref Range | Performed | Pathologist | | | | | At | Signature | + +-------+ + + + | GLUCOSE, | 88 | 60 - 100 mg/dL | [facility] [...] +-------+ + + + | CREATININE | 0.56 | 0.5 - 1.5 mg/dL | [facility] | | | PLASMA | | | LAB - | | | (LAB) | | | [place] | | + +-------+ + + + | TOTAL | 7.3 | 6.1 - 8.5 g/dL | [facility] | | | PROTEIN, | | | LAB - | | | PLASMA | | | [place] | | | (LAB) | | | | | + +-------+ + + + | ALBUMIN, | 4.3 | 2.9 - 5.5 g/dL | [facility] | | | PLASMA | | | LAB - | | | (LAB) | | | [place] | | + +-------+ + + + | CALCIUM, | 10.0 | 8.5 - 10.5 | [facility] | | | PLASMA | | mg/dL | LAB - | | | (LAB) | | | [place] | | + +-------+ + + + | BILIRUBIN | 0.4 | 0.0 - 1.2 | [facility] | | | TOTAL | | Transcutaneous | LAB - | | | | | Bilirubinometer | [place] | | + +-------+ + + + | ALK PHOS | 273 | 135 - 384 U/L | [facility] | | | | | | LAB - | | | | | | [place] | | + +-------+ + + + | AST(SGOT) | 26 | 0 - 40 U/L | [facility] | | | | | | LAB - | | | | | | [place] | | + +-------+ + + + | SODIUM, | 140 | 132 - 143 | [facility] | | | PLASMA | | mmol/L | LAB - | | | (LAB) | | | [place] | | + +-------+ + + + | POTASSIUM, | 3.9 | 3.6 - 5.1 | [facility] | | | PLASMA | | mmol/L | LAB - | | | (LAB) | | | [place] | | + +-------+ + + + | CHLORIDE, | 107 | 95 - 112 mmol/L | [facility] | | | PLASMA | | | LAB - | | | (LAB) | | | [place] | | + +-------+ + + + | TOTAL CO2, | 22.4 | 19 - 31 mmol/L | [facility] | | | PLASMA | | | LAB - | | | (LAB) | | | [place] | | + +-------+ + + + | ALT (SGPT) | 20 | 0 - 46 U/L | [facility] | | | | | | LAB - | | | | | | [place] | | + +-------+ + + + | ANION GAP | 14.5 | 7.0 - 21 | [facility] | | | | | | LAB - | | | | | | [place] | | + +-------+ + + + | BUN/CREATIN | 23.2 | 6.0 - 28.6 | [facility] | | | INE RATIO | | | LAB - | | | | | | [place] | | + +-------+ + + + | GLOBULIN | 3.0 | 1.8 - 3.5 | [facility] | [...] 0.1 | 0.0 - 0.4 mg/dL | [facility] | | | DIRECT [...] + | Specimen | + + | Serum - Blood | + + + + + + + | Performing | Address | City/State/Zipcode | Phone Number | | Organization | | | | + + + + + | [facility] - | [address] | [place] | [phone] | | [place] | | | | + + + + + | [facility] - | | [place], [place] | | | [place] | | | | + + + + + NICOLASA-STEPHENS VIRUS PCR (10/03/2008) + +-------+ + + + | Component | Value | Ref Range | Performed | Pathologist | | | | | At | Signature | + +-------+ + + + | EBV QUANT | <2.6 | <2.6 | [facility] | | | INTERPRETAT | | | LAB - | | | ION | | | [place] | | + +-------+ + + + + + | Specimen | + + | Serum | + + + + + + + | Performing | Address | City/State/Zipcode | Phone Number | | Organization | | | | + + + + + | [facility] - | [address] | [place], [place] | [phone] | | [place] | | | | + + + + + | [facility] - | | [place], [place] | | | [place] | | | | + + + + + CBC, WITH DIFFERENTIAL (10/03/2008) + +-------+ + + + | Component [...] + + + | RED CELL | 4.92 | 4.1 - 5.3 M/cu | [facility] | | | COUNT | | mm | LAB - | | | | | | [place] | | + +-------+ + + + | HEMOGLOBIN | 14.5 | 10.6 - 15.2 | [facility] | | | | | | LAB - | | | | | | [place] | | + +-------+ + + + | HEMATOCRIT | 41.5 | 32 - 42 % | [facility] | | | | | | LAB - | | | | | | [place] | | + +-------+ + + + | MCV | 84.3 | 71 - 89 fL | [facility] | | | | | | LAB - | | | | | | [place] | | + +-------+ + + + | MCH | 29 | 24 - 30 pg | [facility] | | | | | | LAB - | | | | | | [place] | | + +-------+ + + + | MCHC | 35 | 30 - 36 g/dL | [facility] | | | | | | LAB - | | | | | | [place] | | + +-------+ + + + | PLATELET | 368 | 140 - 440 K/cu | [facility] | | | COUNT | | mm | LAB - | | | | | | [place] | | + +-------+ + + + | NEUTROPHIL | 59.3 | 31 - 60 % | [facility] | | | % | | | LAB - | | | | | | [place] | | + +-------+ + + + | LYMPHOCYTE | 30.1 | 28 - 48 % | [facility] [...] + + + | EOS % | 2.0 | 0 - 6 % | [facility] | | | | | | LAB - | | | | | | [place] | | + +-------+ + + + | BASO % | 0.7 | 0 - 2 % | [facility] | | | | | | LAB - | | | | | | [place] | | + +-------+ + + + | RDW | 13.4 | 10.5 - 15.8 % | [facility] | | | | | | LAB - | | | | | | [place] | | + +-------+ + + + | MPV | | fL | [facility] | | | | | | LAB - | | | | | | [place] | | + +-------+ + + + | NEUTROPHIL | | K/cu mm | [facility] | | | # | | | LAB - | | | | | | [place] | | + +-------+ + + + | LYMPHOCYTE | | K/cu mm | [facility] | | | # | | | LAB - | | | | | | [place] | | + +-------+ + + + | MONOCYTE # | | K/cu mm | [facility] | | | | | | LAB - | | | | | | [place] | | + +-------+ + + + | EOS # | | K/cu mm | [facility] | | | | | | LAB - | | | | | | [place] | | + +-------+ + + + | BASO # | | | [facility] | | | | | | LAB - | | | | | | [place] | | + +-------+ + + + + + | Specimen | + + | Serum - Blood | + + + + + + + | Performing | Address | City/State/Zipcode | Phone Number | | Organization | | | | + + + + + | [facility] - | [address] | [place] | [phone] | | [place] | | | | + + + + + | [facility] - | | [place], [place] | | | [place] | | | | + + + + + documented in this encounter Visit Diagnoses + + | Diagnosis | + + | Complications of transplanted liver | + + | 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"
--- OUTSIDE RECORDS SUMMARY | ~2020-05-29 | XMS | Encounter Summary ---
Demographics + + + | Address | [address] | | | [place] [address] | + + + | Home Phone [...] Author + + + | Author | [facility] | | | and [place] | + + + | Organization | [facility] | | | and [place] | + + + | Address | Unknown | + + + | Phone | Unavailable | + + + Support + + + + + | Name | Relationship | Address | Phone | + + + + + | Mary Chuck | ECON | [address] | | | | | [place] | | | | | [address] | | + + + + + Care Team Providers + +------+ + | Care Title Checker Name | Role | Phone | + +------+ + | Yasir Cullen DO | PCP | | + +------+ + Reason for Visit + + + | Reason | Comments | + + + | Annual Exam | | + + + Encounter Details +--------+---------+ + + + | Date | Type | Department | Care Team | Description | +--------+---------+ + + + | 12/27/ | Office | [facility] | Yoni Carrillo, | S/P VSD closure | | 2019 | Visit | CARDIOLOGY [facility] | MD Tiffanie CHE | (Primary Dx); VSD | | | | [address] | [place], [place] | (ventricular septal | | | | [address] | [address] | defect), | | | | [place] | | perimembranous; | | | | [address] | | Transplanted liver | | | | [phone] | | (HCC) | +--------+---------+ + + + Social History + +-------+ +--------+------+ | Tobacco Use | Types | Packs/Day | Years | Date | | | | | Used | | + +-------+ +--------+------+ | Never Smoker | | | | | + +-------+ +--------+------+ + +---+---+---+ | Smokeless Tobacco: | | | | | Current User | | | | + +---+---+---+ + + +---------+ + | Alcohol Use | Drinks/Week | oz/Week | Comments | + + +---------+ + | Not Currently | | | | + + +---------+ [...] + + + | Blood Pressure | 108/72 | 12/28/2019 9:48 AM | | | | | PDT | | + + + + + | Pulse | 95 | 12/28/2019 9:48 AM | | | | | PDT | | + + + + + | Temperature | - | - | | + + + + + | Respiratory Rate | - | - | | + + + + + | Oxygen Saturation | 100% | 12/28/2019 9:48 AM | | | | | PDT | | + + + + + | Inhaled Oxygen | - | - | | | Concentration | | | | + + + + + | Weight | 99.8 kg (220 lb) | 12/28/2019 9:48 AM | | | | | PDT | | + + + + + | Height | 162.6 cm (5' 4") | 12/28/2019 9:48 AM | | | | | PDT | | + + + + + | Body Mass Index | 37.76 | 12/28/2019 9:48 AM | | | | | PDT | | + + + + + documented in this encounter Progress Notes Yoni Carrillo MD - 12/28/2019 9:45 AM PDTFormatting of this note might be different f rom the original. Date of visit: 12/28/2019 Primary Care Physician: Yasir Cullen DO CHIEF COMPLAINT: Chief Complaint Patient presents with Annual Exam HISTORY OF PRESENT ILLNESS Nicki is 19 y.o. here for pleasant good historian here for evaluation for congenital heart disease S/P closure of VSD with amplatzer in 2013. Was evaluated in [place] in Jun 2019 due to gastroenteritis. Hydrochlorothiazide was stopped. Blood pressure is controlled with lisinopril 5 mg and amlo dipine 5 mg. Denies any chest pain or shortness of breath. Has complicated past medical history childhood. 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 No lower extremity edema. Past medical history, SH, FH, and medications were reviewed in the chart. Medications: Outpatient Encounter Medications as of 12/28/2019 Medication Sig Dispense Refill amLODIPine (NORVASC) 5 mg tablet Take 5 mg by mouth daily. lisinopril (PRINIVIL, ZESTRIL) 5 mg tablet Take 5 mg by mouth Daily. [DISCONTINUED] lisinopril-hydrochlorothiazide (PRINZIDE,ZESTORETIC) 20-12.5 MG per tabl et Take 1 tablet by mouth daily. 1 medroxyPROGESTERone Acetate (DEPO-PROVERA IM) Inject into the muscle every 3 (three) [facility]. No facility-administered encounter medications on file as of 12/28/2019. Allergies Allergies Allergen Reactions Sulfa Antibiotics Swelling and Rash REVIEW OF SYSTEMS: Constitutional: negative for fatigue. No fever, chills, and rigors. No report of weight ch rebeca. HEENT: Negative for nosebleeds, ear discharge, nasal congestion or soar throat. Eyes: Negative for visual disturbance, redness, or secretion. Respiratory: Negative for cough, sputum production, hemoptysis, wheezing. Cardiovascular: as HPI. Gastrointestinal: Negative for nausea, vomiting, diarrhea, abdominal pain and blood in stoo l. Genitourinary: Negative for dysuria or hematuria. Musculoskeletal: Negative for myalgias, back pain or arthralgia. Skin: Negative for rash. Neurological: Negative for dizziness. No numbness. No recent falls. No slurred speech. Hematological: No significant bruising. Psychiatric/Behavioral: No depression or anxiety. PHYSICAL EXAM Vital Signs: BP 108/72 | Pulse 95 | Ht 1.626 m (5' 4") | Wt 99.8 kg (220 lb) | SpO2 100% | BMI 37.7 6 kg/m GENERAL APPEARANCE: Alert, oriented, cooperative, no distress, appears stated age. HEENT: Extraocular movements were intact. No jaundice. Pupiles round and reactive. NECK: No JVD, lymphadenopathy. Carotid upstrokes normal. No carotid bruit heard. CARDIAC: Regular rhythm and rate. There is normal S1 and S2. No galop. No murmur. CHEST: Normal bilateral symmetrical chest excursion.ackles or wheezing. No evidence of dull ness. ABDOMEN: Soft.No tenderness or guarding. No palpable organs. Active bowel sounds. EXTREMITIES: No lower extremities edema, cyanosis or clubbing. NEURO: Alert and oriented times three with no focal deficit. Cranial nerves are grossly no rmal. SKIN: Warm and dry. No rash. Psych: Normal affect and mood. DATA No results found for: NA, K, CO2, BUN, CREA, CALCIUM, MG No results found for: WBC, HGB, HCT, MCV, LABPLAT No results found for: ALT, CHOL, TRIG, HDL, LDLEX, GLUF, TSH EC12/22/2018 Ordered and reviewed by myself showed normal sinus rhythm, normal axis, normal EKG. Last Echo: Jul 2019 Reviewed showed normal left ventricular size and function. Normal right ventricular size an d function. S/P VSD repair with minimal residual shunt. 2014: S/P VSD closure, with 8 mm Amplatzer, VSD. Normal left ventricular function. Mild LA and LV enlargement. No LVOT obstruction. Normal coronaries by doppler. Well positioned VSD device with small residual leak, V max 4.1 m. Last Stress test: Last Cath: 05/30/2014 Amplatzer 8 mm ventricular septal defect closure. Last US carotid: ASSESSMENT: Patient is 19 y.o. with 1. Congenital heart disease, membranous ventricular septal defect repair in 2013 with Ampla tzer device. 2. Biliary atresia status post liver transplant. 3. Hypertension. 4. Obesity. 5. Mild pleuritic regurgitation. Plan: Patient denies any symptoms. Blood pressure is controlled with lisinopril 5 mg 5 mg daily. Hydrochlorothiazide stopped. Left ventricular function is normal. Stop lisinopril and continue to monitor blood pressur e. Echocardiogram was reviewed showed stable repair. Minimal residual shunt noted by color Doppler. Normal right side function. At this time continue with current medical management. Can call with any change in symptoms. Follow-up once a year. Thank you Dr. Rangel for allowing me to participate in the care of this patient. *This report has been prepared using a voice recognition system. The report was reviewed fo r accuracy, however, sound-alike word errors, addition and/or deletions may occur. If there is any question about this report please contact me. Yoni Carrillo MD, MPH documented in this encounter Plan of Treatment Not on filedocumented as of this encounter Procedures + +--------+ + + + | Procedure Name | Priori | Date/Time | Associated Diagnosis | Comments | | | ty | | | | + +--------+ + + + | ECG 12 LEAD | Routin | 12/28/2019 | S/P VSD closure | Results for this | | | e | 9:55 AM | | procedure are in the | | | | PDT | | results section. | + +--------+ + + + documented in this encounter Results ECG 12 lead (12/28/2019 9:55 AM PDT) + + + + + + | Component | Value | Ref Range | Performed | Pathologist | | | | | At | Signature | + + + + + + | VENTRICULAR | 80 | BPM | [facility] | | | RATE EKG | | | | | + + + + + + | ATRIAL RATE | 80 | BPM | [facility] | | + + + + + + | P-R | 148 | ms | [facility] | | | INTERVAL | | | | | + + + + + + | QRS | 80 | ms | [facility] | | | DURATION | | | | | + + + + + + | Q-T | 358 | ms | [facility] | | | INTERVAL | | | | | + + + + + + | Q-T | 412 | ms | [facility] | | | INTERVAL | | | | | | (CORRECTED) | | | | | + + + + + + | P WAVE AXIS | -7 | degrees | [facility] | | + + + + + + | QRS AXIS | 16 | degrees | [facility] | | + + + + + + | T AXIS | 37 | degrees | [facility] | | + + + + + + | INTERPRETAT | Normal sinus | | [facility] | | | ION TEXT | rhythmNormal ECGWhen | | | | | | compared with ECG of | | | | | | 22-DEC-2018 15:00,No | | | | | | significant change was | | | | | | foundConfirmed by | | | | | | YONI CARRILLO MD | | | | | | ([id number]) on 12/28/2019 | | | | | | 12:12:45 PM | | | | + + + + + + + + | Specimen | + + | | + + + + + | Narrative | Performed At | + + + | | | + + + + +---------+ + + | Performing | Address | City/State/Zipcode | Phone Number | | Organization | | | | + +---------+ + + | [facility] | | | | + +---------+ + + documented in this encounter Visit Diagnoses + + | Diagnosis | + + | S/P VSD closure - Primary Other postprocedural status | + + | VSD (ventricular septal defect), perimembranous Ventricular septal defect | + + | 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
--- OUTSIDE RECORDS SUMMARY | ~2020-05-29 | XMS | Encounter Summary ---
Demographics + + + | Address | [address] | | | [place] [address] | + + + | Home Phone [...] Author + + + | Author | On License Of [facility] [employer] [facility] | + + + | Organization | [...] Team Providers + +------+ + | Care Sales Order Administrator Name | Role | Phone | + +------+ + PCP | Unavailable | + +------+ + Reason for Visit + +--------+ + | Reason | Onset | Comments | | | Date | | + +--------+ + | Lab Order | 10/28/ | faxed lab order | | | 2013 | | + +--------+ + Encounter Details +--------+ + + + + | Date | Type | Department | Care Team | Description | +--------+ + + + + | 10/28/ | Telephone | Pediatric | Crista Valadez, | Lab Order (faxed lab | | 2013 | | Gastroenterology at | [address] | order) | | | | [place] | [place], [place] | | | | | [facility] | [address] | | | | | [address] | [phone] | | | | | [place] | | | | | | [facility], | | | | | | 7th floor | | | | | | [place], [place] | | | | | | [address] | | | | | | [phone] | | | +--------+ + + + [...] this encounter Miscellaneous Notes Telephone Encounter - Shena Godoy RN - 10/28/2013 11:01 AM PDTLeft a detailed messag e on mom's cell voicemail that lab orders are being faxed to [facility] in [place]. Re quested mom call back if she would like orders sent elsewhere. Also requested mom call back to schedule f/u appt with Dr. Valadez- scheduling number provid ed. Note sent to scheduling. 11: 06 AM PDTdocumented in this encounter Plan of Treatment Not on filedocumented as of this encounter Procedures + +--------+ + + + | Procedure Name | Priori | Date/Time | Associated Diagnosis | Comments | | | ty | | | | + +--------+ + + + | CBC, WITH | Routin | 11/09/2013 | Transplanted liver | Results for this | | DIFFERENTIAL | e | 4:50 PM | (HCC) Encounter | procedure are in the | | | | PDT | for therapeutic drug | results section. | | | | | monitoring | | + +--------+ + + + | COMPLETE METABOLIC | Routin | 11/09/2013 | Transplanted liver | Results for this | | SET | e | 4:50 PM | (HCC) Encounter | procedure are in the | | (NA,K,CL,CO2,BUN,CRE | | PDT | for therapeutic drug | results section. | | AT,GLUC,CA,AST,ALT,B | | | monitoring | | | WADE TOTAL,ALK | | | | | | PHOS,ALB,PROT TOTAL) | | | | | + +--------+ + + + | GGT, PLASMA | Routin | 11/09/2013 | Transplanted liver | Results for this | | | e | 4:50 PM | (HCC) Encounter | procedure are in the | | | | PDT | for therapeutic drug | results section. | | | | | monitoring | | + +--------+ + + + | MAGNESIUM, PLASMA | Routin | 11/09/2013 | Transplanted liver | Results for this | | | e | 4:50 PM | (HCC) Encounter | procedure are in the | | | | PDT | for therapeutic drug | results section. | | | | | monitoring | | + +--------+ + + + documented in this encounter Results MAGNESIUM, PLASMA (11/09/2013 4:50 PM PDT) + +-------+ + + + [...] [address] | [place] | [phone] | | [place] | | | | + + + + + GGT, PLASMA (11/09/2013 4:50 PM PDT) + +-------+ + + + | Component | Value | Ref Range | Performed | Pathologist | | | | | At | Signature | + +-------+ + + + | GAMMA | 8 | 5 - 60 U/L | [facility] [...] - | [address] | [place] | [phone] | | [place] | | | | + + + + + COMPLETE METABOLIC SET (NA,K,CL,CO2,BUN,CREAT,GLUC,CA,AST,ALT,BILI TOTAL,ALK PHOS,ALB,PROT TOTAL) (11/09/2013 4:50 PM PDT) + +--------+ + + + | Component | Value | Ref Range | Performed | Pathologist | | | | | At | Signature | + +--------+ + + + | GLUCOSE, | 82 | 70 - 100 mg/dL | [facility] | | | PLASMA | | | LAB - | | | (LAB) | | | [place] | | + +--------+ + + + | BUN, PLASMA | 18 | 6 - 23 mg/dL | [facility] | | | (LAB) | | | LAB - | | | | | | [place] | | + +--------+ + + + | CREATININE | 0.81 | 0.40 - 1.05 | [facility] | | | PLASMA | | mg/dL | LAB - | | | (LAB) | | | [place] | | + +--------+ + + + | TOTAL | 7.3 [...] +--------+ + + + | CALCIUM, | 9.6 | 8.4 - 10.2 | [facility] | [...] + + + | ALK PHOS | 78 (A) | 135 - 384 U/L | [facility] | | | | | | LAB - | | | | | | [place] | | + +--------+ + + + | AST(SGOT) | 15 | 13 - 39 U/L | [facility] | | | | | | LAB - | | | | | | [place] | | + +--------+ + + + | SODIUM, | 136 | 132 - 143 | [facility] | | | PLASMA | | mmol/L | LAB - | | | (LAB) | | | [place] | | + +--------+ + + + | POTASSIUM, | 3.6 | 3.6 - 5.1 | [facility] | [...] + + + | TOTAL CO2, | 25 | 19 - 31 mmol/L | [facility] | | | PLASMA | | | LAB - | | | (LAB) | | | [place] | | + +--------+ + + + | ALT (SGPT) | 12 | 7 - 52 U/L | [facility] | | | | | | LAB - | | | | | | [place] | | + +--------+ + + + | ANION GAP | 12.6 | 7 - 21 | [facility] | | | | | | LAB - | | | | | | [place] | | + +--------+ + + + | BUN/CREATIN | 22.2 | 6.0 - 28.6 | [facility] | | | INE RATIO | | | LAB - | | | | | | [place] | | + +--------+ + + + | GLOBULIN | 3.1 [...] [address] | [place], [place] | [phone] | | [place] | | | | + + + + + CBC, WITH DIFFERENTIAL (11/09/2013 4:50 PM PDT) + + + + + + | Component | Value | Ref Range | Performed | Pathologist | | | | | At | Signature | + + + + + + | WHITE CELL | 7.8 | 4.4 - 11.8 K/cu | [facility] | | | COUNT | | mm | LAB - | | | | | | [place] | | + + + + + + | RED CELL | 4.55 | 3.8 - 5.3 M/cu | [facility] | | | COUNT | | mm | LAB - | | | | | | [place] | | + + + + + + | HEMOGLOBIN | 14 | 11.1 - 15.7 | [facility] | | | | | g/dL | LAB - | | | | | | [place] | | + + + + + + | HEMATOCRIT | 40.7 | 32 - 47 % | [facility] | | | | | | LAB - | | | | | | [place] | | + + + + + + | MCV | 89.4 | 73 - 91 fL | [facility] | | | | | | LAB - | | | | | | [place] | | + + + + + + | MCH | 31 | 25 - 31 pg | [facility] [...] + + + + | PLATELET | 296 | 140 - 440 K/cu | [facility] | | | COUNT | | mm | LAB - | | | | | | [place] | | + + + + + + | NEUTROPHIL | 63.5 | 35 - 65 % | [facility] | | | % | | | LAB - | | | | | | [place] | | + + + + + + | LYMPHOCYTE | 25.8 (A) | 28 - 48 % | [facility] | | | % | | | LAB - | | | | | | [place] | | + + + + + + | MONOCYTE % | 7.9 | 0 - 12 % | [facility] | | | | | | LAB - | | | | | | [place] | | + + + + + + | EOS % | 2.2 | 0 - 6 % | [facility] [...] + + + + | RDW | 13.4 | 10.5 - 15 % | [facility] [...] [address] | [place] | [phone] | | [place] | | | | + + + + + documented in this encounter Visit Diagnoses + + | Diagnosis | + + | 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
--- OUTSIDE RECORDS SUMMARY | ~2020-05-29 | XMS | Encounter Summary ---
Demographics + + + | Address | [address] | | | [place] [address] | + + + | Home Phone [...] + + | Author | [facility] [facility] | + + + | Organization | [facility] | + + + | [...] Team Providers + +------+ + | Care Va Underwriter Name | Role | Phone | + [...] [place] | | | | | | [facility] | | | | | | [address] [facility] | | | | | | [place] | | | | | | [facility], | | | | | | 7th floor | | | | | | [place], [place] | | | | | | [address] | | | | | | [phone] | | | +--------+ + + + [...]
--- OUTSIDE RECORDS SUMMARY | ~2020-05-29 | XMS | Encounter Summary ---
Demographics + + + | Address | [address] | | | [place] [address] | + + + | Home Phone [...] Team Providers + +------+ + | Care Exterior Interior Specialist Name | Role | Phone | + +------+ + | Nyla Fitzpatrick MD | PCP | | + +------+ + Encounter Details +--------+ + + + + | Date | Type | Department | Care Team | Description | +--------+ + + + + | 06/13/ | Transcribed | | Dictation, Other | Transcribed | | 1998 | | | | | +--------+ + [...] as of this encounter Progress Notes Interface, Registered Nurse In - 07/26/2006 3:[address] [address] or June 13, 1999 Nyla Fitzpatrick M.D. [address] [place] [address] RE: NICKI WOODS MR #: [id number] Dear Amari: Nicki was evaluated at [facility] in the Pediatric Liver Transplantation Clinic for the first time today by members of the [facility] [facility] which included Van Guillory M.D. and Kallie Don R.N., Pediatric Liver Vault Cashier. I presented Nicki to the team in place of Dr. Carnes. 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 There were some other mild abnormalities found on angiography on May 27, 1999, (this information has been forwarded from the [employer] at [facility] to the cardiologists at [place]). 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 It required revision two days later, and she seemed to respond well to this with a fall in her bilirubin. By January, her bilirubin was 1.8 and she was doing reasonably well. She is doing reasonably well with colored stools. Unfortunately in March, she developed jaundice with no fever. Her white count was 20,000 and her delta bilirubin was elevated She was admitted to [facility] for a treatment of possible cholangitis. Unfortunately, her bilirubin did not come down and it has become clear that her Kasai procedure has failed. Additional problems that have developed over the last few months include poor weight gain and growth requiring nocturnal supplementation, variceal bleeding, and apparent cirrhosis with resultant portal hypertension. Approximately two weeks ago, she developed hematemesis and melena and required two transfusions with packed red blood cells. Endoscopy showed incipient esophageal varices. She is on multiple medications including Actigall, Zantac, vitamin A, D, E, K, and iron. Her parents live in [place], [place] approximately [place] from [place]. They and the rest of the family are quite committed Nicki's medical care. On examination today, she weighs 5.76 kg and measures 65 cm. She is mildly icteric with an NG tube in place. Her overall appearance is petite. Her respirations are unlabored. Her abdomen is soft and full with a large, hard nodular liver that extends 4-5 cm below the right costal margin. Spleen is also enlarged in the left upper quadrant descending approximately 6 cm below the left costal margin. Her umbilicus protrudes slightly and there certainly is a suggestion of ascites. Her extremities are rather thin. She is an alert and responsive child. Recent laboratory tests show a white blood count of 8.8, hematocrit of 27%, platelet count of 168k, sodium of 126, chloride 97, potassium 4.6, CO2 15, glucose 72, calcium 8.9, BUN 11, creatinine 0.2, ALT 190, AST 251, alkaline phosphatase 1.017, gamma-GT 1250, total bilirubin 6.1 (mostly direct), and an albumin of 3.4. Recent vitamin levels show adequate A and K but deficiency in D and E. Her doses of D and E were recently to treat these deficiencies. 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 She is at an increased risk of even more progressive liver disease over the next 3 to 12 months resulting in without liver transplantation. She clearly needs to be listed and the transplant team intends to do this soon. During the later half of the visit today at [facility], the family spent conversing with veterans' coordinator regarding many of the practical aspects of getting one listed for liver transplantation. In addition to category transplants, the living-related donor program was discussed. Assuming a suitable donor can be identified, Nicki is a good candidate for this program given the distance that the family lives from the Transplant Center and the degree of liver disease present. Dr. Carnes will continue to follow Nicki closely and act as the liaison between the family and the Transplant Center. Please let me know if you have any questions. Kendall Angulo M.D. [facility] / [id number] / [id number] / [id number] / cc: Luis Carnes M.D. [address] [place] [id number] Van Guillory M.D. [address] [place] [id number] Lukasz Guerrero M.D. [address] [place] [phone] [id number] signed by Interface, Registered Nurse In at 07/26/2006 3:10 AM PSTdocume nted in this encounter Plan of Treatment Not on filedocumented as of this encounter Visit Diagnoses Not on filedocumented in this encounter"
--- OUTSIDE RECORDS SUMMARY | ~2020-05-29 | XMS | Encounter Summary ---
Demographics + + + | Address | [address] | | | [place] [address] | + + + | Home Phone | | + + + | Preferred Language | Unknown | + + + | Marital Status | Single | + + + | Gnosticism Affiliation | Unknown | + + + [...] Providers + +------+ + | Care Special Forces Officer Name | Role | Phone | [...] as of this encounter Progress Notes Interface, Hr Generalist In - 06/18/2006 2:32 AM PST [id number] CHUCK ELIAS N [id number] Clinic Date: 05/28/2006 Clinic: Pediatric Liver Transplant [...] that is followed by Dr. Molina at [facility]. Review of Systems: She has no [...] unless she has problems. [place] Leonardo M.D. RET[facility] / [id number] / [id number] / [id number] / [id number] cc: Nyla Fitzpatrick M.D. [address] [facility] [place] [address] * Pediatric Liver Coordinators [facility] [place] [address] [address] Electronically signed by [place] Leonardo 06-17-2006 10:05:03 PM documented i n this encounter Plan of Treatment Not on filedocumented as of this encounter Visit Diagnoses Not on filedocumented in this encounter"
--- OUTSIDE RECORDS SUMMARY | ~2020-05-29 | XMS | Encounter Summary ---
Demographics + + + | Address | [address] | | | [place] [address] | + + + | Home Phone [...] + + + | Author | [facility] | + + + | Organization [...] Team Providers + +------+ + | Care Family Life Educator Name | Role | Phone | + +------+ + | Nyla Fitzpatrick MD | PCP | | + +------+ + Reason for Visit + +--------+ + | Reason | Onset | Comments | | | Date | | + +--------+ + | Care Coordination | 07/24/ | | | | 2015 | | + +--------+ + Encounter Details +--------+ + + + + | Date | Type | Department | Care Team | Description | +--------+ + + + + | 07/24/ | Telephone | Pediatric | Crista Valadez, | Care Coordination | | 2016 | | Gastroenterology at | MD [address] | | | | | [place] | [place], [place] | | | | | [facility] | [address] | | | | | [address] [facility] | [phone] | | | | | [place] | | | | | | [facility], | | | | | | [facility] | | | | | | [place], [place] | | | | | | [address] | | | | | | [phone] | | | +--------+ + + + [...] this encounter Miscellaneous Notes Telephone Encounter - Faith Stern RN - 07/24/2016 12:15 PM PSTCalled mom to remind her Nicki is due for labs. Before I could give mom the reason for my call she stated she is at work in an ambulance on the way to a call and requested to call back later.Electronically si gned by Faith Stern RN at 07/24/2016 12:16 PM PSTdocumented in this encounter Plan of Treatment Not on filedocumented as of this encounter Visit Diagnoses Not on filedocumented in this encounter"
--- OUTSIDE RECORDS SUMMARY | ~2020-05-29 | XMS | Encounter Summary ---
Demographics + + + | Address | [address] | | | [place] [address] | + + + | Home Phone | | + + + | Preferred Language | Unknown | + + + | Marital Status | Single | + + + | Confucianism Affiliation | Unknown | + + + [...] Team Providers + +------+ + | Care Shop Service Technician Name | Role | Phone | [...] as of this encounter Progress Notes Interface, Telex Operator In - 05/18/2006 3:[address] [address] or June 03, 2001 KIKI BALLARD M.D. [address] [place] [address] RE: NICKI WOODS MR #: [id number] DATE OF TRANSPLANT: MARCH 24, [address] Ballard: Nicki returned to the Pediatric Gastroenterology Clinic at [facility] today with her parents. It was attended by Dr. Swathi Byrne and Ayde Duran R.N. of the Pediatric Liver Transplant Team visiting from [place]. This is one of her summer annual [...] about 4. In summary, Nicki is a 22-bnqcw-css white female who is 14 months status post liver transplantation for extrahepatic biliary atresia at [place]. She continues to do extremely well with [...] months. Sincerely, Kendall Angulo M.D. Pediatric Gastroenterology [facility] / [id number] / [id number] / [id number] / C: 07/02/2001 ds cc: ISSA GRAYSON M.D. [address] [facility] [address] [place] [address] PAUL BROOKS M.D. [address] [facility] [address] [place] [address] SWATHI BYRNE M.D. [address] [facility] [address]. [address] [place] [address] [id number] signed by Interface, Telex Operator In at 05/18/2006 3:01 AM PDTdoc umented in this encounter Plan of Treatment Not on filedocumented as of this encounter Visit Diagnoses Not on filedocumented in this encounter"
--- OUTSIDE RECORDS SUMMARY | ~2020-05-29 | XMS | Encounter Summary ---
Demographics + + + | Address | [address] | | | [place] [address] | + + + | Home Phone [...] + + | Author | [facility] [employer] [facility] | + + + | Organization | [...] Providers + +------+ + | Care Manager Concrete Name | Role | Phone | + +------+ + | Nyla Fitzpatrick MD | PCP | | + +------+ + Encounter Details +--------+ + + + + | Date | Type | Department | Care Team | Description | +--------+ + + + + | 01/26/ | Document-Sc | Health Information | Unknown . | | | 2014 | anned | Services [phone] | | | | | [address] | | | | | | Mailcode: [id number] | | | | | | [facility] | | | | | | [place], [place] | | | | | | [address] | | | | | | [phone] | | | +--------+ + + + [...]
--- OUTSIDE RECORDS SUMMARY | ~2020-05-29 | XMS | Encounter Summary ---
Demographics + + + | Address | [address] | | | [place] [address] | + + + | Home Phone | | + + + | Preferred Language | Unknown | + + + | Marital Status | Single | + + + | Latter Day Affiliation | Unknown | + + + | Race | White | + + + | Ethnic Group | Not or | + + + Author + + + | Author | Pending [facility] [employer] [facility] | + + + [...] Team Providers + +------+ + | Care Major Donor Coordinator Name | Role | Phone | [...] | | | | | [place] | [place], [place] | | | | | [facility] | [address] | | | | | [address] | [phone] | | | | | [place] | | | | | | [facility], | | | | | | [address] [place] [address] | | | | | | [place], [place] | | | | | | [address] | | | | | | [phone] | | | +--------+ + + + [...] [address] | [place], [place] | [phone] | | [place] | | | | [...] + + | [facility] - | [address] | [place] | [phone] | | [place] | | | | + + + + + documented in this encounter Visit Diagnoses Not on filedocumented in this encounter"
--- OUTSIDE RECORDS SUMMARY | ~2020-05-29 | XMS | Encounter Summary ---
Demographics + + + | Address | [address] | | | [place] [address] | + + + | Home Phone [...] Author + + + | Author | [facility] | + + [...] Team Providers + +------+ + | Care Melt Helper Name | Role | Phone | [...] [place] | | | | | | [facility] | | | | | | [address] [facility] | | | | | | [place] | | | | | | [facility], | | | | | | 7th floor | | | | | | [place], [place] | | | | | | [address] | | | | | | [phone] | | | +--------+ + + + [...] | [facility] | | | RESULT | 03-04-09 AM, 20,000 | | LAB - | [...] - | [address] | [place], [place] | [phone] | | [place] | | | | [...] + + | [facility] - | [address] | [place], [place] | [phone] | | [place] | | | | [...] [address] | [place], [place] | [phone] | | [place] | | | | [...] - | | | | | | [place] | | + +-------+ + + + | ALK PHOS | | U/L | [facility] | | | | | | LAB - | | | | | | [place] | | + +-------+ + + + | AST(SGOT) | | U/L | [facility] | | | | | | LAB - | | | | | | [place] | | + +-------+ + + + [...] - | [address] | [place], [place] | [phone] | | [place] | | | | + + + + + | [facility] - | | [place], [place] | | | [place] | | | | + + + + + CARLA JACKSON ONLY (03/02/2009) + + + + + [...] [address] | [place] | [phone] | | [place] | | | | + + + + + | [facility] - | | [place], [place] | | | [place] | | | | + + + + + documented in this encounter Visit Diagnoses Not on filedocumented in this encounter"
--- OUTSIDE RECORDS SUMMARY | ~2020-05-29 | XMS | Encounter Summary ---
Demographics + + + | Address | [address] | | | [place] [address] | + + + | Home Phone [...] Author | [facility] | + + + [...] Team Providers + +------+ + | Care Partner Alliance Manager Name | Role | Phone | + +------+ + | Nyla Fitzpatrick MD | PCP | | + +------+ + Reason for Visit Consultation (Routine) +--------+ + + + + + | Status | Reason | Specialty | Diagnoses / | Referred By | Referred To | | | | | Procedures | Contact | Contact | +--------+ + + + + + | Closed | Specialty | Pediatric | Diagnoses | [facility] | | | Services | Gastroenterol | Liver | Nyla Shields MD | [address] | | | Required | ogy | replaced by | PEDS | [place] | | | | | transplant | SPECIALISTS | [place] | | | | | (HCC) | [facility] [place] | [facility] | | | | | | [address] | [facility], [address]th | | | | | | [address] | floor | | | | | | [address] | [place], [place] | | | | | | [place], | [address] | | | | | | [place] [address] | Phone: | | | | | | Phone: | [phone] | | | | | | [phone] | Fax: | | | | | | Fax: | [phone] | | | | | | [phone] | | +--------+ + + + + + Encounter Details +--------+ + + + + | Date | Type | Department | Care Team | Description | +--------+ + + + + | 05/28/ | Office | Pediatric | [place] Leonardo MD | | | 2005 | Visit-ECX | Gastroenterology at | | | | | | [place] | | | | | | [facility] | | | | | | [address] | | | | | | [place] | | | | | | [facility], | | | | | | [address]th [facility] | | | | | | [place], [place] | | | | | | [address] | | | | | | [phone] | | | +--------+ + + + [...] + + + | Blood Pressure | 120/83 | 05/28/2006 2:15 PM | | | | | PDT | | + + + + + | Pulse | 80 | 05/28/2006 2:15 PM | | | | | PDT [...] + + + + | Weight | 30.8 kg (67 lb 14.4 | 05/28/2006 2:15 PM | | | | oz) | PDT | | + + + + + | Height | 130 cm (4' 3.18") | 05/28/2006 2:15 PM | | | | | PDT | | + + + + + | Body Mass Index | 18.23 | 05/28/2006 2:15 PM | | | | | PDT | | + + + + + documented in this encounter Plan of Treatment Not on filedocumented as of this encounter Visit Diagnoses Not on filedocumented in this encounter
--- OUTSIDE RECORDS SUMMARY | ~2020-05-29 | XMS | Encounter Summary ---
Demographics + + + | Address | [address] | | | [place] [address] | + + + | Home Phone [...] Author | [facility] | + + + | Organization | [facility] | + + + [...] Providers + +------+ + | Care Manager Global Name | Role | Phone | + +------+ + | Nyla Fitzpatrick MD | PCP | | + +------+ + Reason for Visit + +--------+ + | Reason | Onset | Comments | | | Date | | + +--------+ + | Refill Request | 12/31/ | | | | 2009 | | + +--------+ + Encounter Details +--------+--------+ + + + | Date | Type | Department | Care Team | Description | +--------+--------+ + + + | 12/31/ | Refill | Pediatric | Althea Mcdonald, | Refill Request | | 2009 | | Gastroenterology at | RN [address] [facility] | | | | | [place] | [facility] | | | | | [facility] | [place] [address] | | | | | [address] | | | | | | [place] | | | | | | [facility], | | | | | | [address] [place] [address] | | | | | | [place], [place] | | | | | | [address] | | | | | | [phone] | | | +--------+--------+ + + + [...]
--- OUTSIDE RECORDS SUMMARY | ~2020-05-29 | XMS | Encounter Summary ---
Demographics + + + | Address | [address] | | | [place] [address] | + + + | Home Phone [...] Author + + + | Author | Counts Include [facility] [employer] [facility] | + + [...] Team Providers + +------+ + | Care Chocolate Finisher Name | Role | Phone | + +------+ + | Nyla Fitzpatrick MD | PCP | | + +------+ + Reason for Visit + +--------+ + | Reason | Onset | Comments | | | Date | | + +--------+ + | Refill Request | 07/27/ | | | | 2008 | | + +--------+ + Encounter Details +--------+--------+ + + + | Date | Type | Department | Care Team | Description | +--------+--------+ + + + | 07/27/ | Refill | Pediatric | Althea Mcdonald, | Refill Request | | 2007 | | Gastroenterology at | RN [address] [facility] | | | | | [place] | [facility] | | | | | [facility] | [place] [address] | | | | | [address] | | | | | | [place] | | | | | | [facility], | | | | | | [address] [place] [address] | | | | | | [place], [place] | | | | | | [address] | | | | | | [phone] | | | +--------+--------+ + + + [...]
--- OUTSIDE RECORDS SUMMARY | ~2020-05-29 | XMS | Encounter Summary ---
Demographics + + + | Address | [address] | | | [place] [address] | + + + | Home Phone [...] + | Author | [facility] | + [...] Team Providers + +------+ + | Care Engineering Administrator Name | Role | Phone | + +------+ + | Nyla Fitzpatrick MD | PCP | | + +------+ + Reason for Visit + +--------+ + | Reason | Onset | Comments | | | Date | | + +--------+ + | Lab findings, | 12/14/ | | | teaching, guidance, | 2007 | | | and counseling | | | + +--------+ + Encounter Details +--------+ + + + + | Date | Type | Department | Care Team | Description | +--------+ + + + + | 12/14/ | Telephone | Pediatric | [place] Leonardo MD | Lab findings, | | 2007 | | Gastroenterology at | | teaching, guidance, | | | | [place] | | and counseling | | | | [facility] | | | | | | [address] [facility] | | | | | | [place] | | | | | | [facility], | | | | | | [address] [place] [address] | | | | | | [place], [place] | | | | | | [address] | | | | | | [phone] | | | +--------+ + + + [...] this encounter Miscellaneous Notes Telephone Encounter - [place] Leonardo - 12/15/2007 11:22 AM PDTShnain should be getting transplan t labs every 3 months: CBC, diff, CMP, and trough Prograf level. In addition, she is due for an EBV PCR, which should be done every 6 months. We could cancel her 12/19 appointment, as she is also scheduled for transplant followup clini c with [facility] on 02/09. elephone Encounter - Honey Mcgee RN - 12/15/2007 11:06 AM PDTMother called and was wondering if Nicki should have any labs drawn before her December [address] Leonardo ? documented in this encounter Plan of Treatment Not on filedocumented as of this encounter Visit Diagnoses Not on filedocumented in this encounter"
--- OUTSIDE RECORDS SUMMARY | ~2020-05-29 | XMS | Encounter Summary ---
Demographics + + + | Address | [address] | | | [place] [address] | + + + | Home Phone | | + + + | Preferred Language | Unknown | + + + | Marital Status | Single | + + + | Mandaeism Affiliation | Unknown | + + + | Race | White | + + + | Ethnic Group | Not or | + + + Author + + + | Author | [facility] | + + [...] Team Providers + +------+ + | Care Ticket Taker Ferryboat Name | Role | Phone | + [...] | Gastroenterol | | Epic Dept | [facility] [address] | | | Required | ogy | | | [place] | | | | | | | [place] | | | | | | [facility], 7th | | | | | | | floor | | | | | | | [place], [place] | | | | | | | [address] | | | | | | | Phone: | | | | | | | [phone] | | | | | | | Fax: | | | | | | | [phone] | +--------+ + + + + + Encounter Details +--------+---------+ + + + | Date | Type | Department | Care Team | Description | +--------+---------+ + + + | 02/23/ | Office | Specialty Clinics | Crista Valadez, | Immunosuppressed | | 2013 | Visit | at [facility] [address] | [address] | status (HCC) | | | [address] | [place], [place] | (Primary Dx); S/P | | | | [place] | [address] | liver transplant | | | | [facility], | [phone] | (HCC); High risk | | | | 7th floor | | medications (not | | | | [place], [place] | | anticoagulants) | | | | [address] | | long-term use; VSD | | | | [phone] | | (ventricular septal | | | [...]
--- OUTSIDE RECORDS SUMMARY | ~2020-05-29 | XMS | Encounter Summary ---
Demographics + + + | Address | [address] | | | [place] [address] | + + + | Home Phone [...] + + | Author | [facility] | + + + | Organization | [facility] | + + + | Address [...] Team Providers + +------+ + | Care Casting Trucker Name | Role | Phone | + +------+ + | Nyla Fitzpatrick MD | PCP | | + +------+ + Encounter Details +--------+ + + + + | Date | Type | Department | Care Team | Description | +--------+ + + + + | 06/12/ | Abstract | Pediatric | [place] Leonardo MD | | | 2008 | | Gastroenterology at | | | | | | [place] | | | | | | [facility] | | | | | | [address] [facility] | | | | | | [place] | | | | | | [facility], | | | | | | 7th floor | | | | | | [place], [place] | | | | | | [address] | | | | | | [phone] | | | +--------+ + + + [...] | + +--------+ + + + | OTHER | Routin | 06/05/2009 | | Results for this | | | e | 8:15 AM | | procedure are in the | | | | PDT | | results section. | + +--------+ + + + | CBC, WITH | Routin | 06/05/2009 | | Results for this | | DIFFERENTIAL | e | 8:15 AM | | procedure are in the | | | | PDT | | results section. | + +--------+ + + + | MICROALBUMIN/CREATIN | Routin | 06/05/2009 | | Results for this | | INE RATIO (RANDOM | e | 8:15 AM | | procedure are in the | | URINE) | | PDT | | results section. | + +--------+ + + + | COMPLETE METABOLIC | Routin | 06/05/2009 | | Results for this | | SET | e | 8:15 AM | | procedure are in the | | (NA,K,CL,CO2,BUN,CRE | | PDT | | results section. | | AT,GLUC,CA,AST,ALT,B | | | | | | WADE TOTAL,ALK | | | | | | PHOS,ALB,PROT TOTAL) | | | | | + +--------+ + + + | PHOSPHORUS, PLASMA | Routin | 06/05/2009 | | Results for this | | | e | 8:15 AM | | procedure are in the | | | | PDT | | results section. | + +--------+ + + + | GGT, PLASMA | Routin | 06/05/2009 | | Results for this | | | e | 8:15 AM | | procedure are in the | | | | PDT | | results section. | + +--------+ + + + | BILIRUBIN DIRECT | Routin | 06/05/2009 | | Results for this | | | e | 8:15 AM | | procedure are in the | | | | PDT | | results section. | + +--------+ + + + | MAGNESIUM, PLASMA | Routin | 06/05/2009 | | Results for this | | | e | 8:15 AM | | procedure are in the | | | | PDT | | results section. | + +--------+ + + + | TRIGLYCERIDES, | Routin | 06/05/2009 | | Results for this | | PLASMA | e | 8:15 AM | | procedure are in the | | | | PDT | | results section. | + +--------+ + + + | CHOLESTEROL TOTAL, | Routin | 06/05/2009 | | Results for this | | PLASMA | e | 8:15 AM | | procedure are in the | | | | PDT | | results section. | + +--------+ + + + | CREATININE, URINE | Routin | 06/05/2009 | | Results for this | | | e | 8:15 AM | | procedure are in the | | | | PDT | | results section. | + +--------+ + + + documented in this encounter Results OTHER (06/05/2009 8:15 AM PDT) + + + + + + | Component | Value | Ref Range | Performed | Pathologist | | | | | At | Signature | + + + + + + | ALKALINE | 8.3Comment: | 0 - 30 mg/dL | [facility] | | | PHOS, OTHER | microalb/creat | | LAB - | | | CALC | | | [place] | | + + + + + + + + | Specimen | + + | Urine | + + + + + + + | Performing | Address | City/State/Zipcode | Phone Number | | Organization | | | | + + + + + | [facility] - | [address] | [place] | [phone] | | [place] | | | | + + + + + | [facility] - | | [place], [place] | | | [place] | | | | + + + + + COMPLETE METABOLIC SET (NA,K,CL,CO2,BUN,CREAT,GLUC,CA,AST,ALT,BILI TOTAL,ALK PHOS,ALB,PROT TOTAL) (06/05/2009 8:15 AM PDT) + +-------+ + + + | Component | Value | Ref Range | Performed | Pathologist | | | | | At | Signature | + +-------+ + + + | GLUCOSE, | 100 | 60 - 100 mg/dL | [facility] | | | PLASMA | | | LAB - | | | (LAB) | | | [place] | | + +-------+ + + + | BUN, PLASMA | 9 | 6 - 23 mg/dL | [facility] | | | (LAB) | | | LAB - | | | | | | [place] | | + +-------+ + + + | CREATININE | 0.51 | 0.5 - 1.5 mg/dL | [facility] | | | PLASMA | | | LAB - | | | (LAB) | | | [place] | | + +-------+ + + + | TOTAL | 6.7 | 6.1 - 8.5 g/dL | [facility] | | | PROTEIN, | | | LAB - | | | PLASMA | | | [place] | | | (LAB) | | | | | + +-------+ + + + | ALBUMIN, | 3.7 | 2.9 - 5.5 g/dL | [facility] | | | PLASMA | | | LAB - | | | (LAB) | | | [place] | | + +-------+ + + + | CALCIUM, | 9.6 | 8.5 - 10.5 | [facility] | | | PLASMA | | mg/dL | LAB - | | | (LAB) | | | [place] | | + +-------+ + + + | BILIRUBIN | 0.5 | 0.0 - 1.2 | [facility] | | | TOTAL | | Transcutaneous | LAB - | | | | | Bilirubinometer | [place] | | + +-------+ + + + | ALK PHOS | 220 | 135 - 384 U/L | [facility] | | | | | | LAB - | | | | | | [place] | | + +-------+ + + + | AST(SGOT) | 20 | 0 - 40 U/L | [facility] [...] +-------+ + + + | CHLORIDE, | 106 | 95 - 112 mmol/L | [facility] | | | PLASMA | | | LAB - | | | (LAB) | | | [place] | | + +-------+ + + + | TOTAL CO2, | 23.2 | 19 - 31 mmol/L | [facility] [...] + + + | ANION GAP | 13.8 | 7 - 21 | [facility] | | | | | | LAB - | | | | | | [place] | | + +-------+ + + + | BUN/CREATIN | 17.6 | 6.0 - 28.6 | [facility] | | | INE RATIO | | | LAB - | | | | | | [place] | | + +-------+ + + + | A/G RATIO | 1.2 | 1.1 - 2.4 | [facility] | [...] + + | [facility] - | [address] | [place] | [phone] | | [place] | | | | + + + + + | [facility] - | | [place], [place] | | | [place] | | | | + + + + + CBC, WITH DIFFERENTIAL (06/05/2009 8:15 AM PDT) + + + + + + | Component | Value | Ref Range | Performed | Pathologist | | | | | At | Signature | + + + + + + | WHITE CELL | 5.7 | 4.5 - 13.5 K/cu | [facility] | | | COUNT | | mm | LAB - | | | | | | [place] | | + + + + + + | RED CELL | 4.89 | 4.1 - 5.3 M/cu | [facility] | | | COUNT | | mm | LAB - | | | | | | [place] | | + + + + + + | HEMOGLOBIN | 14.1 | 10.6 - 15.2 | [facility] | | | | | g/dL | LAB - | | | | | | [place] | | + + + + + + | HEMATOCRIT | 43.0 (A) | 32 - 42 % | [facility] | | | | | | LAB - | | | | | | [place] | | + + + + + + | MCV | 87.8 | 71 - 89 fL | [facility] | | | | | | LAB - | | | | | | [place] | | + + + + + + | MCH | 29 | 24 - 30 pg | [facility] | | | | | | LAB - | | | | | | [place] | | + + + + + + | MCHC | 33 | 30 - 36 g/dL | [facility] | | | | | | LAB - | | | | | | [place] | | + + + + + + | PLATELET | 320 | 140 - 440 K/cu | [facility] | | | COUNT | | mm | LAB - | | | | | | [place] | | + + + + + + | NEUTROPHIL | 49.7 | 31 - 60 % | [facility] | | | % | | | LAB - | | | | | | [place] | | + + + + + + | LYMPHOCYTE | 41.0 | 28 - 48 % | [facility] | | | % | | | LAB - | | | | | | [place] | | + + + + + + | MONOCYTE % | 4.8 | 0 - 12 % | [facility] | | | | | | LAB - | | | | | | [place] | | + + + + + + | EOS % | 3.8 | 0 - 6 % | [facility] [...] | RDW | 13.4 | 10.5 - 15.0 % | [facility] [...] [address] | [place], [place] | [phone] | | [place] | | | | + + + + + | [facility] - | | [place], [place] | | | [place] | | | | + + + + + GGT, PLASMA (06/05/2009 8:15 AM PDT) + +-------+ + + + | Component | Value | Ref Range | Performed | Pathologist | | | | | At | Signature | + +-------+ + + + | GAMMA | 10 | 5 - 60 U/L | [facility] [...] + + | [facility] - | [address] | [place], [place] | [phone] | | [place] | | | | + + + + + | [facility] - | | [place], [place] | | | [place] | | | | + + + + + MAGNESIUM, PLASMA (06/05/2009 8:15 AM PDT) + + + + + + | Component | Value | Ref Range | Performed | Pathologist | | | | | At | Signature | + + + + + + | MAGNESIUM,P | 1.69 (A) | 1.7 - 2.5 mg/dL | [facility] [...] - | [address] | [place], [place] | [phone] | | [place] | | | | + + + + + | [facility] - | | [place], [place] | | | [place] | | | | + + + + + BILIRUBIN DIRECT (06/05/2009 8:15 AM PDT) + +-------+ + + + [...] [address] | [place] | [phone] | | [place] | | | | + + + + + | [facility] - | | [place], [place] | | | [place] | | | | + + + + + TRIGLYCERIDES, PLASMA (06/05/2009 8:15 AM PDT) + +-------+ + + + | Component | Value | Ref Range | Performed | Pathologist | | | | | At | Signature | + +-------+ + + + | TRIGLYCERID | 94 | 30 - 150 mg/dL | [facility] [...] - | [address] | [place], [place] | [phone] | | [place] | | | | + + + + + | [facility] - | | [place], [place] | | | [place] | | | | + + + + + PHOSPHORUS, PLASMA (06/05/2009 8:15 AM PDT) + +-------+ + + + | Component | Value | Ref Range | Performed | Pathologist | | | | | At | Signature | + +-------+ + + + | PHOSPHORUS, | 4.7 | 2.6 - 6.2 mg/dL | [facility] [address] | [place] | [phone] | | [place] | | | | + + + + + | [facility] - | | [place], [place] | | | [place] | | | | + + + + + CHOLESTEROL TOTAL, PLASMA (06/05/2009 8:15 AM PDT) + +-------+ + + + | Component | Value | Ref Range | Performed | Pathologist | | | | | At | Signature | + +-------+ + + + | CHOLESTEROL | 142 | < - 200 mg/dL | [facility] [...] [address] | [place], [place] | [phone] | | [place] | | | | + + + + + | [facility] - | | [place], [place] | | | [place] | | | | + + + + + CREATININE, URINE (06/05/2009 8:15 AM PDT) + +-------+ + + + | Component | Value | Ref Range | Performed | Pathologist | | | | | At | Signature | + +-------+ + + + | CREATININE, | 24 | g/col. time | [facility] | | | URINE | | | LAB - | | [...] + + | [facility] - | [address] | [place], [place] | [phone] | | [place] | | | | + + + + + | [facility] - | | [place], [place] | | | [place] | | | | + + + + + MICROALBUMIN/CREATININE RATIO (RANDOM URINE) (06/05/2009 8:15 AM PDT) + +-------+ + + + | Component | Value | Ref Range | Performed | Pathologist | | | | | At | Signature | + +-------+ + + + | MICROALBUMI | 0.2 | 0.0 - 2.0 mg/L | [facility] | | | N, | | | LAB - | | | URINE-RANDO | | | [place] | | | M | | | | | + +-------+ + + + + + | Specimen | + + | Urine - Urine | + + + + + + + | Performing | Address | City/State/Zipcode | Phone Number | | Organization | | | | + + + + + | [facility] - | [address] | [place], [place] | [phone] | | [place] | | | | + + + + + | [facility] - | | [place], [place] | | | [place] | | | | + + + + + documented in this encounter Visit Diagnoses Not on filedocumented in this encounter"
--- OUTSIDE RECORDS SUMMARY | ~2020-05-29 | XMS | Encounter Summary ---
Demographics + + + | Address | [address] | | | [place] [address] | + + + | Home Phone | | + + + | Preferred Language | Unknown | + + + | Marital Status | Single | + + + | Orthodoxy Affiliation | Unknown | + + + | Race | White | + + + | Ethnic Group | Not or | + + + Author + + + | Author | [facility] | + + + | Organization | [facility] | + + [...] Team Providers + +------+ + | Care Cheese Cutter Name | Role | Phone | + +------+ + | Nyla Fitzpatrick MD | PCP | | + +------+ + Encounter Details +--------+------+ + + + | Date | Type | Department | Care Team | Description | +--------+------+ + + + | 06/28/ | Lab | Lab Center at | | Transplanted liver | | 2013 | | [place] | | (HCC); High risk | | | | [facility] | | medications (not | | | | [address] | | anticoagulants) | | | | [place] | | long-term use | | | | [facility] | | | | | | [address] [place] [address], | | | | | | [place] [address] | | | | | | [phone] | | | +--------+------+ + + + [...] | + + + + + | [facility] | [address] | [place] [address] | | | SERVICES, SPECIAL | ZANE [...] CHOLESTEROL | 136 | <200 mg/dL | [facility] | | | (LAB) | | | [...] [facility] | [address] | [place] [address] | | | SERVICES, ALANNA | ZANE [...] only. | LABORATORY | | | SERVICES, ALANNA | + + + + + + + + | Performing | Address | City/State/Zipcode | Phone Number | | Organization | | | | + + + + + | [facility] | [address] | [place] [address] | | | SERVICES, ALANNA | ZANE [...] | + + + + + | [facility] | [address] | [place] [address] | | | SERVICES, CORE | [address] [...] | + + + + + | [facility] | [address] | [place] [address] | | | SERVICES, CORE | P[address] [...] | + + + + + | [facility] | [address] | [place] [address] | | | SERVICES, CORE | [address] | | | + + + + + MAGNESIUM, PLASMA (06/28/2014 5:27 PM PST) + +---------+ + + + | Component | Value | Ref Range | Performed | Pathologist | | | | | At | Signature | + +---------+ + + + | MAGNESIUM,P | 1.6 (L) | 1.8 - 2.5 mg/dL | [facility] | | | LASMA | | | [...] | + + + + + | [facility] | [address] [facility] [facility] | [place] [address] | | | SERVICES, CORE | ZANE [...] [facility] | [address] | [place] [address] | | | ALANNA LINDA | [address] | | | + [...]
--- OUTSIDE RECORDS SUMMARY | ~2020-05-29 | XMS | Encounter Summary ---
Demographics + + + | Address | [address] | | | [place] [address] | + + + | Home Phone [...] + | Author | [facility] [employer] [facility] | + [...] Team Providers + +------+ + | Care Tape Cutter Name | Role | Phone | + +------+ + | Nyla Fitzpatrick MD | PCP | | + +------+ + Reason for Visit + +--------+ + | Reason | Onset | Comments | | | Date | | + +--------+ + | Lab Results | 02/19/ | | | | 2015 | | + +--------+ + Encounter Details +--------+ + + + + | Date | Type | Department | Care Team | Description | +--------+ + + + + | 02/19/ | Telephone | Pediatric | Crista Valadez, | Lab Results | | 2015 | | Gastroenterology at | MD [address] | | | | | [place] | [place], [place] | | | | | [facility] | [address] | | | | | [address] | [phone] | | | | | [place] | | | | | | [facility], | | | | | | [address] [place] [address] | | | | | | [place], [place] | | | | | | [address] | | | | | | [phone] | | | +--------+ + + + [...] Telephone Encounter - Shena Godoy RN - 02/20/2016 10:47 AM PDTThe following email re ceived from Lucina POWERS at [place]: Reviewed labs on Nicki Stephens from 01/22/16. Labs look great. We can continue monitoring every 3 m onths. For her next set due in Apr can we please add a GGT ..... Also, we would like her t o get an US of the liver with Doppler since she if off immunosuppression before we see her a t the end of the month. Would you be able to arrange for this? Call to [facility]- GGT was not drawn. Our records indicate this is part of the Standin g Order, [facility] does not show GGT ordered. Standing Order re-faxed. Call to pt's mom, informed of lab results and to continue Q 3 month lab draws. Mom agrees to have liver US w/ doppler done locally before 03/13 appt. [facility], mom will call to schedule appt. Mom verbalized understanding of results a nd plan. documented i n this encounter Plan of Treatment Not on filedocumented as of this encounter Visit Diagnoses Not on filedocumented in this encounter"
--- OUTSIDE RECORDS SUMMARY | ~2020-05-29 | XMS | Encounter Summary ---
Demographics + + + | Address | [address] | | | [place] [address] | + + + | Home Phone [...] + | Author | [facility] | + + + [...] Team Providers + +------+ + | Care Destination Imagination Coordinator Name | Role | Phone | + +------+ + | Nyla Fitzpatrick MD | PCP | | + +------+ + Reason for Visit + +--------+ + | Reason | Onset | Comments | | | Date | | + +--------+ + | Lab Results | 06/08/ | | | | 2016 | | + [...] | | | | | [place] | [place], [place] | | | | | [facility] | [address] | | | | | [address] | [phone] | | | | | [place] | | | | | | [facility], | | | | | | [address] [place] [address] | | | | | | [place], [place] | | | | | | [address] | | | | | | [phone] | | | +--------+ + + + [...] Telephone Encounter - Shena Godoy RN - 06/08/2017 4:45 PM PDTThe following email re ceived from Gino Hays MS, PA-C at [place] ([facility]): Her liver numbers are normal and she isn t on immunosuppression. She should repeat labs i n 3 months and transition to an adult liver transplant team. Pt's mom informed as above and verbalized understanding. Pt has not identified an Adult Li mario Transplant team yet. Mom will be contacting [facility] ([facility]) to see if there is a ph ysician that can see her there. Offered assistance as needed with transferring care. Irving pierce mom call to let us know when pt has identified an Adult provider to transfer care to.El ectronically signed by Shena Godoy, RN at 06/08/2017 5:00 PM PDTdocumented in this enc ounter Plan of Treatment Not on filedocumented as of this encounter Visit Diagnoses Not on filedocumented in this encounter"
--- OUTSIDE RECORDS SUMMARY | ~2020-05-29 | XMS | Encounter Summary ---
Demographics + + + | Address | [address] | | | [place] [address] | + + + | Home Phone [...] + + | Author | [facility] | + + + [...] Team Providers + +------+ + | Care Waste Treatment Operator Name | Role | Phone | [...] [address] | | | | | | [place], [place] | | | | | | [address] | | | +--------+ + + + [...]
--- OUTSIDE RECORDS SUMMARY | ~2020-05-29 | XMS | Encounter Summary ---
Demographics + + + | Address | [address] | | | [place] [address] | + + + | Home Phone [...] + + | Author | [facility] | + [...] Team Providers + +------+ + | Care Mail Clerk Name | Role | Phone | + +------+ + | Nyla Fitzpatrick MD | PCP | | + +------+ + Reason for Visit + +--------+ + | Reason | Onset | Comments | | | Date | | + +--------+ + | Refill Request | 09/25/ | | | | 2008 | | + +--------+ + Encounter Details +--------+--------+ + + + | Date | Type | Department | Care Team | Description | +--------+--------+ + + + | 09/25/ | Refill | Pediatric | Althea Mcdonald, | Refill Request | | 2008 | | Gastroenterology at | RN [address] [facility] | | | | | [place] | [facility] | | | | | [facility] | [place] [address] | | | | | [address] | | | | | | [place] | | | | | | [facility], | | | | | | [address] [place] [address] | | | | | | [place], [place] | | | | | | [address] | | | | | | [phone] | | | +--------+--------+ + + + [...]
--- OUTSIDE RECORDS SUMMARY | ~2020-05-29 | XMS | Encounter Summary ---
Demographics + + + | Address | [address] | | | [place] [address] | + + + | Home Phone [...] Author + + + | Author | [facility] | + + + | Organization | [facility] | + + + | Address | [...] Team Providers + +------+ + | Care Training Intern Name | Role | Phone | + +------+ + PCP | Unavailable | + +------+ + Encounter Details +--------+ + + + + | Date | Type | Department | Care Team | Description | +--------+ + + + + | 11/21/ | Documentati | Pediatric | Crista Valadez, | | | 2013 | on | Gastroenterology at | [address] | | | | | [place] | [facility] [place] | | | | | [facility] | [address] | | | | | [address] | [phone] | | | | | [place] | | | | | | [facility], | | | | | | 7th floor | | | | | | [place], [place] | | | | | | [address] | | | | | | [phone] | | | +--------+ + + + [...]
--- OUTSIDE RECORDS SUMMARY | ~2020-05-29 | XMS | Encounter Summary ---
Demographics + + + | Address | [address] | | | [place] [address] | + + + | Home Phone [...] Team Providers + +------+ + | Care Gut Snatcher Name | Role | Phone | + [...] as of this encounter Progress Notes Interface, Senior Ui Web Developer In - 06/27/2006 3:05 AM [facility] [place] [address] [address] or June 11, 2000 Nyla Fitzpatrick M.D. [address] [place] [address] RE: NICKI WOODS MR #: [id number] : 2000 DATE OF TRANSPLANT: 03/24/[address] Fitzpatrick: I had the pleasure of seeing Nicki at the Pediatric Liver Transplant Clinic held at [facility], attended by Dr. Beth and Dr. Kallie Don, representatives of the Liver Transplant team at [place], in lieu with Dr. Carnes. As you [...] arrange this to be done in the [facility], rather than having the family drive all the way to the [place] for this. This should be done for 1 year posttransplant. For the next 1-1/2 months, the family will have Nicki's blood drawn every 2 weeks. Assuming everything is under control, then it could be done monthly. The family will be talking to Dr. Carnes soon to firm up plans to have Nicki followed mostly by you in the [facility], and to come to [place] either when the situation is unstable and, at the very least, every 3-6 months for chronic monitoring. Finally, Kallie will work out the details of which laboratory tests should be done and when with the family. Please let me know if you have any questions. Sincerely, Kendall Angulo M.D. Pediatric Gastroenterology [facility] / [id number] / [id number] / [id number] / [id number] cc: Kendall Beth M.D. [address] [place] [id number] signed by Interface, Senior Ui Web Developer In at 06/27/2006 3:05 AM PSTdocume nted in this encounter Plan of Treatment Not on filedocumented as of this encounter Visit Diagnoses Not on filedocumented in this encounter"
--- OUTSIDE RECORDS SUMMARY | ~2020-05-29 | XMS | Clinical Summary ---
Demographics + + + | Address | [address] | | | [place] [address] | + + + | Home Phone | | + + + | Preferred Language | Unknown | + + + | Marital Status | Single | + + + | Protestant Affiliation | Unknown | + + + | Race | White | + + + | Ethnic Group | Not or | + + + Author + + + | Author | [facility] | | | and [place] | + + + | Organization | [facility] | | | and [place] | + + + | Address | Unknown | + + + | Phone | Unavailable | + + + Support + + + + + | Name | Relationship | Address | Phone | + + + + + | Mary Woods | ECON | [address] | | | | | [place] | | | | | [address] | | + + + + + Care Team Providers + +------+ + | Care Strategy Analyst Name | Role | Phone | + +------+ + | Yasir Cullen DO | PCP | | + +------+ + Allergies + + + + + + | Active Allergy | Reactions | Severity | Noted | Comments | | | | | Date | | + + + + + + | Sulfa Antibiotics | Swelling, Rash | Medium | /04/05 | | | | | | 19 | | + + + + + + Medications + + + +---------+------+------+-------+ | Medication | Sig | Dispensed | Refills | Star | End | Statu | | | | | | t | Date | s | | | | | | Date | | | + + + +---------+------+------+-------+ | | Inject into the | | 0 | 05/0 | | Activ | | medroxyPROGESTERone | muscle every 3 | | | /20 | | e | | Acetate | (three) months. | | | 19 | | | | (DEPO-PROVERA IM) | | | | | | | + + + +---------+------+------+-------+ | amLODIPine | Take 5 mg by mouth | | 0 | 05/0 | | Activ | | (NORVASC) 5 mg | daily. 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/2000 at [place] | + + Family History + + [...] Alive | | + +------+--------+ + | Father | | | | + +------+--------+ + | Mother [...] + + Plan of Treatment + + +-------+ + | Health Maintenance | Due Date | Last | Comments | | | | Done | | + + +-------+ + | Hepatitis C | | | | | Screening | 9 | | | + + +-------+ + | Well Child Check | | | | | | 2 | | | + + +-------+ + | Vaccine: | | | | | Pneumococcal 19-64 | 5 | | | | (1 of 3 - PCV13) | | | | + + +-------+ + | Vaccine: HPV (1 - | | | | | Risk 3-dose series) | 0 | | | + + +-------+ + | Vaccine: | | | | | Dtap/Tdap/Td (1 - | 8 | | | | Tdap) | | | | + + +-------+ + | Cervical Cancer | | | | | Screening (Pap) | 0 | | | + + +-------+ + | Vaccine: Influenza | | | | | (#1) | 0 | | | + + +-------+ + Results Not on filefrom Last 3 Months Insurance + +--------+ +--------+ +---------+------+ | Payer | Benefi | Subscriber | Effect | Phone | Address | Type | | | t Plan | ID | adrian | | | | | | / | | Dates | | | | | | Group | | | | | | + +--------+ +--------+ +---------+------+ | [employer] | PACIFI | [id number] | 03/17/20 | [phone] | | PPO | | | CSOURC | | 19-Pre | 2 | | | | | E | | sent | | | | | | FIRST | | | | | | | | CHOICE | | | | | | + +--------+ +--------+ +---------+------+ | [employer] | FIRST | [id number] | | [phone] | | PPO | | | HEALTH | | 018-Pr | 7 | | | | | OTHER | | esent | | | | + +--------+ +--------+ +---------+------+ | [employer] | PHP | [id number] | 08/17/19 | [phone] | | PPO | | PLAN | PEBB | | 19-Pre | 5 | | | | | STATEW | | sent | | | | | | ADEN | | | | | | + +--------+ +--------+ +---------+------+ + +--------+ +--------+ + + | Guarantor Name | Accoun | Relation to | Date | Phone | Billing Address | | | t Type | Patient | of | | | | | | | | | | + +--------+ +--------+ + + | Nicki Woods | Person | Self [birth year] | [address] | | | al/Fam | | 2000 | [phone] | [place] | | | marlene | | | 7 (Home) | [address] | + +--------+ +--------+ + + | Nicki Woods | Person | Self | [birth year] | | [address] | | | al/Fam | | 2000 | [phone] | [place] | | | marlene | | | 7 (Home) | [address] | + +--------+ +--------+ + + Advance Directives + + + + + | Type | Date Recorded | Patient | Explanation | | | | Data Security Analyst | | + + + + + | Power of | | | | | Night Worker | | | | + + + + + | Advance | | | | | Directive | | | | + + + + +
--- OUTSIDE RECORDS SUMMARY | ~2020-05-29 | XMS | Encounter Summary ---
Demographics + + + | Address | [address] | | | [place] [address] | + + + | Home Phone [...] Author + + + | Author | [facility] | [...] Team Providers + +------+ + | Care Ocean Export Account Manager Name | Role | Phone | [...] [place] | | | | | | [facility] | | | | | | [address] | | | | | | [place] | | | | | | [facility], | | | | | | 7th floor | | | | | | [place], [place] | | | | | | [address] | | | | | | [phone] | | | +--------+ + + + [...] [address] | [place], [place] | [phone] | | [place] | | | | + + + + + | [facility] - | | [place], [place] | | | [place] | | | | + + + [...] [address] | [place], [place] | [phone] | | [place] | | | | [...] [address] | [place] | [phone] | | [place] | | | | [...] - | [address] | [place], [place] | [phone] | | [place] | | | | + + + + + | [facility] - | | [place], [place] | | | [place] | | [...] [address] | [place] | [phone] | | [place] | | | | [...] [address] | [place], [place] | [phone] | | [place] | | | | + + + + + | [facility] - | | [place], [place] | | | [place] | | [...] + + | [facility] - | [address] | [place] | [phone] | | [place] | | | | + + + + + | [facility] - | | [place], [place] | | | [place] | | [...] + + | [facility] - | [address] | [place], [place] | [phone] | | [place] | | | | + + + + + | [facility] - | | [place], [place] | | | [place] | | | | + + + + + documented in this encounter Visit Diagnoses Not on filedocumented in this encounter"
--- OUTSIDE RECORDS SUMMARY | ~2020-05-29 | XMS | Encounter Summary ---
Demographics + + + | Address | [address] | | | [place] [address] | + + + | Home Phone [...] + + + | Author | [facility] | + + + [...] Providers + +------+ + | Care Title Manager Name | Role | Phone | [...] | 2016 | on | [address]UL[address]ORY [address] | MERCHANDISING CONSULTANT [address] | | | | | [address] | [address] | | | | | Mailcode: CH[address]A | [place], [place] | | | | | [place], [place] | [address] | | | | | [address] | | | | | | [phone] | | | +--------+ + + + [...] this encounter Miscellaneous Notes Telephone Encounter - Mary PenaRAFAEL - 02/28/2016 10:51 AM PDT Social Work Note Clinic: GI Date: 02/28/16 SUJATHA discussed pt with Dr. Valadez who would like to make sure pt continues to be followed onc e she transitions to adult team. Family had struggled with insurance issues in the past as w ell as getting lab work done and attending clinic appointments. SUJATHA reviewed the chart and wi ll continue to monitor until pt turns 16 and transitions to adult team. SUJATHA contacted adult nicolas SOLARES, Sherley Xiao to notify her of pt transitioning to adult team in 6 or so months. Plan: SW will continue to follow the family and remain available to provide ongoing support and resources as needed. KUSUM Blanton, [facility] Head Bone Grinder Pgr: [phone] documented in this encounter Plan of Treatment Not on filedocumented as of this encounter Visit Diagnoses Not on filedocumented in this encounter"
--- OUTSIDE RECORDS SUMMARY | ~2020-05-29 | XMS | Encounter Summary ---
Demographics + + + | Address | [address] | | | [place] [address] | + + + | Home Phone | | + + + | Preferred Language | Unknown | + + + | Marital Status | Single | + + + | Rastafari Affiliation | Unknown | + + + | Race | White | + + + | Ethnic Group | Not or | + + + Author + + + | Author | [facility] | + + + [...] Team Providers + +------+ + | Care Yeast Washer Name | Role | Phone | + +------+ + | Nyla Fitzpatrick MD | PCP | | + +------+ + Encounter Details +--------+ + + + + | Date | Type | Department | Care Team | Description | +--------+ + + + + | 04/27/ | Documentati | SOCIAL WORK | [facility], | | | 2013 | on | AMBULATORY [address] | KUSUM Choi | | | | | [address] | [address] | | | | | Mailcode: CH6A | [place], | | | | | [place], [place] | [place] [address] | | | | | [address] | [phone] | | | | | [phone] | | | +--------+ + + + [...]
--- OUTSIDE RECORDS SUMMARY | ~2020-05-29 | XMS | Encounter Summary ---
Demographics + + + | Address | [address] | | | [place] [address] | + + + | Home Phone [...] | Author | [facility] | + + + | Organization | [facility] | + + + [...] Team Providers + +------+ + | Care Cut Off Tender Glass Name | Role | Phone | + [...] | | | | | [place] | [place], [place] | | | | | [facility] | [address] | | | | | [address] | [phone] | | | | | [place] | | | | | | [facility], | | | | | | 7th [facility] | | | | | | [place], [place] | | | | | | [address] | | | | | | [phone] | | | +--------+ + + + [...] Telephone Encounter - Nikki Oakley RN - 09/19/2014 11:50 AM PSTReceived a call back from Mirna at [employer], the last blood draw she has for patient in their system is from March 09 2014. Notified Faith Stern RN.Electronically signed by Nikki Oakley RN at 11:51 AM PSTTelephone Encounter - Faith Stern RN - 09/19/2014 11:36 AM PSTAn e- mail was received from Chiara Montanez MD, Peds GI Fellow with the [place] [facility]. She met with Nicki and her family during the last transplant outreach clinic. Nicki snow olled in a study being run by Dr. Montanez. Dr. Montanez is looking for labs related to the study. They should have had a CBC, GGT and hepatic function within 4-8 weeks after the 07/06 ap pt. Called [employer] for results. Had to leave a voicemail message. Asked that they fax results if available, or call our office to let us know no labs were drawn.Electronicall y signed by Faith Stern RN at 09/19/2014 11:45 AM PSTdocumented in this encounter Plan of Treatment Not on filedocumented as of this encounter Visit Diagnoses Not on filedocumented in this encounter"
--- OUTSIDE RECORDS SUMMARY | ~2020-05-29 | XMS | Encounter Summary ---
Demographics + + + | Address | [address] | | | [place] [address] | + + + | Home Phone [...] Team Providers + +------+ + | Care Hairspring Cutter Name | Role | Phone | [...] as of this encounter Progress Notes Interface, Assistant Research Scientist In - 04/28/2006 3:[address] [facility] [place] [address] [address] or October 28, 2001 Nyla Fitzpatrick M.D. [address] [place] [place] [address] RE: NICKI WOODS MR #: [id number] Dear Dr. Fitzpatrick: I had the pleasure of seeing Nicki back in the Pediatric Liver Transplant Clinic at [facility] staffed by Dr.Bill Beth and Dr. Ngoc Davis from [place]. This is a routine followup. Nicki continues to do quite well with no symptoms. She is gaining weight well and developing normally. She is presently on Prograf 2 mL (0.5 mg/mL) b.i.d. Past medical history is significant for an allergy to sulfa medication. In addition, she has a very small VSD that is followed by Dr. Donald Mendez, pediatric dental hygienist. The VSD certainly does not seem to [...] team. Sincerely, Kendall Angulo M.D. Pediatric Gastroenterology [facility] / [id number] / [id number] / [id number] / cc: Jose F Carnes M.D. [address] [facility] [place] [address] Mirza Guerrero M.D. [address] [facility] [address] [place] [address] Adonis Beth M.D. [address] [facility] [place] [address] [id number] signed by Interface, Assistant Research Scientist In at 04/28/2006 3:05 AM PDTdoc umented in this encounter Plan of Treatment Not on filedocumented as of this encounter Visit Diagnoses Not on filedocumented in this encounter"
--- OUTSIDE RECORDS SUMMARY | ~2020-05-29 | XMS | Encounter Summary ---
Demographics + + + | Address | [address] | | | [place] [address] | + + + | Home Phone [...] + | Author | [facility] [employer] [facility] | + + + | Organization | [facility] | + + [...] Team Providers + +------+ + | Care Quality Assurance Manager Name | Role | Phone | [...] Gastroenterol | | Nyla De Leon, | Dc [address] | | | | [address] | | PEDS | [place] | | | | | | [facility] | [place] | | | | | | OF [place] | Children[facility] | | | | | | [address] | [address] | | | | | | [address] | [facility] | | | | | | [place], | [place], [place] | | | | | | [place] [address] | [address] | | | | | | Phone: | Phone: | | | | | | [phone] | [phone] | | | | | | Fax: | Fax: | | | | | | [phone] | [phone] | +--------+--------+ + + + + Encounter Details +--------+---------+ + + + | Date | Type | Department | Care Team | Description | +--------+---------+ + + + | 03/01/ | Office | Pediatric | Crista Valadez, | Polysplenia (Primary | | 2015 | Visit | Gastroenterology at | [address] | Dx); Transplanted | | | | [facility] | [place], [place] | liver (HCC); | | | | [facility] | [address] | Interrupted inferior | | | | [address] | [phone] | vena cava; Aortic | | | | [facility] | | insufficiency; | | | | [facility], | | Aortic root | | | | 7th floor | | dilatation (HCC) | | | | [place], [place] | | | | | | [address] | | | | | | [phone] | | | +--------+---------+ + + + [...] Visit type: Follow-up Patient accompanied by: mother Glass Technician used: no CC: - Post-liver transplant care - High risk medication management Patient Active Problem List Diagnosis Transplanted Liver VSD (ventricular septal defect), perimembranous Polysplenia Interrupted inferior vena cava Aortic insufficiency Aortic root dilatation PAST Hx/jennings: 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 She was last seen by Dr Leonardo in 2008. In 2009, it was noticed that she has not been seen, attempts to reach to family was unsucces sful. lost to follow up since that time. - Cardiology: last cardiology note is from [address] Nyla Fitzpatrick, ultrasonic tester at [facility]. Her cardiac dx includes 1) moderate perimembraneous [...] Procedure Laterality Date Liver transplant 03/24/2000 at [facility] Vsd repair, amplatzer device 06/01/2014 8-mm Amplatzer [...] Dr. Van Guillory and GIO Ludwig from [facility] were present as [...] Crista Valadez MD Pediatric Gastroenterology Consult line: [phone] documented in this en counter Plan of [...]
--- OUTSIDE RECORDS SUMMARY | ~2020-05-29 | XMS | Encounter Summary ---
Demographics + + + | Address | [address] | | | [place] [address] | + + + | Home Phone [...] + + + | Author | [facility] [facility] | + + + [...] Team Providers + +------+ + | Care Cable Tender Name | Role | Phone | + +------+ + | Nyla Fitzpatrick MD | PCP | | + +------+ + Reason for Visit + + + | Reason | Comments | + + + | Care Coordination | [place] | + + + Encounter Details +--------+ + + + + | Date | Type | Department | Care Team | Description | +--------+ + + + + | 06/30/ | Documentati | Pediatric | Crista Valadez, | Care Coordination | | 2017 | on | Gastroenterology at | MD [address] | ([place]) | | | | [facility] | [place], [place] | | | | | [facility] | [address] | | | | | [address] | [phone] | | | | | [facility] | | | | | | [facility], | | | | | | 7th floor | | | | | | [place], [place] | | | | | | [address] | | | | | | [phone] | | | +--------+ + + + [...] Telephone Encounter - Loreto Knox RN - 06/30/2017 2:03 PM PSTReceived the following communication from Gino Hays MS, SILVINO of the [place] [facility] team: Thank you. We had that information. We haven t been able to reach them. So if they make c ontact let us know if there are insurance updates. Dr. Valadez wanted us to help with transit ion but until we get insurance information we can t find a transplant center that can take her. Thanks! Rachel elephone Rossi Knox, Loreto Mosquera RN - 06/30/2017 1:36 PM PSTReceived the following communication from the [place] [facility] team: Hi [facility], We are looking to assist Nicki with transition to an adult transplant program. Do you have any updates regarding her insurance? It appears, we do not have active insurance information on file. Have Nicki or her mother recently contacted your team? Thank you, NIKOS FregosoN, RN, PHN Email sent back with information provided to mother on 06/08/17 encounter.Electronically si gned by Loreto Knox RN at 06/30/2017 1:38 PM PSTdocumented in this encounter Plan of Treatment Not on filedocumented as of this encounter Visit Diagnoses Not on filedocumented in this encounter"
--- OUTSIDE RECORDS SUMMARY | ~2020-05-29 | XMS | Clinical Summary ---
Demographics + + + | Address | [address] | | | [place] [address] | + + + | Home Phone [...] Team Providers + +------+ + | Care Cotton Breeder Name | Role | Phone | + +------+ + | Nyla Fitzpatrick MD | PCP | | + +------+ + Source Comments ESTER is fully live on both EpicCare Ambulatory and EpicCare InPatient.[facility] Allergies + + + + + [...] | Overview: For biliary atresia, 03/24/2000 at [place] | + + Resolved Problems + + [...] | | + + +-------+ + | Pneumococcal | | | | | vaccination (1 of 3 | 5 | | | | - PCV13) | | | | + + +-------+ + | Influenza (Flu) | | | | | vaccination (#1) | 0 | | | + [...] | | | + +--------+ +--------+-------+---------+--------+ | [employer] MEDICA[employer] | [employer]TER | [id number] | | | | Medica | | [...] al/Fam | | 1980 | [phone] | [place] [address] | | | marlene | | | 7 (Home) | | + +--------+ +--------+ + + Advance Directives + + + + + | Type | Date Recorded | Patient | Explanation | | | | Bank Accountant | | + + + + + | Advance | | | | | Directives and | | | | | Living Will | | | | + + + + + | Power of | | | | | Signing Agent | | | | + + + + +
--- OUTSIDE RECORDS SUMMARY | ~2020-05-29 | XMS | Encounter Summary ---
Demographics + + + | Address | [address] | | | [place] [address] | + + + | Home Phone [...] + | Author | [facility] | + + + [...] Team Providers + +------+ + | Care Promotions Assistant Sales Marketing Name | Role | Phone | + [...] | Required | | Complication | | [address] | | | | | s of | | [place] | | | | | transplanted | | [place] | | | | | liver | | [place], [place] | | | | | Liver | | [address] | | | | | replaced by | | Phone: | | | | | transplant | | [phone] | | | | | (HCC) | | Fax: | | | | | Procedures | | [phone] | | | | | [place] | | | | | | | OFFICE/OUTPT | | | | | | | | | | | | | | VISIT,EST,LE | | | | | | | VL II [place] | | | | | | | [...] 2013 | Visit | at [facility] [address] | [address] | (HCC) (Primary Dx) | | | | [address] | [place], [place] | | | | | [place] | [address] | | | | | [facility], | [phone] | | | | | 7th floor | | | | | | [place], [place] | | | | | | [address] | | | | | | [phone] | | | +--------+---------+ + + + [...] they need the lab order sent to [facility] lab in [facility]. She also said that the reason they have been absent from clinic for so long was due t o insurance issues, but they are now insured. From our phone call it seemed that she was singh ppy to reschedule". Plan: - send orders for her labs (CBC, CMP, GGT) to local lab - schedule a clinic appt with me at [facility] - schedule for the next liver transplant [...]
--- OUTSIDE RECORDS SUMMARY | ~2020-05-29 | XMS | Encounter Summary ---
Demographics + + + | Address | [address] | | | [place] [address] | + + + | Home Phone [...] + + | Author | [facility] | + + [...] Team Providers + +------+ + | Care Software Program Manager Name | Role | Phone | + +------+ + | Nyla Fitzpatrick MD | PCP | | + +------+ + Reason for Visit +--------+--------+ + | Reason | Onset | Comments | | | Date | | +--------+--------+ + | Other | 05/30/ | Need labs drawn | | | 2008 | | +--------+--------+ + Encounter Details +--------+ + + + + | Date | Type | Department | Care Team | Description | +--------+ + + + + | 05/30/ | Telephone | Pediatric | Althea Mcdonald, | Other (Need labs | | 2008 | | Gastroenterology at | RN [address] | drawn) | | | | [place] | [place] Vivi Tellez | | | | | [facility] | [place] [address] | | | | | [address] | | | | | | [place] | | | | | | [facility], | | | | | | [address] [place] [address] | | | | | | [place], [place] | | | | | | [address] | | | | | | [phone] | | | +--------+ + + + [...] this encounter Miscellaneous Notes Telephone Encounter - Althea Mcdonald RN - 05/30/2009 9:28 AM PDTLeft message for mom to call to confirm appt and to have labs drawn as have not had labs since September 2008.Electro nically signed by Althea Mcdonald RN at 05/30/2009 9:28 AM PDTdocumented in this encounter Plan of Treatment Not on filedocumented as of this encounter Visit Diagnoses Not on filedocumented in this encounter"
--- OUTSIDE RECORDS SUMMARY | ~2020-05-29 | XMS | Encounter Summary ---
Demographics + + + | Address | [address] | | | [place] [address] | + + + | Home Phone [...] + | Author | [facility] [employer] [facility] | + [...] Team Providers + +------+ + | Care Agriculture Department Chair Name | Role | Phone | + [...] [place] | | | | | | [facility] | | | | | | [address] [facility] | | | | | | [place] | | | | | | [facility], | | | | | | 7th floor | | | | | | [place], [place] | | | | | | [address] | | | | | | [phone] | | | +--------+ + + + [...]
--- OUTSIDE RECORDS SUMMARY | ~2020-05-29 | XMS | Encounter Summary ---
Demographics + + + | Address | [address] | | | [place] [address] | + + + | Home Phone | | + + + | Preferred Language | Unknown | + + + | Marital Status | Single | + + + | Sikhism Affiliation | Unknown | + + + | Race | White | + + + | Ethnic Group | Not or | + + + Author + + + | Author | [facility] | + + [...] Providers + +------+ + | Care Sales Designer Name | Role | Phone | + +------+ + | Nyla Fitzpatrick MD | PCP | | + +------+ + Reason for Visit + +--------+ + | Reason | Onset | Comments | | | Date | | + +--------+ + | Care Coordination | 03/17/ | | | | 2016 | | [...] | | | | | [place] | [place], [place] | | | | | [facility] | [address] | | | | | [address] [facility] | [phone] | | | | | [place] | | | | | | [facility], | | | | | | [facility] floor | | | | | | [place], [place] | | | | | | [address] | | | | | | [phone] | | | +--------+ + + + [...] Telephone Encounter - Loreto Knox RN - 03/17/2017 2:43 PM PDTReceived the following communication from Gino Hays MS, SILVINO of the [place] [facility] team: From: Veronica Roblero <[email or web address]> To: GI Nurses <[email or web address]>, Crista Valadez <[email or web address]> CC: "Prema Rivas" <[email or web address]>, "Jade Prema" <[email or web address]> Date: March 17, 2017 9:17:11 PM GMT Subject: SECURE: transition to adult Hi [facility] GI Team, Our team acknowledges the plan for Nicki s care is to transition her to [facility] Adult Liver Transplant. We spoke with Nicki today regarding labs and she has informed us that she has not yet sched uled an appointment with Adult Liver Transplant because she is unsure of her availability. Please let us know how we may facilitate her ongoing care and transition to adult. Thank you, NIKOS FregosoN, RN, PHN 2: 45 PM PDTdocumented in this encounter Plan of Treatment Not on filedocumented as of this encounter Visit Diagnoses Not on filedocumented in this encounter
--- OUTSIDE RECORDS SUMMARY | ~2020-05-29 | XMS | Encounter Summary ---
Demographics + + + | Address | [address] | | | [place] [address] | + + + | Home Phone [...] + | Author | [facility] | + + + | Organization | [facility] | + + + [...] Providers + +------+ + | Care Cable Puller Name | Role | Phone | + +------+ + | Nyla Fitzpatrick MD | PCP | | + +------+ + Reason for Visit + +--------+ + | Reason | Onset | Comments | | | Date | | + +--------+ + | Lab Draw | 05/29/ | Reminder call | | | 2016 | | + +--------+ + Encounter Details +--------+ + + + + | Date | Type | Department | Care Team | Description | +--------+ + + + + | 05/29/ | Telephone | Pediatric | Crista Valadez, | Lab Draw (Reminder | | 2016 | | Gastroenterology at | [address] | call) | | | | [place] | [place], [place] | | | | | [place] | [address] | | | | | [address] | [phone] | | | | | [place] | | | | | | [place], | | | | | | [facility] floor | | | | | | [facility] [place] | | | | | | [address] | | | | | | [phone] | | | +--------+ + + + [...] Telephone Encounter - Loreto Knox RN - 05/29/2016 1:16 PM PDTCalled and LM on VM as a reminder to get liver labs drawn. Encouraged to call nurseline when complete.Electronical ly signed by Loreto nKox RN at 05/29/2016 1:18 PM PDTdocumented in this encounter Plan of Treatment Not on filedocumented as of this encounter Visit Diagnoses Not on filedocumented in this encounter"
--- OUTSIDE RECORDS SUMMARY | ~2020-05-29 | XMS | Encounter Summary ---
Demographics + + + | Address | [address] | | | [place] [address] | + + + | Home Phone [...] Author + + + | Author | [facility] | + + + | Organization | [facility] | + [...] Providers + +------+ + | Care Group Home Worker Name | Role | Phone | + +------+ + | Nyla Fitzpatrick MD | PCP | | + +------+ + Reason for Visit + +--------+ + | Reason | Onset | Comments | | | Date | | + +--------+ + | Care Coordination | 08/20/ | | | | 2018 | | + +--------+ + Encounter Details +--------+ + + + + | Date | Type | Department | Care Team | Description | +--------+ + + + + | 08/20/ | Telephone | Pediatric | Crista Valadez, | Care Coordination | | 2018 | | Gastroenterology at | MD [address] | | | | | [place] | [place], [place] | | | | | [facility] | [address] | | | | | [address] | [phone] | | | | | [place] | | | | | | [facility], | | | | | | [facility] floor | | | | | | [place], [place] | | | | | | [address] | | | | | | [phone] | | | +--------+ + + + [...] encounter Miscellaneous Notes Telephone Encounter - Loreto Knox, RINKU - 08/20/2017 9:14 AM PSTDaniele and LM on VM on both numbers to return call to [facility] at [phone], option #3, to go over transitioni to adult care. See previous 06/30/2017 encounters. Called PCP, Dr. Fitzpatrick's office at [phone]. Last visit was February,. Obtained chema valenzuela's mobile number. Called and LM on VM on patient's own mobile number to return call to nurseline at [phone], option #3, to go over transitioning to adult care. Letter composed and mailed to family. documented in this encounter Plan of Treatment Not on filedocumented as of this encounter Visit Diagnoses Not on filedocumented in this encounter"
--- OUTSIDE RECORDS SUMMARY | ~2020-05-29 | XMS | Encounter Summary ---
Demographics + + + | Address | [address] | | | [place] [address] | + + + | Home Phone [...] | Author | [facility] | + + + [...] Team Providers + +------+ + | Care Stone Gluer Name | Role | Phone | + +------+ + | Nyla Fitzpatrick MD | PCP | | + +------+ + Reason for Visit + +--------+ + | Reason | Onset | Comments | | | Date | | + +--------+ + | Care Coordination | 02/06/ | | | | 2015 | | [...] | | | | | [place] | [place], [place] | | | | | [place] | [address] | | | | | [address] [facility] | [phone] | | | | | [place] | | | | | | [place], | | | | | | [facility] floor | | | | | | [place], [place] | | | | | | [address] | | | | | | [phone] | | | +--------+ + + + [...] Telephone Encounter - Faith Stern RN - 02/07/2016 3:23 PM PDTLeft message on [employer] , identified by number, asking for Nicki to get labs at least 1 week before upcoming [facility]. Orders are on file at [facility] in [place]. Asked mom to call back if there are questions or concerns. documented in this encounter Plan of Treatment Not on filedocumented as of this encounter Visit Diagnoses Not on filedocumented in this encounter"
--- OUTSIDE RECORDS SUMMARY | ~2020-05-29 | XMS | Encounter Summary ---
Demographics + + + | Address | [address] | | | [place] [address] | + + + | Home Phone [...] + + | Author | [facility] [employer] [facility] | + + + | Organization | [facility] | + + [...] Team Providers + +------+ + | Care Deliverer Merchandise Name | Role | Phone | + [...] | Specialty | Pediatric | Diagnoses | [facility], | Ped Gastro | | | Services | Gastroenterol | Liver | Nyla Shields MD | [address] | | | Required | ogy | replaced by | PEDS | [address] | | | | | transplant | SPECIALISTS | [place] | | | | | (HCC) | OF [place] | Children's | | | | | | [address] | [facility] | | | | | | [address] | floor | | | | | | [address] | [place], [place] | | | | | | [place], | [address] | | | | | | [place] [address] | Phone: | | | | | | Phone: | [phone] | | | | | | [phone] | Fax: | | | | | | Fax: | [phone] | | | | | | [phone] | | +--------+ + + + + [...] | | [facility] | | | | | | [address] [facility] | | | | | | [place] | | | | | | [facility], | | | | | | [address] | | | | | | [place], [place] | | | | | | [address] | | | | | | [phone] | | | +--------+---------+ + + + [...] + documented in this encounter Progress Notes Sayra Leonardo - 12/20/2007 1:12 PM PDTFormatting of this note might be different from the o riginal. Nicki Woods is an 7 y.o. 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 May or may not have [...]
--- OUTSIDE RECORDS SUMMARY | ~2020-05-29 | XMS | Encounter Summary ---
Demographics + + + | Address | [address] | | | [place] [address] | + + + | Home Phone | | + + + | Preferred Language | Unknown | + + + | Marital Status | Single | + + + | Zoroastrian Affiliation | Unknown | + + + | Race | White | + + + | Ethnic Group | Not or | + + + Author + + + | Author | [facility] | + + + | Organization [...] Team Providers + +------+ + | Care Operative Supervisor Name | Role | Phone | [...] | Specialty | Pediatric | Diagnoses | [facility], | Ped Gastro | | | Services | Gastroenterol | Liver | Nyla Shields MD | [address] | | | Required | ogy | replaced by | PEDS | [address] | | | | | transplant | SPECIALISTS | [place] | | | | | (HCC) | OF [place] | Children's | | | | | | [address] | [facility], [facility] | | | | | | [address] | floor | | | | | | [address] | [place], [place] | | | | | | [place], | [address] | | | | | | [place] [address] | Phone: | | | | | | Phone: | [phone] | | | | | | [phone] | Fax: | | | | | | Fax: | [phone] | | | | | | [phone] | | +--------+ + + + + + Encounter Details +--------+---------+ + + + | Date | Type | Department | Care Team | Description | +--------+---------+ + + + | 10/05/ | Office | Specialty Clinics | Sayra Leonardo MD | Transplanted Liver | | 2008 | Visit | at [facility] [address] | | (HCC) (Primary Dx) | | | | Colon | | | | | | [place] | | | | | | [facility], | | | | | | [address] [place] [address] | | | | | | [place], [place] | | | | | | [address] | | | | | | [phone] | | | +--------+---------+ + + + [...] referred by Nyla Fitzpatrick, who returns to [facility] for transplant followup. Dr Guillory from [place] was an observ er in clinic today. 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 CBC, primary transplant panel, drug [...] 11 :14 AM PSTdocumented in this encounter Miscellaneous Notes Scan - Other, Faculty - 11/17/2008 9:56 PM PDT can - Other, Faculty - 10/03/2008 12:00 AM PSTAssociated Or ember(s): LAB REPORTS docume nted in this encounter Plan of Treatment [...] | Procedure Note | + + | Nikita, Faculty - 10/03/2008 12:00 AM PST | + + documented in this encounter Visit Diagnoses + + | Diagnosis | + + | Transplanted liver (HCC) - Primary Liver replaced by transplant | + + documented in this encounter
--- OUTSIDE RECORDS SUMMARY | ~2020-05-29 | XMS | Encounter Summary ---
Demographics + + + | Address | [address] | | | [place] [address] | + + + | Home Phone [...] | [facility] | + + + [...] Providers + +------+ + | Care Manager Civil Name | Role | Phone | + +------+ + PCP | Unavailable | + +------+ + Encounter Details +--------+ + + + + | Date | Type | Department | Care Team | Description | +--------+ + + + + | 03/09/ | [employer] | Pediatric | Crista Valadez, | Transplanted liver | | 2013 | | Gastroenterology at | [address] | (HCC) (Primary Dx) | | | | [place] | [place], [place] | | | | | [facility] | [address] | | | | | [address] | [phone] | | | | | [place] | | | | | | [facility], | | | | | | [address] [place] [address] | | | | | | [place], [place] | | | | | | [address] | | | | | | [phone] | | | +--------+ + + + [...]
--- OUTSIDE RECORDS SUMMARY | ~2020-05-29 | XMS | Encounter Summary ---
Demographics + + + | Address | [address] | | | [place] [address] | + + + | Home Phone [...] Author + + + | Author | [facility] [employer] [facility] | + [...] Providers + +------+ + | Care Senior Copywriter Name | Role | Phone | + [...] 03/13/ | Documentati | SOCIAL WORK | [facility], | Social work | | 2013 | on | AMBULATORY [address] | KUSUM Choi | consultation | | | | [address] | [address] | | | | | Mailcode: CH6A | Vivi Tellez [place], | | | | | [place], [place] | [place] [address] | | | | | [address] | [phone] | | | | | [phone] | | | +--------+ + + + [...] this encounter Miscellaneous Notes Telephone Encounter - Elvia Dsouza MSW - 10/27/2013 3:45 PM PDTSocial Work (SW) note: Referral from Liver clinic MD, Crista Valadez. Patient is post transplant has been lost to follow-up, not seen since 2008. Last labs were 2009. Patient was scheduled today and no-s howed. TC to patient's mom, Mary Woods. Ms. Woods stated that her local lab never received orders. Ms. Woods stated that she didn't realize the appointment was still happening bec ause she hadn't been able to get labs yet. Ms. Woods stated that the reason they have not been to clinic is that they were having insurance issues, which are now resolved. Ms. Dacia marquis seemed open to rescheduling and denied having any other barriers. SW will discuss with MD and determine how to proceed. KUSUM Ho, Pager# [phone] documented in this e ncounter Plan of Treatment Not on filedocumented as of this encounter Visit Diagnoses Not on filedocumented in this encounter"
--- OUTSIDE RECORDS SUMMARY | ~2020-05-29 | XMS | Encounter Summary ---
Demographics + + + | Address | [address] | | | [place] [address] | + + + | Home Phone [...] | Author | [facility] [employer] [facility] | + + [...] Providers + +------+ + | Care Director Plans Name | Role | Phone | + [...] | Specialty | Pediatric | Diagnoses | [facility], | Ped Gastro | | | Services | Gastroenterol | Liver | Nyla Shields MD | [address] | | | Required | ogy | replaced by | PEDS | [address] | | | | | transplant | SPECIALISTS | [place] | | | | | (HCC) | OF [place] | Children's | | | | | | [address] | [facility] | | | | | | [address] | floor | | | | | | [address] | [place], [place] | | | | | | [place], | [address] | | | | | | [place] [address] | Phone: | | | | | | Phone: | [phone] | | | | | | [phone] | Fax: | | | | | | Fax: | [phone] | | | | | | [phone] | | +--------+ + + + + + Encounter Details +--------+---------+ + + + | Date | Type | Department | Care Team | Description | +--------+---------+ + + + | 06/07/ | Office | Specialty Clinics | Sayra Leonardo MD | Complications of | | 2008 | Visit | at [facility] [address] | | Transplanted Liver; | | | | [address] | | Transplanted Liver | | | | [place] | | (HCC) | | | | [facility], | | | | | | [facility] floor | | | | | | [place], [place] | | | | | | [address] | | | | | | [phone] | | | +--------+---------+ + + + [...] referred by Nyla Fitzpatrick, who returns to [facility] for transplant followup. Dr Guillory from [place] was an observ er in clinic today. 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 CBC, primary transplant panel, drug [...] 1 :01 PM PDTdocumented in this encounter Miscellaneous Notes Scan - Nikita, Faculty - 06/05/2009 12:00 AM PDTAssociated Order(s): LAB REPORTS documented in this encou nter Plan of Treatment Not on filedocumented as [...] | + + | Nikita, Faculty - 06/05/2009 12:00 AM PDT | | | + + documented in this encounter Visit Diagnoses + + | Diagnosis | + + | Complications of transplanted liver | + + | 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
--- OUTSIDE RECORDS SUMMARY | ~2020-05-29 | XMS | Encounter Summary ---
Demographics + + + | Address | [address] | | | [place] [address] | + + + | Home Phone [...] + | Author | [facility] | + + + | Organization | [facility] | + + + | Address | [...] Providers + +------+ + | Care Yeast Stacker Name | Role | Phone | + +------+ + | Nyla Fitzpatrick MD | PCP | | + +------+ + Reason for Visit + +--------+ + | Reason | Onset | Comments | | | Date | | + +--------+ + | Care Coordination | 11/28/ | | | | 2015 | | [...] | | | | | [place] | [place], [place] | | | | | [facility] | [address] | | | | | [address] [facility] | [phone] | | | | | [place] | | | | | | [facility], | | | | | | [facility] floor | | | | | | [place], [place] | | | | | | [address] | | | | | | [phone] | | | +--------+ + + + [...] Telephone Encounter - Faith Stern RN - 11/29/2015 1:39 PM PDTLeft message on voicemail stating Nicki is due for labs. Asked family to call our office if they have questions.Elec tronically signed by Faith Stern RN at 11/29/2015 1:39 PM PDTdocumented in this encounte r Plan of Treatment Not on filedocumented as of this encounter Visit Diagnoses Not on filedocumented in this encounter"
--- OUTSIDE RECORDS SUMMARY | ~2020-05-29 | XMS | Encounter Summary ---
Demographics + + + | Address | [address] | | | [place] [address] | + + + | Home Phone [...] | Author | [facility] | + + [...] Team Providers + +------+ + | Care Pocket Stitcher Name | Role | Phone | + +------+ + | Nyla Fitzpatrick MD | PCP | | + +------+ + Reason for Visit + +--------+ + | Reason | Onset | Comments | | | Date | | + +--------+ + | Medication Refill | 08/30/ | | | | 2007 | | + +--------+ + Encounter Details [...] | | | | | [address] | | | | | | [place] | | | | | | [facility], | | | | | | [address] [place] [address] | | | | | | [place], [place] | | | | | | [address] | | | | | | [phone] | | | +--------+ + + + [...] this encounter Miscellaneous Notes Telephone Encounter - Jarred Arredondo, Faith - 2007 11:25 AM PST Addended by: DUNCAN ROWE on: 2007 11:25:51 AM Modules accepted: Orders elephone Encounter - Faith Rowe Rn - 2007 11:16 AM PSTMessage left for mom with Dr. Leonardo's input. Sh e also requested labs be drawn. 11: 16 AM PSTTelephone Encounter - Sayra Leonardo - 08/30/2007 5:43 PM PSTWe have to refill her P rograf , but only for 2 months. She needs to be seen at the upcoming transplant clinic.Regla galdamezically signed by Sayra Leonardo at 08/30/2007 5:43 PM PSTTelephone Encounter - Faith Rowe Rn - 08/30/2007 4:06 PM PSTNicki is a post transplant pt that transferred care from [facility] May of 2006. They have not seen Dr. Leonardo since that time. Her prescription of prograf will run out on 09-04. Advised I will need to check with Dr. Leonardo to see if she wou ld like labs before refilling medication. Her last labs were drawn in 05-23. She is curren tly taking 1 mg bid. The transplant team had told mom she needs to be seen once yearly. Altagracia torre had an acute illness when they were here last. Dr. Leonardo may request they come in for fo llow up. Will get input from her and call back. Mom agrees with plan. documented in this enco unter Plan of Treatment Not on filedocumented as of this encounter Visit Diagnoses Not on filedocumented in this encounter"
--- OUTSIDE RECORDS SUMMARY | ~2020-05-29 | XMS | Encounter Summary ---
Demographics + + + | Address | [address] | | | [place] [address] | + + + | Home Phone | | + + + | Preferred Language | Unknown | + + + | Marital Status | Single | + + + | Yazdanism Affiliation | Unknown | + + + | Race | White | + + + | Ethnic Group | Not or | + + + Author + + + | Author | [facility] | + + + | Organization | [facility] | + + + [...] Providers + +------+ + | Care Licensed Land Surveyor Name | Role | Phone | + +------+ + | Nyla Fitzpatrick MD | PCP | | + +------+ + Reason for Visit + +--------+ + | Reason | Onset | Comments | | | Date | | + +--------+ + | Care Coordination | 10/04/ | | | | 2014 | | + +--------+ + Encounter Details +--------+ + + + + | Date | Type | Department | Care Team | Description | +--------+ + + + + | 10/04/ | Telephone | Pediatric | Crista Valadez, | Care Coordination | | 2015 | | Gastroenterology at | MD [address] | | | | | [place] | [place], [place] | | | | | [facility] | [address] | | | | | [facility] | [phone] | | | | | [place] | | | | | | [facility], | | | | | | [facility] floor | | | | | | [place], [place] | | | | | | [address] | | | | | | [phone] | | | +--------+ + + + [...] Telephone Encounter - Faith Stern RN - 10/04/2014 4:31 PM PSTLeft voicemail message on both mom and dad's phones, identified by number, reminding them Nicki is due for labs. Inv ited them to call back if they have questions. documented in this encounter Plan of Treatment Not on filedocumented as of this encounter Visit Diagnoses Not on filedocumented in this encounter"
--- OUTSIDE RECORDS SUMMARY | ~2020-05-29 | XMS | Encounter Summary ---
Demographics + + + | Address | [address] | | | [place] [address] | + + + | Home Phone [...] Author + + + | Author | Count Includes [facility] | + + [...] Team Providers + +------+ + | Care Primer Charger Name | Role | Phone | + +------+ + PCP | Unavailable | + +------+ + Encounter Details +--------+ + + + + | Date | Type | Department | Care Team | Description | +--------+ + + + + | 11/15/ | Abstract | Pediatric | Crista Valadez, | | | 2013 | | Gastroenterology at | [address] | | | | | [place] | [place], [place] | | | | | [facility] | [address] | | | | | [address] | [phone] | | | | | [place] | | | | | | [facility], | | | | | | 7th floor | | | | | | [place], [place] | | | | | | [address] | | | | | | [phone] | | | +--------+ + + + [...]
--- OUTSIDE RECORDS SUMMARY | ~2020-05-29 | XMS | Encounter Summary ---
Demographics + + + | Address | [address] | | | [place] [address] | + + + | Home Phone [...] Author | [facility] | [...] Team Providers + +------+ + | Care Step Down Nurse Name | Role | Phone | + [...] | | | [facility] | | | | | | [address] | | | | | | [place] | | | | | | [facility], | | | | | | 7th floor | | | | | | [place], [place] | | | | | | [address] | | | | | | [phone] | | | +--------+ + + + [...]
--- OUTSIDE RECORDS SUMMARY | ~2020-05-29 | XMS | Encounter Summary ---
Demographics + + + | Address | [address] | | | [place] [address] | + + + | Home Phone [...] + | Author | [facility] [employer] [facility] | + + [...] Providers + +------+ + | Care Gut Puller Name | Role | Phone | [...] 07/17/ | Documentati | SOCIAL WORK | [facility], | Social work | | 2013 | on | AM[address]ULATORY [address] | [address] | consultation | | | | [address] | [address] | | | | | Mailcode: CH6A | Vivi Tellez [place], | | | | | [place], [place] | [place] [address] | | | | | [address] | [phone] | | | | | [phone] | | | +--------+ + + + [...] Telephone Encounter - Elvia Dsouza MSW - 03/02/2014 10:05 AM PDTSocial Work (SUJATHA) note: Patient no-showed to 02/23/14 Liver clinic appointment. Patient has not been seen by Liver clinic since 2008. requested referral to [facility] for investigation. SUJATHA called and spoke wit office of Dr. Fitzpatrick, patient's most recent aircraft stress analyst of record. PCP office confirmed they have not seen patient since 2009 and [facility] SUJATHA called and spoke with [facility] in [place], patient's most recent pha rmacy of record. Pharmacist stated they have no record of filling any medications for patie nt. SUJATHA called [facility] hotline and spoke with a screener. SUJATHA reported that patient's liver was replaced by transplant, and patient has not been seen b [facility] Liver specialist since 2008. Per MD, patient should be seen every year by a Liver spe cialist and have frequent labs. SUJATHA made efforts to assess barriers by calling in October, at that time mom said there were no barriers. Mom did obtain labs for patient, but no-showed t o appointment with [place] team on 02/23/14. SUJATHA explained to hotline screener that per MD, liver transplantation requires regular follow-up even if child appears well. Per MD, risk o f serious adverse outcomes without follow-up. SUJATHA also concerned that patient may not be get ting medication or seeing PCP. Furthermore, patient also has a heart condition that require s follow-up. SUJATHA unable to determine whether patient is receiving follow-up for heart condit ion. Hotline screener stated that the case would be assigned for investigation. SUJATHA requested MD Valadez draft brief supplemental statement explaining specific risks of harm to patient from lack of specialty medical care after Liver transplant. Elvia Dsouza LCSW Jar Capper Pager [phone] documented in this e ncounter Plan of Treatment Not on filedocumented as of this encounter Visit Diagnoses Not on filedocumented in this encounter"
--- OUTSIDE RECORDS SUMMARY | ~2020-05-29 | XMS | Encounter Summary ---
Demographics + + + | Address | [address] | | | [place] [address] | + + + | Home Phone [...] | On License Of [facility] | + [...] Team Providers + +------+ + | Care Dye House Worker Name | Role | Phone | [...] follow-up) | | | | [place] | [place], [place] | | | | | [facility] | [address] | | | | | [address] | [phone] | | | | | [place] | | | | | | [facility], | | | | | | [facility] floor | | | | | | [place], [place] | | | | | | [address] | | | | | | [phone] | | | +--------+ + + + [...] Telephone Encounter - Shena Godoy RN - 04/22/2017 12:00 PM PDTThe following email re ceived from Gino Hays MS, PA-C at [facility] ([facility]): We have to make Nicki lost to follow up in our system and in the [facility] (organ sharing system ) as we have not had labs from her or seen her in clinic for >1 year despite several attempt s by our team to call the family. She is >18 years so if you get in touch with her she shoul d see an adult liver transplant team. Let us know if you hear from her. documented in this encounter Plan of Treatment Not on filedocumented as of this encounter Visit Diagnoses Not on filedocumented in this encounter"
--- OUTSIDE RECORDS SUMMARY | ~2020-05-29 | XMS | Encounter Summary ---
Demographics + + + | Address | [address] | | | [place] [address] | + + + | Home Phone [...] Providers + +------+ + | Care Group Activities Aide Name | Role | Phone | + [...] as of this encounter Progress Notes Interface, Wood Turning Lathe Operator In - 07/10/2006 1:05 AM [facility] [place] [address] [address] or December 12, 1999 Nyla Fitzpatrick M.D. [address] [place] [address] RE: NICKI WOODS MR #: [id number] Dear Dr. Fitzpatrick: I had the pleasure of seeing Nicki at [facility] today in the Pediatric Liver Transplant Clinic and presenting her once again to members of the Pediatric Liver Transplant team from [place], which included Dr. Jose Luis Guillory. Nicki [...] she is followed by Dr. Donald Molina, custom home installer. His present medications include Zantac 1 mL [...] O negative. 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 Sincerely, Kendall Angulo M.D. Pediatric Gastroenterology [facility] / [id number] / [id number] / [id number] / [id number] cc: Jose Luis Guillory M.D. [facility] [address] [place] [place], [place] Jose F Carnes M.D. [address] [place] [address]. [address] [place] [id number] signed by Interface, Wood Turning Lathe Operator In at 07/10/2006 1:05 AM PSTdocume nted in this encounter Plan of Treatment Not on filedocumented as of this encounter Visit Diagnoses Not on filedocumented in this encounter"
--- OUTSIDE RECORDS SUMMARY | ~2020-05-29 | XMS | Encounter Summary ---
Demographics + + + | Address | [address] | | | [place] [address] | + + + | Home Phone [...] + | Author | [facility] [employer] [facility] | + + + [...] Team Providers + +------+ + | Care Plant Operator Helper Name | Role | Phone | + +------+ + | Nyla Fitzpatrick MD | PCP | | + +------+ + Encounter Details +--------+ + + + + | Date | Type | Department | Care Team | Description | +--------+ + + + + | 06/11/ | Abstract | Pediatric | Crista Valadez, | | | 2014 | | Gastroenterology at | [address] | | | | | [place] | [place], [place] | | | | | [facility] | [address] | | | | | [address] | [phone] | | | | | jimbo | | | | | | [facility], | | | | | | [address] [place] [address] | | | | | | [place], [place] | | | | | | [address] | | | | | | [phone] | | | +--------+ + + + [...] [address] | [place], [place] | [phone] | | [place] | | | | [...] | + + + + + | [facility] - | [address] | [place], [place] | [phone] | | [place] | | | | [...] - | [address] | [place], [place] | [phone] | | [place] | | | | [...] [address] | [place], [place] | [phone] | | [place] | | | | [...] + + | [facility] - | [address] | [place] | [phone] | | [place] | | | | [address] | [place], [place] | [phone] | | [place] | | | | [...] [address] | [place], [place] | [phone] | | [place] | | | | [...] [address] | [place] | [phone] | | [place] | | | | [...] | + + + + + | [facility] - | [address] | [place] | [phone] | | [place] | | | | [...] [address] | [place] | [phone] | | [place] | | | | + + + + + documented in this encounter Visit Diagnoses Not on filedocumented in this encounter"
--- OUTSIDE RECORDS SUMMARY | ~2020-05-29 | XMS | Encounter Summary ---
Demographics + + + | Address | [address] | | | [place] [address] | + + + | Home Phone | | + + + | Preferred Language | Unknown | + + + | Marital Status | Single | + + + | Mosque Affiliation | Unknown | + + + | Race | White | + + + | Ethnic Group | Not or | + + + Author + + + | Author | [facility] | + + + [...] Team Providers + +------+ + | Care Transportation Worker Name | Role | Phone | + +------+ + | Nyla Fitzpatrick MD | PCP | | + +------+ + Encounter Details +--------+ + + + + | Date | Type | Department | Care Team | Description | +--------+ + + + + | 06/04/ | Document-Sc | Health Information | Other, Faculty | | | 2017 | anned | Services [address] | [phone] | | | | | [address] | | | | | | Mailcode: [id number] | | | | | | [facility] | | | | | | [place], [place] | | | | | | [address] | | | | | | [phone] | | | +--------+ + + + [...]
--- OUTSIDE RECORDS SUMMARY | ~2020-05-29 | XMS | Encounter Summary ---
Demographics + + + | Address | [address] | | | [place] [address] | + + + | Home Phone [...] Author + + + | Author | [facility] | [...] Team Providers + +------+ + | Care Radiology Specialist Name | Role | Phone | [...] | Gastroenterology at | [address] | | | | | [place] | [place], [place] | | | | | [facility] | [address] | | | | | [address] | [phone] | | | | | [place] | | | | | | [facility], | | | | | | [address] [place] [address] | | | | | | [place], [place] | | | | | | [address] | | | | | | [phone] | | | +--------+ + + + [...] | [address] | [place] | [phone] | | [place] | | | | [...] + + | [facility] - | [address] | [place], [place] | [phone] | | [place] | | | | [...] [address] | [place], [place] | [phone] | | [place] | | | | [...] | [address] | [place] | [phone] | | [place] | | | | [...] | + + + + + | [facility] - | [address] | [place] | [phone] | | [place] | | | | + + + + + documented in this encounter Visit Diagnoses Not on filedocumented in this encounter"
--- OUTSIDE RECORDS SUMMARY | ~2020-05-29 | XMS | Encounter Summary ---
Demographics + + + | Address | [address] | | | [place] [address] | + + + | Home Phone [...] + | Author | [facility] | + + [...] Team Providers + +------+ + | Care Compactor Driver Name | Role | Phone | [...] Rd | | | | | [facility] | [place] [address] | | | | | [address] | | | | | | [place] | | | | | | [facility], | | | | | | 7th [facility] | | | | | | [place], [place] | | | | | | [address] | | | | | | [phone] | | | +--------+ + + + [...]
--- OUTSIDE RECORDS SUMMARY | ~2020-05-29 | XMS | Encounter Summary ---
Demographics + + + | Address | [address] | | | [place] [address] | + + + | Home Phone | | + + + | Preferred Language | Unknown | + + + | Marital Status | Single | + + + | Islam Affiliation | Unknown | + + + | Race | White | + + + | Ethnic Group | Not or | + + + Author + + + | Author | [facility] | + + [...] Team Providers + +------+ + | Care Laser Beam Machine Operator Name | Role | Phone [...] | | | | | [place] | [place], [place] | | | | | [facility] | [address] | | | | | [address] | [phone] | | | | | [place] | | | | | | [facility], | | | | | | 7th [facility] | | | | | | [place], [place] | | | | | | [address] | | | | | | [phone] | | | +--------+ + + + [...] this encounter Miscellaneous Notes Telephone Encounter - Mirna Barclay - 01/04/2016 7:14 AM PDTThis encounter has been a dministratively closed with the authorization of the [facility] Committee. documented in this enc ounter Plan of Treatment [...] [address] | [place] | [phone] | | [place] | | | | [...] [address] | [place], [place] | [phone] | | [place] | | | | [...] - | [address] | [place], [place] | [phone] | | [place] | | | | [...] + + | [facility] - | [address] | [place], [place] | [phone] | | [place] | | | | [...] + + | [facility] - | [address] | [place], [place] | [phone] | | [place] | | | | + + + + + documented in this encounter Visit Diagnoses Not on filedocumented in this encounter"
--- OUTSIDE RECORDS SUMMARY | ~2020-05-29 | XMS | Encounter Summary ---
Demographics + + + | Address | [address] | | | [place] [address] | + + + | Home Phone [...] + + + | Author | [facility] [email or web address] [facility] | + [...] Providers + +------+ + | Care Certified Phlebotomy Technician Name | Role | Phone | + +------+ + | Nyla Fitzpatrick MD | PCP | | + +------+ + Reason for Visit + +--------+ + | Reason | Onset | Comments | | | Date | | + +--------+ + | Lab Draw | 01/19/ | past due for transplant labs | | | 2014 | | + +--------+ + Encounter Details +--------+ + + + + | Date | Type | Department | Care Team | Description | +--------+ + + + + | 01/19/ | Telephone | Pediatric | Crista Valadez, | Lab Draw (past due | | 2015 | | Gastroenterology at | [address] | for transplant labs) | | | | [place] | [place], [place] | | | | | [facility] | [address] | | | | | [address] | [phone] | | | | | [place] | | | | | | [facility], | | | | | | [facility] floor | | | | | | [facility] [place] | | | | | | [address] | | | | | | [phone] | | | +--------+ + + + [...] Telephone Encounter - Shena Godoy RN - 01/19/2015 9:09 AM PDTReminded mom that pt i s (past) due for transplant labs (due in December). Standing lab order current at [facility] in [place]. Mom agrees to take pt next week for lab draw. documented in this encounter Plan of Treatment Not on filedocumented as of this encounter Visit Diagnoses Not on filedocumented in this encounter"
--- OUTSIDE RECORDS SUMMARY | ~2020-05-29 | XMS | Encounter Summary ---
Demographics + + + | Address | [address] | | | [place] [address] | + + + | Home Phone | | + + + | Preferred Language | Unknown | + + + | Marital Status | Single | + + + | Uatsdin Affiliation | Unknown | + + + | Race | White | + + + | Ethnic Group | Not or | + + + Author + + + | Author | [facility] | + + + [...] Providers + +------+ + | Care Production Machinist Name | Role | Phone | + [...] | | | | | | | [place], [place] | | | | | | | [address] | | | | | | | Phone: | | | | | | | [phone] | | | | | | | Fax: | | | | | | | [phone] | +--------+ + + + + + Encounter Details +--------+---------+ + + + | Date | Type | Department | Care Team | Description | +--------+---------+ + + + | 04/27/ | Office | Pediatric | Crista Valadez, | Immunosuppressed | | 2013 | Visit | Gastroenterology at | [address] | status (HCC) | | | | [place] | [place], [place] | (Primary Dx); | | | | [facility] | [address] | Noncompliance with | | | | [address] | [phone] | treatment; BP (high | | | | [facility] | | blood pressure); | | | | [facility], | | Transplanted liver | | | | 7th floor | | ([facility]); VSD | | | | [place], [place] | | (ventricular septal | | | | [address] | | defect); Aortic | | | | [phone] | | valve insufficiency | +--------+---------+ + [...] She had liver transplant for biliary atresia 1999 at [facility]. She was last seen [...] and to come for clinic visit at [facility]. She is accompanied by her father today. Today, she denies any pain, nausea, emesis, diarrhe a or constipation. No fever. She reports she takes tacrolimus one pill once daily. Father reports she has not been takin arpit regularly [facility], Nicki's last cardiology note is from [address] Nyla Fitzpatrick, banquet kitchen supervisor at [facility]. Her cardiac dx includes 1) moderate perimembraneous [...] father says she has an appointment with cardiorajesh haro at [facility] soon. Current Outpatient Prescriptions Medication Sig PROGRAF 1 mg Oral Capsule Take 1 Cap by mouth two times daily. Allergies Allergen Reactions Sulfa (Sulfonamide Antibiotics) Hives and Swelling-Facial Varicella Vaccines Possible reaction with sulfa meds Past Medical History Diagnosis Date Biliary atresia Past Surgical History Procedure Laterality Date Liver transplant 03/24/2000 at [facility] Family History No liver problems SHx: lives [...] they will be able to come to [facility] when [facility] team is here next time. I strongly [...] 2014. - cardiology fu locally and at [facility] At this visit: Patient accompanied by: father Elementary Education Teacher used:no Psychosocial or economic issues that may [...] Crista Valadez MD Pediatric Gastroenterology Consult line: [phone] documented in this en counter Plan of [...]
--- OUTSIDE RECORDS SUMMARY | ~2020-05-29 | XMS | Encounter Summary ---
Demographics + + + | Address | [address] | | | [place] [address] | + + + | Home Phone [...] | Author | [facility] | + + [...] Team Providers + +------+ + | Care Welding Setter Name | Role | Phone | + +------+ + | Nyla Fitzpatrick MD | PCP | | + +------+ + Reason for Visit + +--------+ + | Reason | Onset | Comments | | | Date | | + +--------+ + | Care Coordination | 06/01/ | transplant gertrudis reno | | | 2014 | | + +--------+ + Encounter Details +--------+ + + + + | Date | Type | Department | Care Team | Description | +--------+ + + + + | 06/01/ | Telephone | Pediatric | Crista Valadez, | Care Coordination | | 2015 | | Gastroenterology at | [address] | (transplant labs | | | | [place] | [place], [place] | overdue, liver US) | | | | [facility] | [address] | | | | | [address] | [phone] | | | | | [place] | | | | | | [facility], | | | | | | [facility] floor | | | | | | [place], [place] | | | | | | [address] | | | | | | [phone] | | | +--------+ + + + [...] Telephone Encounter - Shena Godoy RN - 06/13/2015 11:15 AM PDTPt had labs drawn 05/18 10/29. Results letter mailed to pt. Also included to call back to let us know if pt has had liver ultrasound. e lephone Encounter - Shena Godoy RN - 06/01/2015 8:54 AM PDTLeft a detailed message o n mom's voicemail to find out if labs have been drawn (due mid-April) and if liver ultra sound has been done. Requested a call back. documented in this encounter Plan of Treatment Not on filedocumented as of this encounter Visit Diagnoses Not on filedocumented in this encounter"
--- OUTSIDE RECORDS SUMMARY | ~2020-05-29 | XMS | Encounter Summary ---
Demographics + + + | Address | [address] | | | [place] [address] | + + + | Home Phone [...] + | Author | [facility] | [...] Team Providers + +------+ + | Care Lens Polisher Hand Name | Role | Phone | + +------+ + | Nyla Fitzpatrick MD | PCP | | + +------+ + Reason for Visit +--------+--------+ + | Reason | Onset | Comments | | | Date | | +--------+--------+ + | Other | 05/14/ | No lab work in one year | | | 2009 | | +--------+--------+ + Encounter Details +--------+ + + + + | Date | Type | Department | Care Team | Description | +--------+ + + + + | 05/14/ | Telephone | Pediatric | Althea Mcdonald, | Other (No lab work | | 2009 | | Gastroenterology at | RN [address] [facility] | in one year) | | | | [place] | [place]i [place] | | | | | [facility] | [place] [address] | | | | | [address] | | | | | | [place] | | | | | | [facility], | | | | | | [address] [place] [address] | | | | | | [place], [place] | | | | | | [address] | | | | | | [phone] | | | +--------+ + + + [...] Telephone Encounter - Althea Mcdonald RN - 05/14/2010 2:40 PM PDTAfter calling the local lab and finding out that no lab work has been drawn since 2008. left message on mom 's cell phone requesting she call me to let me know where the lab work is being drawn and wh o is following Nicki's liver transplant.Electronically signed by Althea Mcdonald RN at 05/14 2:40 PM PDTdocumented in this encounter Plan of Treatment Not on filedocumented as of this encounter Visit Diagnoses Not on filedocumented in this encounter"
--- OUTSIDE RECORDS SUMMARY | ~2020-05-29 | XMS | Encounter Summary ---
Demographics + + + | Address | [address] | | | [place] [address] | + + + | Home Phone [...] | Author | [facility] | + + + [...] Providers + +------+ + | Care Marketing Support Manager Name | Role | Phone | [...] | | | | | [place]ena | [place], [place] | | | | | [facility] | [address] | | | | | [address] | [phone] | | | | | [place] | | | | | | [facility], | | | | | | 7th floor | | | | | | [place], [place] | | | | | | [address] | | | | | | [phone] | | | +--------+ + + + [...] - | | | | | | [facility] | | + + + + + + | RED CELL | 4.83 | 3.8 - 5.3 M/cu | [facility] | | | COUNT | | mm | LAB - | | | | | | [place] | | + + + + + + | HEMOGLOBIN | 14.7 | 11.1 - 15.7 | [facility] | | | | | g/dL | LAB - | | | | | | [place] | | + + + + + + | HEMATOCRIT | 42.8 | 32 - 47 % | [facility] | | | | | | LAB - | | | | | | [place] | | + + + + + + | MCV | 88.6 | 73 - 91 fL | [facility] | | | | | | LAB - | | | | | | [place] | | + + + + + + | MCH | 30 | 25 - 31 pg | [facility] | | | | | | LAB - | | | | | | [place] | | + + + + + + | MCHC | 34 | 30 - 36 g/dL | [facility] | | | | | | LAB - | | | | | | [place] | | + + + + + + | PLATELET | 328 | 140 - 440 K/cu | [facility] | | | COUNT | | mm | LAB - | | | | | | [place] | | + + + + + + | NEUTROPHIL | 63.8 | 35 - 65 % | [facility] | | | % | | | LAB - | | | | | | [place] | | + + + + + + | LYMPHOCYTE | 25.1 (A) | 28 - 48 % | [facility] | | | % | | | LAB - | | | | | | [place] | | + + + + + + | MONOCYTE % | 7.2 | 0 - 12 % | [facility] | | | | | | LAB - | | | | | | [place] | | + + + + + + | EOS % | 3.1 | 0 - 6 % | [facility] | | | | | | LAB - | | | | | | [place] | | + + + + + + | BASO % | 0.8 | 0 - 2 % | [facility] | | | | | | LAB - | | | | | | [place] | | + + + + + + | RDW | 13.8 | 10.5 - 15.0 % | [facility] | | | | | | LAB - | | | | | | [place] | | + + + + + + + + | Specimen | + + | Blood - Blood | + + + + + + + | Performing | Address | City/State/Zipcode | Phone Number | | Organization | | | | + + + + + | [facility] - | [address] | [place], [place] | [phone] | | [place] | | | | + + + [...] | | | (LAB) | | | [place] | | + +--------+ + + + | BUN, PLASMA | 13 | 6 - 23 mg/dL | [facility] | | | (LAB) | | | LAB - | | | | | | [place] | | + +--------+ + + + | CREATININE | 0.75 | 0.40 - 1.05 | [facility] | | | PLASMA | | mg/dL | LAB - | | | (LAB) | | | [place] | | + +--------+ + + + | TOTAL | 7.6 | 6.1 - 8.5 g/dL | [facility] | | | PROTEIN, | | | LAB - | | | PLASMA | | | [place] | | | (LAB) | | | | | + +--------+ + + + | ALBUMIN, | 4.4 | 3.5 - 5.0 g/dL | [facility] | | | PLASMA | | | LAB - | | | (LAB) | | | [place] | | + +--------+ + + + | CALCIUM, | 9.9 | 8.4 - 10.2 | [facility] | | | PLASMA | | mg/dL | LAB - | | | (LAB) | | | [place] | | + +--------+ + + + | BILIRUBIN | 0.8 | 0 - 1.2 | [facility] | | | TOTAL | | Transcutaneous | LAB - | | | | | Bilirubinometer | [place] | | + +--------+ + + + | ALK PHOS | 92 (A) | 135 - 384 U/L | [facility] | | | | | | LAB - | | | | | | [place] | | + +--------+ + + + | AST(SGOT) | 13 | 13 - 39 U/L | [facility] | | | | | | LAB - | | | | | | [place] | | + +--------+ + + + | SODIUM, | 140 | 132 - 143 | [facility] | | | PLASMA | | mmol/L | LAB - | | | (LAB) | | | [place] | | + +--------+ + + + | POTASSIUM, | 4.0 | 3.6 - 5.1 | [facility] | | | PLASMA | | mmol/L | LAB - | | | (LAB) | | | [place] | | + +--------+ + + + | CHLORIDE, | 100 | 95 - 112 mmol/L | [facility] | | | PLASMA | | | LAB - | | | (LAB) | | | [place] | | + +--------+ + + + | TOTAL CO2, | 28 | 19 - 31 mmol/L | [facility] | | | PLASMA | | | LAB - | | | (LAB) | | | [place] | | + +--------+ + + + | ALT (SGPT) | 9 | 7 - 52 U/L | [facility] | | | | | | LAB - | | | | | | [place] | | + +--------+ + + + | ANION GAP | 16 | 7 - 21 | [facility] | | | | | | LAB - | | | | | | [place] | | + +--------+ + + + | BUN/CREATIN | 17.3 | 6.0 - 28.6 | [facility] | | | INE RATIO | | | LAB - | | | | | | [place] | | + +--------+ + + + | GLOBULIN | 3.2 | 1.8 - 3.5 | [facility] | | | | | | LAB - | | | | | | [place] | | + +--------+ + + + | A/G RATIO | 1.4 | 1.1 - 2.4 | [facility] | | | | | | LAB - | | | | | | [place] | | + +--------+ + + + + + | Specimen | + + | Blood - Blood | + + + + + + + | Performing | Address | City/State/Zipcode | Phone Number | | Organization | | | | + + + + + | [facility] - | [address] | [place] | [phone] | | [place] | | | | + + + + + documented in this encounter Visit Diagnoses Not on filedocumented in this encounter"
--- OUTSIDE RECORDS SUMMARY | ~2020-05-29 | XMS | Encounter Summary ---
Demographics + + + | Address | [address] | | | [place] [address] | + + + | Home Phone [...] + | Author | [facility] | + + + [...] Team Providers + +------+ + | Care Skein Yard Drier Name | Role | Phone | + [...] [place] | | | | | | [facility] | | | | | | [address] [facility] [address] | | | | | | [place] | | | | | | [facility], | | | | | | 7th floor | | | | | | [place], [place] | | | | | | [address] | | | | | | [phone] | | | +--------+ + + + [...] Miscellaneous Notes Telephone Encounter - [place] Leonardo MD - 06/20/2010 12:16 PM Myron has not been seen for a year and the family called and cancelled her follow up visit in Transplant clinic. We hav e not been able to find any labs done in the last year. The family did not return a message left by the pediatric GI nurse in April. I called her PCPs office ( Dr Fitzpatrick) and spoke to her nurse. They have had no contact with her since 2008. I requested that they try to bring the patient in to their clinic for an ex am and to have labs done. documented in this encounter Plan of Treatment Not on filedocumented as of this encounter Visit Diagnoses Not on filedocumented in this encounter"
--- OUTSIDE RECORDS SUMMARY | ~2020-05-29 | XMS | Encounter Summary ---
Demographics + + + | Address | [address] | | | [place] [address] | + + + | Home Phone [...] + | Author | [facility] | + + + [...] Team Providers + +------+ + | Care Research Computing Specialist Name | Role | Phone | [...] Biliary | MD Crista | [facility] [address] | | | | | atresia | [address] | | | | | Transplanted | [address] | Center for | | | | | liver (HCC) | [place], [place] | Health and | | | | | Procedures | [address] | Healing, | | | | | [facility] | Phone: | [address] | | | | | | [phone] | [place], [place] | | | | | | Fax: | [address] | | | | | | [phone] | Phone: | | | | | | | [phone] | | | | | | | Fax: | | | | | | | [phone] | +--------+--------+ + + + + Consultation [...] Biliary | MD Crista | [address] | | | | | atresia | [address] | [address] | | | | | Other | [address] | Loop | | | | | secondary | [place], [place] | Physician's | | | | | hypertension | [address] | Pavilion, 2nd | | | | | | Phone: | floor | | | | | Transplanted | [phone] | [place], [place] | | | | | liver (HCC) | Fax: | [address] | | | | | Procedures | [phone] | Phone: | | | | | CONSULT TO | | [phone] | | | | | HEPATOLOGY | | Fax: | | | | | | | [phone] | + +--------+ + + + + Reason for Visit Office Visit - E/M Services (Routine) +--------+--------+ + + + + | Status | Reason | Specialty | Diagnoses / | Referred By | Referred To | | | | | Procedures | Contact | Contact | +--------+--------+ + + + + | Closed | | Pediatric | Diagnoses | Amari, | [facility] | | | | Gastroenterol | 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, | [facility] [address] | | | | ogy | malformation | PEDS | [place] | | | | | s of spleen | SPECIALISTS | [place] | | | | | Liver | OF [place] | Children's | | | | | transplant | [address] | | | | | status | AURELIO VILLALPANDO | floor | | | | | Procedures | [place], | [place], [place] | | | | | includes | [place] [address] | [address] | | | | | diagnostics | Phone: | Phone: | | | | | | [phone] | [phone] | | | | | | Fax: | Fax: | | | | | | [phone] | [phone] | +--------+--------+ + + + + Encounter Details +--------+---------+ + + + | Date | Type | Department | Care Team | Description | +--------+---------+ + + + | 03/13/ | Office | Pediatric | Crista Valadez, | Biliary atresia | | 2016 | Visit | Gastroenterology at | [address] | (Primary Dx); | | | | [place] | [place], [place] | Polysplenia; Other | | | [facility] | [address] | secondary | | | | [address] | [phone] | hypertension; | | | | [place] | | Transplanted liver | | | | [facility], | | ([facility]); Nonrheumatic | | | | 7th floor | | aortic valve | | | | [place], [place] | | insufficiency; VSD | | | | [address] | | (ventricular septal | | | | [phone] | | defect), | | | | | | perimembranous; | | | | | | Interrupted inferior | | | | | | vena cava; Aortic | | | | | | root dilatation | | | | | | ([facility]) | +--------+---------+ + + + Social History [...] Crista Valadez MD - 03/13/2016 9:03 AM PDTDear family, It was nice to see you in the clinic today ! Our recommendations are as below: Plan: - Blood draw for labs: every 3 months - Next appointment: With Adult GI next summer (can schedule with [facility]) Results of tests: Test results will be sent to you by [employer]. Calls: Medical emergencies: call [phone] Non-urgent issues: Send [employer] message Thursday - Thursday work hours: call [phone] # 3 After hours, weekends, holidays: call [phone] To schedule an appointment: call [phone] # 1 For refills: call to your pharmacy a week before running out medicine documented in this encounter Progress Notes Crista Valadez MD - 03/10/2016 3:40 PM PDTFormatting of this note might be different fro m the original. 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 She was last seen by Dr Leonardo in 2008. In 2009, it was noticed that she has not been seen, attempts to reach to family was unsucces sful. lost to follow up since that time. - Cardiology: last cardiology note is from [address] Nyla Fitzpatrick, mortgage loan coordinator at [facility]. Her cardiac dx includes 1) moderate perimembraneous VSD nearly occluded by aneurysmal tissue leaving a tiny VSD, 2) trace central aortic insufficiency, 3) Left atrial isomerism (polysplenia). It was recommended her annual follow up for progression of aortic insufficien cy in which case she may need closure of VSD. No further notes available in our system as sh nain is lost to follow up since 2008. - 06/01/2014 s/p VSD repair, 8-mm Amplatzer Vascular Plug IV with no significant residual s hunting noted. - not on prograf for a long time INTERVAL HISTORY: - no complaints,no abdominal pain, emesis, diarrhea or constipation - started BCP, blood pressures were high since then, she will be seen By mortgage loan coordinator ming salazar, they will monitor BPs REVIEW [...] Procedure Laterality Date Liver transplant 03/24/2000 at [facility] Vsd repair, amplatzer device 06/01/2014 8-mm Amplatzer [...] says she wi ll be referred to respiratory services manager by PCP. Recommend [facility] to evaluate for [...] follow up - PCP referred her to respiratory services manager for HTN Health Care Maintenance: - she can receive all vaccines as she is not on immunsupression, especially we recommend he p A, hep B vaccines if she is not already immune. - Flu vaccine (intramuscular): every fall. - Dental care every 6 months At this visit: Dr. Van Guillory and GIO Aguilar from [facility] were presen t [...] Crista Valadez MD Pediatric Gastroenterology Consult line: [phone] roCrista ortiz MD - 03/10/2016 3:39 PM [...]
[~2020-05-29 11:50] MED LIST changes: +AMLODIPINE BESYL5 MG PO; +MEDROXYPRO150 MG/1 M IM
[2020-05-29] MEDS ORDERED: NAPROSYN500 MG PO (13:06)
--- NOTE | 2020-05-29 20:32 | EKG ---
[facility] [address] [facility] [place], [place] [address] Signed Normal sinus rhythm Normal ECG When compared with ECG of 03-FEB-2020 23:26, No significant change was found Confirmed by JONATHAN VENTURA DO ([id number]) on 05/29/2020 8:32:12 PM Electronically Signed By: JONATHAN VENTURA DO 05/29/202031 PATIENT NAME: JADA RODRIGUEZ JANE Electrocardiogram DATE OF : [birth year] PHYSICIAN: JONATHAN VENTURA DO REPORT #: [id number] REPORT IS CONFIDENTIAL AND NOT TO BE RELEASED WITHOUT AUTHORIZATION
== END 2020-05-29 13:21 | disposition home or self-care (01) ==
LOC: ED 11:50
DX: R07.81 Pleurodynia (principal); I10 Essential (primary) hypertension; F41.9 Anxiety disorder, unspecified; Z88.2 Allergy status to sulfonamides; Z79.899 Other long term (current) drug therapy
CPT/HCPCS: 71045; 93005; 93010; 99285-25

== ENCOUNTER 2020-11-20 12:45 | Emergency (ER) | payer OTHER ==
[~2020-11-20] VITALS: Ht 167.6 cm; Wt 93.9 kg
[~2020-11-20 12:45] MED LIST changes: +NAPROSYN500 MG PO
[2020-11-20] MEDS ORDERED: FLUOXETINE HCL20 MG PO (13:12)
[2020-11-20] MEDS ORDERED: PROPRANOLOL HCL60 MG PO (13:13)
[2020-11-20] MEDS ORDERED: SUDOGEST30 MG PO (14:42)
[2020-11-20] MEDS ORDERED: MECLIZINE HCL25 MG PO (14:42)
[2020-11-20] MEDS ORDERED: ZOFRAN4 MG PO (14:42)
--- NOTE | 2020-11-20 15:14 | EKG ---
[facility] [address] [facility] [place], [place] [address] Signed Normal sinus rhythm Normal ECG When compared with ECG of 29-MAY-2020 12:04, No significant change was found Confirmed by NORBERT WHITTAKER MD ([id number]) on 11/20/2020 3:14:27 PM Electronically Signed By: NORBERT WHITTAKER MD 11/20/20 1514 PATIENT NAME: JADA RODRIGUEZ JANE Electrocardiogram DATE OF : [birth year] PHYSICIAN: NORBERT WHITTAKER MD REPORT #: [id number] REPORT IS CONFIDENTIAL AND NOT TO BE RELEASED WITHOUT AUTHORIZATION
== END 2020-11-20 14:53 | disposition home or self-care (01) ==
LOC: ED 12:45
DX: R11.2 Nausea with vomiting, unspecified (principal); R19.7 Diarrhea, unspecified; H83.03 Labyrinthitis, bilateral; I10 Essential (primary) hypertension; Z87.891 Personal history of nicotine dependence; Z88.2 Allergy status to sulfonamides; Z79.899 Other long term (current) drug therapy
CPT/HCPCS: 80053; 81001; 83690; 84703; 85025; 93005; 93010; 96374; 96375; 99284-25; J1100; J2405

== ENCOUNTER 2021-06-10 14:19 | Emergency (ER) | payer OTHER ==
[~2021-06-10] VITALS: Ht 167.6 cm; Wt 101.9 kg
[~2021-06-10 14:19] MED LIST changes: +FLUOXETINE HCL20 MG PO; +MECLIZINE HCL25 MG PO; +PROPRANOLOL HCL60 MG PO; +SUDOGEST30 MG PO; +ZOFRAN4 MG PO
[2021-06-10] MEDS ORDERED: AMOXICILLIN500 MG PO (16:40)
== END 2021-06-10 17:02 | disposition home or self-care (01) ==
LOC: ED 14:19
DX: J18.9 Pneumonia, unspecified organism (principal); I10 Essential (primary) hypertension; Z87.891 Personal history of nicotine dependence; Z88.2 Allergy status to sulfonamides; Z79.899 Other long term (current) drug therapy
CPT/HCPCS: 71045; 99284-25

== ENCOUNTER 2022-08-19 04:12 | Emergency (ER) | payer OTHER ==
[~2022-08-19 04:12] MED LIST changes: +AMOXICILLIN500 MG PO
[2022-08-19] MEDS ORDERED: PROZAC40 MG PO (04:32)
[2022-08-19] MEDS ORDERED: ASPIRIN81 MG PO (04:32)
[2022-08-19] MEDS ORDERED: METOPROLOL SUC100 MG PO (04:32)
== END 2022-08-19 06:32 | disposition home or self-care (01) ==
LOC: ED 04:12
DX: O99.891 Other specified diseases and conditions complicating pregnancy (principal); R10.32 Left lower quadrant pain; Z3A.16 16 weeks gestation of pregnancy; I10 Essential (primary) hypertension; Z87.891 Personal history of nicotine dependence; Z88.2 Allergy status to sulfonamides; Z79.899 Other long term (current) drug therapy; Z79.82 Long term (current) use of aspirin
CPT/HCPCS: 36415; 76770; 80053; 81001; 83690; 84702; 85025; 86900; 86901; 96374; 99284-25; J2405; J7121

== ENCOUNTER 2022-10-17 12:30 | Emergency (ER) | payer OTHER ==
[~2022-10-17] VITALS: Ht 165.1 cm; Wt 113.3 kg
[~2022-10-17 12:30] MED LIST changes: +ASPIRIN81 MG PO; +METOPROLOL SUC100 MG PO; +PROZAC40 MG PO
[2022-10-17] MEDS ORDERED: VENTOLIN HFA18 GM INH (12:45)
[2022-10-17] MEDS ORDERED: AZITHROMYCIN250 MG PO (12:45)
--- NOTE | 2022-10-18 13:30 | EKG ---
[facility] [address] [facility] [place], [place] [address] Signed Normal sinus rhythm Minimal voltage criteria for LVH, may be normal variant ( R in aVL ) Borderline ECG When compared with ECG of 20-NOV-2020 13:24, No significant change was found Confirmed by LAVELLE UBRGESS MD ([id number]) on 10/18/2022 1:30:33 PM Electronically Signed By: LAVELLE BURGESS MD 10/18/22 1330 PATIENT NAME: JADA RODRIGUEZ Electrocardiogram DATE OF : [birth year] PHYSICIAN: LAVELLE BURGESS MD REPORT #: [id number] REPORT IS CONFIDENTIAL AND NOT TO BE RELEASED WITHOUT AUTHORIZATION
== END 2022-10-17 13:55 | disposition home or self-care (01) ==
LOC: ED 12:30
DX: O99.342 Other mental disorders complicating pregnancy, second trimester (principal); F41.9 Anxiety disorder, unspecified; Z3A.25 25 weeks gestation of pregnancy; O10.912 Unspecified pre-existing hypertension complicating pregnancy, second trimester; Z87.891 Personal history of nicotine dependence; Z88.2 Allergy status to sulfonamides; Z79.899 Other long term (current) drug therapy; Z79.82 Long term (current) use of aspirin
CPT/HCPCS: 36415; 80053; 83735; 84484; 85025; 93005; 93010; 99285-25

== ENCOUNTER 2024-05-13 04:23 | Emergency (ER) | payer OTHER ==
[~2024-05-13] VITALS: Ht 165.1 cm; Wt 117.0 kg
[~2024-05-13 04:23] MED LIST changes: +AZITHROMYCIN250 MG PO; +LOMOTIL TABLET1 EACH PO; +ONDANSETRON ODT8 MG PO; +VENTOLIN HFA18 GM INH
[2024-05-13] MEDS ORDERED: AMOX TR-K CLV1 EAC1 PO (04:37)
[2024-05-13] MEDS ORDERED: ondansetron HCL 4 MG/2 ML VIAL IV ONE (04:45)
[2024-05-13 04:52] LABS: BASOPHILS 0.2 % (0-2); EOSINOPHILS 0.3 % (0-6); HEMATOCRIT 50.8 % (35.0-50.0); HEMOGLOBIN 17.2 g/dL (12.0-18.0); LYMPHOCYTES 8.4 % (24-44); MCH 30.8 (27-36); MCHC 33.9 g/dl (30-36); MONOCYTES 2.3 % (0-12); NEUTROPHILS 88.8 % (39-80); PLATELET COUNT 342 K/uL (140-440); RBC 5.58 M/ul (4.3-5.7); RDW 13.3 (10.5-15.0)
[2024-05-13 05:07] LABS: ALBUMIN 4.2 g/dL (3.4-5.0); ALBUMIN/GLOBULIN RATIO 0.86 (1.1-2.4); ANION GAP 17.6 (7-21); BILIRUBIN, TOTAL 0.7 ng/dL (0.2-1.0); CALCIUM 10.3 mg/dL (8.5-10.1); CREATININE, SERUM 1.35 mg/dL (0.55-1.02); MAGNESIUM 1.5 mg/dL (1.8-2.4); POTASSIUM 3.6 mmol/L (3.5-5.1); PROTEIN, TOTAL 9.1 g/dL (6.4-8.2)
[2024-05-13] MEDS ORDERED: SODIUM CHLORIDE 0.9% 2,000 ML IV SCH (05:30)
[2024-05-13] MEDS ORDERED: ONDANSETRON ODT8 MG PO (06:35)
[2024-05-13] MEDS ORDERED: ONDANSETRON 4 MG HOME.PACK SL ONE (06:45)
[2024-05-13 07:20] VITALS: BP 115/83
== END 2024-05-13 07:20 | disposition home or self-care (01) ==
LOC: ED 04:23
PROVIDERS: Emergency Medicine
DX: K52.9 Noninfective gastroenteritis and colitis, unspecified (principal); I10 Essential (primary) hypertension; Z87.891 Personal history of nicotine dependence; Z88.2 Allergy status to sulfonamides; Z79.899 Other long term (current) drug therapy
CPT/HCPCS: 36415; 71045; 74177; 80053; 83690; 83735; 84703; 85025; 96361; 99284-25; A9270; J2405; J7030; Q9967

== ENCOUNTER 2024-06-03 20:49 | Emergency (ER) | payer OTHER ==
[~2024-06-03] VITALS: Ht 165.1 cm; Wt 114.0 kg
[~2024-06-03 20:49] MED LIST changes: +AMOX TR-K CLV1 EAC1 PO
--- OUTSIDE RECORDS SUMMARY | 2024-06-03 20:50 | XMS ---
PreManage Notification: JADA RODRIGUEZ Security Migration Agent Events No recent Security Events currently on file CRITERIA MET - [facility] - 2 Visits in 30 Days CARE PROVIDERS -, [facility] Dentist: Bilingual Trainer Current [place] PHONE: [phone] -[place]- Dentist: Bilingual Trainer [facility] PHONE: [phone] Rhoda has no Care Guidelines for this patient. León VISIT COUNT (12 MO.) [address] [place] [address] TOTAL 3 NOTE: Visits indicate total known visits. ED/UCC VISIT TRACKING (12 MO.) 06/03/2024 20:49 [facility] [place] TYPE: Emergency COMPLAINT: - FLU SYMPTOMS 05/13/2024 04:24 [facility] [place] TYPE: Emergency COMPLAINT: - VOMITING DIAGNOSES: - Allergy status to sulfonamides - Essential (primary) hypertension - Nausea with vomiting, unspecified - Noninfective gastroenteritis and colitis, unspecified - Other shelter (current) drug therapy - Personal history of nicotine dependence 01/25/2024 17:[address] 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
[2024-06-03] MEDS ORDERED: CEFTRIAXONE/SODIUM CHLORIDE 2 GM/100 ML PIGGYBACK IV ONE (21:00)
[2024-06-03] MEDS ORDERED: VAZALORE81 MG PO (21:07)
[2024-06-03] MEDS ORDERED: ondansetron HCL 4 MG/2 ML VIAL IV ONE (21:15)
[2024-06-03] MEDS ORDERED: IBUPROFEN 600 MG TAB PO ONE (21:30)
[2024-06-03] MEDS ORDERED: ACETAMINOPHEN 500 MG TAB PO ONE (21:30)
[2024-06-03] MEDS ORDERED: SODIUM CHLORIDE 0.9% 1,000 ML IV PRN ×2 (21:30→23:45)
[2024-06-03 21:36] LABS: BASOPHILS 0.3 % (0-2); EOSINOPHILS 0.8 % (0-6); HEMATOCRIT 46.4 % (35.0-50.0); HEMOGLOBIN 16.1 g/dL (12.0-18.0); LYMPHOCYTES 8.2 % (24-44); MCHC 34.8 g/dl (30-36); MCV 89.2 fl (81-99); MONOCYTES 4.6 % (0-12); NEUTROPHILS 86.1 % (39-80); PLATELET COUNT 310 K/uL (140-440); RDW 13.3 (10.5-15.0)
[2024-06-03 21:50] LABS: PARTIAL THROMBOPLASTIN TIME 26.8 Sec (22.9-41.3)
[2024-06-03 21:51] LABS: INR 0.99 (0.80-1.30); PROTIME 12.4 Sec (11.2-14.2)
[2024-06-03 21:52] LABS: ALBUMIN 3.4 g/dL (3.4-5.0); ALBUMIN/GLOBULIN RATIO 0.77 (1.1-2.4); ANION GAP 14.1 (7-21); BILIRUBIN, TOTAL 0.8 ng/dL (0.2-1.0); BUN/CREATININE RATIO 15.45 (6.0-28.6); CALCIUM 9.1 mg/dL (8.5-10.1); CREATININE, SERUM 1.1 mg/dL (0.55-1.02); POTASSIUM 4.1 mmol/L (3.5-5.1); PROTEIN, TOTAL 7.8 g/dL (6.4-8.2)
[2024-06-03 21:58] LABS: LACTIC ACID, BLOOD 2.7 mmol/L (0.4-2.0)
[2024-06-03 22:09] LABS: INFLUENZA B NAA NEGATIVE (NEGATIVE); RESPIRATORY SYNCYTIAL VIR NAA NEGATIVE (NEGATIVE)
[2024-06-03] MEDS ORDERED: SODIUM CHLORIDE 0.9% 1,000 ML IV ONE (22:15)
[2024-06-03 23:24] LABS: BILIRUBIN, URINE NEGATIVE (negative); BLOOD/HGB, URINE TRACE-I (Negative); KETONE, URINE NEGATIVE (Negative); LEUK ESTERASE, URINE NEGATIVE (negative); NITRITE, URINE NEGATIVE (negative)
[2024-06-03 23:37] LABS: BACTERIA, URINE RARE /hpf (negative); CASTS, URINE NONE SEEN \\lpf; COLLECTION TYPE, URINE CLEAN CATCH; CRYSTALS, URINE NONE SEEN (0-1+); EPITHELIAL CELLS, URINE SQUAMOUS 3+ /lpf (0-1+); REFLEX CULTURE, URINE No (No)
[2024-06-04 00:15] LABS: LACTIC ACID, BLOOD 1.7 mmol/L (0.4-2.0)
[2024-06-04] MEDS ORDERED: DIPHENOXYLATE/ATROPINE 1 EA TAB PO ONE (01:15)
[2024-06-04] MEDS ORDERED: CEFDINIR300 MG PO (01:20)
[2024-06-04] MEDS ORDERED: PROMETHAZINE HC25 M1 PO (01:20)
[2024-06-04] MEDS ORDERED: ONDANSETRON 4 MG HOME.PACK SL ONE (01:30)
[2024-06-04] MEDS ORDERED: CEFDINIR 300 MG HOME.PACK PO ONE (01:30)
[2024-06-04] MEDS ORDERED: PROMETHAZINE HCL 25 MG HOME.PACK PO ONE (01:30)
[2024-06-04 01:41] VITALS: BP 89/60
[2024-06-07 10:08] LABS: NOROVIRUS 1 BY PCR Not Detected (()); NOROVIRUS 2 BY PCR Detected (())
== END 2024-06-04 01:41 | disposition home or self-care (01) ==
LOC: ED 20:49
PROVIDERS: Family Medicine
DX: J32.9 Chronic sinusitis, unspecified (principal); K52.9 Noninfective gastroenteritis and colitis, unspecified; I10 Essential (primary) hypertension; F41.9 Anxiety disorder, unspecified; Z87.891 Personal history of nicotine dependence; Z88.2 Allergy status to sulfonamides; Z79.899 Other long term (current) drug therapy; Z79.82 Long term (current) use of aspirin
CPT/HCPCS: 36415; 51798; 71045; 80053; 81001; 83605; 85025; 85610; 85730; 87040; 87045; 87046; 87502; 96361; 96365; 96375; 99284-25; A9270; J0696; J2405; J7030; U0002

== ENCOUNTER 2025-03-13 11:27 | Emergency (ER) | payer OTHER ==
[~2025-03-13] VITALS: Ht 165.1 cm; Wt 103.0 kg
[~2025-03-13 11:27] MED LIST changes: +CEFDINIR300 MG PO; +PROMETHAZINE HC25 M1 PO; +VAZALORE81 MG PO
[2025-03-13 11:45] LABS: BASOPHILS 0.3 % (0.1-1.2); EOSINOPHILS 0.9 % (0.7-5.8); LYMPHOCYTES 25.7 % (19.3-51.7); MCH 30.6 PG (25.6-32.2); MCHC 33.9 g/dL (32.2-35.5); MCV 90.3 fL (79.4-94.8); MONOCYTES 8.6 % (4.7-12.5); NEUTROPHILS 64.2 % (34.0-71.1); RBC 4.74 M/uL (3.93-5.22)
[2025-03-13] MEDS ORDERED: SODIUM CHLORIDE 0.9% 500 ML IV PRN (11:45)
[2025-03-13] MEDS ORDERED: PRENATABS FA T1 EACH PO (11:48)
[2025-03-13] MEDS ORDERED: LO-DOSE ASPIRIN81 MG PO (11:48)
[2025-03-13 12:08] LABS: ABO O; RH NEGATIVE
[2025-03-13 12:19] LABS: GLOMERULAR FILTRATION RATE,EST 128.0 mL/min (>60); UREA NITROGEN 16.0 mg/dL (7-18)
[2025-03-13] MEDS ORDERED: RHO(D) IMMUNE GLOBULIN 1,500 UNIT/2 ML ML IM ONE (13:15)
[2025-03-13 14:14] LABS: BLOOD/HGB, URINE MODERATE (Negative); KETONE, URINE NEGATIVE (Negative); LEUK ESTERASE, URINE NEGATIVE (negative); NITRITE, URINE NEGATIVE (negative)
[2025-03-13 14:15] VITALS: BP 102/67
[2025-03-13 14:23] LABS: BACTERIA, URINE NONE SEEN /hpf (negative); CASTS, URINE NONE SEEN \\lpf; CRYSTALS, URINE NONE SEEN (0-1+); EPITHELIAL CELLS, URINE 0 /lpf (0-1+); REFLEX CULTURE, URINE No (No)
== END 2025-03-13 14:20 | disposition home or self-care (01) ==
LOC: ED 11:27
PROVIDERS: Emergency Medicine
DX: O20.0 Threatened abortion (principal); I10 Essential (primary) hypertension; Z87.891 Personal history of nicotine dependence; Z88.2 Allergy status to sulfonamides; Z79.82 Long term (current) use of aspirin; Z79.899 Other long term (current) drug therapy; Z3A.15 15 weeks gestation of pregnancy
CPT/HCPCS: 36415; 76815; 80048; 81001; 84702; 85025; 86900; 86901; 96372; 99284; J2790

== ENCOUNTER 2025-04-14 19:59 | Emergency (ER) | payer OTHER ==
[~2025-04-14] VITALS: Ht 165.1 cm; Wt 106.0 kg
[~2025-04-14 19:59] MED LIST changes: +LO-DOSE ASPIRIN81 MG PO; +PRENATABS FA T1 EACH PO
[2025-04-14 21:30] LABS: BASOPHILS 0.3 % (0.1-1.2); EOSINOPHILS 1.2 % (0.7-5.8); LYMPHOCYTES 22.2 % (19.3-51.7); MCH 31.4 PG (25.6-32.2); MCHC 34.9 g/dL (32.2-35.5); MCV 89.8 fL (79.4-94.8); MONOCYTES 7.0 % (4.7-12.5); NEUTROPHILS 69.0 % (34.0-71.1); RBC 4.43 M/uL (3.93-5.22)
[2025-04-14 21:31] LABS: BLOOD/HGB, URINE TRACE-I (Negative); KETONE, URINE NEGATIVE (Negative); LEUK ESTERASE, URINE NEGATIVE (negative); NITRITE, URINE NEGATIVE (negative)
[2025-04-14 21:38] LABS: BACTERIA, URINE RARE /hpf (negative); CASTS, URINE NONE SEEN \\lpf; CRYSTALS, URINE NONE SEEN (0-1+); EPITHELIAL CELLS, URINE SQUAMOUS 3+ /lpf (0-1+); REFLEX CULTURE, URINE No (No)
[2025-04-14 21:46] LABS: AMPHETAMINES, URINE NEGATIVE (NEGATIVE); BARBITURATES, URINE NEGATIVE (NEGATIVE); BENZODIAZEPINE, URINE NEGATIVE (NEGATIVE); CANNABINOID, URINE NEGATIVE (NEGATIVE); COCAINE, URINE NEGATIVE (NEGATIVE); ECSTASY, URINE NEGATIVE (NEGATIVE); FENTANYL, URINE NEGATIVE (NEGATIVE); METHADONE, URINE NEGATIVE (NEGATIVE); OPIATES, URINE NEGATIVE (NEGATIVE); OXYCODONE, URINE NEGATIVE (NEGATIVE); PHENCYCLIDINE, URINE NEGATIVE (NEGATIVE)
[2025-04-14 21:56] LABS: ALT (SGPT) 25.0 U/L (14-59); AST (SGOT) 16.0 U/L (15-37); GLOMERULAR FILTRATION RATE,EST 127.0 mL/min (>60); PROTEIN, TOTAL 7.2 g/dL (6.4-8.2); TSH, 3RD GENERATION 1.526 uIU/mL (0.358-3.740); UREA NITROGEN 16.0 mg/dL (7-18)
[2025-04-14] MEDS ORDERED: MAGNESIUM OXID400 M1 PO (22:34)
[2025-04-14] MEDS ORDERED: MAGNESIUM OXIDE 400 MG TABLET PO ONE (22:45)
[2025-04-14 22:46] VITALS: BP 139/65
--- NOTE | 2025-04-15 12:59 | EKG ---
[facility] [address] [facility] [place] [address] Signed Normal sinus rhythm Minimal voltage criteria for LVH, may be normal variant ( R in aVL ) Borderline ECG Confirmed by Kvng Maloney DO ([id number]) on 04/15/2025 12:59:18 PM Electronically Signed By: KVNG MALONEY DO 04/15/25 1259 PATIENT NAME: JADA DUARTE Electrocardiogram DATE OF : [birth year] PHYSICIAN: KVNG MALONEY DO REPORT #: [id number] REPORT IS CONFIDENTIAL AND NOT TO BE RELEASED WITHOUT AUTHORIZATION
== END 2025-04-14 22:48 | disposition home or self-care (01) ==
LOC: ED 19:59
PROVIDERS: Internal Medicine
DX: O26.892 Other specified pregnancy related conditions, second trimester (principal); R00.2 Palpitations; Z3A.20 20 weeks gestation of pregnancy; O99.282 Endocrine, nutritional and metabolic diseases complicating pregnancy, second trimester; E83.42 Hypomagnesemia; O10.012 Pre-existing essential hypertension complicating pregnancy, second trimester; Z87.891 Personal history of nicotine dependence; Z88.2 Allergy status to sulfonamides; Z79.82 Long term (current) use of aspirin; Z79.899 Other long term (current) drug therapy
CPT/HCPCS: 36415; 80053; 80307; 81001; 83605; 83735; 84443; 84484; 85025; 87040; 93005; 93010; 99285